=== PATIENT | male | born 1960 | race Caucasian/White ===

== ENCOUNTER 2016-06-25 19:14 | Inpatient (IN) | payer OTHER ==
[~2016-06-25] VITALS: Ht 177.8 cm; Wt 123.5 kg
[2016-06-25] MEDS ORDERED: IPRATROPIUM 0.5MG/ALBUTEROL 2.5MG INH SOL UD 3ML (DUONEB)(J7620) As Ordered ONE (20:05)
[2016-06-25] MEDS ORDERED: ASPIRIN 81 MG CHEW TABLET As Ordered ONE (20:13)
[2016-06-25] MEDS ORDERED: ACETAMINOPHEN TAB 650MG DOSE (2X325MG) As Ordered ONE (20:13)
[2016-06-25 20:16] LABS: ABG BASE EXCESS 5.4 (-2.0-2.0); ABG DEVICE NASAL CANN; ABG HCO3 28.7 MEQ/L (22.0-26.0); ABG PARTIAL PRESSURE CO2 37.6 mmHg (35.0-45.0); ABG PARTIAL PRESSURE O2 64.1 mmHg (75.0-100.0); ABG STANDARD HCO3 29.3 MEQ/L (22.0-26.0); ABG TOTAL CO2 29.9 MEQ/L (22.0-29.0); ABG pH (ARTERIAL) 7.501 UNITS (7.350-7.450)
[2016-06-25 20:22] LABS: BASO # 0.1 K/mm3 (0.0-0.2); BASO % 0.3 % (0.0-1.0); EOS % 0.2 % (0.0-3.0); LARGE UNSTAINED CELL # 0.3 K/mm3 (0.0-0.4); LARGE UNSTAINED CELL % 1.3 % (0.0-4.0); MEAN CORPUSCULAR HEMOGLOBIN 31.2 pg (27.0-33.0); MEAN CORPUSCULAR HGB CONC 33.8 g/dl (32.0-36.5); MEAN CORPUSCULAR VOLUME 92.4 fl (80.0-96.0); MONO # 1.1 K/mm3 (0.0-0.8); MONO % 5.7 % (0.0-5.0); NEUTROPHILS # 17.2 K/mm3 (1.8-7.7); NEUTROPHILS % 87.5 % (36.0-66.0); PLATELET COUNT, AUTOMATED 185 k/mm3 (150-450); RED CELL DISTRIBUTION WIDTH 13.4 % (11.5-14.5); WHITE BLOOD COUNT 19.6 K/mm3 (4.0-10.0)
[2016-06-25 20:30] LABS: ANION GAP 11 MEQ/L (8-16); BLOOD UREA NITROGEN 14 MG/DL (7-18); CALCIUM LEVEL 8.8 MG/DL (8.5-10.1); CARBON DIOXIDE LEVEL 29 MEQ/L (21-32); CHLORIDE LEVEL 94 MEQ/L (98-107); CREATININE FOR GFR 1.17 MG/DL (0.70-1.30); GLOMERULAR FILTRATION RATE > 60.0 (>56); GLUCOSE, FASTING 148 MG/DL (70-105); POTASSIUM SERUM 3.9 MEQ/L (3.5-5.1); SODIUM LEVEL 134 MEQ/L (136-145)
[2016-06-25] MEDS ORDERED: cefTRIAXone SOD 1 GM VIAL (J0696) As Ordered ONE (20:40)
[2016-06-25] MEDS ORDERED: ROSU20TA PO (20:59)
[2016-06-25] MEDS ORDERED: LISI10TA4 PO (20:59)
[2016-06-25] MEDS ORDERED: LASI40TA PO (20:59)
[2016-06-25] MEDS ORDERED: ASPI81TA85 PO (20:59)
[2016-06-25] MEDS ORDERED: LOPR50TA PO (20:59)
[2016-06-25] MEDS: METOPROLOL TART 50 MG TAB PO SCH (21:00)
[2016-06-25] MEDS: LISINOPRIL 10 MG TAB PO SCH (21:00)
[2016-06-25] MEDS ORDERED: AZITHROMYCIN INJ 500MG VIAL (J0456) As Ordered ONE (21:01)
[2016-06-25 21:07] LABS: INR 1.07
--- NOTE | 2016-06-25 21:19 | REP ---
Clinical: Shortness of breath. Technique: PA and lateral. Comparison: None. Findings: Cardiomegaly is appreciated with evidence for prior sternotomy. Right lower lobe opacity/mass. No further consolidation, effusion, or pneumothorax. Skeletal structures intact. Impression: 1. Cardiomegaly. 2. Right lower lobe opacity/mass requires further investigation including chest CT. Signed by Taran Potts MD 06/25/2016 09:10 P
--- NOTE | 2016-06-25 21:30 | REP ---
Clinical: Right lower lobe consolidation versus mass. Findings: Marked cardiomegaly is appreciated which requires correlation. The patient appears to be status post sternotomy. No pericardial effusion is identified. Right lower lobe consolidation with air bronchograms most compatible with acute pneumonia. Minimal scattered alveolar infiltrates are also identified within the right upper lobe. No pleural effusion. No pneumothorax. Tracheobronchial tree is patent. No significant obvious adenopathy. Limited evaluation of the upper abdomen demonstrates normal bilateral adrenal glands. Impression: 1. Marked cardiomegaly and evidence of prior sternotomy. 2. Moderate right lower lobe consolidation with air bronchograms and trace right upper lobe airspace disease most compatible with acute pneumonia. Follow-up to resolution recommended. Signed by Taran Potts MD 06/25/2016 09:22 P
[2016-06-25] MEDS ORDERED: BISACODYL 5 MG TAB PO PRN (23:30)
[2016-06-25] MEDS ORDERED: IPRATROPIUM 0.5MG/ALBUTEROL 2.5MG INH SOL UD 3ML (DUONEB)(J7620) NEB PRN (23:45)
[2016-06-26 00:05] LABS: T UPTAKE 32 % (33-40)
[2016-06-26 01:00] VITALS: BP 141/99
--- NOTE | 2016-06-26 01:11 | EDDOCDS ---
Nurse's Notes [facility] Name: Fahad Ovalle Age: 55 yrs Sex: Male : 1960 Arrival Date: 06/25/2016 Time: 19:14 Bed 18 Private MD: NO PRIMARY PHYSICIAN, . Diagnosis: Hypoxemia;Chronic obstructive pulmonary disease with (acute) exacerbation;Bronchopneumonia, unspecified organism-RLL;Essential (primary) hypertension;Cardiomegaly;Patient's noncompliance with medical treatment and regimen Presentation: 06/25 19:24 Presenting complaint: Patient states: that he has been having chest pressure on and off cz for several days has URI symptoms and recently started smoking again in April after having quit for 18 years. pt states hasnt smoked in a couple of days. at this time no chest pain or pressure.pt states had an [facility] 18-19 years ago. Aspirin was not taken prior to arrival. Adult Sepsis Screening: The patient does not have new or worsening altered mentation. Patient's respiratory rate is less than 22. Systolic blood pressure is greater than 100. Patient has a qSOFA score of 0- Negative Sepsis Screen. Suicide/Homicide risk assessment- the patient denies having any suicidal and/or homicidal ideations and does not present with any other emotional, behavioral or mental health complaints. Status: Patient is not a member services representative or dependent. Transition of care: patient was not received from another setting of care. 19:24 Acuity: WALDEMAR Level 2 cz 19:24 Method Of Arrival: Walkin/Carried/Asstd cz Triage Assessment: 19:28 General: Appears uncomfortable. Pain: Denies pain. HIV screening NA for this visit cz Offered previously. 19:37 Cardiovascular: Chest pain is described as vague, radiates Does not radiate. episodes ko2 are intermittent. 23:18 Cardiovascular: Chest pain began on and off for a couple days. ko2 Historical: - Allergies: not sure of name; - Home Meds: 1. not sure of medications - PMHx: back problems; heart problems; - PSHx: CABG; - The history from nurses notes was reviewed: and I agree with what is documented. - Social history: Smoking status: Patient uses tobacco products, current some day smoker. No barriers to communication noted, The patient speaks fluent French, Speaks appropriately for age. - : The pt / caregiver states he / she is not on anticoagulants. Home medication list is obtained from the patient. - Hospitalizations: : No recent hospitalization is reported. - Exposure Risk Screening:: None identified. - Immunization history:: Flu vaccine is up to date. - Family history: Not pertinent. - Social history:: the patient is a former smoker, the patient drinks alcohol. Screenin:36 Screening information is obtained from the patient. Fall risk: No risks identified. ko2 Assistance ADL's: requires no assistance with activities of daily living. Abuse/DV Screen: The patient / caregiver reports he/she is: not in a situation that causes fear, pain or injury. Nutritional screening: No deficits noted. Advance Directives: Currently, there is no health care proxy. There is no active DNR order. There is no living will. There is no Power of Senior Accounting Clerk. home support is adequate. Assessment: 19:34 General: Appears in no apparent distress, comfortable, Behavior is appropriate for age, ko2 cooperative. Pain: Denies pain. Neurological: Level of Consciousness is awake, alert, Oriented to person, place, time. Cardiovascular: Heart tones S1 S2 present Rhythm is atrial fibrillation Chest pain is denied. Respiratory: Airway is patent Respiratory effort is even, unlabored, Respiratory pattern is regular, symmetrical, Reports cough that is non-productive. Derm: Skin is normal. 20:18 General: Appears in no apparent distress, comfortable, Behavior is appropriate for age, ko2 cooperative. Pain: Denies pain. Neurological: Level of Consciousness is awake, alert. Cardiovascular: Rhythm is atrial fibrillation. Respiratory: Airway is patent. Derm: Skin is normal. 21:22 General: Appears in no apparent distress, comfortable, Behavior is appropriate for age, ko2 cooperative. Neurological: Level of Consciousness is awake, alert. Respiratory: Airway is patent Respiratory effort is even, unlabored, Respiratory pattern is regular, symmetrical. Derm: Skin is normal. 22:18 General: Appears in no apparent distress, comfortable, Behavior is appropriate for age, ko2 cooperative. Pain: Denies pain. Neurological: Level of Consciousness is awake, alert. Respiratory: Airway is patent Respiratory effort is even, unlabored. Derm: No deficits noted. 23:17 Reassessment: Patient appears in no apparent distress at this time. Patient denies pain ko2 at this time. Neurological: Level of Consciousness is awake, alert. Respiratory: Airway is patent. Derm: Skin is normal. 06/26 00:44 General: Appears in no apparent distress, comfortable, Behavior is appropriate for age, ko2 cooperative. Pain: Denies pain. Neurological: Level of Consciousness is awake, alert. Respiratory: Airway is patent Respiratory effort is even, unlabored. Derm: Skin is normal. Vital Signs: 06/25 19:15 BP 162 / 85; Pulse 96; Resp 18 S; Temp 101.4(O); Pulse Ox 93% on R/A; Weight 126.1 kg dd6 (R); Height 5 ft. 10 in. (177.80 cm) (R); Pain 10/01; 19:23 BP 191 / 118 (auto/); ko2 19:25 Pulse 98 MON; Pulse Ox 92% ; ko2 19:31 BP 185 / 102 (auto/); ko2 19:31 Pulse 92 MON; Pulse Ox 92% ; ko2 19:46 BP 177 / 87 (auto/); ko2 19:46 Pulse 94 MON; Pulse Ox 93% ; ko2 20:01 BP 168 / 93 (auto/); ko2 20:01 Pulse 92 MON; Pulse Ox 90% ; ko2 20:15 Pulse 96 MON; ko2 20:16 BP 170 / 113 (auto/); ko2 20:30 Pulse 92 MON; Pulse Ox 90% ; ko2 20:31 BP 152 / 79 (auto/); ko2 21:01 BP 129 / 78 (auto/); pc 21:01 Pulse 94 MON; pc 21:16 BP 121 / 78 (auto/); ko2 21:16 Pulse 96 MON; ko2 21:31 BP 138 / 90 (auto/); ko2 21:31 Pulse 94 MON; Pulse Ox 94% ; ko2 21:44 Pulse 84 MON; Pulse Ox 91% ; ko2 21:46 BP 129 / 79 (auto/); ko2 22:01 BP 139 / 83 (auto/); ko2 22:02 Pulse 86 MON; Pulse Ox 93% ; ko2 22:09 Pulse 84 MON; Pulse Ox 92% ; ko2 22:16 BP 122 / 70 (auto/); ko2 22:22 Temp 99.1(O); ko2 22:31 BP 122 / 70 (auto/); ko2 22:31 Pulse 84 MON; Pulse Ox 92% ; ko2 22:46 BP 157 / 101 (auto/); ko2 22:46 Pulse 88 MON; ko2 23:01 BP 150 / 95 (auto/); ko2 23:01 Pulse 84 MON; Pulse Ox 94% ; ko2 23:16 BP 150 / 94 (auto/); ko2 23:16 Pulse 82 MON; Pulse Ox 96% ; ko2 23:31 BP 164 / 102 (auto/); ko2 23:31 Pulse 88 MON; Pulse Ox 95% ; ko2 23:46 BP 143 / 94; Pulse 76; Resp 20; Temp 99.2; Pulse Ox 95% ; Pain 0/10; ko2 19:15 Body Mass Index 39.89 (126.10 kg, 177.80 cm) dd6 Vitals: 19:15 Log In Time: June 25, 2016 at 19:15. RN notified that patient meets Red Flag dd6 criteria. ED Course: 19:15 Patient visited by Alex Cano PCA. dd6 19:15 NO PRIMARY PHYSICIAN, . is Private Physician. dd6 19:15 Patient moved to Waiting dd6 19:18 Patient visited by Alex Cano PCA. dd6 19:19 Patient moved to Pre RCE dd6 19:20 Rosio Damon,RN is Primary Nurse. cz 19:20 Patient moved to 18 cz 19:26 Triage Initiated cz 19:29 EKG done. (by ED staff). Reviewed by Tristan YEE. tre 19:36 Patient visited by Melinda Rivas PCA. rte 19:36 Aryan Bay MD is Attending Physician. pc 19:36 Pt greeted and oriented to ED. Patient advised of names of staff involved in care, tre location of call le, wait times and NPO status. Patient has correct armband on for positive identification. Placed in gown. Bed in low position. Call light in reach. Side rails up X2. hydraulic jack operator on. Pulse ox on. NIBP on. 19:37 Inserted saline lock: 18 gauge in left antecubital area and blood collected. The ko2 patient tolerated the procedure well. 19:55 Patient visited by Aryan Bay MD. pc 20:09 Pt & Aptt Sent. ko2 20:09 -Blood Culture Sent. ko2 20:09 -Influenza A&B Rapid Antigen - Nose Sent. ko2 20:09 Basic Metabolic Profile Sent. ko2 20:09 CBC with Diff Sent. ko2 20:09 Cardiac Injury Profile Sent. ko2 20:09 Troponin Sent. ko2 20:14 -Arterial Blood Gas Sent. jc3 20:46 Patient visited by Rosio Damon RN. ko2 21:26 Patient visited by Rosio Damon RN. ko2 21:26 O2 via nasal cannula \T\ 2L/min. ko2 21:27 Patient visited by Rosio Damon RN. ko2 21:39 Chest, 2 View (pa\E\lat) Returned. EDMS 21:39 CT Chest Without Contrast Returned. EDMS 22:18 Patient visited by Rosio Damon RN. ko2 22:22 Randy Avery DO is Hospitalizing Provider. 22:47 [facility] Payment Agreement was scanned into [employer] and attached to record. zo 23:18 The patient / caregiver is instructed regarding the plan of care and ED course. ko2 23:57 No procedures done that require assistance. ko2 Administered Medications: 20:14 Drug: Albuterol-Ipratropium 3 ml [ipratropium-albuterol 0.5 mg-3 mg(2.5 mg base)/3 mL jc3 nebulization soln (3 mL)] Route: Inhalation; 20:18 Drug: Acetaminophen 650 mg [acetaminophen 325 mg tablet (2 tabs)] Route: PO; ko2 23:00 Follow up: Response: Temperature is decreased ko2 20:18 Drug: Aspirin 324 mg [aspirin 81 mg chewable tablet (4 tabs)] Route: PO; ko2 23:00 Follow up: Response: No Adverse Reaction ko2 20:46 Drug: cefTRIAXone 1 grams [ceftriaxone 1 gram solution for injection] Route: IVPB; ko2 Infused Over: 30 mins; Site: left antecubital; :29 Follow up: IV Status: Completed infusion; IV Intake: 50ml ko2 21:20 Drug: azithromycin 500 mg [azithromycin 500 mg intravenous solution] Route: IVPB; mgs Infused Over: 1 hrs; Site: left antecubital; 22:22 Follow up: IV Status: Completed infusion; IV Intake: 250ml ko2 Intake: :29 IV: 50.00ml; Total: 50.00ml. ko2 22:22 IV: 250.00ml; Total: 300.00ml. ko2 RT: 20:14 ABG's drawn from right radial artery pressure held for 5 minutes no bleeding noted jc3 pressure bandage applied specimen sent pt. tolerated well. Initial Med Neb Given as ordered. Respiratory: Breath sounds are diminished bilaterally. Order Results: Lab Order: Basic Metabolic Profile; SPEC'M 06/25/16 19:31 Test: GLUCOSE, FASTING; Value: 148; Range: 70-105; Abnormal: Above high normal; Units: MG/DL; Status: F Test: BLOOD UREA NITROGEN; Value: 14; Range: 7-18; Units: MG/DL; Status: F Test: CREATININE FOR GFR; Value: 1.17; Range: 0.70-1.30; Units: MG/DL; Status: F Test: GLOMERULAR FILTRATION RATE; Value: > 60.0; Range: >56; Status: F Test: SODIUM LEVEL; Value: 134; Range: 136-145; Abnormal: Below low normal; Units: MEQ/L; Status: F Test: POTASSIUM SERUM; Value: 3.9; Range: 3.5-5.1; Units: MEQ/L; Status: F Test: CHLORIDE LEVEL; Value: 94; Range: 98-107; Abnormal: Below low normal; Units: MEQ/L; Status: F Test: CARBON DIOXIDE LEVEL; Value: 29; Range: 21-32; Units: MEQ/L; Status: F Test: ANION GAP; Value: 11; Range: 8-16; Units: MEQ/L; Status: F Test: CALCIUM LEVEL; Value: 8.8; Range: 8.5-10.1; Units: MG/DL; Status: F Test Note: ; Units are mL/min/1.73 m2 Chronic Kidney Disease Staging per NKF: Stage I & II GFR >=60 Normal to Mildly Decreased Stage III GFR 30-59 Moderately Decreased Stage IV GFR 15-29 Severely Decreased Stage V GFR <15 Very Little GFR Left ESRD GFR <15 on NUMERICAL CONTROL LATHE OPERATOR Lab Order: CBC with Diff; SPEC'M 06/25/16 19:31 Test: WHITE BLOOD COUNT; Value: 19.6; Range: 4.0-10.0; Abnormal: Above high normal; Units: K/mm3; Status: F Test: RED BLOOD COUNT; Value: 4.97; Range: 4.30-6.10; Units: M/mm3; Status: F Test: HEMOGLOBIN; Value: 15.5; Range: 14.0-18.0; Units: g/dl; Status: F Test: HEMATOCRIT; Value: 46.0; Range: 42.0-52.0; Units: %; Status: F Test: MEAN CORPUSCULAR VOLUME; Value: 92.4; Range: 80.0-96.0; Units: fl; Status: F Test: MEAN CORPUSCULAR HEMOGLOBIN; Value: 31.2; Range: 27.0-33.0; Units: pg; Status: F Test: MEAN CORPUSCULAR HGB CONC; Value: 33.8; Range: 32.0-36.5; Units: g/dl; Status: F Test: RED CELL DISTRIBUTION WIDTH; Value: 13.4; Range: 11.5-14.5; Units: %; Status: F Test: PLATELET COUNT, AUTOMATED; Value: 185; Range: 150-450; Units: k/mm3; Status: F Test: NEUTROPHILS %; Value: 87.5; Range: 36.0-66.0; Abnormal: Above high normal; Units: %; Status: F Test: LYMPH %; Value: 5.0; Range: 24.0-44.0; Abnormal: Below low normal; Units: %; Status: F Test: MONO %; Value: 5.7; Range: 0.0-5.0; Abnormal: Above high normal; Units: %; Status: F Test: EOS %; Value: 0.2; Range: 0.0-3.0; Units: %; Status: F Test: BASO %; Value: 0.3; Range: 0.0-1.0; Units: %; Status: F Test: LARGE UNSTAINED CELL %; Value: 1.3; Range: 0.0-4.0; Units: %; Status: F Test: NEUTROPHILS #; Value: 17.2; Range: 1.8-7.7; Abnormal: Above high normal; Units: K/mm3; Status: F Test: LYMPH #; Value: 1.0; Range: 1.5-4.5; Abnormal: Below low normal; Units: K/mm3; Status: F Test: MONO #; Value: 1.1; Range: 0.0-0.8; Abnormal: Above high normal; Units: K/mm3; Status: F Test: EOS #; Value: 0.0; Range: 0.0-0.50; Units: K/mm3; Status: F Test: BASO #; Value: 0.1; Range: 0.0-0.2; Units: K/mm3; Status: F Test: LARGE UNSTAINED CELL #; Value: 0.3; Range: 0.0-0.4; Units: K/mm3; Status: F Lab Order: Cardiac Injury Profile; SPEC'M 06/25/16 19:31 Test: CPK CREATINE PHOSPHOKINASE; Value: 171; Range: 39-308; Units: U/L; Status: F Test: CK-MB VALUE MASS; Value: 1.6; Range: 0.0-3.6; Units: NG/ML; Status: F Test: MB/CK RELATIVE INDEX; Value: 0.93; Range: < OR =4; Status: F Test Note: ; DIAGNOSIS CRITERIA MMB ng/ml Relative Index (RI) NON-AMI < or = 5 N/A MIRELES ZONE > 5 < or = 4 AMI > 5 > 4 Lab Order: Troponin; SPEC'M 06/25/16 19:31 Test: TROPONIN I; Value: 0.05; Range: < 0.10; Units: NG/ML; Status: F Test Note: ; Troponin I Reference Interval for [employer] LOCI: 99th Percentile= 0.00-0.045 ng/ml Risk Stratification: <= 0.10 ng/ml Decreased Risk for Adverse Clinical Events. 0.10-1.50 ng/ml Increased Risk for Adverse Clinical Events. Evaluation of additional criterion and/or repeat testing in 2-6 hours is suggested to rule out myocardial damage. >= 1.50 ng/ml Indicative of Myocardial Injury. Lab Order: -Influenza A&B Rapid Antigen - Nose; SPEC'M 06/25/16 20:04 Test: INFLUENZA A RAPID SCR by ICA; Value: INFLUENZA A RESULTS NEGATIVE; Status: F Test: INFLUENZA A RAPID SCR by ICA; Value: Comments:; Status: F Test: INFLUENZA B RAPID SCR by ICA; Value: INFLUENZA B RESULTS NEGATIVE; Status: F Test Note: ; The Influenza test is a direct rapid immunoassay for the qualitative detection of Influenza viral antigen. Cell culture (Viral Culture) testing should be considered to confirm NEGATIVE results and to assist in detecting other viruses that can provide similar clinical symptoms. Please contact the lab within 24 hours ([phone]) if confirmatory testing is desired. Lab Order: Lactic Acid (Mireles tube on ice); SPEC'M 06/25/16 20:04 Test: LACTIC ACID LEVEL, LACTATE; Value: 1.0; Range: 0.4-2.0; Units: MMOL/L; Status: F Lab Order: -Arterial Blood Gas; SPEC'M 06/25/16 20:07 Test: ABG pH (ARTERIAL); Value: 7.501; Range: 7.350-7.450; Abnormal: Above high normal; Units: UNITS; Status: F Test: ABG PARTIAL PRESSURE CO2; Value: 37.6; Range: 35.0-45.0; Units: mmHg; Status: F Test: ABG PARTIAL PRESSURE O2; Value: 64.1; Range: 75.0-100.0; Abnormal: Below low normal; Units: mmHg; Status: F Test: ABG TOTAL CO2; Value: 29.9; Range: 22.0-29.0; Abnormal: Above high normal; Units: MEQ/L; Status: F Test: ABG HCO3; Value: 28.7; Range: 22.0-26.0; Abnormal: Above high normal; Units: MEQ/L; Status: F Test: ABG BASE EXCESS; Value: 5.4; Range: -2.0-2.0; Abnormal: Above high normal; Status: F Test: ABG STANDARD HCO3; Value: 29.3; Range: 22.0-26.0; Abnormal: Above high normal; Units: MEQ/L; Status: F Test: ABG O2 SATURATION; Value: 94.7; Range: 95.0-99.0; Abnormal: Below low normal; Units: %; Status: F Test: ABG DEVICE; Value: NASAL MAURICIO; Status: F Lab Order: Pt & Aptt; SPEC'M 06/25/16 19:31 Test: PROTHROMBIN TIME; Value: 14.0; Range: 12.3-14.5; Units: SECONDS; Status: F Test: INR; Value: 1.07; Status: F Test: PARTIAL THROMBOPLASTIN TIME; Value: 34.4; Range: 26.6-37.1; Units: SECONDS; Status: F Test Note: ; THERAPUTIC HUMAN INR VALUES INDICATIONS NORMAL RANGES PROPHYLAXIS/TREATMENT OF: VENOUS THROMBOSIS 2.0-3.0 PULMONARY EMBOLISM 2.0-3.0 PREVENTION OF SYSTEMIC EMBOLISM FROM: TISSUE HEART VALVES 2.0-3.0 ACUTE MYOCARDIAL INFARCTION 2.0-3.0 VALVULAR HEART DISEASE 2.0-3.0 ATRIAL FIBRILLATION 2.0-3.0 MECHANICAL VALVES(HIGH RISK) 2.5-3.5 RECURRENT MYOCARDIAL INFARCTION 2.5-3.5 Lab Order: [facility] PROFILE; [facility] 06/[facility] 19:31 Test: T UPTAKE; Value: 32; Range: 33-40; Abnormal: Below low normal; Units: %; Status: F Test: THYROXINE (T4); Value: 10.0; Range: 4.5-12.0; Units: UG/DL; Status: F Test: FREE THYROXINE INDEX; Value: 3.2; Range: 1.4-3.8; Units: %; Status: F Test: THYROID STIMULATING HORMONE; Value: 0.667; Range: 0.358-3.740; Units: uIU/ML; Status: F Radiology Order: Chest, 2 View (pa\E\lat) Test: Chest, 2 View (pa\E\lat) REASON FOR EXAMINATION: Shortness of Breath; Clinical: Shortness of breath.; ; Technique: PA and lateral.; ; Comparison: None.; ; Findings: Cardiomegaly is appreciated with evidence for prior sternotomy. Right; lower lobe opacity/mass. No further consolidation, effusion, or pneumothorax.; Skeletal structures intact.; ; Impression:; 1. Cardiomegaly.; 2. Right lower lobe opacity/mass requires further investigation including chest; CT.; ; ; Signed by; Taran Potts MD 06/25/2016 09:10 P; Radiology Order: CT Chest Without Contrast Test: CT Chest Without Contrast REASON FOR EXAMINATION: RLL infiltrate r/o mass; Clinical: Right lower lobe consolidation versus mass.; ; Findings:; Marked cardiomegaly is appreciated which requires correlation. The patient; appears to be status post sternotomy. No pericardial effusion is identified.; ; Right lower lobe consolidation with air bronchograms most compatible with acute; pneumonia. Minimal scattered alveolar infiltrates are also identified within the; right upper lobe. No pleural effusion. No pneumothorax. Tracheobronchial tree; is patent. No significant obvious adenopathy. Limited evaluation of the upper; abdomen demonstrates normal bilateral adrenal glands.; ; Impression:; 1. Marked cardiomegaly and evidence of prior sternotomy.; 2. Moderate right lower lobe consolidation with air bronchograms and trace right; upper lobe airspace disease most compatible with acute pneumonia. Follow-up to; resolution recommended.; ; ; Signed by; Taran Potts MD 06/25/2016 09:22 P; Outcome: 22:22 Decision to Hospitalize by Provider. pc 23:56 Admission hand-off: Report Faxed Fax receipt verified by Francesca Marcelo RN PCU. ko2 23:57 Discharge Assessment: Patient awake, alert and oriented x 3. No cognitive and/or ko2 functional deficits noted. Patient verbalized understanding of disposition instructions. patient administered narcotics - no. The following High Risk Discharge criteria are identified: None. Admitted to PCU accompanied by nurse, accompanied by tech, via stretcher, with oxygen, on monitor, with chart. Condition: stable. CT Study completed. Property :Personal belongings accompany Pt. 06/26 01:10 Patient left the ED. ko2 Signatures: Dispatcher [employer] Aryan Rene MD MD pc Zecher, Calvin, RAMOS RN Kvng Gama Joseph jc3 Alex Cano, TRANSPLANT NURSE PRACTITIONER TRANSPLANT NURSE PRACTITIONER dd6 Melinda Rivas, TRANSPLANT NURSE PRACTITIONER TRANSPLANT NURSE PRACTITIONER Rosio SalesRN RN ko2 Randy Zurita,RAMOS RN mgs Corrections: (The following items were deleted from the chart) 06/25 19:32 19:24 Presenting complaint: Patient states: that he has been having chest pressure on cz and off for several days has URI symptoms and recently started smoking again in April after having quit for 18 years. pt states hasnt smoked in a couple of days. at this time no chest pain or pressure cz MTDD
--- NOTE | 2016-06-26 01:11 | EDDOCDS ---
Physician Documentation [facility] Name: Fahad Ovalle Age: 55 yrs Sex: Male : 1960 Arrival Date: 06/25/2016 Time: 19:14 Bed 18 Private MD: NO PRIMARY PHYSICIAN, . Disposition: 06/25 22:19 Critical Care:. pc Disposition: 06/25/16 22:22 Hospitalization ordered by Randy Avery for Inpatient Admission. Preliminary diagnosis are Hypoxemia, Chronic obstructive pulmonary disease with (acute) exacerbation, Bronchopneumonia, unspecified organism - RLL, Essential (primary) hypertension, Cardiomegaly, Patient's noncompliance with medical treatment and regimen. - Bed requested for M PCU. - Status is Inpatient Admission. ko2 - Condition is Stable. - Problem is new. - Symptoms have improved. HPI: 20:34 This 55 yrs old Male presents to ER via Walkin/Carried/Asstd with complaints pc of Chest Pressure. 20:34 The history is obtained from the patient. A reliable history and/or examination was not pc able to be obtained, due to he is a very poor historian . He has had a cough for 2 weeks, with fevers and chills in the past 2 days. He has intermittent chest pain, lasting 1-2 minutes, at rest and with exertion. He has not seen a PCP in some 12 years, except for going to free clinic once every 1-2 years. The patient has not experienced similar symptoms in the past. The patient has not recently seen a physician. Historical: - Allergies: not sure of name; - Home Meds: 1. not sure of medications - PMHx: back problems; heart problems; - PSHx: CABG; - The history from nurses notes was reviewed: and I agree with what is documented. - Social history: Smoking status: Patient uses tobacco products, current some day smoker. No barriers to communication noted, The patient speaks fluent Ma[place], Speaks appropriately for age. - : The pt / caregiver states he / she is not on anticoagulants. Home medication list is obtained from the patient. - Hospitalizations: : No recent hospitalization is reported. - Exposure Risk Screening:: None identified. - Immunization history:: Flu vaccine is up to date. - Family history: Not pertinent. - Social history:: the patient is a former smoker, the patient drinks alcohol. ROS: 20:34 All systems are negative except as listed. pc Exam: 20:34 General Appearance: alert, the patient is in mild distress. pc 20:34 EENT: normal eye inspection, ears, nose and throat normal, pharynx normal, mucous membranes moist 20:34 Neck: The exam reveals no acute abnormalities. ROM is normal and painless. No nuchal rigidity is noted.. 20:34 Respiratory: no respiratory distress, chest non-tender, Breath sounds: rhonchi, wheezing, in the right posterior middle lobe. 20:34 CVS: regular pulse rate, normal S1 and S2, no murmurs, strong peripheral pulses, normal capillary refill, irregularly irregular 20:34 Abdomen: soft, non-tender, no organomegaly, normal bowel sounds. 20:34 Back: normal inspection. 20:34 Skin: skin color is normal, warm, dry. 20:34 Extremities: The extremities have a grossly normal appearance, are non-tender, without acute ROM abnormalities, with pedal edema noted, is 1+ edema bilaterally 20:34 Neuro: oriented x 3, cranial nerves normal as tested, no motor deficits, no sensory deficits. 20:34 Psych: normal mood. Vital Signs: 19:15 BP 162 / 85; Pulse 96; Resp 18 S; Temp 101.4(O); Pulse Ox 93% on R/A; Weight 126.1 kg / dd6 278 lbs (R); Height 5 ft. 10 in. (177.80 cm) (R); Pain 4/10; 19:23 BP 191 / 118 (auto/); ko2 19:25 Pulse 98 MON; Pulse Ox 92% ; ko2 19:31 BP 185 / 102 (auto/); ko2 19:31 Pulse 92 MON; Pulse Ox 92% ; ko2 19:46 BP 177 / 87 (auto/); ko2 19:46 Pulse 94 MON; Pulse Ox 93% ; ko2 20:01 BP 168 / 93 (auto/); ko2 20:01 Pulse 92 MON; Pulse Ox 90% ; ko2 20:15 Pulse 96 MON; ko2 20:16 BP 170 / 113 (auto/); ko2 20:30 Pulse 92 MON; Pulse Ox 90% ; ko2 20:31 BP 152 / 79 (auto/); ko2 21:01 BP 129 / 78 (auto/); pc 21:01 Pulse 94 MON; pc 21:16 BP 121 / 78 (auto/); ko2 21:16 Pulse 96 MON; ko2 21:31 BP 138 / 90 (auto/); ko2 21:31 Pulse 94 MON; Pulse Ox 94% ; ko2 21:44 Pulse 84 MON; Pulse Ox 91% ; ko2 21:46 BP 129 / 79 (auto/); ko2 22:01 BP 139 / 83 (auto/); ko2 22:02 Pulse 86 MON; Pulse Ox 93% ; ko2 22:09 Pulse 84 MON; Pulse Ox 92% ; ko2 22:16 BP 122 / 70 (auto/); ko2 22:22 Temp 99.1(O); ko2 22:31 BP 122 / 70 (auto/); ko2 22:31 Pulse 84 MON; Pulse Ox 92% ; ko2 22:46 BP 157 / 101 (auto/); ko2 22:46 Pulse 88 MON; ko2 23:01 BP 150 / 95 (auto/); ko2 23:01 Pulse 84 MON; Pulse Ox 94% ; ko2 23:16 BP 150 / 94 (auto/); ko2 23:16 Pulse 82 MON; Pulse Ox 96% ; ko2 23:31 BP 164 / 102 (auto/); ko2 23:31 Pulse 88 MON; Pulse Ox 95% ; ko2 23:46 BP 143 / 94; Pulse 76; Resp 20; Temp 99.2; Pulse Ox 95% ; Pain 0/10; ko2 19:15 Body Mass Index 39.89 (126.10 kg, 177.80 cm) dd6 MDM: 19:22 ECG WITH READING ER PHYS+CARDIAG ordered. EDMS 19:57 Otr Owner Operator/Pulse Ox/q 30 min VS ordered. pc 19:57 IV Saline Lock ordered. pc 19:57 Rhythm Strip to chart ordered. pc 19:57 Obtain sample by nasopharyngeal swab ordered. pc 19:57 Acetaminophen Tablet 650 mg PO once ordered. pc 19:57 -Blood Culture (Adults Only), peripheral from different site, or from device/port/PICC pc etc. if present ordered. 19:57 Call Respiratory ordered. pc 19:57 Albuterol-Ipratropium 3 ml Inhalation once ordered. pc 19:58 Call Respiratory complete. ko2 19:58 -Blood Culture (Adults Only), peripheral from different site, or from device/port/PICC sew etc. if present complete. 19:58 Aspirin Chewable Tablet 324 mg PO once ordered. pc 19:59 Chest, 2 View (pa\E\lat) Ordered. EDMS 19:59 Basic Metabolic Profile Ordered. EDMS 19:59 CBC with Diff Ordered. EDMS 19:59 Cardiac Injury Profile Ordered. EDMS 19:59 Troponin Ordered. EDMS 19:59 -Influenza A&B Rapid Antigen - Nose Ordered. EDMS 19:59 -Blood Culture Ordered. EDMS 19:59 Lactic Acid (Mireles tube on ice) Ordered. EDMS 19:59 -Arterial Blood Gas Ordered. EDMS 19:59 Pt & Aptt Ordered. EDMS 19:59 Test interpretation: EKG. pc 20:00 BLOOD CULTURES Ordered. EDMS 20:34 Differential Diagnosis: SOB suspect RLL pneumonia r/o CHF; chest pain r/o ACS; HTN pc without medications for years. Plan: labs, EKG, meds, CXR. 20:38 Basic Metabolic Profile Reviewed. pc 20:38 CBC with Diff Reviewed. pc 20:38 -Arterial Blood Gas Reviewed. pc 20:38 Cardiac Injury Profile Reviewed. pc 20:38 Troponin Reviewed. pc 20:38 -Influenza A&B Rapid Antigen - Nose Reviewed. pc 20:38 CT Chest Without Contrast Ordered. EDMS 20:39 azithromycin 500 mg IVPB once over 1 hrs; dilute in 250mL of D5W or NS ordered. pc 20:39 cefTRIAXone 1 grams IVPB once over 30 mins; dilute in 50mL of NS or D5W ordered. pc 20:42 BED REQUEST+ADM ordered. EDMS 21:13 Lactic Acid (Mireles tube on ice) Reviewed. pc 21:13 Pt & Aptt Reviewed. pc 21:14 Oxygen at 2L/min via NC ordered. pc 21:17 Financial registration complete. zo 22:19 Data reviewed: old medical records, vital signs, nurses notes, EKG(s), lab test pc results, all radiology studies and available results. Test interpretation: LAB - all labs as ordered have been reviewed, interpreted and considered in the overall management of the clinical presentation; X-RAY - interpreted by me, 2 view chest, CM, large RLL infiltrate interpreted by Radiologist and personally reviewed, Chest CT; CM, RLL and RUL infiltrates. The patient has been re-examined and re-evaluated. The patient's symptoms have mildly improved after treatment. Physician consultation: Dr. Randy Avery DO regarding admission, and will see patient in ED. Disposition: The historical points, examination findings, and any diagnostic results supporting the provided diagnosis, were discussed with the patient or legal guardian. The need for further work-up and/or treatment in the hospital was explained. 22:47 [facility] Payment Agreement was scanned into [employer] and attached to record. zo 23:29 Admission / Observation Status ordered. EDMS 23:29 LOW FAT LOW CHOLESTEROL DIET ordered. EDMS 23:31 CBC WITH DIFFERENTIAL Ordered. EDMS 23:31 COMPLETE COMPHRENSIVE METABOLI Ordered. EDMS 23:31 MAGNESIUM LEVEL Ordered. EDMS 23:33 CARDIAC MARKER PANEL Ordered. EDMS 23:33 CARDIAC MARKER PANEL Ordered. EDMS 23:37 LEGIONELLA ANTIGEN URINE Ordered. EDMS 23:37 URINE STREP PNEUMONIAE ANTIGEN Ordered. EDMS 23:37 INFLUENZA A&B RAPID ANTIGEN Ordered. EDMS 23:37 SPUTUM CULTURE AND GRAM STAIN Ordered. EDMS 23:39 THYROID PROFILE Ordered. EDMS 0103 00:19 ECHOCARD,DOPPLER/COLOR FLOW ordered. EDMS EC/02 19:59 Rate is 94 beats/min. Rhythm is irregularly irregular, A fib. QRS [place] is Normal. QRS pc interval is prolonged at 154 msec. QT interval is normal. Q waves are Old in lead III. T waves are Normal. No ST changes noted. Clinical impression: Atrial Fibrillation w/o RVR and IVCD, baseline artifact. Administered Medications: 20:14 Drug: Albuterol-Ipratropium 3 ml [ipratropium-albuterol 0.5 mg-3 mg(2.5 mg base)/3 mL jc3 nebulization soln (3 mL)] Route: Inhalation; 20:18 Drug: Acetaminophen 650 mg [acetaminophen 325 mg tablet (2 tabs)] Route: PO; ko2 23:00 Follow up: Response: Temperature is decreased ko2 20:18 Drug: Aspirin 324 mg [aspirin 81 mg chewable tablet (4 tabs)] Route: PO; ko2 23:00 Follow up: Response: No Adverse Reaction ko2 20:46 Drug: cefTRIAXone 1 grams [ceftriaxone 1 gram solution for injection] Route: IVPB; ko2 Infused Over: 30 mins; Site: left antecubital; 21:29 Follow up: IV Status: Completed infusion; IV Intake: 50ml ko2 21:20 Drug: azithromycin 500 mg [azithromycin 500 mg intravenous solution] Route: IVPB; mgs Infused Over: 1 hrs; Site: left antecubital; 22:22 Follow up: IV Status: Completed infusion; IV Intake: 250ml ko2 Critical Care Time: 22:19 Critical care time: Bedside Care: 20 minutes, Consultation: 10 minutes, Family pc Intervention: 10 minutes. Total time: 40 minutes Signatures: Dispatcher [employer] EDMS Aryan Bya MD MD pc Zecher, Calvin, RN RN cz Kvng Ching Sarah sew Ogden, Kari, RN RN ko2 Sam Kelsey3 Randy Zurita RN mgs The chart was reviewed and I authenticate all verbal orders and agree with the evaluation and treatment provided.Corrections: (The following items were deleted from the chart) 23:39 23:35 THYROID PROFILE ordered. EDMS EDMS Attachments: 22:47 [facility] [place] MTDD
[2016-06-26] MEDS: IPRATROPIUM 0.5MG/ALBUTEROL 2.5MG INH SOL UD 3ML (DUONEB)(J7620) NEB SCH ×4 (01:25→21:21)
[2016-06-26] MEDS ORDERED: ACETAMINOPHEN TAB 650MG DOSE (2X325MG) PO PRN (02:45)
--- NOTE | 2016-06-26 04:12 | HPE ---
DATE OF ADMISSION: 06/25/2016 PRIMARY CARE PHYSICIAN: Patient does not have primary care physician at this time. CHIEF COMPLAINT: Dyspnea exacerbation, chest pain. HISTORY OF PRESENT ILLNESS: Mr. Ovalle is a 55-year-old male with multiple past medical history who presents to emergency room (ER) due to experiencing shortness of breath, coughing, fatigue, chest pain for the past 2 days. Patient expressed that he was at home when the symptom started. Patient feels mild chest pain, mostly located in the middle of the sternum with no radiation. Patient also expressed that he has been having cough on and off; however, his cough has increased for the past 2 days with the production of yellowish sputum. Patient denies night sweats or chills; however, patient expressed that he felt warm, however, he did not take his temperature. Patient denies sick contact. Patient denies acute vision or hearing changes. Patient also denies losing appetite. Patient expressed that he had the flu vaccine earlier this year. Patient denies nausea or vomiting. Patient's brother, who accompanied the patient, expressed that he has been having chest pain for the past several weeks; however, patient has not sought medical attention. At ER, patient received 300 mg of acetaminophen, aspirin 324, and the patient received dose of ceftriaxone and azithromycin and hospitalist was called to admit the patient. ALLERGIES: Patient has an allergy to ACETAMINOPHEN and HYDROCODONE. HOME MEDICATIONS: - aspirin 81 mg by mouth daily - Lasix 40 mg by mouth daily - lisinopril 10 mg by mouth twice a day - Lopressor 50 mg by mouth twice a day - rosuvastatin 20 mg by mouth daily PAST MEDICAL HISTORY: 1. Back pain. 2. Status post coronary artery bypass graft (CABG). 3. Hypertension. PAST SURGICAL HISTORY: CABG. SOCIAL HISTORY: Patient lives with his . Patient has one pig. Patient has not traveled outside of [place]. Patient denies history of alcohol usage. Patient denies history of illicit drug use. Patient expressed that he started smoking about a month ago; however, patient expressed that he has not been smoking for several years, however, before that patient used to smoke about two packs a day. At this time, since last month, patient has smoked about a pack a day. FAMILY HISTORY: Patient has one son and two daughters who are healthy. Patient has four brothers and four sisters who all have heart problems and diabetes. Patient's father due to car accident. Patient's mother due to diabetes and cardiac surgery. REVIEW OF SYSTEMS: GENERAL: Patient denies chills, night sweats; however, patient expressed that he has episodes of feeling warm, however, patient did not take his temperature. Patient denies weight loss or weight gain. HEENT: Patient denies acute vision or hearing changes. The patient denies problem with chewing food or sinusitis. NECK: Patient denies lumps, bumps or decreased range of motion of his neck. CHEST: Patient denies chest pain, palpitations, racing or skipping heartbeat. LUNGS: Patient expressed that he has been coughing with the production of yellow sputum. Patient denies shortness of breath. ABDOMEN: Patient denies abdominal pain, nausea, vomiting, diarrhea or constipation, melena, hematochezia. NEUROLOGIC: Patient denies a history of transient ischemic attack (TIA), CVA, or seizure type activities. PHYSICAL EXAMINATION: VITAL SIGNS: Blood pressure 162/85, pulse 96, respiratory rate 18, temperature 101.4, pulse oximetry 93% on room air. Weight 126.1 kg, height 177.8 cm, body mass index (BMI) 39.89. GENERAL APPEARANCE: The patient was sitting on the chair in no acute distress. The patient was awake, alert, and oriented to time, place and person. HEENT: Normocephalic, atraumatic. Pupils are equal. Oral mucosa is moist. NECK: Soft, supple. No lymphadenopathy. No thyromegaly. HEART: Regular rate and rhythm. Normal S1, S2. ABDOMEN: Soft, nontender, positive bowel sounds in all quadrants. LUNGS: Patient has scattered rhonchi at the base of the lungs. Patient has inhale and exhale wheezing. NEUROLOGICAL: Cranial nerves II-XII intact. No focal deficiencies. EXTREMITIES: Patient has mild pitting edema in both lower extremities. +2 pulses in both lower extremities. Patient has normal range of motion in both upper and lower extremities. LABORATORY DATA: White blood cells 19.6, red blood cells 4.97, hemoglobin 15.5, hematocrit 46, MCV 92.4, MCH 31.2, MCHC 33.8, RDW 13.4, platelet count 185. Neutrophil percentage 87.5, lymphocyte percentage 5, monocyte percentage 5.7, eosinophil percentage 0.2, basophil percentage 0.3, leukocyte percentage 1.3. ABG bicarbonate 29.3, ABG pH 7.501, ABG pCO2 37.6, ABG pCO2 64.1, ABG HCO3 28.7, ABG total CO2 29.9, ABG oxygen saturation 94.7, ABG base excess 5.4, oxygen delivery device nasal cannula. Sodium 134, potassium 3.9, chloride 94, carbon dioxide 29, anion gap 11, BUN 14, creatinine 1.17, glomerular filtration rate more than 60, fasting glucose 148, lactic acid 1, calcium 8.8, total creatinine 171, CK-MB 1.6, CK-MB relative index 0.93, troponin I is 0.05. PT 14, INR 1.07, APTT 34.4. Blood culture is pending. Influenza A and B are pending. IMAGING TECHNIQUES: Chest x-ray shows cardiomegaly, right lower lobe opacity mass. CT of the chest without contrast which shows marked cardiomegaly and evidence of the prior sternotomy, moderate right lower lobe consolidation with air bronchograms and trace right upper lobe airspace disease most compatible with acute pneumonia. ASSESSMENT AND PLAN: 1. Community-acquired pneumonia. Imaging studies indicative of middle right lower lobe consolidation and a trace of upper lobe airspace disease compatible with the acquired acute pneumonia. We have started the patient on azithromycin and ceftriaxone. Also, I started patient on breathing treatment and I have ordered Acapella, as well as incentive spirometry. The sputum culture and gram stain is pending at this time. Also, I have ordered urine Streptococcus pneumoniae antigen and Legionella antigen urine and result is pending at this time. 2. Possible Afib: The EKG performed at ER concerning for possible Afib. Rate is controlled and he is on Lopressor. Patient is also on Aspirin however his CDR2OL2-IAPm is high. 3. Leukocytosis. This is possibly secondary to pneumonia. We will continue monitoring patient for any abnormal symptoms. 4. Metabolic alkalosis. Arterial blood gas (ABG), which was performed earlier, shows metabolic alkalosis. At this time, we are starting patient on nasal cannula for the oxygen saturation of 89-92%. Will continue to monitor patient for any abnormal symptoms. 5. Coronary artery bypass graft (CABG). Patient has a history of CABG; however , at this time patient does not have any recent echocardiogram done. We will order echocardiogram and we will continue patient on current dosage of lisinopril and metoprolol. Patient was on low-dose statin; however, I have changed it to high intensity statin (Lipitor 80 mg by mouth daily). We will continue patient on aspirin. 6. COPD. we will continue him on nasal cannula for the oxygen saturation of 89- 92% and breathing treatment. 7. Deep venous thrombosis (DVT) prophylaxis. We will start patient on Lovenox 40 mg daily by mouth. My preceptor for this patient encounter was Dr. Randy Avery. The preceptor was physically present in the building during the encounter and was fully available as needed. All aspects of the patient interview, examination, medical decision making process, and medical care plan development were reviewed and approved by the preceptor. The preceptor is aware and concurs with the plan as stated in the body of this note and will attest to such by his/her co-signature. MURALI
[2016-06-26 05:15] VITALS: BP 125/79
[2016-06-26 05:40] LABS: EOS % 0.2 % (0.0-3.0); LYMPH % 3.9 % (24.0-44.0); MEAN CORPUSCULAR HEMOGLOBIN 30.3 pg (27.0-33.0); MEAN CORPUSCULAR HGB CONC 32.6 g/dl (32.0-36.5); MONO % 4.6 % (0.0-5.0); PLATELET COUNT, AUTOMATED 170 k/mm3 (150-450); RED CELL DISTRIBUTION WIDTH 13.5 % (11.5-14.5); WHITE BLOOD COUNT 18.8 K/mm3 (4.0-10.0)
[2016-06-26 05:41] LABS: BASO % 0.2 % (0.0-1.0); LARGE UNSTAINED CELL # 0.2 K/mm3 (0.0-0.4); LARGE UNSTAINED CELL % 1.1 % (0.0-4.0); LYMPH # 0.7 K/mm3 (1.5-4.5); MONO # 0.9 K/mm3 (0.0-0.8); NEUTROPHILS # 16.9 K/mm3 (1.8-7.7)
[2016-06-26 05:57] LABS: ALBUMIN 3.1 GM/DL (3.2-5.2); ALBUMIN/GLOBULIN RATIO 0.84 (1.00-1.93); ALKALINE PHOSPHATASE 77 U/L (45-117); ALT/SGPT 9 U/L (12-78); ANION GAP 8 MEQ/L (8-16); AST/SGOT 17 U/L (15-37); BILIRUBIN,TOTAL 2.6 MG/DL (0.2-1.0); BLOOD UREA NITROGEN 14 MG/DL (7-18); CALCIUM LEVEL 8.1 MG/DL (8.5-10.1); CARBON DIOXIDE LEVEL 30 MEQ/L (21-32); CHLORIDE LEVEL 99 MEQ/L (98-107); CREATININE FOR GFR 1.23 MG/DL (0.70-1.30); GLOMERULAR FILTRATION RATE > 60.0 (>56); GLUCOSE, FASTING 195 MG/DL (70-105); MAGNESIUM LEVEL 2.1 MG/DL (1.8-2.4); POTASSIUM SERUM 3.5 MEQ/L (3.5-5.1); SODIUM LEVEL 137 MEQ/L (136-145); TOTAL PROTEIN 6.8 GM/DL (6.4-8.2)
[2016-06-26 08:00] VITALS: BP 111/77
[2016-06-26] MEDS: ASPIRIN 81 MG ENTERIC TAB PO SCH (09:35)
[2016-06-26] MEDS: ATORVASTATIN 20 MG TAB PO SCH (09:35)
[2016-06-26] MEDS: ENOXAPARIN 40 MG/0.4 ML SYRINGE (J1650) SC SCH (09:35)
[2016-06-26] MEDS: LISINOPRIL 10 MG TAB PO SCH ×2 (09:35→21:49)
[2016-06-26] MEDS: METOPROLOL TART 50 MG TAB PO SCH ×2 (09:36→21:49)
[2016-06-26] MEDS: FUROSEMIDE 40 MG TAB PO SCH (09:36)
[2016-06-26 11:43] VITALS: BP 150/73
[2016-06-26 15:56] VITALS: BP 128/75
--- NOTE | 2016-06-26 16:34 | IPN ---
DATE OF SERVICE: 06/26/2016 Mr. Ovalle is feeling better than he did last night. He has no complaints of pain or chest pain. He is still short of breath and coughing. Temperature 99.4, pulse 67, respiratory rate 20, blood pressure 150/73, 97% on room air. Intake and output (I and O) notable for negative fluid balance of minus 1300. Weight is 122.9 kilos with a body mass index of 38.9. He is awake, appropriately interactive, pleasantly conversant, and he does make jokes during our interaction. Mucous membranes moist. Neck supple. Breathing is symmetrical, diminished throughout. Heart is in regular rate and rhythm. Abdomen soft, doughy, nontender. White cell count 18.8, hemoglobin 14.6, platelets 170. BUN 14, creatinine 1.23. CK and troponins are negative times three. Gram stain is pending. Influenza swab is negative. ASSESSMENT: This is a 55-year-old with community-acquired pneumonia. PLAN: 1. Infectious disease. Patient has started on ceftriaxone and Zithromax for community-acquired pneumonia. We will wait for sputum gram stain culture. 2. Patient was suspected to have atrial fibrillation in the emergency department. It appears to be sinus to me on monitor. At this point, we will continue telemetry monitoring. No rule for anticoagulation. 4. Patient has history of coronary artery disease. Echocardiogram has been ordered. 5. Patient has chronic obstructive pulmonary disease (COPD). He may benefit from steroids during his course.
--- NOTE | 2016-06-26 19:25 | ECHO ---
DATE OF PROCEDURE: 06/26/2016 REFERRING PHYSICIAN: Dr. Rodriguez INDICATION: Chest pain. HEIGHT: 178 cm. WEIGHT: 128 kg. DIMENSIONS: IVS: 1.4 LV: 6.8 LVPW: 1.2 LA: 7.9 Aorta: 3.5 FINDINGS: The study is of fair technical quality corresponding to patient's body habitus. Left ventricle is severely dilated. It is globally hypokinetic. Based on fair quality of images I estimate ejection fraction (EF) around 25%. Right ventricle does not appear grossly enlarged. Both atria are severely enlarged. Left atrium much more than left than right. Atrial septum is deviated to right. Aortic valve is tricuspid and appears grossly structurally normal. There is a prolapse of posterior mitral leaflet. I do not appreciate any loose chordae. Mitral annular calcifications are noted. Tricuspid valve appears normal. Pulmonic valve also appears normal. No pericardial effusion is noted. Inferior vena cava is markedly dilated and has only partial collapse with respiration indicative of likely very high central venous pressure. Aortic root is normal. Aortic arch appears normal. Abdominal aorta was not well seen. Doppler interrogation of aortic valve reveals no significant stenosis or insufficiency. There is at least moderate mitral insufficiency. Unfortunately quality of the images was not optimal and I cannot rule out that the MR is actually severe. There is a eccentrically oriented jet consistent with mitral valve prolapse as the etiology of the MR. Component of mild stenosis is also noted. Peak gradient across the mitral valve is 13 and mean gradient 4 mmHg corresponding to mild mitral stenosis. This is in setting of atrial fibrillation with controlled rate. There is mild tricuspid insufficiency. Calculated pulmonary artery pressure is at least in 40s corresponding to moderate pulmonary hypertension. Pulmonic valve is functionally competent. Mitral inflow pattern and tissue Doppler imaging of mitral annulus are inconclusive for diagnosing diastolic function due to underlying atrial fibrillation. CONCLUSIONS: 1. Study is of fair technical quality. 2. Markedly dilated left ventricle with global hypokinesis and overall severely reduced left ventricle (LV) systolic function. Unable to estimate diastolic function due to underlying atrial fibrillation. 3. Severe biatrial enlargement. 4. No significant aortic, tricuspid or pulmonic valve disease. 5. Posterior mitral leaflet prolapse resulting into at least moderate mitral insufficiency. 6. Likely high central venous pressure (CVP) and at least moderate pulmonary hypertension. COMMENTS: Subacute bacterial prophylaxis (SBE) prophylaxis is not recommended. If there is doubt about etiology of LV dysfunction, it should be also considered as a consequence severe mitral insufficiency. SBE prophylaxis is not recommended. MTDD
[2016-06-26 20:28] VITALS: BP 137/90
[2016-06-26] MEDS: predniSONE 20 MG TAB PO SCH (21:48)
[2016-06-26] MEDS: AZITHROMYCIN 500 MG, VIAL MATE ADAPTER 1 EACH in D5W 250 ML IV SCH (21:48)
[2016-06-26] MEDS: cefTRIAXone SOD 2 GM in D5W MINI-BAG PLUS 50 ML IV SCH (23:23)
[2016-06-27 00:10] VITALS: BP 134/83
[2016-06-27] MEDS: IPRATROPIUM 0.5MG/ALBUTEROL 2.5MG INH SOL UD 3ML (DUONEB)(J7620) NEB SCH ×4 (01:58→19:11)
[2016-06-27] MEDS ORDERED: SLF 3 ML SYR IV PRN (02:15)
[2016-06-27 04:30] VITALS: BP 147/90
[2016-06-27 04:32] LABS: BASO # 0.1 K/mm3 (0.0-0.2); BASO % 0.8 % (0.0-1.0); EOS # 0.2 K/mm3 (0.0-0.50); EOS % 1.3 % (0.0-3.0); LARGE UNSTAINED CELL # 0.1 K/mm3 (0.0-0.4); LARGE UNSTAINED CELL % 0.6 % (0.0-4.0); LYMPH # 0.5 K/mm3 (1.5-4.5); LYMPH % 2.8 % (24.0-44.0); MEAN CORPUSCULAR HEMOGLOBIN 30.5 pg (27.0-33.0); MEAN CORPUSCULAR VOLUME 95.5 fl (80.0-96.0); MONO # 0.2 K/mm3 (0.0-0.8); MONO % 1.5 % (0.0-5.0); NEUTROPHILS # 13.5 K/mm3 (1.8-7.7); PLATELET COUNT, AUTOMATED 148 k/mm3 (150-450); RED CELL DISTRIBUTION WIDTH 14.4 % (11.5-14.5); WHITE BLOOD COUNT 14.6 K/mm3 (4.0-10.0)
[2016-06-27 04:52] LABS: ALBUMIN 2.9 GM/DL (3.2-5.2); ALBUMIN/GLOBULIN RATIO 0.71 (1.00-1.93); ALKALINE PHOSPHATASE 77 U/L (45-117); ALT/SGPT 9 U/L (12-78); ANION GAP 8 MEQ/L (8-16); AST/SGOT 20 U/L (15-37); BILIRUBIN,TOTAL 0.8 MG/DL (0.2-1.0); BLOOD UREA NITROGEN 17 MG/DL (7-18); CALCIUM LEVEL 8.3 MG/DL (8.5-10.1); CARBON DIOXIDE LEVEL 28 MEQ/L (21-32); CHLORIDE LEVEL 101 MEQ/L (98-107); CREATININE FOR GFR 1.13 MG/DL (0.70-1.30); GLOMERULAR FILTRATION RATE > 60.0 (>56); GLUCOSE, FASTING 247 MG/DL (70-105); MAGNESIUM LEVEL 2.3 MG/DL (1.8-2.4); POTASSIUM SERUM 4.1 MEQ/L (3.5-5.1); SODIUM LEVEL 137 MEQ/L (136-145)
[2016-06-27] MEDS: SLF 3 ML SYR IV SCH ×3 (06:44→20:37)
[2016-06-27 07:30] VITALS: BP 145/90
[2016-06-27] MEDS: predniSONE 20 MG TAB PO SCH ×2 (08:31→20:36)
[2016-06-27] MEDS: ATORVASTATIN 20 MG TAB PO SCH (08:31)
[2016-06-27] MEDS: ENOXAPARIN 40 MG/0.4 ML SYRINGE (J1650) SC SCH (08:31)
[2016-06-27] MEDS: LISINOPRIL 10 MG TAB PO SCH ×2 (08:32→20:37)
[2016-06-27] MEDS: METOPROLOL TART 50 MG TAB PO SCH ×2 (08:32→20:37)
[2016-06-27] MEDS: FUROSEMIDE 40 MG TAB PO SCH (08:33)
[2016-06-27] MEDS: ASPIRIN 81 MG ENTERIC TAB PO SCH (08:33)
[2016-06-27 12:00] VITALS: BP 159/93
[2016-06-27] MEDS ORDERED: ELIQ5TAB PO (12:13)
--- NOTE | 2016-06-27 12:24 | IPN ---
DATE: 06/27/2016 Mr. Ovalle is feeling better today. He is slightly more energetic. He is breathing easier. No chest pain. No shortness of breath. He does describe an occasional flutter in his chest which he says has been going on for months and perhaps years. Temperature 96.8, pulse 77, respiratory rate 20, blood pressure 145/90, 97% on room air. He is awake, seems somewhat flattened in his affect. Head is normocephalic. Mucous membranes moist. Neck supple. Breathing is symmetrical, diminished in bilateral bases. I:E ratio 1:3. Speaking in complete sentences. Heart is distant, normal S1, S2. He has intermittent ectopy in short runs. Abdomen soft, doughy, nontender. No swelling of lower extremities or sacral edema. White cell count 14.6, hemoglobin 14.6, platelets 148 trending downward slightly. BUN 17, creatinine 1.13. ASSESSMENT: This is a 55-year-old with community-acquired pneumonia. PLAN: 1. Infectious disease. Patient is on ceftriaxone and Zithromax for community-acquired pneumonia. He is improving clinically. Sputum culture is still pending. Blood culture is negative at 24 hours. 2. Patient has atrial fibrillation. He will be anticoagulated on Eliquis as his CHADS-VASc score is 3. Continue on telemetry monitoring. 3. Patient has history of coronary artery disease. Echocardiogram shows left ventricular ejection fraction is depressed. Will obtain old records from Dr. Dela Cruz' office to compare to previous. Ejection fraction (EF) is reported as 25 % with severe biatrial enlargement. Moderate mitral insufficiency, which I do not appreciate on physical exam. Moderate pulmonary hypertension. Patient will likely benefit from an AICD placement, which will need to be done after he is recovered from his pneumonia. He has requested referral to Dr. Nunez and Dr. Hirsch's office based on family preference. 4. Patient has chronic obstructive pulmonary disease (COPD) and suspected pulmonary hypertension. He has improved with the use of steroids. MTDD
[2016-06-27 16:00] VITALS: BP 156/72
[2016-06-27 19:52] VITALS: BP 153/85
[2016-06-27] MEDS: AZITHROMYCIN 500 MG, VIAL MATE ADAPTER 1 EACH in D5W 250 ML IV SCH (20:36)
[2016-06-27] MEDS: APIXABAN 5 MG TAB (ELIQUIS) PO SCH (20:36)
[2016-06-27] MEDS: cefTRIAXone SOD 2 GM in D5W MINI-BAG PLUS 50 ML IV SCH (22:13)
[2016-06-28] VITALS: BP 142/70
[2016-06-28] MEDS: IPRATROPIUM 0.5MG/ALBUTEROL 2.5MG INH SOL UD 3ML (DUONEB)(J7620) NEB SCH ×2 (01:54→07:16)
--- NOTE | 2016-06-28 02:11 | EDDOCDS ---
Physician Documentation [facility] Name: Fahad Ovalle Age: 55 yrs Sex: Male : 1960 Arrival Date: 06/25/2016 Time: 19:14 Bed 18 Private MD: NO PRIMARY PHYSICIAN, . Disposition: 06/25 22:19 Critical Care:. pc Disposition: 06/25/16 22:22 Hospitalization ordered by Randy Avery for Inpatient Admission. Preliminary diagnosis are Hypoxemia, Chronic obstructive pulmonary disease with (acute) exacerbation, Bronchopneumonia, unspecified organism - RLL, Essential (primary) hypertension, Cardiomegaly, Patient's noncompliance with medical treatment and regimen. - Bed requested for M PCU. - Status is Inpatient Admission. ko2 - Condition is Stable. - Problem is new. - Symptoms have improved. HPI: 20:34 This 55 yrs old Male presents to ER via Walkin/Carried/Asstd with complaints pc of Chest Pressure. 20:34 The history is obtained from the patient. A reliable history and/or examination was not pc able to be obtained, due to he is a very poor historian . He has had a cough for 2 weeks, with fevers and chills in the past 2 days. He has intermittent chest pain, lasting 1-2 minutes, at rest and with exertion. He has not seen a PCP in some 12 years, except for going [facility] 1-2 years. The patient has not experienced similar symptoms in the past. The patient has not recently seen a physician. Historical: - Allergies: not sure of name; - Home Meds: 1. not sure of medications - PMHx: back problems; heart problems; - PSHx: CABG; - The history from nurses notes was reviewed: and I agree with what is documented. - Social history: Smoking status: Patient uses tobacco products, current some day smoker. No barriers to communication noted, The patient speaks fluent Georgian, Speaks appropriately for age. - : The pt / caregiver states he / she is not on anticoagulants. Home medication list is obtained from the patient. - Hospitalizations: : No recent hospitalization is reported. - Exposure Risk Screening:: None identified. - Immunization history:: Flu vaccine is up to date. - Family history: Not pertinent. - Social history:: the patient is a former smoker, the patient drinks alcohol. ROS: 20:34 All systems are negative except as listed. pc Exam: 20:34 General Appearance: alert, the patient is in mild distress. pc 20:34 EENT: normal eye inspection, ears, nose and throat normal, pharynx normal, mucous membranes moist 20:34 Neck: The exam reveals no acute abnormalities. ROM is normal and painless. No nuchal rigidity is noted.. 20:34 Respiratory: no respiratory distress, chest non-tender, Breath sounds: rhonchi, wheezing, in the right posterior middle lobe. 20:34 CVS: regular pulse rate, normal S1 and S2, no murmurs, strong peripheral pulses, normal capillary refill, irregularly irregular 20:34 Abdomen: soft, non-tender, no organomegaly, normal bowel sounds. 20:34 Back: normal inspection. 20:34 Skin: skin color is normal, warm, dry. 20:34 Extremities: The extremities have a grossly normal appearance, are non-tender, without acute ROM abnormalities, with pedal edema noted, is 1+ edema bilaterally 20:34 Neuro: oriented x 3, cranial nerves normal as tested, no motor deficits, no sensory deficits. 20:34 Psych: normal mood. Vital Signs: 19:15 BP 162 / 85; Pulse 96; Resp 18 S; Temp 101.4(O); Pulse Ox 93% on R/A; Weight 126.1 kg / dd6 278 lbs (R); Height 5 ft. 10 in. (177.80 cm) (R); Pain 4/10; 19:23 BP 191 / 118 (auto/); ko2 19:25 Pulse 98 MON; Pulse Ox 92% ; ko2 19:31 BP 185 / 102 (auto/); ko2 19:31 Pulse 92 MON; Pulse Ox 92% ; ko2 19:46 BP 177 / 87 (auto/); ko2 19:46 Pulse 94 MON; Pulse Ox 93% ; ko2 20:01 BP 168 / 93 (auto/); ko2 20:01 Pulse 92 MON; Pulse Ox 90% ; ko2 20:15 Pulse 96 MON; ko2 20:16 BP 170 / 113 (auto/); ko2 20:30 Pulse 92 MON; Pulse Ox 90% ; ko2 20:31 BP 152 / 79 (auto/); ko2 21:01 BP 129 / 78 (auto/); pc 21:01 Pulse 94 MON; pc 21:16 BP 121 / 78 (auto/); ko2 21:16 Pulse 96 MON; ko2 21:31 BP 138 / 90 (auto/); ko2 21:31 Pulse 94 MON; Pulse Ox 94% ; ko2 21:44 Pulse 84 MON; Pulse Ox 91% ; ko2 21:46 BP 129 / 79 (auto/); ko2 22:01 BP 139 / 83 (auto/); ko2 22:02 Pulse 86 MON; Pulse Ox 93% ; ko2 22:09 Pulse 84 MON; Pulse Ox 92% ; ko2 22:16 BP 122 / 70 (auto/); ko2 22:22 Temp 99.1(O); ko2 22:31 BP 122 / 70 (auto/); ko2 22:31 Pulse 84 MON; Pulse Ox 92% ; ko2 22:46 BP 157 / 101 (auto/); ko2 22:46 Pulse 88 MON; ko2 23:01 BP 150 / 95 (auto/); ko2 23:01 Pulse 84 MON; Pulse Ox 94% ; ko2 23:16 BP 150 / 94 (auto/); ko2 23:16 Pulse 82 MON; Pulse Ox 96% ; ko2 23:31 BP 164 / 102 (auto/); ko2 23:31 Pulse 88 MON; Pulse Ox 95% ; ko2 23:46 BP 143 / 94; Pulse 76; Resp 20; Temp 99.2; Pulse Ox 95% ; Pain 0/10; ko2 19:15 Body Mass Index 39.89 (126.10 kg, 177.80 cm) dd6 MDM: 19:22 ECG WITH READING ER PHYS+CARDIAG ordered. EDMS 19:57 Physical Therapy Instructor/Pulse Ox/q 30 min VS ordered. pc 19:57 IV Saline Lock ordered. pc 19:57 Rhythm Strip to chart ordered. pc 19:57 Obtain sample by nasopharyngeal swab ordered. pc 19:57 Acetaminophen Tablet 650 mg PO once ordered. pc 19:57 -Blood Culture (Adults Only), peripheral from different site, or from device/port/PICC pc etc. if present ordered. 19:57 Call Respiratory ordered. pc 19:57 Albuterol-Ipratropium 3 ml Inhalation once ordered. pc 19:58 Call Respiratory complete. ko2 19:58 -Blood Culture (Adults Only), peripheral from different site, or from device/port/PICC sew etc. if present complete. 19:58 Aspirin Chewable Tablet 324 mg PO once ordered. pc 19:59 Chest, 2 View (pa\E\lat) Ordered. EDMS 19:59 Basic Metabolic Profile Ordered. EDMS 19:59 CBC with Diff Ordered. EDMS 19:59 Cardiac Injury Profile Ordered. EDMS 19:59 Troponin Ordered. EDMS 19:59 -Influenza A&B Rapid Antigen - Nose Ordered. EDMS 19:59 -Blood Culture Ordered. EDMS 19:59 Lactic Acid (Mireles tube on ice) Ordered. EDMS 19:59 -Arterial Blood Gas Ordered. EDMS 19:59 Pt & Aptt Ordered. EDMS 19:59 Test interpretation: EKG. pc 20:00 BLOOD CULTURES Ordered. EDMS 20:34 Differential Diagnosis: SOB suspect RLL pneumonia r/o CHF; chest pain r/o ACS; HTN pc without medications for years. Plan: labs, EKG, meds, CXR. 20:38 Basic Metabolic Profile Reviewed. pc 20:38 CBC with Diff Reviewed. pc 20:38 -Arterial Blood Gas Reviewed. pc 20:38 Cardiac Injury Profile Reviewed. pc 20:38 Troponin Reviewed. pc 20:38 -Influenza A&B Rapid Antigen - Nose Reviewed. pc 20:38 CT Chest Without Contrast Ordered. EDMS 20:39 azithromycin 500 mg IVPB once over 1 hrs; dilute in 250mL of D5W or NS ordered. pc 20:39 cefTRIAXone 1 grams IVPB once over 30 mins; dilute in 50mL of NS or D5W ordered. pc 20:42 BED REQUEST+ADM ordered. EDMS 21:13 Lactic Acid (Mireles tube on ice) Reviewed. pc 21:13 Pt & Aptt Reviewed. pc 21:14 Oxygen at 2L/min via NC ordered. pc 21:17 Financial registration complete. zo 22:19 Data reviewed: old medical records, vital signs, nurses notes, EKG(s), lab test pc results, all radiology studies and available results. Test interpretation: LAB - all labs as ordered have been reviewed, interpreted and considered in the overall management of the clinical presentation; X-RAY - interpreted by me, 2 view chest, CM, large RLL infiltrate interpreted by Radiologist and personally reviewed, Chest CT; CM, RLL and RUL infiltrates. The patient has been re-examined and re-evaluated. The patient's symptoms have mildly improved after treatment. Physician consultation: Dr. Randy Avery DO regarding admission, and will see patient in ED. Disposition: The historical points, examination findings, and any diagnostic results supporting the provided diagnosis, were discussed with the patient or legal guardian. The need for further work-up and/or treatment in the hospital was explained. 22:47 [facility] Payment Agreement was scanned into [employer] and attached to record. zo 23:29 Admission / Observation Status ordered. EDMS 23:29 LOW FAT LOW CHOLESTEROL DIET ordered. EDMS 23:31 CBC WITH DIFFERENTIAL Ordered. EDMS 23:31 COMPLETE COMPHRENSIVE METABOLI Ordered. EDMS 23:31 MAGNESIUM LEVEL Ordered. EDMS 23:33 CARDIAC MARKER PANEL Ordered. EDMS 23:33 CARDIAC MARKER PANEL Ordered. EDMS 23:37 LEGIONELLA ANTIGEN URINE Ordered. EDMS 23:37 URINE STREP PNEUMONIAE ANTIGEN Ordered. EDMS 23:37 INFLUENZA A&B RAPID ANTIGEN Ordered. EDMS 23:37 SPUTUM CULTURE AND GRAM STAIN Ordered. EDMS 23:39 THYROID PROFILE Ordered. EDMS 01/03 00:19 ECHOCARD,DOPPLER/COLOR FLOW ordered. EDMS 09:06 ECG[facility]EKG [facility] and attached to record. gb 09:06 Trend VS was scanned into [facility] and attached to record. EC 19:59 Rate is 94 beats/min. Rhythm is irregularly irregular, A fib. QRS [place] is Normal. QRS pc interval is prolonged at 154 msec. QT interval is normal. Q waves are Old in lead III. T waves are Normal. No ST changes noted. Clinical impression: Atrial Fibrillation w/o RVR and IVCD, baseline artifact. Administered Medications: 20:14 Drug: Albuterol-Ipratropium 3 ml [ipratropium-albuterol 0.5 mg-3 mg(2.5 mg base)/3 mL jc3 nebulization soln (3 mL)] Route: Inhalation; 20:18 Drug: Acetaminophen 650 mg [acetaminophen 325 mg tablet (2 tabs)] Route: PO; ko2 23:00 Follow up: Response: Temperature is decreased ko2 20:18 Drug: Aspirin 324 mg [aspirin 81 mg chewable tablet (4 tabs)] Route: PO; ko2 23:00 Follow up: Response: No Adverse Reaction ko2 20:46 Drug: cefTRIAXone 1 grams [ceftriaxone 1 gram solution for injection] Route: IVPB; ko2 Infused Over: 30 mins; Site: left antecubital; 21:29 Follow up: IV Status: Completed infusion; IV Intake: 50ml ko2 21:20 Drug: azithromycin 500 mg [azithromycin 500 mg intravenous solution] Route: IVPB; mgs Infused Over: 1 hrs; Site: left antecubital; 22:22 Follow up: IV Status: Completed infusion; IV Intake: 250ml ko2 Critical Care Time: 22:19 Critical care time: Bedside Care: 20 minutes, Consultation: 10 minutes, Family pc Intervention: 10 minutes. Total time: 40 minutes Signatures: Dispatcher [employer] EDMS Aryan Bay MD MD pc Zecher, Calvin, RN RN Dariela Frances Reg Reg gb Olin, Zoeann zo Wallace, Sarah sew Ogden, Kari, RN RN ko2 Sam [email or web address] Randy Zurita RN mgs The chart was reviewed and I authenticate all verbal orders and agree with the evaluation and treatment provided.Corrections: (The following items were deleted from the chart) 23:39 23:35 THYROID PROFILE ordered. EDMS EDMS Attachments: 22:47 [facility] Payment Agreement zo 06/26 09:06 ECG/EKG gb Chart Complete MTDD
--- NOTE | 2016-06-28 02:13 | EDDOCDS ---
Nurse's Notes [facility] Name: Fahad Ovalle Age: 55 yrs Sex: Male : 1960 Arrival Date: 06/25/2016 Time: 19:14 Bed 18 Private MD: NO PRIMARY PHYSICIAN, . Diagnosis: Hypoxemia;Chronic obstructive pulmonary disease with (acute) exacerbation;Bronchopneumonia, unspecified organism-RLL;Essential (primary) hypertension;Cardiomegaly;Patient's noncompliance with medical treatment and regimen Presentation: 06/25 19:24 Presenting complaint: Patient states: that he has been having chest pressure on and off cz for several days has URI symptoms and recently started smoking again in April after having quit for 18 years. pt states hasnt smoked in a couple of days. at this time no chest pain or pressure.pt states had an [place] 18-19 years ago. Aspirin was not taken prior to arrival. Adult Sepsis Screening: The patient does not have new or worsening altered mentation. Patient's respiratory rate is less than 22. Systolic blood pressure is greater than 100. Patient has a qSOFA score of 0- Negative Sepsis Screen. Suicide/Homicide risk assessment- the patient denies having any suicidal and/or homicidal ideations and does not present with any other emotional, behavioral or mental health complaints. 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 Transition of care: patient was not received from another setting of care. 19:24 Acuity: WALDEMAR Level 2 cz 19:24 Method Of Arrival: Walkin/Carried/Asstd cz Triage Assessment: 19:28 General: Appears uncomfortable. Pain: Denies pain. HIV screening NA for this visit cz Offered previously. 19:37 Cardiovascular: Chest pain is described as vague, radiates Does not radiate. episodes ko2 are intermittent. 23:18 Cardiovascular: Chest pain began on and off for a couple days. ko2 Historical: - Allergies: not sure of name; - Home Meds: 1. not sure of medications - PMHx: back problems; heart problems; - PSHx: CABG; - The history from nurses notes was reviewed: and I agree with what is documented. - Social history: Smoking status: Patient uses tobacco products, current some day smoker. No barriers to communication noted, The patient speaks fluent Yi, Speaks appropriately for age. - : The pt / caregiver states he / she is not on anticoagulants. Home medication list is obtained from the patient. - Hospitalizations: : No recent hospitalization is reported. - Exposure Risk Screening:: None identified. - Immunization history:: Flu vaccine is up to date. - Family history: Not pertinent. - Social history:: the patient is a former smoker, the patient drinks alcohol. Screenin:36 Screening information is obtained from the patient. Fall risk: No risks identified. ko2 Assistance ADL's: requires no assistance with activities of daily living. Abuse/DV Screen: The patient / caregiver reports he/she is: not in a situation that causes fear, pain or injury. Nutritional screening: No deficits noted. Advance Directives: Currently, there is no health care proxy. There is no active DNR order. There is no living will. There is no Power of Handkerchief Sample Clerk. home support is adequate. Assessment: 19:34 General: Appears in no apparent distress, comfortable, Behavior is appropriate for age, ko2 cooperative. Pain: Denies pain. Neurological: Level of Consciousness is awake, alert, Oriented to person, place, time. Cardiovascular: Heart tones S1 S2 present Rhythm is atrial fibrillation Chest pain is denied. Respiratory: Airway is patent Respiratory effort is even, unlabored, Respiratory pattern is regular, symmetrical, Reports cough that is non-productive. Derm: Skin is normal. 20:18 General: Appears in no apparent distress, comfortable, Behavior is appropriate for age, ko2 cooperative. Pain: Denies pain. Neurological: Level of Consciousness is awake, alert. Cardiovascular: Rhythm is atrial fibrillation. Respiratory: Airway is patent. Derm: Skin is normal. 21:22 General: Appears in no apparent distress, comfortable, Behavior is appropriate for age, ko2 cooperative. Neurological: Level of Consciousness is awake, alert. Respiratory: Airway is patent Respiratory effort is even, unlabored, Respiratory pattern is regular, symmetrical. Derm: Skin is normal. 22:18 General: Appears in no apparent distress, comfortable, Behavior is appropriate for age, ko2 cooperative. Pain: Denies pain. Neurological: Level of Consciousness is awake, alert. Respiratory: Airway is patent Respiratory effort is even, unlabored. Derm: No deficits noted. 23:17 Reassessment: Patient appears in no apparent distress at this time. Patient denies pain ko2 at this time. Neurological: Level of Consciousness is awake, alert. Respiratory: Airway is patent. Derm: Skin is normal. 06/26 00:44 General: Appears in no apparent distress, comfortable, Behavior is appropriate for age, ko2 cooperative. Pain: Denies pain. Neurological: Level of Consciousness is awake, alert. Respiratory: Airway is patent Respiratory effort is even, unlabored. Derm: Skin is normal. Vital Signs: 06/25 19:15 BP 162 / 85; Pulse 96; Resp 18 S; Temp 101.4(O); Pulse Ox 93% on R/A; Weight 126.1 kg dd6 (R); Height 5 ft. 10 in. (177.80 cm) (R); Pain 10/01; 19:23 BP 191 / 118 (auto/); ko2 19:25 Pulse 98 MON; Pulse Ox 92% ; ko2 19:31 BP 185 / 102 (auto/); ko2 19:31 Pulse 92 MON; Pulse Ox 92% ; ko2 19:46 BP 177 / 87 (auto/); ko2 19:46 Pulse 94 MON; Pulse Ox 93% ; ko2 20:01 BP 168 / 93 (auto/); ko2 20:01 Pulse 92 MON; Pulse Ox 90% ; ko2 20:15 Pulse 96 MON; ko2 20:16 BP 170 / 113 (auto/); ko2 20:30 Pulse 92 MON; Pulse Ox 90% ; ko2 20:31 BP 152 / 79 (auto/); ko2 21:01 BP 129 / 78 (auto/); pc 21:01 Pulse 94 MON; pc 21:16 BP 121 / 78 (auto/); ko2 21:16 Pulse 96 MON; ko2 21:31 BP 138 / 90 (auto/); ko2 21:31 Pulse 94 MON; Pulse Ox 94% ; ko2 21:44 Pulse 84 MON; Pulse Ox 91% ; ko2 21:46 BP 129 / 79 (auto/); ko2 22:01 BP 139 / 83 (auto/); ko2 22:02 Pulse 86 MON; Pulse Ox 93% ; ko2 22:09 Pulse 84 MON; Pulse Ox 92% ; ko2 22:16 BP 122 / 70 (auto/); ko2 22:22 Temp 99.1(O); ko2 22:31 BP 122 / 70 (auto/); ko2 22:31 Pulse 84 MON; Pulse Ox 92% ; ko2 22:46 BP 157 / 101 (auto/); ko2 22:46 Pulse 88 MON; ko2 23:01 BP 150 / 95 (auto/); ko2 23:01 Pulse 84 MON; Pulse Ox 94% ; ko2 23:16 BP 150 / 94 (auto/); ko2 23:16 Pulse 82 MON; Pulse Ox 96% ; ko2 23:31 BP 164 / 102 (auto/); ko2 23:31 Pulse 88 MON; Pulse Ox 95% ; ko2 23:46 BP 143 / 94; Pulse 76; Resp 20; Temp 99.2; Pulse Ox 95% ; Pain 0/10; ko2 19:15 Body Mass Index 39.89 (126.10 kg, 177.80 cm) dd6 Vitals: 19:15 Log In Time: June 25, 2016 at 19:15. RN notified that patient meets Red Flag dd6 criteria. ED Course: 19:15 Patient visited by Alex Cano PCA. dd6 19:15 NO PRIMARY PHYSICIAN, . is Private Physician. dd6 19:15 Patient moved to Waiting dd6 19:18 Patient visited by Alex Cano PCA. dd6 19:19 Patient moved to Pre RCE dd6 19:20 Rosio Damon,RN is Primary Nurse. cz 19:20 Patient moved to 18 cz 19:26 Triage Initiated cz 19:29 EKG done. (by ED staff). Reviewed by Tristan YEE. tre 19:36 Patient visited by Melinda Rivas PCA. tre 19:36 Aryan Bay MD is Attending Physician. pc 19:36 Pt greeted and oriented to ED. Patient advised of names of staff involved in care, tre location of call le, wait times and NPO status. Patient has correct armband on for positive identification. Placed in gown. Bed in low position. Call light in reach. Side rails up X2. monitor technician on. Pulse ox on. NIBP on. 19:37 Inserted saline lock: 18 gauge in left antecubital area and blood collected. The ko2 patient tolerated the procedure well. 19:55 Patient visited by Aryan Bay MD. pc 20:09 Pt & Aptt Sent. ko2 20:09 -Blood Culture Sent. ko2 20:09 -Influenza A&B Rapid Antigen - Nose Sent. ko2 20:09 Basic Metabolic Profile Sent. ko2 20:09 CBC with Diff Sent. ko2 20:09 Cardiac Injury Profile Sent. ko2 20:09 Troponin Sent. ko2 20:14 -Arterial Blood Gas Sent. jc3 20:46 Patient visited by Rosio Damon RN. ko2 21:26 Patient visited by Rosio Damon RN. ko2 21:26 O2 via nasal cannula \T\ 2L/min. ko2 21:27 Patient visited by Rosio Damon RN. ko2 21:39 Chest, 2 View (pa\E\lat) Returned. EDMS 21:39 CT Chest Without Contrast Returned. EDMS 22:18 Patient visited by Rosio Damon RN. ko2 22:22 Randy Avery DO is Hospitalizing Provider. pc 22:47 [facility] Payment Agreement was scanned into [employer] and attached to record. zo 23:18 The patient / caregiver is instructed regarding the plan of care and ED course. ko2 23:57 No procedures done that require assistance. ko2 06/26 09:06 ECG/EKG was scanned into [employer] and attached to record. gb 09:06 Trend VS was scanned into [employer] and attached to record. gb Administered Medications: 06/25 20:14 Drug: Albuterol-Ipratropium 3 ml [ipratropium-albuterol 0.5 mg-3 mg(2.5 mg base)/3 mL jc3 nebulization soln (3 mL)] Route: Inhalation; 20:18 Drug: Acetaminophen 650 mg [acetaminophen 325 mg tablet (2 tabs)] Route: PO; ko2 23:00 Follow up: Response: Temperature is decreased ko2 20:18 Drug: Aspirin 324 mg [aspirin 81 mg chewable tablet (4 tabs)] Route: PO; ko2 23:00 Follow up: Response: No Adverse Reaction ko2 20:46 Drug: cefTRIAXone 1 grams [ceftriaxone 1 gram solution for injection] Route: IVPB; ko2 Infused Over: 30 mins; Site: left antecubital; 21:29 Follow up: IV Status: Completed infusion; IV Intake: 50ml ko2 21:20 Drug: azithromycin 500 mg [azithromycin 500 mg intravenous solution] Route: IVPB; mgs Infused Over: 1 hrs; Site: left antecubital; 22:22 Follow up: IV Status: Completed infusion; IV Intake: 250ml ko2 Attachments: 09:06 Trend VS gb Intake: 06/25 21:29 IV: 50.00ml; Total: 50.00ml. ko2 22:22 IV: 250.00ml; Total: 300.00ml. ko2 RT: 20:14 ABG's drawn from right radial artery pressure held for 5 minutes no bleeding noted jc3 pressure bandage applied specimen sent pt. tolerated well. Initial Med Neb Given as ordered. Respiratory: Breath sounds are diminished bilaterally. Order Results: Lab Order: Basic Metabolic Profile; SPEC'M 06/25/16 19:31 Test: GLUCOSE, FASTING; Value: 148; Range: 70-105; Abnormal: Above high normal; Units: MG/DL; Status: F Test: BLOOD UREA NITROGEN; Value: 14; Range: 7-18; Units: MG/DL; Status: F Test: CREATININE FOR GFR; Value: 1.17; Range: 0.70-1.30; Units: MG/DL; Status: F Test: GLOMERULAR FILTRATION RATE; Value: > 60.0; Range: >56; Status: F Test: SODIUM LEVEL; Value: 134; Range: 136-145; Abnormal: Below low normal; Units: MEQ/L; Status: F Test: POTASSIUM SERUM; Value: 3.9; Range: 3.5-5.1; Units: MEQ/L; Status: F Test: CHLORIDE LEVEL; Value: 94; Range: 98-107; Abnormal: Below low normal; Units: MEQ/L; Status: F Test: CARBON DIOXIDE LEVEL; Value: 29; Range: 21-32; Units: MEQ/L; Status: F Test: ANION GAP; Value: 11; Range: 8-16; Units: MEQ/L; Status: F Test: CALCIUM LEVEL; Value: 8.8; Range: 8.5-10.1; Units: MG/DL; Status: F Test Note: ; Units are mL/min/1.73 m2 Chronic Kidney Disease Staging per NKF: Stage I & II GFR >=60 Normal to Mildly Decreased Stage III GFR 30-59 Moderately Decreased Stage IV GFR 15-29 Severely Decreased Stage V GFR <15 Very Little GFR Left ESRD GFR <15 on INSPECTOR ROUGH CASTINGS Lab Order: CBC with Diff; SPEC'M 06/25/16 19:31 Test: WHITE BLOOD COUNT; Value: 19.6; Range: 4.0-10.0; Abnormal: Above high normal; Units: K/mm3; Status: F Test: RED BLOOD COUNT; Value: 4.97; Range: 4.30-6.10; Units: M/mm3; Status: F Test: HEMOGLOBIN; Value: 15.5; Range: 14.0-18.0; Units: g/dl; Status: F Test: HEMATOCRIT; Value: 46.0; Range: 42.0-52.0; Units: %; Status: F Test: MEAN CORPUSCULAR VOLUME; Value: 92.4; Range: 80.0-96.0; Units: fl; Status: F Test: MEAN CORPUSCULAR HEMOGLOBIN; Value: 31.2; Range: 27.0-33.0; Units: pg; Status: F Test: MEAN CORPUSCULAR HGB CONC; Value: 33.8; Range: 32.0-36.5; Units: g/dl; Status: F Test: RED CELL DISTRIBUTION WIDTH; Value: 13.4; Range: 11.5-14.5; Units: %; Status: F Test: PLATELET COUNT, AUTOMATED; Value: 185; Range: 150-450; Units: k/mm3; Status: F Test: NEUTROPHILS %; Value: 87.5; Range: 36.0-66.0; Abnormal: Above high normal; Units: %; Status: F Test: LYMPH %; Value: 5.0; Range: 24.0-44.0; Abnormal: Below low normal; Units: %; Status: F Test: MONO %; Value: 5.7; Range: 0.0-5.0; Abnormal: Above high normal; Units: %; Status: F Test: EOS %; Value: 0.2; Range: 0.0-3.0; Units: %; Status: F Test: BASO %; Value: 0.3; Range: 0.0-1.0; Units: %; Status: F Test: LARGE UNSTAINED CELL %; Value: 1.3; Range: 0.0-4.0; Units: %; Status: F Test: NEUTROPHILS #; Value: 17.2; Range: 1.8-7.7; Abnormal: Above high normal; Units: K/mm3; Status: F Test: LYMPH #; Value: 1.0; Range: 1.5-4.5; Abnormal: Below low normal; Units: K/mm3; Status: F Test: MONO #; Value: 1.1; Range: 0.0-0.8; Abnormal: Above high normal; Units: K/mm3; Status: F Test: EOS #; Value: 0.0; Range: 0.0-0.50; Units: K/mm3; Status: F Test: BASO #; Value: 0.1; Range: 0.0-0.2; Units: K/mm3; Status: F Test: LARGE UNSTAINED CELL #; Value: 0.3; Range: 0.0-0.4; Units: K/mm3; Status: F Lab Order: Cardiac Injury Profile; SPEC' 06/25/16 19:31 Test: CPK CREATINE PHOSPHOKINASE; Value: 171; Range: 39-308; Units: U/L; Status: F Test: CK-MB VALUE MASS; Value: 1.6; Range: 0.0-3.6; Units: NG/ML; Status: F Test: MB/CK RELATIVE INDEX; Value: 0.93; Range: < OR =4; Status: F Test Note: ; DIAGNOSIS CRITERIA MMB ng/ml Relative Index (RI) NON-AMI < or = 5 N/A MIRELES ZONE > 5 < or = 4 AMI > 5 > 4 Lab Order: Troponin; SPEC' 06/25/16 19:31 Test: TROPONIN I; Value: 0.05; Range: < 0.10; Units: NG/ML; Status: F Test Note: ; Troponin I Reference Interval for Siemens [place] LOCI: 99th Percentile= 0.00-0.045 ng/ml Risk Stratification: <= 0.10 ng/ml Decreased Risk for Adverse Clinical Events. 0.10-1.50 ng/ml Increased Risk for Adverse Clinical Events. Evaluation of additional criterion and/or repeat testing in 2-6 hours is suggested to rule out myocardial damage. >= 1.50 ng/ml Indicative of Myocardial Injury. Lab Order: -Influenza A&B Rapid Antigen - Nose; SPEC'M 06/25/16 20:04 Test: INFLUENZA A RAPID SCR by ICA; Value: INFLUENZA A RESULTS NEGATIVE; Status: F Test: INFLUENZA A RAPID SCR by ICA; Value: Comments:; Status: F Test: INFLUENZA B RAPID SCR by ICA; Value: INFLUENZA B RESULTS NEGATIVE; Status: F Test Note: ; The Influenza test is a direct rapid immunoassay for the qualitative detection of Influenza viral antigen. Cell culture (Viral Culture) testing should be considered to confirm NEGATIVE results and to assist in detecting other viruses that can provide similar clinical symptoms. Please contact the lab within 24 hours ([phone]) if confirmatory testing is desired. Lab Order: Lactic Acid (Mireles tube on ice); SPEC'M 06/25/16 20:04 Test: LACTIC ACID LEVEL, LACTATE; Value: 1.0; Range: 0.4-2.0; Units: MMOL/L; Status: F Lab Order: -Arterial Blood Gas; SPEC'M 06/25/16 20:07 Test: ABG pH (ARTERIAL); Value: 7.501; Range: 7.350-7.450; Abnormal: Above high normal; Units: UNITS; Status: F Test: ABG PARTIAL PRESSURE CO2; Value: 37.6; Range: 35.0-45.0; Units: mmHg; Status: F Test: ABG PARTIAL PRESSURE O2; Value: 64.1; Range: 75.0-100.0; Abnormal: Below low normal; Units: mmHg; Status: F Test: ABG TOTAL CO2; Value: 29.9; Range: 22.0-29.0; Abnormal: Above high normal; Units: MEQ/L; Status: F Test: ABG HCO3; Value: 28.7; Range: 22.0-26.0; Abnormal: Above high normal; Units: MEQ/L; Status: F Test: ABG BASE EXCESS; Value: 5.4; Range: -2.0-2.0; Abnormal: Above high normal; Status: F Test: ABG STANDARD HCO3; Value: 29.3; Range: 22.0-26.0; Abnormal: Above high normal; Units: MEQ/L; Status: F Test: ABG O2 SATURATION; Value: 94.7; Range: 95.0-99.0; Abnormal: Below low normal; Units: %; Status: F Test: ABG DEVICE; Value: NASAL MAURICIO; Status: F Lab Order: Pt & Aptt; SPEC'M 06/25/16 19:31 Test: PROTHROMBIN TIME; Value: 14.0; Range: 12.3-14.5; Units: SECONDS; Status: F Test: INR; Value: 1.07; Status: F Test: PARTIAL THROMBOPLASTIN TIME; Value: 34.4; Range: 26.6-37.1; Units: SECONDS; Status: F Test Note: ; THERAPUTIC HUMAN INR VALUES INDICATIONS NORMAL RANGES PROPHYLAXIS/TREATMENT OF: VENOUS THROMBOSIS 2.0-3.0 PULMONARY EMBOLISM 2.0-3.0 PREVENTION OF SYSTEMIC EMBOLISM FROM: TISSUE HEART VALVES 2.0-3.0 ACUTE MYOCARDIAL INFARCTION 2.0-3.0 VALVULAR HEART DISEASE 2.0-3.0 ATRIAL FIBRILLATION 2.0-3.0 MECHANICAL VALVES(HIGH RISK) 2.5-3.5 RECURRENT MYOCARDIAL INFARCTION 2.5-3.5 Lab Order: THYROID PROFILE; SPEC'M 06/25/16 19:31 Test: T UPTAKE; Value: 32; Range: 33-40; Abnormal: Below low normal; Units: %; Status: F Test: THYROXINE (T4); Value: 10.0; Range: 4.5-12.0; Units: UG/DL; Status: F Test: FREE THYROXINE INDEX; Value: 3.2; Range: 1.4-3.8; Units: %; Status: F Test: THYROID STIMULATING HORMONE; Value: 0.667; Range: 0.358-3.740; Units: uIU/ML; Status: F Radiology Order: Chest, 2 View (pa\E\lat) Test: Chest, 2 View (pa\E\lat) REASON FOR EXAMINATION: Shortness of Breath; Clinical: Shortness of breath.; ; Technique: PA and lateral.; ; Comparison: None.; ; Findings: Cardiomegaly is appreciated with evidence for prior sternotomy. Right; lower lobe opacity/mass. No further consolidation, effusion, or pneumothorax.; Skeletal structures intact.; ; Impression:; 1. Cardiomegaly.; 2. Right lower lobe opacity/mass requires further investigation including chest; CT.; ; ; Signed by; Taran Potts MD 06/25/2016 09:10 P; Radiology Order: CT Chest Without Contrast Test: CT Chest Without Contrast REASON FOR EXAMINATION: RLL infiltrate r/o mass; Clinical: Right lower lobe consolidation versus mass.; ; Findings:; Marked cardiomegaly is appreciated which requires correlation. The patient; appears to be status post sternotomy. No pericardial effusion is identified.; ; Right lower lobe consolidation with air bronchograms most compatible with acute; pneumonia. Minimal scattered alveolar infiltrates are also identified within the; right upper lobe. No pleural effusion. No pneumothorax. Tracheobronchial tree; is patent. No significant obvious adenopathy. Limited evaluation of the upper; abdomen demonstrates normal bilateral adrenal glands.; ; Impression:; 1. Marked cardiomegaly and evidence of prior sternotomy.; 2. Moderate right lower lobe consolidation with air bronchograms and trace right; upper lobe airspace disease most compatible with acute pneumonia. Follow-up to; resolution recommended.; ; ; Signed by; Taran Potts MD 06/25/2016 09:22 P; Outcome: 22:22 Decision to Hospitalize by Provider. pc 23:56 Admission hand-off: Report Faxed Fax receipt verified by Francesca Marcelo RN PCU. ko2 23:57 Discharge Assessment: Patient awake, alert and oriented x 3. No cognitive and/or ko2 functional deficits noted. Patient verbalized understanding of disposition instructions. patient administered narcotics - no. The following High Risk Discharge criteria are identified: None. Admitted to PCU accompanied by nurse, accompanied by tech, via stretcher, with oxygen, on monitor, with chart. Condition: stable. CT Study completed. Property :Personal belongings accompany Pt. 06/26 01:10 Patient left the ED. ko2 Signatures: Dispatcher [employer] EDMS Aryan Bay MD MD pc Zecher, Calvin, RN RN cz Dariela Lozada, Reg Reg gb Kvng Ching Joseph jc3 Alex Cano, MEDICATION CARE MANAGER MEDICATION CARE MANAGER dd6 Melinda Rivas, MEDICATION CARE MANAGER MEDICATION CARE MANAGER Rosio Sales RN RN ko2 Randy Zurita,RAMOS RN mgs Corrections: (The following items were deleted from the chart) 06/25 19:32 19:24 Presenting complaint: Patient states: that he has been having chest pressure on cz and off for several days has URI symptoms and recently started smoking again in April after having quit for 18 years. pt states hasnt smoked in a couple of days. at this time no chest pain or pressure cz Chart Complete MTDD
[2016-06-28 04:00] VITALS: BP_SYST 151; BP_SYST 97; BP_DIAS 50; BP_DIAS 87
[2016-06-28] MEDS: SLF 3 ML SYR IV SCH (05:45)
[2016-06-28 06:24] LABS: BASO % 0.1 % (0.0-1.0); EOS # 0.1 K/mm3 (0.0-0.50); EOS % 0.4 % (0.0-3.0); LARGE UNSTAINED CELL # 0.1 K/mm3 (0.0-0.4); LARGE UNSTAINED CELL % 0.8 % (0.0-4.0); LYMPH # 0.6 K/mm3 (1.5-4.5); LYMPH % 3.7 % (24.0-44.0); MEAN CORPUSCULAR HEMOGLOBIN 30.6 pg (27.0-33.0); MEAN CORPUSCULAR HGB CONC 31.9 g/dl (32.0-36.5); MONO # 0.5 K/mm3 (0.0-0.8); MONO % 3.4 % (0.0-5.0); NEUTROPHILS # 14.3 K/mm3 (1.8-7.7); NEUTROPHILS % 91.7 % (36.0-66.0); PLATELET COUNT, AUTOMATED 210 k/mm3 (150-450); RED CELL DISTRIBUTION WIDTH 13.4 % (11.5-14.5); WHITE BLOOD COUNT 15.6 K/mm3 (4.0-10.0)
[2016-06-28 06:45] LABS: ALBUMIN 3.2 GM/DL (3.2-5.2); ALBUMIN/GLOBULIN RATIO 0.89 (1.00-1.93); ALKALINE PHOSPHATASE 108 U/L (45-117); ALT/SGPT 22 U/L (12-78); ANION GAP 9 MEQ/L (8-16); AST/SGOT 37 U/L (15-37); BILIRUBIN,TOTAL 0.6 MG/DL (0.2-1.0); BLOOD UREA NITROGEN 22 MG/DL (7-18); CALCIUM LEVEL 8.7 MG/DL (8.5-10.1); CARBON DIOXIDE LEVEL 28 MEQ/L (21-32); CHLORIDE LEVEL 102 MEQ/L (98-107); CHOLESTEROL LEVEL 132 MG/DL (<200); CREATININE FOR GFR 1.17 MG/DL (0.70-1.30); GLOMERULAR FILTRATION RATE > 60.0 (>56); GLUCOSE, FASTING 299 MG/DL (70-105); MAGNESIUM LEVEL 2.5 MG/DL (1.8-2.4); POTASSIUM SERUM 4.5 MEQ/L (3.5-5.1); SODIUM LEVEL 139 MEQ/L (136-145); TOTAL PROTEIN 6.8 GM/DL (6.4-8.2); TRIGLYCERIDES LEVEL 61 MG/DL (<150)
[2016-06-28 08:00] VITALS: BP 145/96
[2016-06-28] MEDS: ASPIRIN 81 MG ENTERIC TAB PO SCH (08:41)
[2016-06-28] MEDS: FUROSEMIDE 40 MG TAB PO SCH (08:41)
[2016-06-28] MEDS: predniSONE 20 MG TAB PO SCH (08:41)
[2016-06-28] MEDS: LISINOPRIL 10 MG TAB PO SCH (08:41)
[2016-06-28] MEDS: APIXABAN 5 MG TAB (ELIQUIS) PO SCH (08:41)
[2016-06-28] MEDS: ATORVASTATIN 20 MG TAB PO SCH (08:41)
[2016-06-28 08:42] VITALS: BP 145/96
[2016-06-28] MEDS: METOPROLOL TART 50 MG TAB PO SCH (08:42)
[2016-06-28] MEDS ORDERED: PRED10PA2 PO (10:07)
[2016-06-28] MEDS ORDERED: CEFD1CAP8 PO (10:07)
--- NOTE | 2016-06-28 12:01 | ECGEPIP ---
Stationary ECG Study [facility] - ED Test Date: 2016-06-25 Pat Name: PETE NORIEGA Department: Room: [place] [address] Gender: M Mental Health Coordinator: ArthurB: 1960 Requested By: Aryan Pierce Order Number: [id number] Reading MD: Ratna Barker Measurements Intervals [place] Rate: 94 P: MD: 0 QRS: 86 QRSD: 154 T: 53 QT: 378 QTc: 475 Interpretive Statements ATRIAL FIBRILLATION INTRAVENTRICULAR CONDUCTION DELAY POSSIBLE INFERIOR MYOCARDIAL INFARCTION, PROBABLY OLD NO PRIOR FOR COMPARISON Electronically Signed On 06-28-2016 12:01:35 EST by Ranta Barker
--- NOTE | 2016-06-28 17:09 | ECGEPIP ---
Stationary ECG Study [facility] Test Date: 2016-06-27 Pat Name: PETE NORIEGA Department: Room: [place] [address] Gender: M [employer] Supervisor: TASHI : 1960 Requested By: GLADYS Bella Order Number: [id number] Reading MD: Pete Dela Cruz Measurements Intervals [place] Rate: 86 P: SC: 0 QRS: 87 QRSD: 146 T: 87 QT: 392 QTc: 471 Interpretive Statements ATRIAL FIBRILLATION WITH CONTROLLED VENTRICULAR RESPONSE INTERMITTENT WIDE COMPLEX BEATS LIKELY PVCS RIGHTWARD AXIS, LOW LIMB VOLTAGES, AND SLOW PRECORDIAL R WAVE PROGRESSION; BODY HABITUS VS PULMONARY DISEASE. CANNOT RULE OUT PRIOR SEPTAL INJURY SUBTLE ST/T WAVE ABNORMALITIES MARGINALLY MORE PROMINANT 06/25/16 Electronically Signed On 06-28-2016 17:08:55 EST by Pete Dela Cruz
[2016-06-29 00:06] LABS: ORGANISM ID Not indicated. (.); SPECIMEN SOURCE Urine (.)
--- NOTE | 2016-06-29 18:21 | DSES ---
DATE OF ADMISSION: 06/25/2016 DATE OF DISCHARGE: 06/28/2016 No specialists involved in care. No complications during stay. No procedures performed during stay. DISCHARGE DIAGNOSES: 1. Community-acquired pneumonia. 2. Atrial fibrillation. 3. Coronary artery disease. 4. Congestive heart failure with systolic dysfunction, left ventricular ejection fraction 25%. 5. Severe biatrial enlargement. 6. Chronic obstructive pulmonary disease (COPD). 7. Suspected pulmonary hypertension. FINDINGS AND SUMMARY OF THIS HOSPITALIZATION: This is a 55-year-old who presented with shortness of breath and chest pain, was found to have right lower lobe consolidation with air bronchograms, suspected community-acquired pneumonia, was thought to be in atrial fibrillation, was placed on telemetry, was found to be in atrial fibrillation. A 2D echocardiogram showed biatrial enlargement and depressed left ventricular ejection fraction, most likely related to his underlying ischemic heart disease. He was started on Eliquis. He improved symptomatically from his pneumonia, was treated with a short course of steroids. We discussed need to follow up with cardiology for the possibility of automatic implantable cardioverter defibrillator (AICD) placement and, of course, medical and diagnostic management. He requested followup with Dr. Hirsch and Dr. Nunez. On the day of discharge, he is feeling well. Temperature 96.8, pulse 81, respiratory rate 18, blood pressure 145/96, 94% on room air. Awake and alert. Breathing is symmetrical, but diminished. Inspiratory to expiratory ratio (I:E) is 1:3. Heart is in an irregular rate and rhythm, distant sounding. Abdomen soft, doughy and nontender. White cell count 15.6, on steroids. Creatinine 1.17. DISCHARGE INSTRUCTIONS: Include the followin. Follow up with Dr. Dhaliwal 07/04/2016 at 8:45. 2. Follow up with Dr. Nunez or Dr. Hirsch in the [place] office in 7-10 days. 3. Patient needs to call with followup instructions. I have discussed the case with Dr. Hirsch in person. MEDICATIONS AT TIME OF DISCHARGE: - Eliquis 5 mg by mouth daily - prednisone as directed - aspirin 81 mg by mouth daily - Lasix 40 mg by mouth daily - lisinopril 10 mg by mouth twice a day - metoprolol tartrate 50 mg by mouth twice a day - Crestor 20 mg by mouth daily
== END 2016-06-28 11:42 | disposition home or self-care (01) | DRG 139 ==
LOC: M ED 19:14 → M ED INP 23:37 → M PCU 06-26 01:04
PROVIDERS: ADMIT Emergency Medicine; ATTEND Internal Medicine
DX: J18.9 Pneumonia, unspecified organism (principal); E87.2 Acidosis; I50.22 Chronic systolic (congestive) heart failure; I27.2 Other secondary pulmonary hypertension; I48.91 Unspecified atrial fibrillation; J44.9 Chronic obstructive pulmonary disease, unspecified; Z79.82 Long term (current) use of aspirin; D72.829 Elevated white blood cell count, unspecified; Z95.1 Presence of aortocoronary bypass graft; Z79.899 Other long term (current) drug therapy; F17.210 Nicotine dependence, cigarettes, uncomplicated; Z83.3 Family history of diabetes mellitus; Z82.49 Family history of ischemic heart disease and other diseases of the circulatory system; I34.0 Nonrheumatic mitral (valve) insufficiency; I25.10 Atherosclerotic heart disease of native coronary artery without angina pectoris

== ENCOUNTER → 2016-07-18 | Outpatient (REF) | payer OTHER ==
[~2016-07-18] MED LIST: ASPI81TA85 PO; CEFD1CAP8 PO; ELIQ5TAB PO; LASI40TA PO; LISI10TA4 PO; LOPR1TAB6 PO; PRED10PA2 PO; ROSU20TA PO
== END | disposition home or self-care (01) ==
LOC: M SFHCADAM 11:04
PROVIDERS: ATTEND Family Medicine
DX: R73.01 Impaired fasting glucose (principal)

== ENCOUNTER → 2016-09-27 | Outpatient (REF) | payer OTHER ==
[2016-09-27 19:33] LABS: ALBUMIN 3.9 GM/DL (3.2-5.2); ALBUMIN/GLOBULIN RATIO 1.44 (1.00-1.93); ALKALINE PHOSPHATASE 84 U/L (45-117); ALT/SGPT 17 U/L (12-78); ANION GAP 6 MEQ/L (8-16); AST/SGOT 41 U/L (15-37); BILIRUBIN,TOTAL 1.3 MG/DL (0.2-1.0); BLOOD UREA NITROGEN 23 MG/DL (7-18); CALCIUM LEVEL 8.4 MG/DL (8.5-10.1); CARBON DIOXIDE LEVEL 32 MEQ/L (21-32); CHLORIDE LEVEL 103 MEQ/L (98-107); CREATININE FOR GFR 1.26 MG/DL (0.70-1.30); GLOMERULAR FILTRATION RATE > 60.0 (>56); GLUCOSE, FASTING 124 MG/DL (70-105); POTASSIUM SERUM 3.9 MEQ/L (3.5-5.1); SODIUM LEVEL 141 MEQ/L (136-145); TOTAL PROTEIN 6.6 GM/DL (6.4-8.2)
== END ==
LOC: M SFHCADAM 14:10
PROVIDERS: ATTEND Family Medicine
DX: R06.00 Dyspnea, unspecified (principal); Z79.01 Long term (current) use of anticoagulants

== ENCOUNTER → 2016-12-13 | Outpatient (CLI) | payer OTHER ==
--- NOTE | 2016-12-14 07:59 | REP ---
Clinical: Acute pain. Technique: AP, lateral, bilateral oblique and sunrise views of the right knee. Findings: Degenerative changes include cortical irregularity to the femoral condyles, increased sclerosis to the tibial plateau with mild medial joint space narrowing as well as subtle early spurring of the lateral tibial spine and osteophyte formation along the posterior tibial margin best identified on lateral radiograph. The patella demonstrates increased sclerosis along the posterior aspect with decreased patellofemoral joint space. No acute fracture dislocation. No obvious effusion. Impression: Early moderate arthritic degenerative changes. Signed by Taran Potts MD 12/14/2016 07:51 A
== END ==
LOC: M ADAMS 15:56
PROVIDERS: ATTEND Family Medicine
DX: M25.561 Pain in right knee (principal); M17.11 Unilateral primary osteoarthritis, right knee

== ENCOUNTER → 2016-12-15 | Outpatient (CLI) | payer OTHER ==
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
== END ==
LOC: M ADAMS 14:01
PROVIDERS: ATTEND Physician Assistant
DX: M25.532 Pain in left wrist (principal); M79.89 Other specified soft tissue disorders

== ENCOUNTER → 2017-08-08 | Outpatient (REF) | payer OTHER ==
[2017-08-08 20:01] LABS: INR 1.99; PROTHROMBIN TIME 23.3 SECONDS (12.4-14.5)
[2017-08-08 20:02] LABS: ALBUMIN 3.7 GM/DL (3.2-5.2); ALBUMIN/GLOBULIN RATIO 1.19 (1.00-1.93); ALKALINE PHOSPHATASE 89 U/L (45-117); ALT/SGPT 12 U/L (12-78); ANION GAP 7 MEQ/L (8-16); AST/SGOT 24 U/L (7-37); BILIRUBIN,TOTAL 0.8 MG/DL (0.2-1.0); BLOOD UREA NITROGEN 19 MG/DL (7-18); CALCIUM LEVEL 8.5 MG/DL (8.5-10.1); CARBON DIOXIDE LEVEL 31 MEQ/L (21-32); CHLORIDE LEVEL 104 MEQ/L (98-107); CREATININE FOR GFR 1.01 MG/DL (0.70-1.30); GLOMERULAR FILTRATION RATE > 60.0 (>56); GLUCOSE, FASTING 117 MG/DL (70-100); POTASSIUM SERUM 4.2 MEQ/L (3.5-5.1); SODIUM LEVEL 142 MEQ/L (136-145); TOTAL PROTEIN 6.8 GM/DL (6.4-8.2)
[2017-08-08 20:16] LABS: ESTIMATED AVERAGE GLUCOSE 128 MG/DL (60-110); HEMOGLOBIN A1c 6.1 %
== END ==
LOC: M SFHCADAM 19:25
DX: E11.9 Type 2 diabetes mellitus without complications (principal)

== ENCOUNTER → 2017-08-22 | Outpatient (REF) | payer OTHER ==
[2017-08-22 22:00] LABS: CREATININE, URINE 28.3 MG/DL; MALB URINE SIEMENS 19.8 MG/L; MAU/CREAT RATIO 69.9 MCG/MG (0.0-30.0)
== END ==
LOC: M SFHCADAM 19:26
DX: E11.9 Type 2 diabetes mellitus without complications (principal)
CPT/HCPCS: 82043

== ENCOUNTER → 2017-09-04 | Outpatient (REF) | payer OTHER ==
[2017-09-04 20:38] LABS: INR 1.47; PROTHROMBIN TIME 18.2 SECONDS (12.4-14.5)
== END ==
LOC: M SFHCADAM 14:51
DX: Z79.01 Long term (current) use of anticoagulants (principal)
CPT/HCPCS: 85610

== ENCOUNTER → 2017-09-04 | Outpatient (REF) | payer OTHER ==
[2017-09-04 20:09] LABS: HEMOGLOBIN 16.9 g/dl (14.0-18.0); MEAN CORPUSCULAR HGB CONC 31.9 g/dl (32.0-36.5); MEAN CORPUSCULAR VOLUME 94.1 fl (80.0-96.0); PLATELET COUNT, AUTOMATED 221 10^3/uL (150-450); RED BLOOD COUNT 5.63 10^6/uL (4.30-6.10); RED CELL DISTRIBUTION WIDTH 15.2 % (11.5-14.5); WHITE BLOOD COUNT 9.2 10^3/uL (4.0-10.0)
[2017-09-04 20:17] LABS: ANION GAP 6 MEQ/L (8-16); BLOOD UREA NITROGEN 16 MG/DL (7-18); CALCIUM LEVEL 8.9 MG/DL (8.5-10.1); CARBON DIOXIDE LEVEL 32 MEQ/L (21-32); CHLORIDE LEVEL 103 MEQ/L (98-107); CHOLESTEROL LEVEL 206 MG/DL (<200); CHOLESTEROL RISK RATIO 5.421 (<5); CREATININE FOR GFR 1.06 MG/DL (0.70-1.30); GLOMERULAR FILTRATION RATE > 60.0 (>56); GLUCOSE, FASTING 102 MG/DL (70-100); HDL CHOLESTEROL 38 MG/DL (>40); LDL CHOLESTEROL 144.6 MG/DL (<100); NON-HDL-C 168 MG/DL; POTASSIUM SERUM 4.1 MEQ/L (3.5-5.1); SODIUM LEVEL 141 MEQ/L (136-145); TRIGLYCERIDES LEVEL 117 MG/DL (<150)
== END ==
LOC: M LAB REF 19:25
DX: I25.10 Atherosclerotic heart disease of native coronary artery without angina pectoris (principal); E78.4 Other hyperlipidemia

== ENCOUNTER → 2017-09-17 | Outpatient (REF) | payer OTHER ==
[2017-09-17 15:43] LABS: INR 2.17
== END ==
LOC: M SFHCADAM 13:48
DX: Z79.01 Long term (current) use of anticoagulants (principal)

== ENCOUNTER → 2018-01-30 | Outpatient (CLI) | payer OTHER | LOC: M RAD 10:05 | DX: I65.23 Occlusion and stenosis of bilateral carotid arteries (principal) | CPT/HCPCS: 93880 ==

== ENCOUNTER 2018-04-02 11:28 | Outpatient (RCR) | payer OTHER | END 2018-04-23 | LOC: M CR 11:28 | DX: I50.9 Heart failure, unspecified (principal); Z98.61 Coronary angioplasty status ==

== ENCOUNTER 2018-04-28 15:13 | Outpatient (RCR) | payer OTHER | END 2018-05-23 | LOC: M CR 15:13 | DX: Z51.89 Encounter for other specified aftercare (principal); Z98.61 Coronary angioplasty status | CPT/HCPCS: 93798 ==

== ENCOUNTER → 2018-06-13 | Outpatient (REF) | payer OTHER ==
[~2018-06-13] MED LIST changes: +ATOR40TA75 PO; +ENTR1TAB4 PO; -LASI40TA PO; +LASI40TA9 PO; +METF500T13 PO; +PLAV1TAB2 PO; -ROSU20TA PO; +ROSU20TA4 PO; +XARE20TA PO
[2018-06-13 20:18] LABS: HEMATOCRIT 48.6 % (42.0-52.0); HEMOGLOBIN 15.7 g/dl (13.5-17.5); MEAN CORPUSCULAR HEMOGLOBIN 31.3 pg (27.0-33.0); MEAN CORPUSCULAR HGB CONC 32.3 g/dl (32.0-36.5); MEAN CORPUSCULAR VOLUME 96.8 fl (80.0-96.0); PLATELET COUNT, AUTOMATED 167 10^3/uL (150-450); RED BLOOD COUNT 5.02 10^6/uL (4.30-6.10); WHITE BLOOD COUNT 7.7 10^3/uL (4.0-10.0)
[2018-06-13 20:24] LABS: CREATININE FOR GFR 1.33 MG/DL (0.70-1.30); GLOMERULAR FILTRATION RATE 59.4 (>56); POTASSIUM SERUM 4.1 MEQ/L (3.5-5.1)
== END ==
LOC: M LAB REF 15:21
PROVIDERS: ATTEND Internal Medicine Cardiovascular Disease
DX: I42.5 Other restrictive cardiomyopathy (principal)

== ENCOUNTER → 2020-11-16 | Outpatient (REF) ==
[~2020-11-16] MED LIST changes: -ASPI81TA85 PO; +ASPI81TA86 PO; +LISI10TA22 PO; -LISI10TA4 PO; -ROSU20TA4 PO; +ROSU20TA5 PO
--- NOTE | 2020-11-16 16:00 | REPPI ---
INDICATION: DISABILITY DIAGNOSIS DETERMINATION COMPARISON: None. TECHNIQUE: AP, lateral, coned-down views of the lumbar spine. FINDINGS: Three views of the lumbosacral spine demonstrate satisfactory alignment and lordosis without acute fracture / compression injury or subluxation. Moderate to advanced multilevel degenerative changes include endplate sclerosis, osteophytosis, disc space narrowing, and facet hypertrophy. IMPRESSION: 1. No acute fracture / compression injury or subluxation. 2. Moderate to advanced multilevel degenerative spondylosis. Consider MRI for further investigation if the patient remains symptomatic. <Electronically signed by Taran Potts > 11/16/20 [id number]
== END ==
LOC: M PLAIMG 14:55
PROVIDERS: ATTEND Internal Medicine
DX: Z00.00 Encounter for general adult medical examination without abnormal findings (principal)

== ENCOUNTER → 2021-04-06 | Outpatient (CLI) | payer OTHER | LOC: M LABSMTC 11:49 | PROVIDERS: ATTEND Internal Medicine Cardiovascular Disease | DX: Z11.52 Encounter for screening for COVID-19 (principal) ==

== ENCOUNTER 2021-12-15 06:56 | Inpatient (IN) | payer OTHER ==
[~2021-12-15] VITALS: Ht 177.8 cm; Wt 140.5 kg
[~2021-12-15 06:56] MED LIST changes: -CEFD1CAP8 PO; +CEFD300C41 PO
[2021-12-15 08:42] LABS: BASO # 0.1 10^3/uL (0.0-0.2); BASO % 0.4 % (0.0-1.0); EOS # 0.1 10^3/uL (0.0-0.5); EOS % 0.8 % (0.0-3.0); HEMATOCRIT 48.4 % (42.0-52.0); HEMOGLOBIN 15.4 g/dl (13.5-17.5); LYMPH # 0.9 10^3/uL (1.5-5.0); LYMPH % 7.9 % (24.0-44.0); MEAN CORPUSCULAR HEMOGLOBIN 31.2 pg (27.0-33.0); MEAN CORPUSCULAR HGB CONC 31.8 g/dl (32.0-36.5); MEAN CORPUSCULAR VOLUME 98.2 fl (80.0-96.0); MONO # 0.8 10^3/uL (0.0-0.8); MONO % 6.7 % (2.0-8.0); NEUTROPHILS # 9.8 10^3/uL (1.5-8.5); NEUTROPHILS % 82.9 % (36.0-66.0); PLATELET COUNT, AUTOMATED 195 10^3/uL (150-450); RED BLOOD COUNT 4.93 10^6/uL (4.30-6.10); WHITE BLOOD COUNT 11.8 10^3/uL (4.0-10.0)
[2021-12-15 09:20] LABS: ALBUMIN 3.9 GM/DL (3.2-5.2); BILIRUBIN,DIRECT 0.2 MG/DL (0.0-0.2); BILIRUBIN,TOTAL 0.6 MG/DL (0.2-1.0); CALCIUM LEVEL 9.9 MG/DL (8.5-10.1); CREATININE FOR GFR 1.82 MG/DL (0.70-1.30); GLOMERULAR FILTRATION RATE 40.9 (>56); MAGNESIUM LEVEL 2.7 MG/DL (1.8-2.4); POTASSIUM SERUM 5.1 MEQ/L (3.5-5.1); THYROID STIMULATING HORMONE 4.05 uIU/ML (0.358-3.740); THYROXINE (T4) 10.9 UG/DL (4.5-12.0); TOTAL PROTEIN 7.5 GM/DL (6.4-8.2)
[2021-12-15] MEDS ORDERED: MAALOX 30 ML SUSP *UDC PO PRN (11:35)
[2021-12-15] MEDS ORDERED: MOM 30ML SUSPENSION UDC PO PRN (11:35)
[2021-12-15] MEDS ORDERED: ACETAMINOPHEN TAB 650MG DOSE (2X325MG) PO PRN (11:35)
[2021-12-15] MEDS ORDERED: GLUCAGON INJ 1MG VIAL SC PRN (11:50)
[2021-12-15] MEDS ORDERED: GLUCOSE 4GM CHEW TABLET PO PRN (11:50)
[2021-12-15] MEDS ORDERED: DEXTROSE 50% 50 ML SYRINGE IV PRN (11:50)
[2021-12-15] MEDS ORDERED: SPIR-10 PO (12:18)
[2021-12-15] MEDS ORDERED: CARV25TA PO (12:18)
[2021-12-15] MEDS ORDERED: ROSU20TA5 PO (12:18)
[2021-12-15] MEDS ORDERED: AMIO200T37 PO (12:18)
[2021-12-15] MEDS ORDERED: FARX1TAB3 PO (12:20)
[2021-12-15] MEDS ORDERED: HOME MED LIST COMPLETE! XX SCH (12:20)
[2021-12-15] MEDS: INSULIN LISPRO (NovoLOG) PER UNIT SC SCH ×2 (13:42→18:42)
[2021-12-15 17:30] VITALS: BP 139/70
[2021-12-15] MEDS ORDERED: RIVAROXABAN 20MG TAB (XARELTO) PO SCH (18:00)
[2021-12-15 18:11] LABS: CK-MB VALUE MASS 2.4 NG/ML (<3.6); MB/CK RELATIVE INDEX 2.7 (< OR =4)
[2021-12-15 20:00] VITALS: BP 106/69
[2021-12-15] MEDS: ENTRESTO 97-103MG TABLET (SACUBITRIL/VALSARTAN) PO SCH (20:46)
[2021-12-15] MEDS: CARVedilol 12.5 MG TAB PO SCH (20:46)
[2021-12-15 21:00] VITALS: BP 103/70
[2021-12-15] MEDS ORDERED: INSULIN LISPRO (NovoLOG) PER UNIT SC SCH (21:00)
[2021-12-15 22:00] VITALS: BP 99/68
[2021-12-15 23:00] VITALS: BP 108/70
[2021-12-16] VITALS (8 sets, daily range): BP systolic 84–113; BP diastolic 42–78
[2021-12-16 02:35] LABS: MB/CK RELATIVE INDEX 2.74 (< OR =4)
[2021-12-16 08:07] LABS: HEMATOCRIT 46.1 % (42.0-52.0); HEMOGLOBIN 14.6 g/dl (13.5-17.5); MEAN CORPUSCULAR HEMOGLOBIN 30.6 pg (27.0-33.0); MEAN CORPUSCULAR HGB CONC 31.7 g/dl (32.0-36.5); MEAN CORPUSCULAR VOLUME 96.6 fl (80.0-96.0); PLATELET COUNT, AUTOMATED 166 10^3/uL (150-450); RED BLOOD COUNT 4.77 10^6/uL (4.30-6.10); WHITE BLOOD COUNT 7.5 10^3/uL (4.0-10.0)
[2021-12-16] MEDS: CARVedilol 12.5 MG TAB PO SCH (08:12)
[2021-12-16] MEDS: ENTRESTO 97-103MG TABLET (SACUBITRIL/VALSARTAN) PO SCH (08:12)
[2021-12-16] MEDS: INSULIN LISPRO (NovoLOG) PER UNIT SC SCH ×2 (08:13→11:59)
[2021-12-16 08:37] LABS: CALCIUM LEVEL 9.2 MG/DL (8.5-10.1); CREATININE FOR GFR 1.49 MG/DL (0.70-1.30); GLOMERULAR FILTRATION RATE 51.6 (>56); MAGNESIUM LEVEL 2.5 MG/DL (1.8-2.4); POTASSIUM SERUM 4.6 MEQ/L (3.5-5.1)
[2021-12-16 08:39] LABS: CK-MB VALUE MASS 1.9 NG/ML (<3.6); MB/CK RELATIVE INDEX 2.13 (< OR =4)
[2021-12-16] MEDS ORDERED: CLOPIDOGREL 75 MG TAB PO SCH (09:00)
[2021-12-16] MEDS ORDERED: AMIODARONE 200 MG TAB (PACERONE) PO SCH (09:00)
[2021-12-16] MEDS ORDERED: DAPAGLIFLOZIN PROPANEDIOL 10MG TABLET (FARXIGA) PO SCH (09:00)
[2021-12-16] MEDS ORDERED: ROSUVASTATIN 10 MG TAB (CRESTOR) PO SCH (09:00)
[2021-12-16] MEDS ORDERED: SPIRONOLACTONE 25 MG TAB PO SCH (09:00)
[2021-12-16] MEDS ORDERED: FUROSEMIDE 40 MG TAB PO SCH (09:00)
[2021-12-16] MEDS ORDERED: AMIO400T7 PO (11:07)
[2021-12-17] MEDS ORDERED: AMIODARONE 200 MG TAB (PACERONE) PO SCH (09:00)
== END 2021-12-16 15:15 | disposition home or self-care (01) | DRG 201 ==
LOC: EDBD 06:56 → M ED 06:56 → M ED INP 11:32 → ENRESERV 16:10 → M ICU 17:26 → M PCU 12-16 00:54
PROVIDERS: ADMIT Family Medicine; ATTEND Family Medicine
DX: I47.2 Ventricular tachycardia (principal); N17.9 Acute kidney failure, unspecified; E11.9 Type 2 diabetes mellitus without complications; I50.22 Chronic systolic (congestive) heart failure; I48.91 Unspecified atrial fibrillation; R55 Syncope and collapse; I25.5 Ischemic cardiomyopathy; I25.10 Atherosclerotic heart disease of native coronary artery without angina pectoris; I25.2 Old myocardial infarction; Z95.0 Presence of cardiac pacemaker; Z95.5 Presence of coronary angioplasty implant and graft; Z87.891 Personal history of nicotine dependence; Z95.810 Presence of automatic (implantable) cardiac defibrillator; Z79.02 Long term (current) use of antithrombotics/antiplatelets; Z79.01 Long term (current) use of anticoagulants; Z79.899 Other long term (current) drug therapy; Z79.84 Long term (current) use of oral hypoglycemic drugs; Z88.5 Allergy status to narcotic agent; Z88.6 Allergy status to analgesic agent

== ENCOUNTER 2022-04-08 15:46 | Inpatient (IN) | payer OTHER ==
[~2022-04-08] VITALS: Ht 177.8 cm; Wt 139.8 kg
[~2022-04-08 15:46] MED LIST changes: +AMIO200T37 PO; +AMIO400T7 PO; +CARV25TA PO; +FARX1TAB3 PO; +SPIR-10 PO
[2022-04-08] MEDS ORDERED: dexameTHASONE 4 MG/ML 1ML VIAL (J1100 PER 1MG) IV ONE (17:25)
[2022-04-08 17:34] LABS: BASO % 0.5 % (0.0-1.0); EOS # 0.1 10^3/uL (0.0-0.5); EOS % 0.9 % (0.0-3.0); HEMATOCRIT 50.4 % (42.0-52.0); HEMOGLOBIN 15.8 g/dl (13.5-17.5); LYMPH # 0.9 10^3/uL (1.5-5.0); LYMPH % 11.5 % (24.0-44.0); MEAN CORPUSCULAR HEMOGLOBIN 30.4 pg (27.0-33.0); MEAN CORPUSCULAR HGB CONC 31.3 g/dl (32.0-36.5); MEAN CORPUSCULAR VOLUME 96.9 fl (80.0-96.0); MONO # 1.5 10^3/uL (0.0-0.8); MONO % 19.9 % (2.0-8.0); NEUTROPHILS # 4.9 10^3/uL (1.5-8.5); NEUTROPHILS % 66.1 % (36.0-66.0); PLATELET COUNT, AUTOMATED 164 10^3/uL (150-450); WHITE BLOOD COUNT 7.4 10^3/uL (4.0-10.0)
[2022-04-08 17:38] LABS: INR 0.92; PROTHROMBIN TIME 12.6 SECONDS (12.5-14.5)
[2022-04-08 18:01] LABS: CPK CREATINE PHOSPHOKINASE 80 U/L (39-308)
[2022-04-08] MEDS: COMBIVENT RESPIMAT 100-20MCG INHALER 4GM INH SCH ×3 (18:02→18:23)
[2022-04-08 18:07] LABS: BILIRUBIN,DIRECT 0.2 MG/DL (0.0-0.2); BILIRUBIN,TOTAL 0.8 MG/DL (0.2-1.0); CALCIUM LEVEL 8.7 MG/DL (8.5-10.1); CREATININE FOR GFR 1.49 MG/DL (0.70-1.30); GLOMERULAR FILTRATION RATE 51.4 (>56); POTASSIUM SERUM 4.1 MEQ/L (3.5-5.1); THYROID STIMULATING HORMONE 1.29 uIU/ML (0.358-3.740); TOTAL PROTEIN 7.7 GM/DL (6.4-8.2)
[2022-04-08 18:29] LABS: ABG BASE EXCESS -3.4 (-2.0-2.0); ABG HCO3 18.6 MEQ/L (22.0-26.0); ABG O2 SATURATION 98.6 % (95.0-99.0); ABG PARTIAL PRESSURE CO2 26.3 mmHg (35.0-45.0); ABG PARTIAL PRESSURE O2 111.5 mmHg (75.0-100.0); ABG STANDARD HCO3 21.7 MEQ/L (22.0-26.0); ABG TOTAL CO2 19.4 MEQ/L (22.0-29.0); ABG pH (ARTERIAL) 7.467 UNITS (7.350-7.450)
[2022-04-08 19:39] LABS: VENOUS BASE EXCESS -1.4 (-2.0-2.0); VENOUS HCO3 23.7 MEQ/L (23.0-27.0); VENOUS O2 SATURATION 94.3 % (60.0-80.0); VENOUS PARTIAL PRESSURE CO2 41.2 mmHg (38.0-50.0); VENOUS PARTIAL PRESSURE O2 72.5 mmHg (30.0-50.0); VENOUS PH 7.378 UNITS (7.330-7.430); VENOUS STANDARD HCO3 23.3 MEQ/L
[2022-04-08] MEDS ORDERED: AMIO200T49 PO (21:08)
[2022-04-08] MEDS ORDERED: METO1TAB7 PO (21:08)
[2022-04-08] MEDS ORDERED: HOME MED LIST COMPLETE! XX SCH (21:10)
[2022-04-08] MEDS ORDERED: GLUCOSE 4GM CHEW TABLET PO PRN (22:50)
[2022-04-08] MEDS ORDERED: DEXTROSE 50% 50 ML SYRINGE IV PRN (22:50)
[2022-04-08] MEDS ORDERED: GLUCAGON INJ 1MG VIAL SC PRN (22:50)
[2022-04-08] MEDS ORDERED: ALBUTEROL SULFATE 2.5 MG/0.5 ML INH NEB SOLN NEB PRN (22:50)
[2022-04-08] MEDS: INSULIN LISPRO (NovoLOG) PER UNIT SC SCH (23:46)
[2022-04-09] MEDS ORDERED: REMDESIVIR 200 MG in NS 250 ML IV ONE ×2
[2022-04-09] MEDS ORDERED: SODIUM CHLORIDE 0.9% INJ 10 ML SYR IV ONE (02:00)
[2022-04-09] MEDS: IPRATROPIUM 0.5MG/ALBUTEROL 2.5MG INH SOL UD 3ML (DUONEB) NEB SCH ×4 (02:51→20:42)
[2022-04-09 06:15] LABS: BASO % 0.3 % (0.0-1.0); HEMATOCRIT 46.2 % (42.0-52.0); HEMOGLOBIN 14.9 g/dl (13.5-17.5); LYMPH # 0.4 10^3/uL (1.5-5.0); LYMPH % 10.6 % (24.0-44.0); MEAN CORPUSCULAR HEMOGLOBIN 31.1 pg (27.0-33.0); MEAN CORPUSCULAR HGB CONC 32.3 g/dl (32.0-36.5); MEAN CORPUSCULAR VOLUME 96.5 fl (80.0-96.0); MONO # 0.2 10^3/uL (0.0-0.8); MONO % 6.6 % (2.0-8.0); NEUTROPHILS # 2.8 10^3/uL (1.5-8.5); NEUTROPHILS % 80.5 % (36.0-66.0); PLATELET COUNT, AUTOMATED 149 10^3/uL (150-450); RED BLOOD COUNT 4.79 10^6/uL (4.30-6.10); WHITE BLOOD COUNT 3.5 10^3/uL (4.0-10.0)
[2022-04-09 06:48] LABS: INR 0.96
[2022-04-09 06:49] LABS: ALBUMIN 3.4 GM/DL (3.2-5.2); BILIRUBIN,DIRECT 0.2 MG/DL (0.0-0.2); BILIRUBIN,TOTAL 0.6 MG/DL (0.2-1.0); C REACTIVE PROTEIN QUANTITATIV 1.67 MG/DL (0.00-0.30); CALCIUM LEVEL 8.5 MG/DL (8.5-10.1); CREATININE FOR GFR 1.72 MG/DL (0.70-1.30); GLOMERULAR FILTRATION RATE 43.5 (>56); MAGNESIUM LEVEL 2.6 MG/DL (1.8-2.4); PARTIAL THROMBOPLASTIN TIME 30.4 SECONDS (24.8-34.2); POTASSIUM SERUM 4.7 MEQ/L (3.5-5.1); TOTAL PROTEIN 6.9 GM/DL (6.4-8.2)
[2022-04-09] MEDS: INSULIN LISPRO (NovoLOG) PER UNIT SC SCH ×4 (07:30→21:30)
[2022-04-09] MEDS ORDERED: ENTRESTO 97-103MG TABLET (SACUBITRIL/VALSARTAN) PO SCH (09:00)
[2022-04-09] MEDS ORDERED: SPIRONOLACTONE 25 MG TAB PO SCH (09:00)
[2022-04-09] MEDS: ROSUVASTATIN 10 MG TAB (CRESTOR) PO SCH (10:10)
[2022-04-09] MEDS: dexameTHASONE 4 MG/ML 1ML VIAL (J1100 PER 1MG) IV SCH (10:10)
[2022-04-09] MEDS: DAPAGLIFLOZIN PROPANEDIOL 10MG TABLET (FARXIGA) PO SCH (10:11)
[2022-04-09] MEDS: FUROSEMIDE 40 MG TAB PO SCH ×2 (10:11→21:00)
[2022-04-09] MEDS: AMIODARONE 200 MG TAB (PACERONE) PO SCH (10:12)
[2022-04-09] MEDS: BARICITINIB 2MG TABLET (OLUMIANT) FOR EUA PO SCH (10:12)
[2022-04-09] MEDS: METOPROLOL SUCC (TopROL XL) 50MG **XL** TAB PO SCH (10:13)
[2022-04-09 15:45] VITALS: BP 95/62; O2SAT 95
[2022-04-09] MEDS: RIVAROXABAN 20MG TAB (XARELTO) PO SCH (17:36)
[2022-04-09 20:00] VITALS: BP 90/50
[2022-04-09] MEDS ORDERED: LEVEMIR (INSULIN DETEMIR) 1 UNITS/0.01ML SC SCH ×2 (21:00)
[2022-04-09 21:05] VITALS: BP 102/70
[2022-04-09] MEDS: REMDESIVIR 100 MG in NS 250 ML IV SCH (21:31)
[2022-04-09] MEDS: SODIUM CHLORIDE 0.9% INJ 10 ML SYR IV SCH (22:59)
[2022-04-10] VITALS (11 sets, daily range): BP systolic 95–126; BP diastolic 60–81; O2SAT 92–97
[2022-04-10] MEDS: IPRATROPIUM 0.5MG/ALBUTEROL 2.5MG INH SOL UD 3ML (DUONEB) NEB SCH ×4 (00:45→20:07)
[2022-04-10 06:34] LABS: BASO % 0.1 % (0.0-1.0); HEMATOCRIT 46.9 % (42.0-52.0); HEMOGLOBIN 14.7 g/dl (13.5-17.5); LYMPH # 0.6 10^3/uL (1.5-5.0); LYMPH % 6.3 % (24.0-44.0); MEAN CORPUSCULAR HEMOGLOBIN 30.2 pg (27.0-33.0); MEAN CORPUSCULAR HGB CONC 31.3 g/dl (32.0-36.5); MEAN CORPUSCULAR VOLUME 96.5 fl (80.0-96.0); MONO # 0.8 10^3/uL (0.0-0.8); MONO % 9.1 % (2.0-8.0); NEUTROPHILS # 7.7 10^3/uL (1.5-8.5); NEUTROPHILS % 83.7 % (36.0-66.0); PLATELET COUNT, AUTOMATED 167 10^3/uL (150-450); RED BLOOD COUNT 4.86 10^6/uL (4.30-6.10); WHITE BLOOD COUNT 9.2 10^3/uL (4.0-10.0)
[2022-04-10 07:08] LABS: CALCIUM LEVEL 8.6 MG/DL (8.5-10.1); CREATININE FOR GFR 1.4 MG/DL (0.70-1.30); GLOMERULAR FILTRATION RATE 55.2 (>56); MAGNESIUM LEVEL 2.7 MG/DL (1.8-2.4); POTASSIUM SERUM 4.4 MEQ/L (3.5-5.1)
[2022-04-10] MEDS: FUROSEMIDE 40 MG TAB PO SCH (09:00)
[2022-04-10] MEDS: METOPROLOL SUCC (TopROL XL) 50MG **XL** TAB PO SCH (09:00)
[2022-04-10] MEDS: dexameTHASONE 4 MG/ML 1ML VIAL (J1100 PER 1MG) IV SCH (10:26)
[2022-04-10] MEDS: INSULIN LISPRO (NovoLOG) PER UNIT SC SCH ×4 (10:26→22:35)
[2022-04-10] MEDS: DAPAGLIFLOZIN PROPANEDIOL 10MG TABLET (FARXIGA) PO SCH (10:27)
[2022-04-10] MEDS: ROSUVASTATIN 10 MG TAB (CRESTOR) PO SCH (10:27)
[2022-04-10] MEDS: AMIODARONE 200 MG TAB (PACERONE) PO SCH (10:27)
[2022-04-10] MEDS: BARICITINIB 2MG TABLET (OLUMIANT) FOR EUA PO SCH (10:27)
[2022-04-10] MEDS: RIVAROXABAN 20MG TAB (XARELTO) PO SCH (17:50)
[2022-04-10] MEDS ORDERED: LEVEMIR (INSULIN DETEMIR) 1 UNITS/0.01ML SC SCH (21:00)
[2022-04-10] MEDS: REMDESIVIR 100 MG in NS 250 ML IV SCH (22:30)
[2022-04-10] MEDS: SODIUM CHLORIDE 0.9% INJ 10 ML SYR IV SCH (23:42)
[2022-04-11] VITALS (12 sets, daily range): BP systolic 107–133; BP diastolic 72–81; O2SAT 94–97
[2022-04-11] MEDS: IPRATROPIUM 0.5MG/ALBUTEROL 2.5MG INH SOL UD 3ML (DUONEB) NEB SCH ×2 (02:00→07:12)
[2022-04-11 05:51] LABS: BASO % 0.1 % (0.0-1.0); HEMATOCRIT 47.7 % (42.0-52.0); HEMOGLOBIN 14.8 g/dl (13.5-17.5); LYMPH # 0.6 10^3/uL (1.5-5.0); LYMPH % 5.9 % (24.0-44.0); MEAN CORPUSCULAR VOLUME 96.6 fl (80.0-96.0); MONO # 0.7 10^3/uL (0.0-0.8); MONO % 6.5 % (2.0-8.0); NEUTROPHILS # 9.1 10^3/uL (1.5-8.5); NEUTROPHILS % 86.9 % (36.0-66.0); PLATELET COUNT, AUTOMATED 182 10^3/uL (150-450); RED BLOOD COUNT 4.94 10^6/uL (4.30-6.10); WHITE BLOOD COUNT 10.4 10^3/uL (4.0-10.0)
[2022-04-11 06:32] LABS: CALCIUM LEVEL 8.6 MG/DL (8.5-10.1); CREATININE FOR GFR 1.38 MG/DL (0.70-1.30); GLOMERULAR FILTRATION RATE 56.1 (>56); MAGNESIUM LEVEL 2.5 MG/DL (1.8-2.4); PHOSPHORUS LEVEL 4.1 MG/DL (2.5-4.9); POTASSIUM SERUM 4.4 MEQ/L (3.5-5.1)
[2022-04-11] MEDS: DAPAGLIFLOZIN PROPANEDIOL 10MG TABLET (FARXIGA) PO SCH (08:12)
[2022-04-11] MEDS: BARICITINIB 2MG TABLET (OLUMIANT) FOR EUA PO SCH (08:12)
[2022-04-11] MEDS: ROSUVASTATIN 10 MG TAB (CRESTOR) PO SCH (08:12)
[2022-04-11] MEDS: AMIODARONE 200 MG TAB (PACERONE) PO SCH (08:12)
[2022-04-11] MEDS: dexameTHASONE 4 MG/ML 1ML VIAL (J1100 PER 1MG) IV SCH (08:13)
[2022-04-11] MEDS: INSULIN LISPRO (NovoLOG) PER UNIT SC SCH ×2 (08:14→11:37)
[2022-04-11] MEDS ORDERED: METOPROLOL SUCC *XL* 25MG TAB (TopROL *XL*) PO SCH (09:00)
[2022-04-11] MEDS ORDERED: FUROSEMIDE 40 MG TAB PO SCH (09:00)
[2022-04-11] MEDS ORDERED: METO1TAB32 PO (10:40)
[2022-04-11] MEDS ORDERED: FURO40TA2 PO (10:40)
[2022-04-11] MEDS ORDERED: DEXA6TAB PO (10:49)
== END 2022-04-11 12:45 | disposition home health service (06) | DRG 137 ==
LOC: M ED 15:46 → M ED INP 22:49 → M 4MAIN 04-09 15:57
PROVIDERS: ADMIT Internal Medicine; ATTEND Internal Medicine
PROC: 3E0333Z Introduction of Anti-inflammatory into Peripheral Vein, Percutaneous Approach (ICD-10-PCS; principal; 2022-04-08)
PROC: XW033E5 Introduction of Remdesivir Anti-infective into Peripheral Vein, Percutaneous Approach, New Technology Group 5 (ICD-10-PCS; 2022-04-09)
DX: U07.1 COVID-19 (principal); I50.22 Chronic systolic (congestive) heart failure; E11.22 Type 2 diabetes mellitus with diabetic chronic kidney disease; E66.01 Morbid (severe) obesity due to excess calories; I48.91 Unspecified atrial fibrillation; N18.30 Chronic kidney disease, stage 3 unspecified; Z95.0 Presence of cardiac pacemaker; I25.10 Atherosclerotic heart disease of native coronary artery without angina pectoris; R09.02 Hypoxemia; Z79.01 Long term (current) use of anticoagulants; Z79.84 Long term (current) use of oral hypoglycemic drugs; Z79.899 Other long term (current) drug therapy; Z88.5 Allergy status to narcotic agent; Z88.6 Allergy status to analgesic agent; Z95.5 Presence of coronary angioplasty implant and graft; E78.00 Pure hypercholesterolemia, unspecified; G47.30 Sleep apnea, unspecified

== ENCOUNTER → 2022-04-18 | Outpatient (REF) | payer OTHER ==
[~2022-04-18] MED LIST changes: +AMIO200T49 PO; +DEXA6TAB PO; +FURO40TA2 PO; +METO1TAB32 PO; +METO1TAB7 PO
[2022-04-18 17:03] LABS: BASO % 0.3 % (0.0-1.0); EOS % 0.1 % (0.0-3.0); HEMATOCRIT 47.6 % (42.0-52.0); HEMOGLOBIN 15.7 g/dl (13.5-17.5); LYMPH # 0.4 10^3/uL (1.5-5.0); LYMPH % 2.7 % (24.0-44.0); MEAN CORPUSCULAR HEMOGLOBIN 30.7 pg (27.0-33.0); MONO # 1.3 10^3/uL (0.0-0.8); MONO % 9.4 % (2.0-8.0); NEUTROPHILS # 11.5 10^3/uL (1.5-8.5); NEUTROPHILS % 85.4 % (36.0-66.0); PLATELET COUNT, AUTOMATED 169 10^3/uL (150-450); RED BLOOD COUNT 5.12 10^6/uL (4.30-6.10); WHITE BLOOD COUNT 13.5 10^3/uL (4.0-10.0)
[2022-04-18 19:01] LABS: ALBUMIN 3.3 GM/DL (3.2-5.2); BILIRUBIN,TOTAL 1.2 MG/DL (0.2-1.0); CALCIUM LEVEL 8.5 MG/DL (8.5-10.1); CREATININE FOR GFR 1.35 MG/DL (0.70-1.30); GLOMERULAR FILTRATION RATE 57.6 (>56); POTASSIUM SERUM 4.5 MEQ/L (3.5-5.1); TOTAL PROTEIN 6.6 GM/DL (6.4-8.2)
[2022-04-18 20:37] LABS: HEMOGLOBIN A1c 10.8 %
== END ==
LOC: M SFHCADAM 14:03
PROVIDERS: ATTEND Family Medicine
DX: E11.8 Type 2 diabetes mellitus with unspecified complications (principal); I48.91 Unspecified atrial fibrillation; N17.9 Acute kidney failure, unspecified; I50.22 Chronic systolic (congestive) heart failure

== ENCOUNTER → 2022-04-18 | Outpatient (CLI) | payer OTHER ==
[~2022-04-18] MED LIST changes: +CLOP75TA99 PO; -PLAV1TAB2 PO
== END ==
LOC: M ADAMS 15:13
PROVIDERS: ATTEND Family Medicine
DX: I50.22 Chronic systolic (congestive) heart failure (principal); E11.8 Type 2 diabetes mellitus with unspecified complications; I48.91 Unspecified atrial fibrillation; N17.9 Acute kidney failure, unspecified

== ENCOUNTER 2022-05-10 08:18 | Inpatient (IN) | payer OTHER ==
[~2022-05-10] VITALS: Ht 177.8 cm; Wt 129.2 kg
[2022-05-10 09:35] LABS: VENOUS BASE EXCESS 3.3 (-2.0-2.0); VENOUS HCO3 29.7 MEQ/L (23.0-27.0); VENOUS O2 SATURATION 84.6 % (60.0-80.0); VENOUS PH 7.367 UNITS (7.330-7.430); VENOUS STANDARD HCO3 27.1 MEQ/L; VENOUS TOTAL CO2 31.4 MEQ/L (24.0-28.0)
[2022-05-10 09:39] LABS: BASO % 0.7 % (0.0-1.0); EOS # 0.2 10^3/uL (0.0-0.5); EOS % 2.5 % (0.0-3.0); HEMATOCRIT 38.2 % (42.0-52.0); HEMOGLOBIN 11.8 g/dl (13.5-17.5); LYMPH # 0.6 10^3/uL (1.5-5.0); LYMPH % 9.7 % (24.0-44.0); MEAN CORPUSCULAR HEMOGLOBIN 29.1 pg (27.0-33.0); MEAN CORPUSCULAR HGB CONC 30.9 g/dl (32.0-36.5); MEAN CORPUSCULAR VOLUME 94.3 fl (80.0-96.0); MONO # 0.9 10^3/uL (0.0-0.8); MONO % 14.8 % (2.0-8.0); NEUTROPHILS # 4.2 10^3/uL (1.5-8.5); NEUTROPHILS % 70.5 % (36.0-66.0); PLATELET COUNT, AUTOMATED 211 10^3/uL (150-450); RED BLOOD COUNT 4.05 10^6/uL (4.30-6.10)
[2022-05-10 09:54] LABS: INR 1.53; PROTHROMBIN TIME 18.7 SECONDS (12.5-14.5)
[2022-05-10 09:55] LABS: PARTIAL THROMBOPLASTIN TIME 41.2 SECONDS (24.8-34.2)
[2022-05-10 10:32] LABS: ALBUMIN 3.1 G/DL (3.2-5.2); BILIRUBIN,DIRECT 0.4 MG/DL (<0.4); BILIRUBIN,TOTAL 0.9 MG/DL (0.3-1.2); BLOOD UREA NITROGEN 17 MG/DL (9-23); CALCIUM LEVEL 8.9 MG/DL (8.5-10.1); CARBON DIOXIDE LEVEL 31 MMOL/L (20-31); CHLORIDE LEVEL 97 MMOL/L (98-107); CK-MB VALUE MASS 1.2 NG/ML (<3.6); CPK CREATINE PHOSPHOKINASE 77 U/L (46-171); CREATININE FOR GFR 1.14 MG/DL (0.70-1.30); GLOMERULAR FILTRATION RATE > 60.0 (>56); GLUCOSE, FASTING 205 MG/DL (60-100); MAGNESIUM LEVEL 1.8 MG/DL (1.8-2.4); MB/CK RELATIVE INDEX 1.55 (< OR =4); POTASSIUM SERUM 3.7 MMOL/L (3.5-5.1); SODIUM LEVEL 136 MMOL/L (136-145); TOTAL PROTEIN 6.3 G/DL (5.7-8.2)
[2022-05-10] MEDS ORDERED: methylPREDNISolone 125MG 2ML VIAL IV ONE (11:30)
[2022-05-10] MEDS ORDERED: IPRATROPIUM 0.5MG/ALBUTEROL 2.5MG INH SOL UD 3ML (DUONEB) NEB ONE (11:30)
[2022-05-10] MEDS ORDERED: ALBUTEROL SULFATE 2.5 MG/0.5 ML INH NEB SOLN INH ONE (11:30)
[2022-05-10 11:36] LABS: CK-MB VALUE MASS 1.2 NG/ML (<3.6); MB/CK RELATIVE INDEX 1.53 (< OR =4)
[2022-05-10] MEDS ORDERED: METO1TAB7 PO (13:45)
[2022-05-10] MEDS ORDERED: FURO40TA2 PO (13:45)
[2022-05-10] MEDS ORDERED: HOME MED LIST COMPLETE! XX SCH (13:50)
[2022-05-10] MEDS ORDERED: AMIODARONE 150MG/3ML INJ (J0282) ONE (14:11)
[2022-05-10] MEDS ORDERED: AMIODARONE HCL 150 MG/100 ML PREMIXED BAG (NEXTERONE) ONE (14:11)
[2022-05-10 14:15] LABS: ALT/SGPT < 9 U/L (7.0-40)
[2022-05-10 14:51] LABS: FREE T4 2.49 NG/DL (0.89-1.76)
[2022-05-10] MEDS ORDERED: MIDAZOLAM 5MG/ML 1ML VIAL (J2250 PER 1MG) As Ordered ONE (15:10)
[2022-05-10] MEDS ORDERED: MEXILETINE 150 MG CAP PO ONE (15:15)
[2022-05-10] MEDS ORDERED: AMIODARONE HCL 150 MG/100 ML PREMIXED BAG (NEXTERONE) As Ordered ONE (15:28)
[2022-05-10 15:38] LABS: ABG BASE EXCESS -0.1 (-2.0-2.0); ABG HCO3 24.5 MEQ/L (22.0-26.0); ABG O2 SATURATION 98.8 % (95.0-99.0); ABG STANDARD HCO3 24.4 MEQ/L (22.0-26.0); ABG TOTAL CO2 25.7 MEQ/L (22.0-29.0); ABG pH (ARTERIAL) 7.405 UNITS (7.350-7.450)
[2022-05-10] MEDS ORDERED: GLUCOSE 4GM CHEW TABLET PO PRN (15:55)
[2022-05-10] MEDS ORDERED: GLUCAGON INJ 1MG VIAL SC PRN (15:55)
[2022-05-10] MEDS ORDERED: DEXTROSE 50% 50 ML SYRINGE IV PRN (15:55)
[2022-05-10] MEDS ORDERED: MAG SULF 1GM/100ML (MAG RUN) 1 GM in IV 1 EA IV ONE (16:00)
[2022-05-10] MEDS ORDERED: AMIODARONE HCL 360 MG in IV 1 EA IV SCH (16:00)
[2022-05-10 16:05] LABS: ALBUMIN 3.4 G/DL (3.2-5.2); ALT/SGPT 11 U/L (7.0-40); BILIRUBIN,TOTAL 0.9 MG/DL (0.3-1.2); BLOOD UREA NITROGEN 15 MG/DL (9-23); CALCIUM LEVEL 8.6 MG/DL (8.5-10.1); CARBON DIOXIDE LEVEL 29 MMOL/L (20-31); CHLORIDE LEVEL 96 MMOL/L (98-107); CPK CREATINE PHOSPHOKINASE 85 U/L (46-171); GLOMERULAR FILTRATION RATE > 60.0 (>56); GLUCOSE, FASTING 193 MG/DL (60-100); MAGNESIUM LEVEL 1.9 MG/DL (1.8-2.4); MB/CK RELATIVE INDEX 1.17 (< OR =4); POTASSIUM SERUM 3.5 MMOL/L (3.5-5.1); SODIUM LEVEL 137 MMOL/L (136-145); TOTAL PROTEIN 7.2 G/DL (5.7-8.2)
[2022-05-10 17:03] VITALS: BP 128/75
[2022-05-10] MEDS: ROSUVASTATIN 10 MG TAB (CRESTOR) PO SCH (17:03)
[2022-05-10] MEDS: RIVAROXABAN 20MG TAB (XARELTO) PO SCH (17:03)
[2022-05-10] MEDS: KCL 10MEQ/100ML SWI (KRUN) 10 MEQ in IV 1 EA IV SCH ×2 (17:03→18:54)
[2022-05-10] MEDS: INSULIN LISPRO (NovoLOG) PER UNIT SC SCH (17:24)
[2022-05-10 20:00] VITALS: BP 119/68
[2022-05-10] MEDS: cefTRIAXone SOD 1 GM in D5W MINI-BAG PLUS 50 ML IV SCH (20:12)
[2022-05-10 21:00] VITALS: BP 110/87
[2022-05-10] MEDS: MEXILETINE 150 MG CAP PO SCH (21:56)
[2022-05-10] MEDS: ENTRESTO 97-103MG TABLET (SACUBITRIL/VALSARTAN) PO SCH (21:56)
[2022-05-10] MEDS: AMIODARONE HCL 360 MG in IV 1 EA IV SCH (21:58)
[2022-05-10 22:00] VITALS: BP 106/61
[2022-05-10] MEDS: BENZONATATE 100MG CAPSULE PO PRN (22:35)
[2022-05-10 23:00] VITALS: BP 112/72
[2022-05-11] VITALS (22 sets, daily range): BP systolic 101–132; BP diastolic 50–80
[2022-05-11] MEDS ORDERED: methylPREDNISolone 40MG 1ML VIAL IV SCH (01:00)
[2022-05-11] MEDS: MEXILETINE 150 MG CAP PO SCH ×3 (05:30→20:20)
[2022-05-11 05:35] LABS: ABG BASE EXCESS 0.8 (-2.0-2.0); ABG HCO3 26.5 MEQ/L (22.0-26.0); ABG O2 SATURATION 98.1 % (95.0-99.0); ABG PARTIAL PRESSURE CO2 46.6 mmHg (35.0-45.0); ABG PARTIAL PRESSURE O2 109.2 mmHg (75.0-100.0); ABG STANDARD HCO3 25.2 MEQ/L (22.0-26.0); ABG TOTAL CO2 27.9 MEQ/L (22.0-29.0); ABG pH (ARTERIAL) 7.373 UNITS (7.350-7.450)
[2022-05-11 06:22] LABS: HEMATOCRIT 41.8 % (42.0-52.0); MEAN CORPUSCULAR HEMOGLOBIN 29.5 pg (27.0-33.0); MEAN CORPUSCULAR HGB CONC 31.1 g/dl (32.0-36.5); PLATELET COUNT, AUTOMATED 242 10^3/uL (150-450); WHITE BLOOD COUNT 6.6 10^3/uL (4.0-10.0)
[2022-05-11] MEDS: INSULIN LISPRO (NovoLOG) PER UNIT SC SCH ×4 (08:27→20:19)
[2022-05-11] MEDS: FAMOTIDINE 20 MG TAB PO SCH (08:28)
[2022-05-11] MEDS: FUROSEMIDE 40 MG TAB PO SCH ×2 (08:28→16:38)
[2022-05-11] MEDS: SPIRONOLACTONE 25 MG TAB PO SCH (08:28)
[2022-05-11] MEDS: ENTRESTO 97-103MG TABLET (SACUBITRIL/VALSARTAN) PO SCH ×2 (08:28→20:19)
[2022-05-11] MEDS: ROSUVASTATIN 10 MG TAB (CRESTOR) PO SCH (08:29)
[2022-05-11] MEDS: AMIODARONE HCL 360 MG in IV 1 EA IV SCH (10:03)
[2022-05-11 10:42] LABS: ALBUMIN 3.3 G/DL (3.2-5.2); ALT/SGPT 9 U/L (7.0-40); BILIRUBIN,TOTAL 0.7 MG/DL (0.3-1.2); BLOOD UREA NITROGEN 20 MG/DL (9-23); CALCIUM LEVEL 9.4 MG/DL (8.5-10.1); CARBON DIOXIDE LEVEL 23 MMOL/L (20-31); CHLORIDE LEVEL 98 MMOL/L (98-107); CREATININE FOR GFR 0.94 MG/DL (0.70-1.30); FREE T4 2.74 NG/DL (0.89-1.76); GLOMERULAR FILTRATION RATE > 60.0 (>56); GLUCOSE, FASTING 240 MG/DL (60-100); MAGNESIUM LEVEL 2.5 MG/DL (1.8-2.4); POTASSIUM SERUM 4.6 MMOL/L (3.5-5.1); SODIUM LEVEL 135 MMOL/L (136-145); THYROID STIMULATING HORMONE 0.036 uIU/ML (0.55-4.78)
[2022-05-11] MEDS ORDERED: GLUCAGON INJ 1MG VIAL SC PRN (11:50)
[2022-05-11] MEDS ORDERED: DEXTROSE 50% 50 ML SYRINGE IV PRN (11:50)
[2022-05-11] MEDS ORDERED: GLUCOSE 4GM CHEW TABLET PO PRN (11:50)
[2022-05-11] MEDS: BENZONATATE 100MG CAPSULE PO PRN ×3 (12:20→20:20)
[2022-05-11] MEDS: DAPAGLIFLOZIN PROPANEDIOL 10MG TABLET (FARXIGA) PO SCH (12:49)
[2022-05-11] MEDS: AMIODARONE 200 MG TAB (PACERONE) PO SCH ×2 (12:49→20:20)
[2022-05-11] MEDS: RIVAROXABAN 20MG TAB (XARELTO) PO SCH (17:56)
[2022-05-11] MEDS: cefTRIAXone SOD 1 GM in D5W MINI-BAG PLUS 50 ML IV SCH (17:57)
[2022-05-11] MEDS: LEVEMIR (INSULIN DETEMIR) 1 UNITS/0.01ML SC SCH (20:19)
[2022-05-12 04:01] VITALS: BP 100/70
[2022-05-12] MEDS: MEXILETINE 150 MG CAP PO SCH ×3 (05:42→21:08)
[2022-05-12 06:11] LABS: HEMATOCRIT 42.8 % (42.0-52.0); HEMOGLOBIN 13.5 g/dl (13.5-17.5); MEAN CORPUSCULAR HEMOGLOBIN 29.9 pg (27.0-33.0); MEAN CORPUSCULAR HGB CONC 31.5 g/dl (32.0-36.5); MEAN CORPUSCULAR VOLUME 94.9 fl (80.0-96.0); PLATELET COUNT, AUTOMATED 273 10^3/uL (150-450); RED BLOOD COUNT 4.51 10^6/uL (4.30-6.10); WHITE BLOOD COUNT 12.6 10^3/uL (4.0-10.0)
[2022-05-12 06:54] LABS: ALBUMIN 3.1 G/DL (3.2-5.2); ALT/SGPT 10 U/L (7.0-40); BILIRUBIN,TOTAL 0.5 MG/DL (0.3-1.2); BLOOD UREA NITROGEN 30 MG/DL (9-23); CARBON DIOXIDE LEVEL 29 MMOL/L (20-31); CHLORIDE LEVEL 98 MMOL/L (98-107); CREATININE FOR GFR 1.08 MG/DL (0.70-1.30); GLOMERULAR FILTRATION RATE > 60.0 (>56); GLUCOSE, FASTING 241 MG/DL (60-100); POTASSIUM SERUM 4.1 MMOL/L (3.5-5.1); SODIUM LEVEL 136 MMOL/L (136-145); THYROID STIMULATING HORMONE 0.033 uIU/ML (0.55-4.78); TOTAL PROTEIN 6.5 G/DL (5.7-8.2)
[2022-05-12] MEDS: INSULIN LISPRO (NovoLOG) PER UNIT SC SCH ×4 (07:30→21:00)
[2022-05-12 08:00] VITALS: BP 114/78
[2022-05-12] MEDS: AMIODARONE 200 MG TAB (PACERONE) PO SCH ×2 (08:49→21:08)
[2022-05-12] MEDS: LEVEMIR (INSULIN DETEMIR) 1 UNITS/0.01ML SC SCH ×2 (08:49→21:08)
[2022-05-12] MEDS: ROSUVASTATIN 10 MG TAB (CRESTOR) PO SCH (08:49)
[2022-05-12] MEDS: DAPAGLIFLOZIN PROPANEDIOL 10MG TABLET (FARXIGA) PO SCH (08:49)
[2022-05-12] MEDS: ENTRESTO 97-103MG TABLET (SACUBITRIL/VALSARTAN) PO SCH ×2 (08:49→21:00)
[2022-05-12] MEDS: FAMOTIDINE 20 MG TAB PO SCH (08:49)
[2022-05-12] MEDS: SPIRONOLACTONE 25 MG TAB PO SCH (08:50)
[2022-05-12] MEDS: BENZONATATE 100MG CAPSULE PO PRN ×2 (08:50→15:27)
[2022-05-12] MEDS: FUROSEMIDE 40 MG TAB PO SCH ×2 (08:50→17:24)
[2022-05-12 12:00] VITALS: BP 111/81
[2022-05-12 12:25] LABS: THYROID PEROXIDASE ANTIBODY < 28.0 U/ML (<60.0)
[2022-05-12 16:00] VITALS: BP 98/62
[2022-05-12] MEDS: cefTRIAXone SOD 1 GM in D5W MINI-BAG PLUS 50 ML IV SCH (17:24)
[2022-05-12] MEDS: RIVAROXABAN 20MG TAB (XARELTO) PO SCH (17:25)
[2022-05-12 19:22] VITALS: BP 99/58
[2022-05-12 21:01] VITALS: BP 93/63
[2022-05-13 00:01] VITALS: BP 98/61
[2022-05-13 04:11] VITALS: BP 113/74
[2022-05-13 05:00] LABS: HEMATOCRIT 42.3 % (42.0-52.0); HEMOGLOBIN 13.1 g/dl (13.5-17.5); MEAN CORPUSCULAR HEMOGLOBIN 29.6 pg (27.0-33.0); MEAN CORPUSCULAR VOLUME 95.7 fl (80.0-96.0); PLATELET COUNT, AUTOMATED 250 10^3/uL (150-450); RED BLOOD COUNT 4.42 10^6/uL (4.30-6.10); WHITE BLOOD COUNT 8.9 10^3/uL (4.0-10.0)
[2022-05-13 05:30] LABS: BLOOD UREA NITROGEN 17 MG/DL (9-23); CALCIUM LEVEL 8.3 MG/DL (8.5-10.1); CARBON DIOXIDE LEVEL 30 MMOL/L (20-31); CHLORIDE LEVEL 97 MMOL/L (98-107); CREATININE FOR GFR 1.16 MG/DL (0.70-1.30); GLOMERULAR FILTRATION RATE > 60.0 (>56); GLUCOSE, FASTING 168 MG/DL (60-100); MAGNESIUM LEVEL 2.3 MG/DL (1.8-2.4); POTASSIUM SERUM 3.4 MMOL/L (3.5-5.1); SODIUM LEVEL 136 MMOL/L (136-145)
[2022-05-13] MEDS: MEXILETINE 150 MG CAP PO SCH ×3 (05:57→22:30)
[2022-05-13 08:00] VITALS: BP 104/82
[2022-05-13] MEDS: AMIODARONE 200 MG TAB (PACERONE) PO SCH ×2 (08:13→20:27)
[2022-05-13] MEDS: ROSUVASTATIN 10 MG TAB (CRESTOR) PO SCH (08:13)
[2022-05-13] MEDS: FAMOTIDINE 20 MG TAB PO SCH (08:14)
[2022-05-13] MEDS: SPIRONOLACTONE 25 MG TAB PO SCH (08:14)
[2022-05-13] MEDS: FUROSEMIDE 40 MG TAB PO SCH ×2 (08:14→17:44)
[2022-05-13] MEDS: INSULIN LISPRO (NovoLOG) PER UNIT SC SCH ×4 (08:14→20:28)
[2022-05-13] MEDS: DAPAGLIFLOZIN PROPANEDIOL 10MG TABLET (FARXIGA) PO SCH (08:14)
[2022-05-13] MEDS: ENTRESTO 97-103MG TABLET (SACUBITRIL/VALSARTAN) PO SCH ×2 (08:14→20:27)
[2022-05-13] MEDS: LEVEMIR (INSULIN DETEMIR) 1 UNITS/0.01ML SC SCH ×2 (08:15→20:30)
[2022-05-13 12:43] VITALS: BP 107/66
[2022-05-13] MEDS: CHOLESTYRAMINE 4 GM PWD PKT PO SCH ×3 (14:12→20:27)
[2022-05-13 15:55] VITALS: BP 113/64
[2022-05-13] MEDS: cefTRIAXone SOD 1 GM in D5W MINI-BAG PLUS 50 ML IV SCH (17:44)
[2022-05-13] MEDS: RIVAROXABAN 20MG TAB (XARELTO) PO SCH (17:45)
[2022-05-13] MEDS: METOPROLOL SUCC *XL* 25MG TAB (TopROL *XL*) PO SCH (18:30)
[2022-05-13] MEDS: BENZONATATE 100MG CAPSULE PO PRN (20:11)
[2022-05-13 20:20] VITALS: BP 113/71
[2022-05-13] MEDS ORDERED: SIMETHICONE 80MG CHEW TAB PO ONE (22:00)
[2022-05-13] MEDS ORDERED: TEMAZEPAM 7.5 MG CAP PO PRN (22:00)
[2022-05-14] VITALS (7 sets, daily range): BP systolic 91–141; BP diastolic 56–86
[2022-05-14 06:13] LABS: HEMATOCRIT 41.4 % (42.0-52.0); HEMOGLOBIN 12.8 g/dl (13.5-17.5); MEAN CORPUSCULAR HEMOGLOBIN 29.5 pg (27.0-33.0); MEAN CORPUSCULAR HGB CONC 30.9 g/dl (32.0-36.5); MEAN CORPUSCULAR VOLUME 95.4 fl (80.0-96.0); PLATELET COUNT, AUTOMATED 255 10^3/uL (150-450); RED BLOOD COUNT 4.34 10^6/uL (4.30-6.10); WHITE BLOOD COUNT 8.3 10^3/uL (4.0-10.0)
[2022-05-14] MEDS: MEXILETINE 150 MG CAP PO SCH ×3 (06:49→22:34)
[2022-05-14 07:00] LABS: BLOOD UREA NITROGEN 18 MG/DL (9-23); CALCIUM LEVEL 8.1 MG/DL (8.5-10.1); CARBON DIOXIDE LEVEL 34 MMOL/L (20-31); CHLORIDE LEVEL 99 MMOL/L (98-107); CREATININE FOR GFR 1.07 MG/DL (0.70-1.30); GLOMERULAR FILTRATION RATE > 60.0 (>56); GLUCOSE, FASTING 157 MG/DL (60-100); MAGNESIUM LEVEL 2.1 MG/DL (1.8-2.4); POTASSIUM SERUM 3.8 MMOL/L (3.5-5.1); SODIUM LEVEL 139 MMOL/L (136-145)
[2022-05-14] MEDS: ENTRESTO 97-103MG TABLET (SACUBITRIL/VALSARTAN) PO SCH ×2 (08:20→20:25)
[2022-05-14] MEDS: INSULIN LISPRO (NovoLOG) PER UNIT SC SCH ×4 (08:33→20:20)
[2022-05-14] MEDS: LEVEMIR (INSULIN DETEMIR) 1 UNITS/0.01ML SC SCH ×2 (08:33→20:24)
[2022-05-14] MEDS: CHOLESTYRAMINE 4 GM PWD PKT PO SCH ×4 (08:33→20:24)
[2022-05-14] MEDS: FAMOTIDINE 20 MG TAB PO SCH (08:34)
[2022-05-14] MEDS: AMIODARONE 200 MG TAB (PACERONE) PO SCH ×2 (08:34→20:24)
[2022-05-14] MEDS: DAPAGLIFLOZIN PROPANEDIOL 10MG TABLET (FARXIGA) PO SCH (08:34)
[2022-05-14] MEDS: SPIRONOLACTONE 25 MG TAB PO SCH (08:34)
[2022-05-14] MEDS: ROSUVASTATIN 10 MG TAB (CRESTOR) PO SCH (08:34)
[2022-05-14] MEDS: FUROSEMIDE 40 MG TAB PO SCH ×2 (08:39→17:59)
[2022-05-14] MEDS: METOPROLOL SUCC *XL* 25MG TAB (TopROL *XL*) PO SCH (08:39)
[2022-05-14] MEDS: RIVAROXABAN 20MG TAB (XARELTO) PO SCH (17:59)
[2022-05-14] MEDS ORDERED: SIMETHICONE 80MG CHEW TAB PO PRN (20:05)
[2022-05-14] MEDS ORDERED: MAG SULF 1GM/100ML (MAG RUN) 1 GM in IV 1 EA IV ONE (21:00)
[2022-05-14 21:07] LABS: CK-MB VALUE MASS 1.5 NG/ML (<3.6); MB/CK RELATIVE INDEX 3.4 (< OR =4)
[2022-05-14 21:25] LABS: HEMOGLOBIN A1c 10.4 % (4.0-6.0)
[2022-05-14] MEDS ORDERED: KCL 10MEQ/100ML SWI (KRUN) 10 MEQ in IV 1 EA IV ONE (22:00)
[2022-05-15] VITALS: BP 111/72
[2022-05-15 04:00] VITALS: BP 122/77
[2022-05-15 04:09] LABS: HEMATOCRIT 42.3 % (42.0-52.0); MEAN CORPUSCULAR HEMOGLOBIN 29.1 pg (27.0-33.0); MEAN CORPUSCULAR HGB CONC 30.7 g/dl (32.0-36.5); MEAN CORPUSCULAR VOLUME 94.8 fl (80.0-96.0); PLATELET COUNT, AUTOMATED 252 10^3/uL (150-450); RED BLOOD COUNT 4.46 10^6/uL (4.30-6.10); WHITE BLOOD COUNT 8.6 10^3/uL (4.0-10.0)
[2022-05-15 04:35] LABS: BLOOD UREA NITROGEN 16 MG/DL (9-23); CALCIUM LEVEL 8.2 MG/DL (8.5-10.1); CARBON DIOXIDE LEVEL 27 MMOL/L (20-31); CHLORIDE LEVEL 98 MMOL/L (98-107); CREATININE FOR GFR 1.01 MG/DL (0.70-1.30); GLOMERULAR FILTRATION RATE > 60.0 (>56); GLUCOSE, FASTING 160 MG/DL (60-100); MAGNESIUM LEVEL 2.2 MG/DL (1.8-2.4); POTASSIUM SERUM 4.4 MMOL/L (3.5-5.1); SODIUM LEVEL 135 MMOL/L (136-145)
[2022-05-15] MEDS: MEXILETINE 150 MG CAP PO SCH ×3 (06:04→22:28)
[2022-05-15] MEDS: INSULIN LISPRO (NovoLOG) PER UNIT SC SCH ×5 (07:30→20:10)
[2022-05-15 08:00] VITALS: BP 128/79
[2022-05-15] MEDS: predniSONE 20 MG TAB PO SCH (08:06)
[2022-05-15] MEDS: SPIRONOLACTONE 25 MG TAB PO SCH (08:06)
[2022-05-15] MEDS: DAPAGLIFLOZIN PROPANEDIOL 10MG TABLET (FARXIGA) PO SCH (08:06)
[2022-05-15] MEDS: FAMOTIDINE 20 MG TAB PO SCH (08:07)
[2022-05-15] MEDS: AMIODARONE 200 MG TAB (PACERONE) PO SCH ×2 (08:07→20:10)
[2022-05-15] MEDS: ROSUVASTATIN 10 MG TAB (CRESTOR) PO SCH (08:07)
[2022-05-15] MEDS: METOPROLOL SUCC *XL* 25MG TAB (TopROL *XL*) PO SCH (08:08)
[2022-05-15] MEDS: FUROSEMIDE 40 MG TAB PO SCH ×2 (08:08→17:00)
[2022-05-15] MEDS: ENTRESTO 97-103MG TABLET (SACUBITRIL/VALSARTAN) PO SCH ×2 (08:08→20:10)
[2022-05-15] MEDS: LEVEMIR (INSULIN DETEMIR) 1 UNITS/0.01ML SC SCH (08:09)
[2022-05-15] MEDS: CHOLESTYRAMINE 4 GM PWD PKT PO SCH ×4 (08:11→20:10)
[2022-05-15 12:00] VITALS: BP 115/65
[2022-05-15 16:00] VITALS: BP 107/61
[2022-05-15] MEDS: RIVAROXABAN 20MG TAB (XARELTO) PO SCH (17:40)
[2022-05-15 20:00] VITALS: BP 120/68
[2022-05-15] MEDS ORDERED: LEVEMIR (INSULIN DETEMIR) 1 UNITS/0.01ML SC SCH (21:00)
[2022-05-16] VITALS: BP 123/68
[2022-05-16 03:41] VITALS: BP 116/57
[2022-05-16 05:24] LABS: HEMATOCRIT 39.5 % (42.0-52.0); HEMOGLOBIN 12.5 g/dl (13.5-17.5); MEAN CORPUSCULAR HEMOGLOBIN 29.4 pg (27.0-33.0); MEAN CORPUSCULAR HGB CONC 31.6 g/dl (32.0-36.5); MEAN CORPUSCULAR VOLUME 92.9 fl (80.0-96.0); PLATELET COUNT, AUTOMATED 259 10^3/uL (150-450); RED BLOOD COUNT 4.25 10^6/uL (4.30-6.10); WHITE BLOOD COUNT 10.2 10^3/uL (4.0-10.0)
[2022-05-16] MEDS: MEXILETINE 150 MG CAP PO SCH (05:59)
[2022-05-16 06:08] LABS: BLOOD UREA NITROGEN 19 MG/DL (9-23); CALCIUM LEVEL 8.5 MG/DL (8.5-10.1); CARBON DIOXIDE LEVEL 30 MMOL/L (20-31); CHLORIDE LEVEL 102 MMOL/L (98-107); CREATININE FOR GFR 0.93 MG/DL (0.70-1.30); GLOMERULAR FILTRATION RATE > 60.0 (>56); GLUCOSE, FASTING 133 MG/DL (60-100); MAGNESIUM LEVEL 2.3 MG/DL (1.8-2.4); POTASSIUM SERUM 3.9 MMOL/L (3.5-5.1); SODIUM LEVEL 138 MMOL/L (136-145)
[2022-05-16 07:48] VITALS: BP 108/66
[2022-05-16] MEDS ORDERED: FAMO20TA PO (08:46)
[2022-05-16] MEDS ORDERED: CHOL4PW PO (08:46)
[2022-05-16] MEDS ORDERED: MEXI200C PO (08:46)
[2022-05-16] MEDS ORDERED: LEVEMIR (INSULIN DETEMIR) 1 UNITS/0.01ML SC SCH (09:00)
[2022-05-16] MEDS: CHOLESTYRAMINE 4 GM PWD PKT PO SCH (09:09)
[2022-05-16] MEDS: INSULIN LISPRO (NovoLOG) PER UNIT SC SCH (09:10)
[2022-05-16] MEDS: predniSONE 20 MG TAB PO SCH (09:11)
[2022-05-16] MEDS: FAMOTIDINE 20 MG TAB PO SCH (09:11)
[2022-05-16] MEDS: FUROSEMIDE 40 MG TAB PO SCH (09:11)
[2022-05-16] MEDS: ROSUVASTATIN 10 MG TAB (CRESTOR) PO SCH (09:11)
[2022-05-16] MEDS: SPIRONOLACTONE 25 MG TAB PO SCH (09:11)
[2022-05-16 09:12] VITALS: BP 108/66
[2022-05-16] MEDS: DAPAGLIFLOZIN PROPANEDIOL 10MG TABLET (FARXIGA) PO SCH (09:12)
[2022-05-16] MEDS: ENTRESTO 97-103MG TABLET (SACUBITRIL/VALSARTAN) PO SCH (09:12)
[2022-05-16] MEDS: METOPROLOL SUCC *XL* 25MG TAB (TopROL *XL*) PO SCH (09:12)
[2022-05-16] MEDS: AMIODARONE 200 MG TAB (PACERONE) PO SCH (09:12)
[2022-05-16] MEDS ORDERED: PRED20TA PO (10:05)
== END 2022-05-16 12:58 | disposition home health service (06) | DRG 201 ==
LOC: M ED 08:18 → M ED INP 08:19 → UNDOADMOB 14:10 → M ED INP 14:10 → ENRESERV 16:11 → M ED INP 16:49 → M ICU 16:49 → OBSVTOIN 05-11 09:04 → M PCU 05-13 21:13
PROVIDERS: ADMIT Internal Medicine; ATTEND General Practice
PROC: 5A2204Z Restoration of Cardiac Rhythm, Single (ICD-10-PCS; principal; 2022-05-11)
DX: I47.20 Ventricular tachycardia, unspecified (principal); J96.21 Acute and chronic respiratory failure with hypoxia; I50.22 Chronic systolic (congestive) heart failure; I42.0 Dilated cardiomyopathy; I13.0 Hypertensive heart and chronic kidney disease with heart failure and stage 1 through stage 4 chronic kidney disease, or unspecified chronic kidney disease; E11.22 Type 2 diabetes mellitus with diabetic chronic kidney disease; I27.20 Pulmonary hypertension, unspecified; E66.2 Morbid (severe) obesity with alveolar hypoventilation; E11.65 Type 2 diabetes mellitus with hyperglycemia; N18.30 Chronic kidney disease, stage 3 unspecified; I25.10 Atherosclerotic heart disease of native coronary artery without angina pectoris; E06.4 Drug-induced thyroiditis; T38.0X5A Adverse effect of glucocorticoids and synthetic analogues, initial encounter; I48.21 Permanent atrial fibrillation; E05.90 Thyrotoxicosis, unspecified without thyrotoxic crisis or storm; Z88.5 Allergy status to narcotic agent; T46.2X5A Adverse effect of other antidysrhythmic drugs, initial encounter; J20.5 Acute bronchitis due to respiratory syncytial virus; Z86.16 Personal history of COVID-19; Z95.810 Presence of automatic (implantable) cardiac defibrillator; Z79.84 Long term (current) use of oral hypoglycemic drugs; Z79.899 Other long term (current) drug therapy

== ENCOUNTER 2022-05-18 13:52 | Inpatient (IN) | payer OTHER ==
[~2022-05-18] VITALS: Ht 177.8 cm; Wt 126.2 kg
[~2022-05-18 13:52] MED LIST changes: +CHOL4PW PO; +FAMO20TA PO; +MEXI200C PO; +PRED20TA PO
[2022-05-18 14:20] LABS: HEMATOCRIT 41.4 % (42.0-52.0); MEAN CORPUSCULAR HEMOGLOBIN 29.7 pg (27.0-33.0); MEAN CORPUSCULAR HGB CONC 31.4 g/dl (32.0-36.5); MEAN CORPUSCULAR VOLUME 94.7 fl (80.0-96.0); PLATELET COUNT, AUTOMATED 272 10^3/uL (150-450); RED BLOOD COUNT 4.37 10^6/uL (4.30-6.10); WHITE BLOOD COUNT 13.7 10^3/uL (4.0-10.0)
[2022-05-18 14:40] LABS: ATYPICAL LYMPH 1 % (0-5); EOSINOPHILS 1 % (0-3); LYMPHOCYTES 6 % (16-44); METAMYELOCYTES 2 % (0-0); MONOCYTES 8 % (0-5); MYELOCYTES 2 % (0-0); NEUTROPHILS 78 % (28-66); PROMYELOCYTES 1 % (0-0)
[2022-05-18 14:41] LABS: ANISOCYTOSIS 1+; PLATELET ESTIMATE NORMAL (NORMAL); TOXIC VACUOLATION 2+
[2022-05-18 14:42] LABS: HYPOCHROMASIA 1+
[2022-05-18 15:38] LABS: ALBUMIN 3.4 G/DL (3.2-5.2); ALKALINE PHOSPHATASE 76 U/L (46-116); ALT/SGPT 10 U/L (7.0-40); AST/SGOT 27 U/L (<34); BILIRUBIN,TOTAL 0.4 MG/DL (0.3-1.2); BLOOD UREA NITROGEN 15 MG/DL (9-23); CALCIUM LEVEL 8.1 MG/DL (8.5-10.1); CARBON DIOXIDE LEVEL 22 MMOL/L (20-31); CHLORIDE LEVEL 102 MMOL/L (98-107); CREATININE FOR GFR 1.01 MG/DL (0.70-1.30); GLOMERULAR FILTRATION RATE > 60.0 (>56); GLUCOSE, FASTING 260 MG/DL (60-100); MAGNESIUM LEVEL 1.8 MG/DL (1.8-2.4); SODIUM LEVEL 135 MMOL/L (136-145); TOTAL PROTEIN 6.6 G/DL (5.7-8.2)
[2022-05-18] MEDS ORDERED: FUROSEMIDE 40MG/4ML VIAL (J1940) IV ONE (18:00)
[2022-05-18] MEDS ORDERED: PRED20TA PO (18:26)
[2022-05-18] MEDS ORDERED: FAMO20TA PO (18:26)
[2022-05-18] MEDS ORDERED: MEXI200C PO (18:26)
[2022-05-18] MEDS ORDERED: CHOL4POW26 PO (18:26)
[2022-05-18] MEDS ORDERED: HOME MED LIST COMPLETE! XX SCH (18:30)
[2022-05-18 18:41] LABS: FREE THYROXINE INDEX 6.3 % (1.4-3.8); T UPTAKE 52.8 % (22.5-37.0); THYROID STIMULATING HORMONE 0.023 uIU/ML (0.55-4.78); THYROXINE (T4) 11.9 UG/DL (4.5-10.9)
[2022-05-18 18:51] LABS: RSV AMPLIFICATION NEGATIVE (NEGATIVE)
[2022-05-18] MEDS ORDERED: SPIRONOLACTONE 25 MG TAB PO ONE (19:00)
[2022-05-18] MEDS ORDERED: MIDODRINE 5 MG TAB PO ONE (19:00)
[2022-05-18] MEDS ORDERED: METOPROLOL SUCC (TopROL XL) 100MG *XL* TAB PO ONE (19:00)
[2022-05-18] MEDS: RIVAROXABAN 20MG TAB (XARELTO) PO SCH (20:07)
[2022-05-18] MEDS: AMIODARONE 200 MG TAB (PACERONE) PO SCH (20:07)
[2022-05-18 21:07] VITALS: BP 145/88
[2022-05-18] MEDS: CHOLESTYRAMINE 4 GM PWD PKT PO SCH (22:14)
[2022-05-18] MEDS: MEXILETINE 200 MG PO SCH (22:15)
[2022-05-18] MEDS: ENTRESTO 49-51MG TABLET (SACUBITRIL/VALSARTAN) PO SCH (22:17)
[2022-05-18] MEDS: FUROSEMIDE injection 250 MG in D5W 225 ML IV SCH (23:10)
[2022-05-18 23:59] VITALS: BP 118/72
[2022-05-19 01:20] LABS: CK-MB VALUE MASS 1.6 NG/ML (<3.6); CPK CREATINE PHOSPHOKINASE 39 U/L (46-171)
[2022-05-19 01:58] LABS: BLOOD UREA NITROGEN 16 MG/DL (9-23); CALCIUM LEVEL 8.2 MG/DL (8.5-10.1); CARBON DIOXIDE LEVEL 30 MMOL/L (20-31); CHLORIDE LEVEL 100 MMOL/L (98-107); GLOMERULAR FILTRATION RATE > 60.0 (>56); GLUCOSE, FASTING 236 MG/DL (60-100); MAGNESIUM LEVEL 1.9 MG/DL (1.8-2.4); POTASSIUM SERUM 3.8 MMOL/L (3.5-5.1); SODIUM LEVEL 138 MMOL/L (136-145)
[2022-05-19 04:00] VITALS: BP 111/74
[2022-05-19] MEDS ORDERED: DEXTROSE 50% 50 ML SYRINGE IV PRN (04:45)
[2022-05-19] MEDS ORDERED: GLUCAGON INJ 1MG VIAL SC PRN (04:45)
[2022-05-19] MEDS ORDERED: GLUCOSE 4GM CHEW TABLET PO PRN (04:45)
[2022-05-19 05:33] LABS: HEMATOCRIT 41.4 % (42.0-52.0); HEMOGLOBIN 12.9 g/dl (13.5-17.5); MEAN CORPUSCULAR HEMOGLOBIN 29.3 pg (27.0-33.0); MEAN CORPUSCULAR HGB CONC 31.2 g/dl (32.0-36.5); MEAN CORPUSCULAR VOLUME 93.9 fl (80.0-96.0); PLATELET COUNT, AUTOMATED 260 10^3/uL (150-450); RED BLOOD COUNT 4.41 10^6/uL (4.30-6.10)
[2022-05-19 05:37] VITALS: BP 127/86
[2022-05-19 06:24] LABS: BLOOD UREA NITROGEN 19 MG/DL (9-23); CALCIUM LEVEL 8.3 MG/DL (8.5-10.1); CARBON DIOXIDE LEVEL 33 MMOL/L (20-31); CHLORIDE LEVEL 97 MMOL/L (98-107); CK-MB VALUE MASS 1.3 NG/ML (<3.6); CPK CREATINE PHOSPHOKINASE 40 U/L (46-171); CREATININE FOR GFR 1.18 MG/DL (0.70-1.30); GLOMERULAR FILTRATION RATE > 60.0 (>56); GLUCOSE, FASTING 157 MG/DL (60-100); MAGNESIUM LEVEL 1.9 MG/DL (1.8-2.4); MB/CK RELATIVE INDEX 3.25 (< OR =4); POTASSIUM SERUM 3.7 MMOL/L (3.5-5.1); SODIUM LEVEL 138 MMOL/L (136-145)
[2022-05-19] MEDS: MEXILETINE 200 MG PO SCH ×3 (06:29→21:00)
[2022-05-19] MEDS ORDERED: POTASSIUM CHLORIDE 10MEQ SR TABLET PO ONE (06:40)
[2022-05-19] MEDS ORDERED: MAG SULF 1GM/100ML (MAG RUN) 1 GM in IV 1 EA IV ONE (06:45)
[2022-05-19 07:48] VITALS: BP 110/70
[2022-05-19] MEDS ORDERED: MIDODRINE 5 MG TAB PO SCH (08:00)
[2022-05-19] MEDS: MAGNESIUM OXIDE 400MG TAB (MAG-OX) PO SCH ×2 (08:12→21:00)
[2022-05-19] MEDS: predniSONE 20 MG TAB PO SCH (08:12)
[2022-05-19] MEDS: AMIODARONE 200 MG TAB (PACERONE) PO SCH ×2 (08:12→20:59)
[2022-05-19] MEDS: FAMOTIDINE 20 MG TAB PO SCH (08:12)
[2022-05-19] MEDS: DAPAGLIFLOZIN PROPANEDIOL 10MG TABLET (FARXIGA) PO SCH (08:13)
[2022-05-19] MEDS: ENTRESTO 49-51MG TABLET (SACUBITRIL/VALSARTAN) PO SCH ×2 (08:13→20:59)
[2022-05-19] MEDS: ROSUVASTATIN 10 MG TAB (CRESTOR) PO SCH (08:13)
[2022-05-19] MEDS: SPIRONOLACTONE 25 MG TAB PO SCH (08:14)
[2022-05-19] MEDS: INSULIN LISPRO (NovoLOG) PER UNIT SC SCH ×4 (08:14→21:00)
[2022-05-19] MEDS ORDERED: POTASSIUM CHLORIDE 10MEQ SR TABLET PO SCH (09:00)
[2022-05-19] MEDS: CHOLESTYRAMINE 4 GM PWD PKT PO SCH ×4 (09:11→21:00)
[2022-05-19 12:00] VITALS: BP 101/64
[2022-05-19 12:53] LABS: BLOOD UREA NITROGEN 17 MG/DL (9-23); CALCIUM LEVEL 8.3 MG/DL (8.5-10.1); CARBON DIOXIDE LEVEL 30 MMOL/L (20-31); CHLORIDE LEVEL 97 MMOL/L (98-107); CREATININE FOR GFR 1.04 MG/DL (0.70-1.30); GLOMERULAR FILTRATION RATE > 60.0 (>56); GLUCOSE, FASTING 207 MG/DL (60-100); MAGNESIUM LEVEL 2.1 MG/DL (1.8-2.4); POTASSIUM SERUM 4.3 MMOL/L (3.5-5.1); SODIUM LEVEL 136 MMOL/L (136-145)
[2022-05-19 15:49] VITALS: BP 110/74
[2022-05-19] MEDS: RIVAROXABAN 20MG TAB (XARELTO) PO SCH (17:04)
[2022-05-19 18:33] LABS: BLOOD UREA NITROGEN 17 MG/DL (9-23); CALCIUM LEVEL 8.7 MG/DL (8.5-10.1); CARBON DIOXIDE LEVEL 32 MMOL/L (20-31); CHLORIDE LEVEL 98 MMOL/L (98-107); CREATININE FOR GFR 1.15 MG/DL (0.70-1.30); GLOMERULAR FILTRATION RATE > 60.0 (>56); GLUCOSE, FASTING 213 MG/DL (60-100); MAGNESIUM LEVEL 2.2 MG/DL (1.8-2.4); POTASSIUM SERUM 4.3 MMOL/L (3.5-5.1); SODIUM LEVEL 138 MMOL/L (136-145)
[2022-05-19 19:55] VITALS: BP 115/70
[2022-05-19] MEDS: METOPROLOL SUCC (TopROL XL) 100MG *XL* TAB PO SCH (20:59)
[2022-05-19] MEDS: FUROSEMIDE injection 250 MG in D5W 225 ML IV SCH (23:32)
[2022-05-20 00:06] VITALS: BP 111/72
[2022-05-20 01:16] LABS: BLOOD UREA NITROGEN 18 MG/DL (9-23); CALCIUM LEVEL 8.8 MG/DL (8.5-10.1); CARBON DIOXIDE LEVEL 31 MMOL/L (20-31); CHLORIDE LEVEL 98 MMOL/L (98-107); CREATININE FOR GFR 1.04 MG/DL (0.70-1.30); GLOMERULAR FILTRATION RATE > 60.0 (>56); GLUCOSE, FASTING 176 MG/DL (60-100); MAGNESIUM LEVEL 2.2 MG/DL (1.8-2.4); SODIUM LEVEL 137 MMOL/L (136-145)
[2022-05-20 04:34] VITALS: BP 102/68
[2022-05-20] MEDS: MEXILETINE 200 MG PO SCH ×3 (05:33→21:26)
[2022-05-20 05:59] LABS: HEMOGLOBIN 13.3 g/dl (13.5-17.5); MEAN CORPUSCULAR HEMOGLOBIN 29.4 pg (27.0-33.0); MEAN CORPUSCULAR HGB CONC 31.7 g/dl (32.0-36.5); MEAN CORPUSCULAR VOLUME 92.9 fl (80.0-96.0); PLATELET COUNT, AUTOMATED 251 10^3/uL (150-450); RED BLOOD COUNT 4.52 10^6/uL (4.30-6.10); WHITE BLOOD COUNT 10.6 10^3/uL (4.0-10.0)
[2022-05-20 06:46] LABS: BLOOD UREA NITROGEN 18 MG/DL (9-23); CALCIUM LEVEL 8.8 MG/DL (8.5-10.1); CARBON DIOXIDE LEVEL 32 MMOL/L (20-31); CHLORIDE LEVEL 96 MMOL/L (98-107); CREATININE FOR GFR 1.07 MG/DL (0.70-1.30); GLOMERULAR FILTRATION RATE > 60.0 (>56); GLUCOSE, FASTING 148 MG/DL (60-100); MAGNESIUM LEVEL 2.1 MG/DL (1.8-2.4); POTASSIUM SERUM 3.6 MMOL/L (3.5-5.1); SODIUM LEVEL 138 MMOL/L (136-145)
[2022-05-20 07:43] VITALS: BP 113/76
[2022-05-20] MEDS ORDERED: CALCIUM GLUCONATE 1,000 MG in D5W MINI-BAG PLUS 100 ML IV ONE (08:00)
[2022-05-20] MEDS: AMIODARONE 200 MG TAB (PACERONE) PO SCH ×2 (08:37→21:26)
[2022-05-20] MEDS: MAGNESIUM OXIDE 400MG TAB (MAG-OX) PO SCH ×2 (08:37→21:25)
[2022-05-20] MEDS: DAPAGLIFLOZIN PROPANEDIOL 10MG TABLET (FARXIGA) PO SCH (08:37)
[2022-05-20] MEDS: predniSONE 20 MG TAB PO SCH (08:37)
[2022-05-20] MEDS: ROSUVASTATIN 10 MG TAB (CRESTOR) PO SCH (08:37)
[2022-05-20] MEDS: FAMOTIDINE 20 MG TAB PO SCH (08:37)
[2022-05-20] MEDS: ENTRESTO 49-51MG TABLET (SACUBITRIL/VALSARTAN) PO SCH ×2 (08:37→21:25)
[2022-05-20] MEDS: POTASSIUM CHLORIDE 10MEQ SR TABLET PO SCH ×2 (08:38→09:49)
[2022-05-20] MEDS: SPIRONOLACTONE 25 MG TAB PO SCH (08:38)
[2022-05-20] MEDS: INSULIN LISPRO (NovoLOG) PER UNIT SC SCH ×4 (08:39→21:25)
[2022-05-20] MEDS: CHOLESTYRAMINE 4 GM PWD PKT PO SCH ×4 (09:50→21:25)
[2022-05-20 11:56] VITALS: BP 104/69
[2022-05-20 13:22] LABS: BLOOD UREA NITROGEN 18 MG/DL (9-23); CARBON DIOXIDE LEVEL 31 MMOL/L (20-31); CHLORIDE LEVEL 96 MMOL/L (98-107); CREATININE FOR GFR 1.05 MG/DL (0.70-1.30); GLOMERULAR FILTRATION RATE > 60.0 (>56); GLUCOSE, FASTING 220 MG/DL (60-100); MAGNESIUM LEVEL 2.2 MG/DL (1.8-2.4); POTASSIUM SERUM 4.5 MMOL/L (3.5-5.1); SODIUM LEVEL 137 MMOL/L (136-145)
[2022-05-20 15:49] VITALS: BP 108/67
[2022-05-20] MEDS: RIVAROXABAN 20MG TAB (XARELTO) PO SCH (17:05)
[2022-05-20 18:51] LABS: BLOOD UREA NITROGEN 21 MG/DL (9-23); CALCIUM LEVEL 9.3 MG/DL (8.5-10.1); CARBON DIOXIDE LEVEL 27 MMOL/L (20-31); CHLORIDE LEVEL 96 MMOL/L (98-107); CREATININE FOR GFR 1.07 MG/DL (0.70-1.30); GLOMERULAR FILTRATION RATE > 60.0 (>56); GLUCOSE, FASTING 268 MG/DL (60-100); MAGNESIUM LEVEL 2.2 MG/DL (1.8-2.4); POTASSIUM SERUM 4.7 MMOL/L (3.5-5.1); SODIUM LEVEL 135 MMOL/L (136-145)
[2022-05-20 20:00] VITALS: BP 111/75
[2022-05-20] MEDS: METOPROLOL SUCC (TopROL XL) 100MG *XL* TAB PO SCH (21:26)
[2022-05-20] MEDS: FUROSEMIDE injection 250 MG in D5W 225 ML IV SCH (22:45)
[2022-05-21] VITALS (10 sets, daily range): BP systolic 102–145; BP diastolic 67–86
[2022-05-21] MEDS: MEXILETINE 200 MG PO SCH ×3 (05:35→21:52)
[2022-05-21 05:36] LABS: HEMATOCRIT 41.3 % (42.0-52.0); HEMOGLOBIN 13.3 g/dl (13.5-17.5); MEAN CORPUSCULAR HEMOGLOBIN 29.8 pg (27.0-33.0); MEAN CORPUSCULAR HGB CONC 32.2 g/dl (32.0-36.5); MEAN CORPUSCULAR VOLUME 92.6 fl (80.0-96.0); PLATELET COUNT, AUTOMATED 254 10^3/uL (150-450); RED BLOOD COUNT 4.46 10^6/uL (4.30-6.10); WHITE BLOOD COUNT 13.3 10^3/uL (4.0-10.0)
[2022-05-21 06:08] LABS: BLOOD UREA NITROGEN 18 MG/DL (9-23); CALCIUM LEVEL 8.6 MG/DL (8.5-10.1); CARBON DIOXIDE LEVEL 31 MMOL/L (20-31); CHLORIDE LEVEL 95 MMOL/L (98-107); CREATININE FOR GFR 1.05 MG/DL (0.70-1.30); GLOMERULAR FILTRATION RATE > 60.0 (>56); GLUCOSE, FASTING 168 MG/DL (60-100); MAGNESIUM LEVEL 2.3 MG/DL (1.8-2.4); POTASSIUM SERUM 3.6 MMOL/L (3.5-5.1); SODIUM LEVEL 135 MMOL/L (136-145)
[2022-05-21] MEDS: FAMOTIDINE 20 MG TAB PO SCH (08:45)
[2022-05-21] MEDS: ENTRESTO 49-51MG TABLET (SACUBITRIL/VALSARTAN) PO SCH ×2 (08:45→21:52)
[2022-05-21] MEDS: CHOLESTYRAMINE 4 GM PWD PKT PO SCH ×4 (08:45→21:52)
[2022-05-21] MEDS: SPIRONOLACTONE 25 MG TAB PO SCH (08:45)
[2022-05-21] MEDS: ROSUVASTATIN 10 MG TAB (CRESTOR) PO SCH (08:45)
[2022-05-21] MEDS: DAPAGLIFLOZIN PROPANEDIOL 10MG TABLET (FARXIGA) PO SCH (08:45)
[2022-05-21] MEDS: INSULIN LISPRO (NovoLOG) PER UNIT SC SCH ×4 (08:45→21:53)
[2022-05-21] MEDS: MAGNESIUM OXIDE 400MG TAB (MAG-OX) PO SCH ×3 (08:46→21:00)
[2022-05-21] MEDS: predniSONE 20 MG TAB PO SCH (08:46)
[2022-05-21] MEDS: AMIODARONE 200 MG TAB (PACERONE) PO SCH ×2 (08:46→21:52)
[2022-05-21 08:58] LABS: FREE THYROXINE INDEX 6.9 % (1.4-3.8); T UPTAKE 54.2 % (22.5-37.0); THYROID STIMULATING HORMONE 0.021 uIU/ML (0.55-4.78); THYROXINE (T4) 12.7 UG/DL (4.5-10.9)
[2022-05-21] MEDS: RIVAROXABAN 20MG TAB (XARELTO) PO SCH (19:03)
[2022-05-21] MEDS: FUROSEMIDE injection 250 MG in D5W 225 ML IV SCH (21:51)
[2022-05-21] MEDS: METOPROLOL SUCC (TopROL XL) 100MG *XL* TAB PO SCH (21:52)
[2022-05-22 04:00] VITALS: BP 114/78
[2022-05-22 05:36] LABS: HEMATOCRIT 42.5 % (42.0-52.0); HEMOGLOBIN 13.5 g/dl (13.5-17.5); MEAN CORPUSCULAR HEMOGLOBIN 29.2 pg (27.0-33.0); MEAN CORPUSCULAR HGB CONC 31.8 g/dl (32.0-36.5); PLATELET COUNT, AUTOMATED 245 10^3/uL (150-450); RED BLOOD COUNT 4.62 10^6/uL (4.30-6.10)
[2022-05-22] MEDS: MEXILETINE 200 MG PO SCH ×3 (05:41→22:24)
[2022-05-22 05:55] LABS: CHLORIDE LEVEL 98 MMOL/L (98-107); SODIUM LEVEL 138 MMOL/L (136-145)
[2022-05-22 05:56] LABS: CARBON DIOXIDE LEVEL 30 MMOL/L (20-31)
[2022-05-22 06:01] LABS: BLOOD UREA NITROGEN 24 MG/DL (9-23); CALCIUM LEVEL 8.6 MG/DL (8.5-10.1); GLUCOSE, FASTING 187 MG/DL (60-100)
[2022-05-22 06:02] LABS: MAGNESIUM LEVEL 2.3 MG/DL (1.8-2.4)
[2022-05-22 06:04] LABS: CREATININE FOR GFR 1.11 MG/DL (0.70-1.30); GLOMERULAR FILTRATION RATE > 60.0 (>56)
[2022-05-22 06:13] LABS: POTASSIUM SERUM 3.6 MMOL/L (3.5-5.1); TOTAL T3 121.6 NG/DL (60.0-181.0)
[2022-05-22 08:00] VITALS: BP 106/72
[2022-05-22] MEDS: ENTRESTO 49-51MG TABLET (SACUBITRIL/VALSARTAN) PO SCH ×2 (08:59→20:31)
[2022-05-22] MEDS: DAPAGLIFLOZIN PROPANEDIOL 10MG TABLET (FARXIGA) PO SCH (08:59)
[2022-05-22] MEDS: FAMOTIDINE 20 MG TAB PO SCH (09:00)
[2022-05-22] MEDS: MAGNESIUM OXIDE 400MG TAB (MAG-OX) PO SCH ×2 (09:00→21:25)
[2022-05-22] MEDS: SPIRONOLACTONE 25 MG TAB PO SCH (09:00)
[2022-05-22] MEDS: ROSUVASTATIN 10 MG TAB (CRESTOR) PO SCH (09:00)
[2022-05-22] MEDS: predniSONE 20 MG TAB PO SCH (09:00)
[2022-05-22] MEDS: AMIODARONE 200 MG TAB (PACERONE) PO SCH ×2 (09:00→21:25)
[2022-05-22] MEDS: INSULIN LISPRO (NovoLOG) PER UNIT SC SCH ×4 (09:01→21:26)
[2022-05-22] MEDS: CHOLESTYRAMINE 4 GM PWD PKT PO SCH ×4 (10:20→22:24)
[2022-05-22 12:00] VITALS: BP 110/76
[2022-05-22] MEDS ORDERED: POTASSIUM CHLORIDE 10MEQ SR TABLET PO ONE (14:00)
[2022-05-22] MEDS: LEVEMIR (INSULIN DETEMIR) 1 UNITS/0.01ML SC SCH (14:16)
[2022-05-22 15:52] VITALS: BP 118/76
[2022-05-22] MEDS: RIVAROXABAN 20MG TAB (XARELTO) PO SCH (17:43)
[2022-05-22] MEDS: FUROSEMIDE 40 MG TAB PO SCH (17:43)
[2022-05-22 20:04] VITALS: BP 112/75
[2022-05-22 21:25] VITALS: BP 112/75
[2022-05-22] MEDS: METOPROLOL SUCC (TopROL XL) 100MG *XL* TAB PO SCH (21:25)
[2022-05-23] VITALS: BP 110/62
[2022-05-23 04:00] VITALS: BP 122/80
[2022-05-23 05:01] LABS: HEMATOCRIT 42.5 % (42.0-52.0); HEMOGLOBIN 13.2 g/dl (13.5-17.5); MEAN CORPUSCULAR HGB CONC 31.1 g/dl (32.0-36.5); MEAN CORPUSCULAR VOLUME 93.4 fl (80.0-96.0); PLATELET COUNT, AUTOMATED 248 10^3/uL (150-450); RED BLOOD COUNT 4.55 10^6/uL (4.30-6.10); WHITE BLOOD COUNT 15.4 10^3/uL (4.0-10.0)
[2022-05-23 05:26] LABS: CHLORIDE LEVEL 100 MMOL/L (98-107); SODIUM LEVEL 137 MMOL/L (136-145)
[2022-05-23 05:27] LABS: CARBON DIOXIDE LEVEL 29 MMOL/L (20-31)
[2022-05-23 05:32] LABS: BLOOD UREA NITROGEN 30 MG/DL (9-23); CALCIUM LEVEL 8.7 MG/DL (8.5-10.1); GLUCOSE, FASTING 185 MG/DL (60-100); MAGNESIUM LEVEL 2.3 MG/DL (1.8-2.4)
[2022-05-23 05:34] LABS: CREATININE FOR GFR 1.08 MG/DL (0.70-1.30); FREE T4 2.86 NG/DL (0.89-1.76); GLOMERULAR FILTRATION RATE > 60.0 (>56); PHOSPHORUS LEVEL 3.8 MG/DL (2.5-4.9)
[2022-05-23 05:36] LABS: THYROID STIMULATING HORMONE 0.026 uIU/ML (0.55-4.78); TOTAL T3 90.1 NG/DL (60.0-181.0)
[2022-05-23] MEDS: MEXILETINE 200 MG PO SCH ×2 (05:46→13:30)
[2022-05-23 08:15] VITALS: BP 110/82
[2022-05-23] MEDS: LEVEMIR (INSULIN DETEMIR) 1 UNITS/0.01ML SC SCH (08:35)
[2022-05-23] MEDS: SPIRONOLACTONE 25 MG TAB PO SCH (08:35)
[2022-05-23] MEDS: INSULIN LISPRO (NovoLOG) PER UNIT SC SCH ×2 (08:35→13:29)
[2022-05-23] MEDS: ROSUVASTATIN 10 MG TAB (CRESTOR) PO SCH (08:36)
[2022-05-23] MEDS: DAPAGLIFLOZIN PROPANEDIOL 10MG TABLET (FARXIGA) PO SCH (08:36)
[2022-05-23] MEDS: predniSONE 20 MG TAB PO SCH (08:36)
[2022-05-23] MEDS: FAMOTIDINE 20 MG TAB PO SCH (08:36)
[2022-05-23] MEDS: ENTRESTO 49-51MG TABLET (SACUBITRIL/VALSARTAN) PO SCH (08:36)
[2022-05-23] MEDS: AMIODARONE 200 MG TAB (PACERONE) PO SCH (08:36)
[2022-05-23] MEDS: FUROSEMIDE 40 MG TAB PO SCH (08:37)
[2022-05-23] MEDS: MAGNESIUM OXIDE 400MG TAB (MAG-OX) PO SCH (08:37)
[2022-05-23] MEDS: CHOLESTYRAMINE 4 GM PWD PKT PO SCH ×2 (10:43→13:29)
[2022-05-23 11:52] VITALS: BP 110/80
[2022-05-23] MEDS ORDERED: ENTR1TAB7 PO (12:08)
[2022-05-23] MEDS ORDERED: METO1TAB33 PO (12:08)
[2022-05-23] MEDS ORDERED: METF10004 PO (12:08)
== END 2022-05-23 15:37 | disposition home or self-care (01) | DRG 201 ==
LOC: EDBD 13:52 → M ED 13:52 → M ED INP 17:38 → M PCU 20:47
PROVIDERS: ADMIT General Practice; ATTEND Internal Medicine
DX: I47.20 Ventricular tachycardia, unspecified (principal); I50.43 Acute on chronic combined systolic (congestive) and diastolic (congestive) heart failure; J96.11 Chronic respiratory failure with hypoxia; I42.0 Dilated cardiomyopathy; E11.40 Type 2 diabetes mellitus with diabetic neuropathy, unspecified; E11.22 Type 2 diabetes mellitus with diabetic chronic kidney disease; Z68.41 Body mass index [BMI] 40.0-44.9, adult; E11.65 Type 2 diabetes mellitus with hyperglycemia; E66.01 Morbid (severe) obesity due to excess calories; N18.30 Chronic kidney disease, stage 3 unspecified; I25.10 Atherosclerotic heart disease of native coronary artery without angina pectoris; I25.2 Old myocardial infarction; G47.33 Obstructive sleep apnea (adult) (pediatric); I25.5 Ischemic cardiomyopathy; I48.0 Paroxysmal atrial fibrillation; E05.80 Other thyrotoxicosis without thyrotoxic crisis or storm; I45.2 Bifascicular block; T46.2X5A Adverse effect of other antidysrhythmic drugs, initial encounter; E06.4 Drug-induced thyroiditis; Z95.810 Presence of automatic (implantable) cardiac defibrillator; Z95.5 Presence of coronary angioplasty implant and graft; Z87.891 Personal history of nicotine dependence; Z79.84 Long term (current) use of oral hypoglycemic drugs; Z79.01 Long term (current) use of anticoagulants; Z79.52 Long term (current) use of systemic steroids; Z79.899 Other long term (current) drug therapy; Z99.81 Dependence on supplemental oxygen; Z88.5 Allergy status to narcotic agent

== ENCOUNTER → 2022-05-30 | Outpatient (REF) | payer OTHER ==
[~2022-05-30] MED LIST changes: +CHOL4POW26 PO; +ENTR1TAB7 PO; +METF10004 PO; +METO1TAB33 PO
== END ==
LOC: M SFHCADAM 13:08
PROVIDERS: ATTEND Physician Assistant
DX: R50.9 Fever, unspecified (principal)

== ENCOUNTER → 2022-06-01 | Outpatient (REF) | payer OTHER ==
[2022-06-01 17:34] LABS: HEMATOCRIT 43.3 % (42.0-52.0); HEMOGLOBIN 13.5 g/dl (13.5-17.5); MEAN CORPUSCULAR HEMOGLOBIN 29.7 pg (27.0-33.0); MEAN CORPUSCULAR HGB CONC 31.2 g/dl (32.0-36.5); MEAN CORPUSCULAR VOLUME 95.2 fl (80.0-96.0); PLATELET COUNT, AUTOMATED 174 10^3/uL (150-450); RED BLOOD COUNT 4.55 10^6/uL (4.30-6.10); WHITE BLOOD COUNT 10.9 10^3/uL (4.0-10.0)
[2022-06-01 17:50] LABS: BLOOD UREA NITROGEN 25 MG/DL (9-23); CALCIUM LEVEL 9.4 MG/DL (8.5-10.1); CARBON DIOXIDE LEVEL 31 MMOL/L (20-31); CHLORIDE LEVEL 94 MMOL/L (98-107); CREATININE FOR GFR 1.12 MG/DL (0.70-1.30); GLOMERULAR FILTRATION RATE > 60.0 (>56); GLUCOSE, FASTING 239 MG/DL (60-100); SODIUM LEVEL 132 MMOL/L (136-145)
== END ==
LOC: M LABDRWAD 16:08
PROVIDERS: ATTEND Internal Medicine Cardiovascular Disease
DX: Z53.20 Procedure and treatment not carried out because of patient's decision for unspecified reasons (principal)

== ENCOUNTER → 2022-06-01 | Outpatient (REF) | payer OTHER ==
[2022-06-01 17:33] LABS: BASO % 0.2 % (0.0-1.0); EOS # 0.1 10^3/uL (0.0-0.5); EOS % 0.8 % (0.0-3.0); HEMATOCRIT 44.8 % (42.0-52.0); HEMOGLOBIN 13.6 g/dl (13.5-17.5); LYMPH # 0.6 10^3/uL (1.5-5.0); LYMPH % 5.8 % (24.0-44.0); MEAN CORPUSCULAR HEMOGLOBIN 29.1 pg (27.0-33.0); MEAN CORPUSCULAR HGB CONC 30.4 g/dl (32.0-36.5); MEAN CORPUSCULAR VOLUME 95.9 fl (80.0-96.0); MONO # 0.6 10^3/uL (0.0-0.8); MONO % 5.3 % (2.0-8.0); NEUTROPHILS # 9.5 10^3/uL (1.5-8.5); NEUTROPHILS % 86.5 % (36.0-66.0); PLATELET COUNT, AUTOMATED 180 10^3/uL (150-450); RED BLOOD COUNT 4.67 10^6/uL (4.30-6.10)
[2022-06-01 17:50] LABS: BLOOD UREA NITROGEN 25 MG/DL (9-23); CALCIUM LEVEL 9.3 MG/DL (8.5-10.1); CARBON DIOXIDE LEVEL 25 MMOL/L (20-31); CHLORIDE LEVEL 96 MMOL/L (98-107); CREATININE FOR GFR 1.04 MG/DL (0.70-1.30); GLOMERULAR FILTRATION RATE > 60.0 (>56); GLUCOSE, FASTING 248 MG/DL (60-100); POTASSIUM SERUM 4.9 MMOL/L (3.5-5.1); SODIUM LEVEL 134 MMOL/L (136-145)
[2022-06-01 17:54] LABS: THYROID STIMULATING HORMONE 0.036 uIU/ML (0.55-4.78)
[2022-06-01 17:55] LABS: FREE T4 3.08 NG/DL (0.89-1.76)
== END ==
LOC: M SFHCADAM 13:17
PROVIDERS: ATTEND Physician Assistant
DX: R50.9 Fever, unspecified (principal)

== ENCOUNTER → 2022-06-01 | Outpatient (CLI) | payer OTHER | LOC: M ADAMS 13:31 | PROVIDERS: ATTEND Physician Assistant | DX: R50.9 Fever, unspecified (principal); I51.7 Cardiomegaly ==

== ENCOUNTER 2022-06-04 02:32 | Emergency (ER) | payer OTHER ==
[~2022-06-04] VITALS: Ht 177.8 cm; Wt 128.2 kg
[2022-06-04] MEDS ORDERED: METOPROLOL 5 MG/5 ML VIAL IV SCH (03:00)
[2022-06-04 03:01] LABS: BASO # 0.1 10^3/uL (0.0-0.2); BASO % 0.3 % (0.0-1.0); EOS # 0.2 10^3/uL (0.0-0.5); EOS % 0.9 % (0.0-3.0); HEMATOCRIT 41.2 % (42.0-52.0); LYMPH # 1.4 10^3/uL (1.5-5.0); LYMPH % 6.7 % (24.0-44.0); MEAN CORPUSCULAR HEMOGLOBIN 29.5 pg (27.0-33.0); MEAN CORPUSCULAR HGB CONC 31.6 g/dl (32.0-36.5); MEAN CORPUSCULAR VOLUME 93.4 fl (80.0-96.0); MONO # 1.4 10^3/uL (0.0-0.8); MONO % 6.7 % (2.0-8.0); NEUTROPHILS # 17.1 10^3/uL (1.5-8.5); NEUTROPHILS % 83.8 % (36.0-66.0); PLATELET COUNT, AUTOMATED 164 10^3/uL (150-450); RED BLOOD COUNT 4.41 10^6/uL (4.30-6.10); WHITE BLOOD COUNT 20.4 10^3/uL (4.0-10.0)
[2022-06-04] MEDS: METOPROLOL 5 MG/5 ML VIAL IV SCH ×4 (03:01→03:15)
[2022-06-04 03:05] VITALS: BP 104/71
[2022-06-04 03:11] LABS: INR 2.03; PROTHROMBIN TIME 23.3 SECONDS (12.5-14.5)
[2022-06-04 03:17] LABS: LIPASE 37 U/L (12-53); MAGNESIUM LEVEL 1.7 MG/DL (1.8-2.4)
[2022-06-04 03:18] LABS: CPK CREATINE PHOSPHOKINASE 27 U/L (46-171)
[2022-06-04] MEDS ORDERED: LIDOCAINE 2% INJ 100 MG/5 ML SYRINGE IV STA ×2 (03:18→03:33)
[2022-06-04 03:19] LABS: ALBUMIN 3.4 G/DL (3.2-5.2); ALKALINE PHOSPHATASE 90 U/L (46-116); ALT/SGPT 12 U/L (7.0-40); AST/SGOT 17 U/L (<34); BILIRUBIN,DIRECT 0.4 MG/DL (<0.4); BLOOD UREA NITROGEN 20 MG/DL (9-23); CALCIUM LEVEL 8.7 MG/DL (8.5-10.1); CARBON DIOXIDE LEVEL 24 MMOL/L (20-31); CHLORIDE LEVEL 97 MMOL/L (98-107); CK-MB VALUE MASS < 1.0 NG/ML (<3.6); CREATININE FOR GFR 0.99 MG/DL (0.70-1.30); GLOMERULAR FILTRATION RATE > 60.0 (>56); GLUCOSE, FASTING 260 MG/DL (60-100); POTASSIUM SERUM 4.7 MMOL/L (3.5-5.1); SODIUM LEVEL 134 MMOL/L (136-145); TOTAL PROTEIN 6.3 G/DL (5.7-8.2)
[2022-06-04 03:22] LABS: THYROID STIMULATING HORMONE 0.028 uIU/ML (0.55-4.78)
[2022-06-04 03:23] LABS: FREE T4 3.56 NG/DL (0.89-1.76)
[2022-06-04] MEDS ORDERED: NS 1,000 ML IV SCH (03:45)
[2022-06-04] MEDS ORDERED: propofoL 200 MG/20 ML VIAL IV.PROC PRN (03:45)
[2022-06-04] MEDS ORDERED: MAG SULF 1GM/100ML (MAG RUN) 1 GM in IV 1 EA IV ONE (03:55)
[2022-06-04] MEDS ORDERED: D5W As Ordered ONE (04:02)
[2022-06-04] MEDS ORDERED: LIDOCAINE As Ordered ONE (04:02)
[2022-06-04] MEDS ORDERED: LIDOCAINE 2GM IN D5W 500ML 2,000 MG in IV 1 EA IV SCH ×2 (04:05)
[2022-06-04 05:01] LABS: CK-MB VALUE MASS < 1.0 NG/ML (<3.6)
[2022-06-04 05:02] LABS: CPK CREATINE PHOSPHOKINASE 26 U/L (46-171); MB/CK RELATIVE INDEX 3.84 (< OR =4)
[2022-06-04 06:35] VITALS: BP 106/62
== END 2022-06-04 06:45 | disposition short-term general hospital (02) ==
LOC: M ED 02:32
DX: I47.20 Ventricular tachycardia, unspecified (principal); I48.91 Unspecified atrial fibrillation; I25.10 Atherosclerotic heart disease of native coronary artery without angina pectoris; E11.9 Type 2 diabetes mellitus without complications; I25.5 Ischemic cardiomyopathy; N18.9 Chronic kidney disease, unspecified; I51.7 Cardiomegaly; Z79.899 Other long term (current) drug therapy
CPT/HCPCS: 71045; 80048; 80076; 82550; 82553; 83690; 83735; 83880; 84439; 84443; 85025; 85610; 87486; 87581; 87633; 87798; 93005; 93041; 94760; 96374; 96375; 99291; J3475

== ENCOUNTER 2022-07-20 13:18 | Inpatient (IN) | payer OTHER ==
[~2022-07-20] VITALS: Ht 180.3 cm; Wt 86.0 kg
[2022-07-21 17:30] VITALS: BP 120/77
[2022-07-21 17:56] LABS: ABG BASE EXCESS 8.8 (-2.0-2.0); ABG HCO3 33.3 MEQ/L (22.0-26.0); ABG O2 SATURATION 97.8 % (95.0-99.0); ABG PARTIAL PRESSURE CO2 45.6 mmHg (35.0-45.0); ABG PARTIAL PRESSURE O2 96.8 mmHg (75.0-100.0); ABG STANDARD HCO3 32.6 MEQ/L (22.0-26.0); ABG TOTAL CO2 34.7 MEQ/L (22.0-29.0); ABG pH (ARTERIAL) 7.481 UNITS (7.350-7.450)
[2022-07-21 18:18] LABS: HEMATOCRIT 29.1 % (42.0-52.0); HEMOGLOBIN 8.7 g/dl (13.5-17.5); MEAN CORPUSCULAR HEMOGLOBIN 29.5 pg (27.0-33.0); MEAN CORPUSCULAR HGB CONC 29.9 g/dl (32.0-36.5); MEAN CORPUSCULAR VOLUME 98.6 fl (80.0-96.0); PLATELET COUNT, AUTOMATED 170 10^3/uL (150-450); RED BLOOD COUNT 2.95 10^6/uL (4.30-6.10); WHITE BLOOD COUNT 10.1 10^3/uL (4.0-10.0)
[2022-07-21] MEDS ORDERED: GLUCAGON INJ 1MG VIAL SC PRN (18:25)
[2022-07-21] MEDS ORDERED: GLUCOSE 4GM CHEW TABLET PO PRN (18:25)
[2022-07-21] MEDS ORDERED: DEXTROSE 50% 50ML SYRINGE IV PRN (18:25)
[2022-07-21 18:35] LABS: INR 1.08; PROTHROMBIN TIME 14.2 SECONDS (12.5-14.5)
[2022-07-21] MEDS ORDERED: DICL1GEL3 TOP (18:35)
[2022-07-21] MEDS ORDERED: FLUT44IN INH (18:35)
[2022-07-21] MEDS ORDERED: ALBU2.5V10 NEB (18:35)
[2022-07-21] MEDS ORDERED: MUCI600T31 PO (18:35)
[2022-07-21] MEDS ORDERED: ACET-683 PO (18:35)
[2022-07-21] MEDS ORDERED: SANT250O8 TOP (18:35)
[2022-07-21] MEDS ORDERED: MUCOMYST NEB (18:35)
[2022-07-21] MEDS ORDERED: BISA10SU27 PR (18:35)
[2022-07-21] MEDS ORDERED: ASPI81CH33 PO (18:35)
[2022-07-21] MEDS ORDERED: INSUH10VL SC (18:35)
[2022-07-21] MEDS ORDERED: [UNRECOGNIZED DRUG - CODE] PO (18:36)
[2022-07-21] MEDS ORDERED: LIDO5TD TOP (18:36)
[2022-07-21] MEDS ORDERED: BACT800T5 PO (18:36)
[2022-07-21] MEDS ORDERED: SODI3NEB INH (18:36)
[2022-07-21] MEDS ORDERED: LANTINJ4 SC (18:36)
[2022-07-21] MEDS ORDERED: LANS30CA PO (18:36)
[2022-07-21] MEDS ORDERED: NITR0.4S14 SL (18:36)
[2022-07-21] MEDS ORDERED: MELA3TAB30 PO (18:36)
[2022-07-21] MEDS ORDERED: METO1TAB32 PO (18:36)
[2022-07-21] MEDS ORDERED: SENN-80 PO (18:36)
[2022-07-21] MEDS ORDERED: NYST1POW9 TOP (18:36)
[2022-07-21] MEDS ORDERED: SENNA 8.6 MG TAB (SENOKOT) PO PRN (18:40)
[2022-07-21] MEDS ORDERED: NITROGLYCERIN 0.4MG SUBL TABLET SL PRN (18:40)
[2022-07-21] MEDS ORDERED: HOME MED LIST COMPLETE! XX SCH (18:40)
[2022-07-21] MEDS ORDERED: BISACODYL 10MG SUPP PR PRN (18:40)
[2022-07-21 18:42] LABS: CPK CREATINE PHOSPHOKINASE 85 U/L (46-171)
[2022-07-21 18:43] LABS: ALBUMIN 1.9 G/DL (3.2-5.2); ALKALINE PHOSPHATASE 210 U/L (46-116); ALT/SGPT 68 U/L (7.0-40); AST/SGOT 59 U/L (<34); BILIRUBIN,TOTAL 0.8 MG/DL (0.3-1.2); BLOOD UREA NITROGEN 20 MG/DL (9-23); CALCIUM LEVEL 7.2 MG/DL (8.5-10.1); CARBON DIOXIDE LEVEL 36 MMOL/L (20-31); CHLORIDE LEVEL 90 MMOL/L (98-107); CK-MB VALUE MASS 5.6 NG/ML (<3.6); CREATININE FOR GFR 0.43 MG/DL (0.70-1.30); GLOMERULAR FILTRATION RATE > 60.0 (>56); GLUCOSE, FASTING 213 MG/DL (60-100); MB/CK RELATIVE INDEX 6.58 (< OR =4); POTASSIUM SERUM 4.2 MMOL/L (3.5-5.1); SODIUM LEVEL 130 MMOL/L (136-145); TOTAL PROTEIN 5.8 G/DL (5.7-8.2)
[2022-07-21 19:40] LABS: HEPATITIS B SURFACE ANTIGEN NEGATIVE (NEGATIVE)
[2022-07-21 19:41] LABS: OSMOLALITY SERUM 284 MOSM/KG (275-295)
[2022-07-21] MEDS: FLUTICASONE HFA 44MCG 10.6GM INHALER (FLOVENT) INH SCH (19:56)
[2022-07-21 20:00] VITALS: BP 110/70
[2022-07-21 20:00] LABS: HEPATITIS B CORE ANTIBODY IGM NEGATIVE (NEGATIVE); HEPATITIS C VIRUS ABY INDEX 0.1 INDEX (<0.8)
[2022-07-21] MEDS: NYSTATIN 100,000 UNITS/GM TOPICAL PWD 15GM TOP SCH (21:00)
[2022-07-21] MEDS: LEVEMIR (INSULIN DETEMIR) 1 UNITS/0.01ML SC SCH (22:26)
[2022-07-21] MEDS: guaiFENesin ER 600 MG TAB PO SCH (22:27)
[2022-07-21] MEDS: INSULIN LISPRO (NovoLOG) PER UNIT SC SCH (22:27)
[2022-07-21] MEDS: RAMELTEON 8 MG TAB (ROZEREM) PO SCH (22:27)
[2022-07-21] MEDS: METOPROLOL SUCC *XL* 25MG TAB (TopROL *XL*) PO SCH (22:28)
[2022-07-21] MEDS: RIVAROXABAN 20MG TAB (XARELTO) PO SCH (22:45)
[2022-07-22] VITALS (18 sets, daily range): BP systolic 107–122; BP diastolic 62–80; O2SAT 86–100
[2022-07-22 05:08] LABS: HEMATOCRIT 27.8 % (42.0-52.0); HEMOGLOBIN 8.3 g/dl (13.5-17.5); MEAN CORPUSCULAR HEMOGLOBIN 29.2 pg (27.0-33.0); MEAN CORPUSCULAR HGB CONC 29.9 g/dl (32.0-36.5); MEAN CORPUSCULAR VOLUME 97.9 fl (80.0-96.0); PLATELET COUNT, AUTOMATED 178 10^3/uL (150-450); RED BLOOD COUNT 2.84 10^6/uL (4.30-6.10); WHITE BLOOD COUNT 9.5 10^3/uL (4.0-10.0)
[2022-07-22 05:37] LABS: ALBUMIN 1.9 G/DL (3.2-5.2); ALKALINE PHOSPHATASE 201 U/L (46-116); ALT/SGPT 58 U/L (7.0-40); AST/SGOT 48 U/L (<34); BILIRUBIN,TOTAL 0.7 MG/DL (0.3-1.2); BLOOD UREA NITROGEN 21 MG/DL (9-23); CALCIUM LEVEL 8.1 MG/DL (8.5-10.1); CARBON DIOXIDE LEVEL 38 MMOL/L (20-31); CHLORIDE LEVEL 93 MMOL/L (98-107); CREATININE FOR GFR 0.55 MG/DL (0.70-1.30); GLOMERULAR FILTRATION RATE > 60.0 (>56); GLUCOSE, FASTING 182 MG/DL (60-100); MAGNESIUM LEVEL 1.9 MG/DL (1.8-2.4); POTASSIUM SERUM 4.2 MMOL/L (3.5-5.1); SODIUM LEVEL 133 MMOL/L (136-145); TOTAL PROTEIN 5.4 G/DL (5.7-8.2)
[2022-07-22 06:15] LABS: ANISOCYTOSIS 2+; ATYPICAL LYMPH 2 % (0-5); LYMPHOCYTES 10 % (16-44); METAMYELOCYTES 2 % (0-0); MONOCYTES 3 % (0-5); MYELOCYTES 2 % (0-0); NEUTROPHILS 77 % (28-66); PLATELET ESTIMATE NORMAL (NORMAL)
[2022-07-22 06:16] LABS: MICROCYTOSIS 1+; POLYCHROMASIA 1+
[2022-07-22] MEDS ORDERED: ISOVUE-370 76% 100ML VIAL As Ordered ONE (08:04)
[2022-07-22] MEDS: FLUTICASONE HFA 44MCG 10.6GM INHALER (FLOVENT) INH SCH ×2 (09:00→19:36)
[2022-07-22] MEDS: SANTYL OINT 30GM TOP SCH (09:00)
[2022-07-22] MEDS ORDERED: FUROSEMIDE 40 MG TAB PO SCH (09:00)
[2022-07-22] MEDS: INSULIN LISPRO (NovoLOG) PER UNIT SC SCH ×4 (09:09→22:37)
[2022-07-22] MEDS: LIDOCAINE 5% (LIDODERM) PATCH TOP SCH (09:10)
[2022-07-22] MEDS: NYSTATIN 100,000 UNITS/GM TOPICAL PWD 15GM TOP SCH ×2 (09:10→22:35)
[2022-07-22] MEDS: ROSUVASTATIN 10 MG TAB (CRESTOR) PO SCH (09:11)
[2022-07-22] MEDS: predniSONE 20 MG TAB PO SCH (09:11)
[2022-07-22] MEDS: OMEPRAZOLE 20MG CAP PO SCH (09:11)
[2022-07-22] MEDS: guaiFENesin ER 600 MG TAB PO SCH ×2 (09:11→22:34)
[2022-07-22] MEDS: ASPIRIN 81MG CHEW TABLET PO SCH (09:11)
[2022-07-22] MEDS: SPIRONOLACTONE 12.5MG PER 1/2 TABLET PO SCH (09:12)
[2022-07-22] MEDS: METOPROLOL SUCC *XL* 25MG TAB (TopROL *XL*) PO SCH ×2 (09:13→22:34)
[2022-07-22] MEDS: FUROSEMIDE 20MG/2ML VIAL IV SCH (17:30)
[2022-07-22] MEDS: RIVAROXABAN 20MG TAB (XARELTO) PO SCH (17:31)
[2022-07-22] MEDS: ANALGESIC BALM CRM 3OZ TOP SCH (21:00)
[2022-07-22] MEDS: RAMELTEON 8 MG TAB (ROZEREM) PO SCH (22:34)
[2022-07-22] MEDS: LEVEMIR (INSULIN DETEMIR) 1 UNITS/0.01ML SC SCH (22:35)
[2022-07-23] VITALS (21 sets, daily range): BP systolic 92–132; BP diastolic 61–91; O2SAT 94–99
[2022-07-23] MEDS ORDERED: ACETAMINOPHEN 325 MG TAB PO ONE (01:00)
[2022-07-23] MEDS ORDERED: traMADol 50 MG TAB PO ONE (01:00)
[2022-07-23] MEDS: IPRATROPIUM 0.5MG/ALBUTEROL 2.5MG INH SOL UD 3ML (DUONEB) NEB PRN ×2 (02:39→19:53)
[2022-07-23 05:39] LABS: HEMATOCRIT 28.3 % (42.0-52.0); HEMOGLOBIN 8.3 g/dl (13.5-17.5); MEAN CORPUSCULAR HEMOGLOBIN 29.1 pg (27.0-33.0); MEAN CORPUSCULAR HGB CONC 29.3 g/dl (32.0-36.5); MEAN CORPUSCULAR VOLUME 99.3 fl (80.0-96.0); PLATELET COUNT, AUTOMATED 199 10^3/uL (150-450); RED BLOOD COUNT 2.85 10^6/uL (4.30-6.10); WHITE BLOOD COUNT 9.3 10^3/uL (4.0-10.0)
[2022-07-23 05:57] LABS: FREE T4 1.51 NG/DL (0.89-1.76); THYROID STIMULATING HORMONE 0.078 uIU/ML (0.55-4.78)
[2022-07-23 05:58] LABS: ALKALINE PHOSPHATASE 218 U/L (46-116); ALT/SGPT 57 U/L (7.0-40); AST/SGOT 48 U/L (<34); BILIRUBIN,TOTAL 0.6 MG/DL (0.3-1.2); BLOOD UREA NITROGEN 21 MG/DL (9-23); CALCIUM LEVEL 7.8 MG/DL (8.5-10.1); CARBON DIOXIDE LEVEL 40 MMOL/L (20-31); CHLORIDE LEVEL 90 MMOL/L (98-107); CREATININE FOR GFR 0.52 MG/DL (0.70-1.30); GLOMERULAR FILTRATION RATE > 60.0 (>56); GLUCOSE, FASTING 248 MG/DL (60-100); MAGNESIUM LEVEL 1.9 MG/DL (1.8-2.4); SODIUM LEVEL 133 MMOL/L (136-145); TOTAL PROTEIN 5.5 G/DL (5.7-8.2)
[2022-07-23 06:22] LABS: EOSINOPHILS 1 % (0-3); LYMPHOCYTES 6 % (16-44); METAMYELOCYTES 4 % (0-0); MONOCYTES 3 % (0-5); MYELOCYTES 11 % (0-0); NEUTROPHILS 72 % (28-66)
[2022-07-23 06:23] LABS: ANISOCYTOSIS 2+; HYPOCHROMASIA 2+; PLATELET ESTIMATE NORMAL (NORMAL)
[2022-07-23] MEDS ORDERED: POTASSIUM CHLORIDE 10MEQ SR TABLET PO ONE ×3 (07:00→11:00)
[2022-07-23] MEDS: FLUTICASONE HFA 44MCG 10.6GM INHALER (FLOVENT) INH SCH ×2 (08:51→19:08)
[2022-07-23] MEDS: FUROSEMIDE 20MG/2ML VIAL IV SCH ×2 (09:00→17:14)
[2022-07-23] MEDS: SPIRONOLACTONE 12.5MG PER 1/2 TABLET PO SCH (09:00)
[2022-07-23] MEDS: METOPROLOL SUCC *XL* 25MG TAB (TopROL *XL*) PO SCH ×2 (09:00→20:40)
[2022-07-23] MEDS: SANTYL OINT 30GM TOP SCH (09:00)
[2022-07-23] MEDS: LIDOCAINE 5% (LIDODERM) PATCH TOP SCH (10:18)
[2022-07-23] MEDS: INSULIN LISPRO (NovoLOG) PER UNIT SC SCH ×4 (10:18→20:41)
[2022-07-23] MEDS: predniSONE 20 MG TAB PO SCH (10:19)
[2022-07-23] MEDS: guaiFENesin ER 600 MG TAB PO SCH ×2 (10:20→20:40)
[2022-07-23] MEDS: ROSUVASTATIN 10 MG TAB (CRESTOR) PO SCH (10:20)
[2022-07-23] MEDS: ASPIRIN 81MG CHEW TABLET PO SCH (10:20)
[2022-07-23] MEDS: BACTRIM 160MG/800MG DS TAB PO SCH (10:21)
[2022-07-23] MEDS: NYSTATIN 100,000 UNITS/GM TOPICAL PWD 15GM TOP SCH ×2 (10:21→20:41)
[2022-07-23] MEDS: ANALGESIC BALM CRM 3OZ TOP SCH ×2 (10:22→20:41)
[2022-07-23] MEDS: OMEPRAZOLE 20MG CAP PO SCH (10:31)
[2022-07-23] MEDS: ACETAMINOPHEN 325 MG TAB PO PRN ×2 (10:36→17:15)
[2022-07-23 15:49] LABS: BLOOD UREA NITROGEN 20 MG/DL (9-23); CALCIUM LEVEL 7.7 MG/DL (8.5-10.1); CARBON DIOXIDE LEVEL 39 MMOL/L (20-31); CHLORIDE LEVEL 91 MMOL/L (98-107); CREATININE FOR GFR 0.47 MG/DL (0.70-1.30); GLOMERULAR FILTRATION RATE > 60.0 (>56); GLUCOSE, FASTING 215 MG/DL (60-100); MAGNESIUM LEVEL 1.9 MG/DL (1.8-2.4); POTASSIUM SERUM 3.9 MMOL/L (3.5-5.1); SODIUM LEVEL 134 MMOL/L (136-145)
[2022-07-23] MEDS: RIVAROXABAN 20MG TAB (XARELTO) PO SCH (17:16)
[2022-07-23 19:25] LABS: ABG BASE EXCESS 6.2 (-2.0-2.0); ABG O2 SATURATION 96.7 % (95.0-99.0); ABG PARTIAL PRESSURE CO2 45.6 mmHg (35.0-45.0); ABG STANDARD HCO3 30.1 MEQ/L (22.0-26.0); ABG TOTAL CO2 32.4 MEQ/L (22.0-29.0)
[2022-07-23] MEDS: ACETYLCYSTEINE 20% 4 ML VIAL (200MG/ML) INH SCH (19:53)
[2022-07-23] MEDS: RAMELTEON 8 MG TAB (ROZEREM) PO SCH (20:40)
[2022-07-23] MEDS: LEVEMIR (INSULIN DETEMIR) 1 UNITS/0.01ML SC SCH (20:41)
[2022-07-24] VITALS (23 sets, daily range): BP systolic 92–121; BP diastolic 61–82; O2SAT 92–99
[2022-07-24 05:05] LABS: HEMATOCRIT 28.2 % (42.0-52.0); HEMOGLOBIN 8.3 g/dl (13.5-17.5); MEAN CORPUSCULAR HEMOGLOBIN 28.9 pg (27.0-33.0); MEAN CORPUSCULAR HGB CONC 29.4 g/dl (32.0-36.5); MEAN CORPUSCULAR VOLUME 98.3 fl (80.0-96.0); PLATELET COUNT, AUTOMATED 221 10^3/uL (150-450); RED BLOOD COUNT 2.87 10^6/uL (4.30-6.10); WHITE BLOOD COUNT 12.6 10^3/uL (4.0-10.0)
[2022-07-24 05:55] LABS: ALKALINE PHOSPHATASE 274 U/L (46-116); ALT/SGPT 65 U/L (7.0-40); AST/SGOT 55 U/L (<34); BILIRUBIN,TOTAL 0.7 MG/DL (0.3-1.2); BLOOD UREA NITROGEN 22 MG/DL (9-23); CALCIUM LEVEL 7.9 MG/DL (8.5-10.1); CARBON DIOXIDE LEVEL 37 MMOL/L (20-31); CHLORIDE LEVEL 90 MMOL/L (98-107); CREATININE FOR GFR 0.52 MG/DL (0.70-1.30); GLOMERULAR FILTRATION RATE > 60.0 (>56); GLUCOSE, FASTING 305 MG/DL (60-100); MAGNESIUM LEVEL 1.8 MG/DL (1.8-2.4); POTASSIUM SERUM 4.3 MMOL/L (3.5-5.1); SODIUM LEVEL 131 MMOL/L (136-145); TOTAL PROTEIN 5.9 G/DL (5.7-8.2)
[2022-07-24 05:56] LABS: ANISOCYTOSIS 2+; BASOPHILS 1 % (0-1); EOSINOPHILS 1 % (0-3); LYMPHOCYTES 2 % (16-44); METAMYELOCYTES 3 % (0-0); MONOCYTES 2 % (0-5); MYELOCYTES 10 % (0-0); NEUTROPHILS 78 % (28-66); NUCLEATED RED BLOOD CELL 2 % (0-0); PLATELET ESTIMATE NORMAL (NORMAL); PROMYELOCYTES 1 % (0-0)
[2022-07-24 05:57] LABS: HYPOCHROMASIA 2+
[2022-07-24] MEDS: FLUTICASONE HFA 44MCG 10.6GM INHALER (FLOVENT) INH SCH ×2 (08:10→19:34)
[2022-07-24] MEDS: ACETYLCYSTEINE 20% 4 ML VIAL (200MG/ML) INH SCH ×2 (08:10→19:34)
[2022-07-24] MEDS: ROSUVASTATIN 10 MG TAB (CRESTOR) PO SCH (08:17)
[2022-07-24] MEDS: LIDOCAINE 5% (LIDODERM) PATCH TOP SCH (08:17)
[2022-07-24] MEDS: OMEPRAZOLE 20MG CAP PO SCH (08:17)
[2022-07-24] MEDS: INSULIN LISPRO (NovoLOG) PER UNIT SC SCH ×4 (08:17→21:05)
[2022-07-24] MEDS: predniSONE 10MG TAB PO SCH (08:18)
[2022-07-24] MEDS: FUROSEMIDE 20MG/2ML VIAL IV SCH ×2 (08:18→17:00)
[2022-07-24] MEDS: SPIRONOLACTONE 12.5MG PER 1/2 TABLET PO SCH (08:18)
[2022-07-24] MEDS: ASPIRIN 81MG CHEW TABLET PO SCH (08:18)
[2022-07-24] MEDS: METOPROLOL SUCC *XL* 25MG TAB (TopROL *XL*) PO SCH ×2 (08:18→21:06)
[2022-07-24] MEDS: guaiFENesin ER 600 MG TAB PO SCH ×2 (08:18→21:06)
[2022-07-24] MEDS: NYSTATIN 100,000 UNITS/GM TOPICAL PWD 15GM TOP SCH ×2 (08:19→21:07)
[2022-07-24] MEDS: SANTYL OINT 30GM TOP SCH (08:20)
[2022-07-24] MEDS: ANALGESIC BALM CRM 3OZ TOP SCH ×2 (08:21→21:07)
[2022-07-24] MEDS ORDERED: FUROSEMIDE 100MG/10ML VIAL IV ONE (12:25)
[2022-07-24 13:15] LABS: ABG HCO3 38.5 MEQ/L (22.0-26.0); ABG O2 SATURATION 97.8 % (95.0-99.0); ABG PARTIAL PRESSURE CO2 55.5 mmHg (35.0-45.0); ABG PARTIAL PRESSURE O2 91.6 mmHg (75.0-100.0); ABG STANDARD HCO3 36.7 MEQ/L (22.0-26.0); ABG TOTAL CO2 40.2 MEQ/L (22.0-29.0); ABG pH (ARTERIAL) 7.459 UNITS (7.350-7.450)
[2022-07-24 16:19] LABS: PH BODY FLUID 7.675 UNITS (NOT ESTABLISHED); SOURCE, BODY FLUID pH PLEURAL
[2022-07-24 16:36] LABS: SOURCE, BODY FLUID ALBUMIN PLEURAL
[2022-07-24 16:40] LABS: SOURCE, BODY FLUID GLUCOSE PLEURAL; SOURCE, BODY FLUID TRIG PLEURAL; TRIGLYCERIDE, BODY FLUID 30 MG/DL (NOT ESTABLISHED)
[2022-07-24 16:42] LABS: LDH, BODY FLUID 369 U/L (NOT ESTABLISHED); SOURCE, BODY FLUID LDH PLEURAL
[2022-07-24 16:43] LABS: PLEURAL FL COLOR RED (COLORLESS); SOURCE, BODY FLUID PLEURAL; SOURCE, BODY FLUID TOT PROTEIN PLEURAL; TOTAL PROTEIN, BODY FLUID 2.6 G/DL (NOT ESTABLISHED)
[2022-07-24 16:44] LABS: APPEARANCE, BODY FLUID TURBID (CLEAR)
[2022-07-24] MEDS: RIVAROXABAN 20MG TAB (XARELTO) PO SCH (18:06)
[2022-07-24] MEDS: ACETAMINOPHEN 325 MG TAB PO PRN (18:07)
[2022-07-24] MEDS: IPRATROPIUM 0.5MG/ALBUTEROL 2.5MG INH SOL UD 3ML (DUONEB) NEB PRN (19:34)
[2022-07-24] MEDS ORDERED: LEVEMIR (INSULIN DETEMIR) 1 UNITS/0.01ML SC SCH (21:00)
[2022-07-24] MEDS: RAMELTEON 8 MG TAB (ROZEREM) PO SCH (21:05)
[2022-07-25] VITALS (9 sets, daily range): BP systolic 103–117; BP diastolic 56–83; O2SAT 96–99
[2022-07-25] MEDS: ACETAMINOPHEN 325 MG TAB PO PRN ×2 (01:19→07:00)
[2022-07-25] MEDS: IPRATROPIUM 0.5MG/ALBUTEROL 2.5MG INH SOL UD 3ML (DUONEB) NEB PRN ×2 (03:01→20:02)
[2022-07-25 05:27] LABS: HEMATOCRIT 27.5 % (42.0-52.0); HEMOGLOBIN 8.3 g/dl (13.5-17.5); MEAN CORPUSCULAR HEMOGLOBIN 29.1 pg (27.0-33.0); MEAN CORPUSCULAR HGB CONC 30.2 g/dl (32.0-36.5); MEAN CORPUSCULAR VOLUME 96.5 fl (80.0-96.0); PLATELET COUNT, AUTOMATED 231 10^3/uL (150-450); RED BLOOD COUNT 2.85 10^6/uL (4.30-6.10); WHITE BLOOD COUNT 12.3 10^3/uL (4.0-10.0)
[2022-07-25 05:53] LABS: ALBUMIN 1.9 G/DL (3.2-5.2); ALKALINE PHOSPHATASE 220 U/L (46-116); ALT/SGPT 52 U/L (7.0-40); AST/SGOT 42 U/L (<34); BILIRUBIN,TOTAL 0.7 MG/DL (0.3-1.2); BLOOD UREA NITROGEN 23 MG/DL (9-23); CALCIUM LEVEL 7.7 MG/DL (8.5-10.1); CARBON DIOXIDE LEVEL > 40.0 MMOL/L (20-31); CHLORIDE LEVEL 90 MMOL/L (98-107); CREATININE FOR GFR 0.55 MG/DL (0.70-1.30); GLOMERULAR FILTRATION RATE > 60.0 (>56); GLUCOSE, FASTING 153 MG/DL (60-100); MAGNESIUM LEVEL 1.7 MG/DL (1.8-2.4); POTASSIUM SERUM 3.7 MMOL/L (3.5-5.1); SODIUM LEVEL 133 MMOL/L (136-145); TOTAL PROTEIN 5.6 G/DL (5.7-8.2)
[2022-07-25 05:58] LABS: LYMPHOCYTES 16 % (16-44); METAMYELOCYTES 1 % (0-0); MONOCYTES 3 % (0-5); NEUTROPHILS 80 % (28-66); PLATELET ESTIMATE NORMAL (NORMAL)
[2022-07-25 06:00] LABS: ANISOCYTOSIS 2+; HYPOCHROMASIA 1+; POLYCHROMASIA 1+
[2022-07-25 06:02] LABS: OVALOCYTES 1+
[2022-07-25 06:03] LABS: HEMOGLOBIN A1c 6.1 % (4.0-6.0)
[2022-07-25] MEDS ORDERED: MAG SULF 1GM/100ML (MAG RUN) 1 GM in IV 1 EA IV ONE (07:30)
[2022-07-25] MEDS: INSULIN LISPRO (NovoLOG) PER UNIT SC SCH ×4 (07:32→21:13)
[2022-07-25] MEDS: ACETYLCYSTEINE 20% 4 ML VIAL (200MG/ML) INH SCH ×2 (07:38→20:02)
[2022-07-25] MEDS: FLUTICASONE HFA 44MCG 10.6GM INHALER (FLOVENT) INH SCH ×2 (07:38→20:02)
[2022-07-25] MEDS: LIDOCAINE 5% (LIDODERM) PATCH TOP SCH (09:00)
[2022-07-25] MEDS: METOPROLOL SUCC *XL* 25MG TAB (TopROL *XL*) PO SCH ×2 (09:00→21:00)
[2022-07-25] MEDS: FUROSEMIDE 20MG/2ML VIAL IV SCH (09:56)
[2022-07-25] MEDS: ASPIRIN 81MG CHEW TABLET PO SCH (09:57)
[2022-07-25] MEDS: predniSONE 10MG TAB PO SCH (09:57)
[2022-07-25] MEDS: SPIRONOLACTONE 12.5MG PER 1/2 TABLET PO SCH (09:58)
[2022-07-25] MEDS: ROSUVASTATIN 10 MG TAB (CRESTOR) PO SCH (09:58)
[2022-07-25] MEDS: OMEPRAZOLE 20MG CAP PO SCH (09:58)
[2022-07-25] MEDS: BACTRIM 160MG/800MG DS TAB PO SCH (09:59)
[2022-07-25] MEDS: guaiFENesin ER 600 MG TAB PO SCH ×2 (09:59→21:13)
[2022-07-25] MEDS: SANTYL OINT 30GM TOP SCH (10:01)
[2022-07-25] MEDS: NYSTATIN 100,000 UNITS/GM TOPICAL PWD 15GM TOP SCH ×2 (10:02→21:14)
[2022-07-25] MEDS: DICLOFENAC SODIUM 1% TOP PRN (12:42)
[2022-07-25] MEDS: DAPAGLIFLOZIN PROPANEDIOL 10MG TABLET (FARXIGA) PO SCH (14:16)
[2022-07-25] MEDS: acetaZOLAMIDE 250MG TAB PO SCH (14:16)
[2022-07-25] MEDS ORDERED: FUROSEMIDE 20MG/2ML VIAL IV SCH (17:00)
[2022-07-25] MEDS: RIVAROXABAN 20MG TAB (XARELTO) PO SCH (17:59)
[2022-07-25] MEDS ORDERED: LEVEMIR (INSULIN DETEMIR) 1 UNITS/0.01ML SC SCH (21:00)
[2022-07-25] MEDS: RAMELTEON 8 MG TAB (ROZEREM) PO SCH (21:13)
[2022-07-25] MEDS: LEVEMIR (INSULIN DETEMIR) 1 UNITS/0.01ML SC SCH (21:14)
[2022-07-26] VITALS (7 sets, daily range): BP systolic 102–116; BP diastolic 65–80
[2022-07-26 06:27] LABS: HEMATOCRIT 28.9 % (42.0-52.0); HEMOGLOBIN 8.4 g/dl (13.5-17.5); MEAN CORPUSCULAR HEMOGLOBIN 28.8 pg (27.0-33.0); MEAN CORPUSCULAR HGB CONC 29.1 g/dl (32.0-36.5); PLATELET COUNT, AUTOMATED 279 10^3/uL (150-450); RED BLOOD COUNT 2.92 10^6/uL (4.30-6.10); WHITE BLOOD COUNT 11.5 10^3/uL (4.0-10.0)
[2022-07-26 07:13] LABS: ANISOCYTOSIS 2+; ATYPICAL LYMPH 2 % (0-5); LYMPHOCYTES 7 % (16-44); MICROCYTOSIS 1+; MONOCYTES 6 % (0-5); MYELOCYTES 2 % (0-0); NEUTROPHILS 77 % (28-66); POLYCHROMASIA 1+
[2022-07-26 07:14] LABS: OVALOCYTES 1+; PLATELET ESTIMATE NORMAL (NORMAL); POIKILOCYTOSIS 1+
[2022-07-26] MEDS: IPRATROPIUM 0.5MG/ALBUTEROL 2.5MG INH SOL UD 3ML (DUONEB) NEB PRN (07:16)
[2022-07-26] MEDS: ACETYLCYSTEINE 20% 4 ML VIAL (200MG/ML) INH SCH ×2 (07:17→20:01)
[2022-07-26] MEDS: FLUTICASONE HFA 44MCG 10.6GM INHALER (FLOVENT) INH SCH ×2 (07:20→20:01)
[2022-07-26 07:26] LABS: ALKALINE PHOSPHATASE 215 U/L (46-116); ALT/SGPT 50 U/L (7.0-40); AST/SGOT 42 U/L (<34); BILIRUBIN,TOTAL 0.6 MG/DL (0.3-1.2); BLOOD UREA NITROGEN 19 MG/DL (9-23); CALCIUM LEVEL 7.9 MG/DL (8.5-10.1); CARBON DIOXIDE LEVEL 38 MMOL/L (20-31); CHLORIDE LEVEL 92 MMOL/L (98-107); GLOMERULAR FILTRATION RATE > 60.0 (>56); GLUCOSE, FASTING 88 MG/DL (60-100); POTASSIUM SERUM 3.4 MMOL/L (3.5-5.1); SODIUM LEVEL 137 MMOL/L (136-145); TOTAL PROTEIN 5.6 G/DL (5.7-8.2)
[2022-07-26] MEDS: INSULIN LISPRO (NovoLOG) PER UNIT SC SCH ×4 (07:30→20:47)
[2022-07-26] MEDS: SPIRONOLACTONE 12.5MG PER 1/2 TABLET PO SCH (09:00)
[2022-07-26] MEDS: METOPROLOL SUCC *XL* 25MG TAB (TopROL *XL*) PO SCH ×2 (09:00→20:46)
[2022-07-26] MEDS ORDERED: INSULIN LISPRO (NovoLOG) PER UNIT SC SCH (09:00)
[2022-07-26] MEDS ORDERED: POTASSIUM CHLORIDE 10MEQ SR TABLET PO ONE (10:55)
[2022-07-26] MEDS: IPRATROPIUM 0.5MG/ALBUTEROL 2.5MG INH SOL UD 3ML (DUONEB) NEB SCH ×3 (11:08→20:01)
[2022-07-26] MEDS ORDERED: VARIBAR NECTAR 40% w/v 240ML SUSP BTL As Ordered ONE (11:09)
[2022-07-26] MEDS ORDERED: VARIBAR PUDDING 40% w/v 230ML TUBE As Ordered ONE (11:09)
[2022-07-26] MEDS ORDERED: E-Z-PAQUE 96% w/w SUSP 176GM BTL As Ordered ONE (11:09)
[2022-07-26] MEDS: BACTRIM 160MG/800MG DS TAB PO SCH (11:28)
[2022-07-26] MEDS: ROSUVASTATIN 10 MG TAB (CRESTOR) PO SCH (11:28)
[2022-07-26] MEDS: ASPIRIN 81MG CHEW TABLET PO SCH (11:29)
[2022-07-26] MEDS: acetaZOLAMIDE 250MG TAB PO SCH (11:29)
[2022-07-26] MEDS: OMEPRAZOLE 20MG CAP PO SCH (11:30)
[2022-07-26] MEDS: DAPAGLIFLOZIN PROPANEDIOL 10MG TABLET (FARXIGA) PO SCH (11:30)
[2022-07-26] MEDS: predniSONE 10MG TAB PO SCH (11:30)
[2022-07-26] MEDS: guaiFENesin ER 600 MG TAB PO SCH ×2 (11:31→20:46)
[2022-07-26] MEDS: HumuLIN N INSULIN (NovoLIN N) PER UNIT SC SCH (11:33)
[2022-07-26] MEDS: LIDOCAINE 5% (LIDODERM) PATCH TOP SCH (11:34)
[2022-07-26] MEDS: NYSTATIN 100,000 UNITS/GM TOPICAL PWD 15GM TOP SCH ×2 (11:35→21:02)
[2022-07-26] MEDS: SANTYL OINT 30GM TOP SCH (11:37)
[2022-07-26] MEDS ORDERED: POTASSIUM CHLORIDE 10% LIQ 20MEQ/15ML UDC PO ONE (11:45)
[2022-07-26] MEDS: FUROSEMIDE 40MG/4ML VIAL IV SCH ×2 (13:46→18:44)
[2022-07-26] MEDS ORDERED: FUROSEMIDE 20MG/2ML VIAL IV SCH (16:00)
[2022-07-26] MEDS: RIVAROXABAN 20MG TAB (XARELTO) PO SCH (18:45)
[2022-07-26] MEDS: LEVEMIR (INSULIN DETEMIR) 1 UNITS/0.01ML SC SCH (20:47)
[2022-07-26] MEDS: RAMELTEON 8 MG TAB (ROZEREM) PO SCH (21:02)
[2022-07-26] MEDS: NYSTATIN 500,000U/5ML SUSP UDC SS SCH (23:45)
[2022-07-27] VITALS (20 sets, daily range): BP systolic 101–134; BP diastolic 60–80; O2SAT 85–98
[2022-07-27] MEDS ORDERED: PROCHLORPERAZINE 10MG 2ML VIAL IV ONE (00:10)
[2022-07-27] MEDS: IPRATROPIUM 0.5MG/ALBUTEROL 2.5MG INH SOL UD 3ML (DUONEB) NEB SCH ×6 (00:22→19:22)
[2022-07-27 05:40] LABS: HEMATOCRIT 25.9 % (42.0-52.0); HEMOGLOBIN 7.7 g/dl (13.5-17.5); MEAN CORPUSCULAR HEMOGLOBIN 28.9 pg (27.0-33.0); MEAN CORPUSCULAR HGB CONC 29.7 g/dl (32.0-36.5); MEAN CORPUSCULAR VOLUME 97.4 fl (80.0-96.0); PLATELET COUNT, AUTOMATED 278 10^3/uL (150-450); RED BLOOD COUNT 2.66 10^6/uL (4.30-6.10); WHITE BLOOD COUNT 9.9 10^3/uL (4.0-10.0)
[2022-07-27 06:11] LABS: ALBUMIN 1.9 G/DL (3.2-5.2); ALKALINE PHOSPHATASE 201 U/L (46-116); ALT/SGPT 43 U/L (7.0-40); AST/SGOT 42 U/L (<34); BILIRUBIN,TOTAL 0.7 MG/DL (0.3-1.2); BLOOD UREA NITROGEN 19 MG/DL (9-23); CARBON DIOXIDE LEVEL 38 MMOL/L (20-31); CHLORIDE LEVEL 93 MMOL/L (98-107); CREATININE FOR GFR 0.64 MG/DL (0.70-1.30); GLOMERULAR FILTRATION RATE > 60.0 (>56); GLUCOSE, FASTING 128 MG/DL (60-100); SODIUM LEVEL 134 MMOL/L (136-145); TOTAL PROTEIN 5.6 G/DL (5.7-8.2)
[2022-07-27 06:14] LABS: ANISOCYTOSIS 1+; HYPOCHROMASIA 2+; LYMPHOCYTES 12 % (16-44); METAMYELOCYTES 2 % (0-0); MONOCYTES 5 % (0-5); MYELOCYTES 4 % (0-0); NEUTROPHILS 72 % (28-66); POLYCHROMASIA 1+
[2022-07-27 06:15] LABS: MICROCYTOSIS 1+; OVALOCYTES 1+; POIKILOCYTOSIS 1+; STOMATOCYTES 1+
[2022-07-27 06:16] LABS: PLATELET ESTIMATE NORMAL (NORMAL)
[2022-07-27] MEDS: ACETAMINOPHEN 325 MG TAB PO PRN ×3 (07:15→21:43)
[2022-07-27] MEDS: ACETYLCYSTEINE 20% 4 ML VIAL (200MG/ML) INH SCH ×2 (07:33→19:22)
[2022-07-27] MEDS: FLUTICASONE HFA 44MCG 10.6GM INHALER (FLOVENT) INH SCH ×2 (07:33→19:23)
[2022-07-27] MEDS: SPIRONOLACTONE 12.5MG PER 1/2 TABLET PO SCH (08:16)
[2022-07-27] MEDS: METOPROLOL SUCC *XL* 25MG TAB (TopROL *XL*) PO SCH ×2 (08:17→20:51)
[2022-07-27] MEDS: OMEPRAZOLE 20MG CAP PO SCH (08:17)
[2022-07-27] MEDS: ASPIRIN 81MG CHEW TABLET PO SCH (08:17)
[2022-07-27] MEDS: guaiFENesin ER 600 MG TAB PO SCH ×2 (08:17→20:51)
[2022-07-27] MEDS: predniSONE 10MG TAB PO SCH (08:18)
[2022-07-27] MEDS: ROSUVASTATIN 10 MG TAB (CRESTOR) PO SCH (08:18)
[2022-07-27] MEDS: acetaZOLAMIDE 250MG TAB PO SCH (08:18)
[2022-07-27] MEDS: HumuLIN N INSULIN (NovoLIN N) PER UNIT SC SCH (08:20)
[2022-07-27] MEDS: DAPAGLIFLOZIN PROPANEDIOL 10MG TABLET (FARXIGA) PO SCH (08:20)
[2022-07-27] MEDS: FUROSEMIDE 40MG/4ML VIAL IV SCH ×3 (08:20→18:22)
[2022-07-27] MEDS: INSULIN LISPRO (NovoLOG) PER UNIT SC SCH ×4 (08:21→20:52)
[2022-07-27] MEDS: LIDOCAINE 5% (LIDODERM) PATCH TOP SCH (08:23)
[2022-07-27] MEDS: NYSTATIN 500,000U/5ML SUSP UDC SS SCH ×4 (08:24→20:50)
[2022-07-27] MEDS: NYSTATIN 100,000 UNITS/GM TOPICAL PWD 15GM TOP SCH ×2 (08:24→20:56)
[2022-07-27] MEDS: KCL 10MEQ/100ML SWI (KRUN) 10 MEQ in IV 1 EA IV SCH ×4 (08:25→11:57)
[2022-07-27] MEDS: SANTYL OINT 30GM TOP SCH (09:00)
[2022-07-27] MEDS ORDERED: POTASSIUM CHLORIDE 10% LIQ 20MEQ/15ML UDC PO ONE (09:00)
[2022-07-27] MEDS: RIVAROXABAN 20MG TAB (XARELTO) PO SCH (18:24)
[2022-07-27] MEDS: BACTRIM 160MG/800MG DS TAB PO SCH (18:27)
[2022-07-27] MEDS: RAMELTEON 8 MG TAB (ROZEREM) PO SCH (20:51)
[2022-07-27] MEDS: LEVEMIR (INSULIN DETEMIR) 1 UNITS/0.01ML SC SCH (20:52)
[2022-07-28] VITALS (7 sets, daily range): BP systolic 105–126; BP diastolic 59–77; O2SAT 95
[2022-07-28] MEDS: IPRATROPIUM 0.5MG/ALBUTEROL 2.5MG INH SOL UD 3ML (DUONEB) NEB SCH ×7 (00:18→23:20)
[2022-07-28 06:26] LABS: HEMATOCRIT 25.7 % (42.0-52.0); HEMOGLOBIN 7.7 g/dl (13.5-17.5); MEAN CORPUSCULAR HEMOGLOBIN 29.4 pg (27.0-33.0); MEAN CORPUSCULAR VOLUME 98.1 fl (80.0-96.0); PLATELET COUNT, AUTOMATED 324 10^3/uL (150-450); RED BLOOD COUNT 2.62 10^6/uL (4.30-6.10); WHITE BLOOD COUNT 12.1 10^3/uL (4.0-10.0)
[2022-07-28 06:56] LABS: ATYPICAL LYMPH 2 % (0-5); LYMPHOCYTES 7 % (16-44); METAMYELOCYTES 1 % (0-0); MONOCYTES 6 % (0-5); MYELOCYTES 1 % (0-0); NEUTROPHILS 81 % (28-66)
[2022-07-28 06:57] LABS: ANISOCYTOSIS 2+; OVALOCYTES 1+; PLATELET ESTIMATE NORMAL (NORMAL); POLYCHROMASIA 1+
[2022-07-28 06:59] LABS: TEAR DROP CELLS 1+
[2022-07-28 07:00] LABS: ALBUMIN 2.1 G/DL (3.2-5.2); ALKALINE PHOSPHATASE 221 U/L (46-116); ALT/SGPT 46 U/L (7.0-40); AST/SGOT 41 U/L (<34); BILIRUBIN,TOTAL 0.6 MG/DL (0.3-1.2); BLOOD UREA NITROGEN 24 MG/DL (9-23); CALCIUM LEVEL 8.1 MG/DL (8.5-10.1); CARBON DIOXIDE LEVEL 37 MMOL/L (20-31); CHLORIDE LEVEL 92 MMOL/L (98-107); CREATININE FOR GFR 0.74 MG/DL (0.70-1.30); GLOMERULAR FILTRATION RATE > 60.0 (>56); GLUCOSE, FASTING 93 MG/DL (60-100); MAGNESIUM LEVEL 2.3 MG/DL (1.8-2.4); POTASSIUM SERUM 3.1 MMOL/L (3.5-5.1); SODIUM LEVEL 134 MMOL/L (136-145); TOTAL PROTEIN 5.7 G/DL (5.7-8.2)
[2022-07-28] MEDS: FLUTICASONE HFA 44MCG 10.6GM INHALER (FLOVENT) INH SCH ×2 (07:13→20:03)
[2022-07-28] MEDS: ACETYLCYSTEINE 20% 4 ML VIAL (200MG/ML) INH SCH ×2 (07:13→20:03)
[2022-07-28] MEDS: INSULIN LISPRO (NovoLOG) PER UNIT SC SCH ×4 (07:30→20:38)
[2022-07-28] MEDS ORDERED: POTASSIUM CHLORIDE 10MEQ SR TABLET PO ONE (09:00)
[2022-07-28] MEDS: SANTYL OINT 30GM TOP SCH (09:00)
[2022-07-28] MEDS: acetaZOLAMIDE 250MG TAB PO SCH (09:11)
[2022-07-28] MEDS: ASPIRIN 81MG CHEW TABLET PO SCH (09:11)
[2022-07-28] MEDS: ROSUVASTATIN 10 MG TAB (CRESTOR) PO SCH (09:12)
[2022-07-28] MEDS: OMEPRAZOLE 20MG CAP PO SCH (09:12)
[2022-07-28] MEDS: predniSONE 10MG TAB PO SCH (09:13)
[2022-07-28] MEDS: DAPAGLIFLOZIN PROPANEDIOL 10MG TABLET (FARXIGA) PO SCH (09:13)
[2022-07-28] MEDS: SPIRONOLACTONE 12.5MG PER 1/2 TABLET PO SCH (09:14)
[2022-07-28] MEDS: NYSTATIN 500,000U/5ML SUSP UDC SS SCH ×4 (09:14→20:37)
[2022-07-28] MEDS: guaiFENesin ER 600 MG TAB PO SCH ×2 (09:14→20:36)
[2022-07-28] MEDS: FUROSEMIDE 40MG/4ML VIAL IV SCH ×3 (09:14→17:24)
[2022-07-28] MEDS: METOPROLOL SUCC *XL* 25MG TAB (TopROL *XL*) PO SCH ×2 (09:14→20:37)
[2022-07-28] MEDS: NYSTATIN 100,000 UNITS/GM TOPICAL PWD 15GM TOP SCH ×2 (09:15→20:38)
[2022-07-28] MEDS: HumuLIN N INSULIN (NovoLIN N) PER UNIT SC SCH (09:15)
[2022-07-28] MEDS: LIDOCAINE 5% (LIDODERM) PATCH TOP SCH (09:23)
[2022-07-28] MEDS: RIVAROXABAN 20MG TAB (XARELTO) PO SCH (17:22)
[2022-07-28] MEDS: POTASSIUM CHLORIDE 10MEQ SR TABLET PO SCH (20:36)
[2022-07-28] MEDS: RAMELTEON 8 MG TAB (ROZEREM) PO SCH (20:36)
[2022-07-28] MEDS: LEVEMIR (INSULIN DETEMIR) 1 UNITS/0.01ML SC SCH (20:38)
[2022-07-29] VITALS (10 sets, daily range): BP systolic 99–133; BP diastolic 56–82; O2SAT 91–95
[2022-07-29] MEDS: DICLOFENAC SODIUM 1% TOP PRN (01:00)
[2022-07-29] MEDS: IPRATROPIUM 0.5MG/ALBUTEROL 2.5MG INH SOL UD 3ML (DUONEB) NEB SCH ×6 (04:08→23:31)
[2022-07-29 05:16] LABS: HEMATOCRIT 26.8 % (42.0-52.0); HEMOGLOBIN 7.7 g/dl (13.5-17.5); MEAN CORPUSCULAR HEMOGLOBIN 28.6 pg (27.0-33.0); MEAN CORPUSCULAR HGB CONC 28.7 g/dl (32.0-36.5); MEAN CORPUSCULAR VOLUME 99.6 fl (80.0-96.0); PLATELET COUNT, AUTOMATED 406 10^3/uL (150-450); RED BLOOD COUNT 2.69 10^6/uL (4.30-6.10)
[2022-07-29 05:42] LABS: ALBUMIN 2.3 G/DL (3.2-5.2); ALKALINE PHOSPHATASE 217 U/L (46-116); ALT/SGPT 41 U/L (7.0-40); AST/SGOT 37 U/L (<34); BILIRUBIN,TOTAL 0.6 MG/DL (0.3-1.2); BLOOD UREA NITROGEN 23 MG/DL (9-23); CALCIUM LEVEL 8.7 MG/DL (8.5-10.1); CARBON DIOXIDE LEVEL 37 MMOL/L (20-31); CHLORIDE LEVEL 94 MMOL/L (98-107); CREATININE FOR GFR 0.85 MG/DL (0.70-1.30); GLOMERULAR FILTRATION RATE > 60.0 (>56); GLUCOSE, FASTING 118 MG/DL (60-100); POTASSIUM SERUM 4.1 MMOL/L (3.5-5.1); SODIUM LEVEL 138 MMOL/L (136-145)
[2022-07-29 06:02] LABS: LYMPHOCYTES 10 % (16-44); METAMYELOCYTES 4 % (0-0); MONOCYTES 6 % (0-5); MYELOCYTES 14 % (0-0); NEUTROPHILS 63 % (28-66); NUCLEATED RED BLOOD CELL 2 % (0-0); PLATELET ESTIMATE NORMAL (NORMAL)
[2022-07-29 06:03] LABS: ANISOCYTOSIS 3+; HYPOCHROMASIA 2+
[2022-07-29] MEDS: FLUTICASONE HFA 44MCG 10.6GM INHALER (FLOVENT) INH SCH ×2 (07:11→19:34)
[2022-07-29] MEDS: ACETYLCYSTEINE 20% 4 ML VIAL (200MG/ML) INH SCH ×2 (07:11→19:33)
[2022-07-29] MEDS: NYSTATIN 500,000U/5ML SUSP UDC SS SCH ×4 (08:29→22:01)
[2022-07-29] MEDS: HumuLIN N INSULIN (NovoLIN N) PER UNIT SC SCH (08:30)
[2022-07-29] MEDS: FUROSEMIDE 40MG/4ML VIAL IV SCH ×3 (08:30→16:32)
[2022-07-29] MEDS: INSULIN LISPRO (NovoLOG) PER UNIT SC SCH ×4 (08:31→21:47)
[2022-07-29] MEDS: acetaZOLAMIDE 250MG TAB PO SCH (08:31)
[2022-07-29] MEDS: guaiFENesin ER 600 MG TAB PO SCH ×2 (08:31→22:01)
[2022-07-29] MEDS: ROSUVASTATIN 10 MG TAB (CRESTOR) PO SCH (08:31)
[2022-07-29] MEDS: DAPAGLIFLOZIN PROPANEDIOL 10MG TABLET (FARXIGA) PO SCH (08:31)
[2022-07-29] MEDS: POTASSIUM CHLORIDE 10MEQ SR TABLET PO SCH (08:32)
[2022-07-29] MEDS: METOPROLOL SUCC *XL* 25MG TAB (TopROL *XL*) PO SCH ×2 (08:32→22:02)
[2022-07-29] MEDS: SPIRONOLACTONE 12.5MG PER 1/2 TABLET PO SCH (08:32)
[2022-07-29] MEDS: ASPIRIN 81MG CHEW TABLET PO SCH (08:33)
[2022-07-29] MEDS: OMEPRAZOLE 20MG CAP PO SCH (08:33)
[2022-07-29] MEDS: predniSONE 10MG TAB PO SCH (08:33)
[2022-07-29] MEDS: LIDOCAINE 5% (LIDODERM) PATCH TOP SCH (08:34)
[2022-07-29] MEDS: SANTYL OINT 30GM TOP SCH ×2 (08:35→08:49)
[2022-07-29] MEDS: NYSTATIN 100,000 UNITS/GM TOPICAL PWD 15GM TOP SCH ×2 (08:35→21:48)
[2022-07-29] MEDS: RIVAROXABAN 20MG TAB (XARELTO) PO SCH (17:38)
[2022-07-29] MEDS ORDERED: ENTRESTO 24-26MG TABLET (SACUBITRIL/VALSARTAN) PO SCH (21:00)
[2022-07-29] MEDS: LEVEMIR (INSULIN DETEMIR) 1 UNITS/0.01ML SC SCH (21:46)
[2022-07-29] MEDS: RAMELTEON 8 MG TAB (ROZEREM) PO SCH (22:02)
[2022-07-29] MEDS: ACETAMINOPHEN 325 MG TAB PO PRN (22:03)
[2022-07-30] VITALS (7 sets, daily range): BP systolic 80–104; BP diastolic 50–69
[2022-07-30] MEDS: IPRATROPIUM 0.5MG/ALBUTEROL 2.5MG INH SOL UD 3ML (DUONEB) NEB SCH ×6 (03:36→23:32)
[2022-07-30] MEDS ORDERED: NS 500 ML IV ONE (03:40)
[2022-07-30 05:27] LABS: HEMATOCRIT 26.1 % (42.0-52.0); HEMOGLOBIN 7.4 g/dl (13.5-17.5); MEAN CORPUSCULAR HEMOGLOBIN 28.9 pg (27.0-33.0); MEAN CORPUSCULAR HGB CONC 28.4 g/dl (32.0-36.5); PLATELET COUNT, AUTOMATED 405 10^3/uL (150-450); RED BLOOD COUNT 2.56 10^6/uL (4.30-6.10); WHITE BLOOD COUNT 11.3 10^3/uL (4.0-10.0)
[2022-07-30 05:55] LABS: ALBUMIN 2.2 G/DL (3.2-5.2); ALKALINE PHOSPHATASE 222 U/L (46-116); ALT/SGPT 38 U/L (7.0-40); AST/SGOT 39 U/L (<34); BILIRUBIN,TOTAL 0.6 MG/DL (0.3-1.2); BLOOD UREA NITROGEN 22 MG/DL (9-23); CALCIUM LEVEL 8.5 MG/DL (8.5-10.1); CARBON DIOXIDE LEVEL 35 MMOL/L (20-31); CHLORIDE LEVEL 99 MMOL/L (98-107); CREATININE FOR GFR 0.65 MG/DL (0.70-1.30); GLOMERULAR FILTRATION RATE > 60.0 (>56); GLUCOSE, FASTING 135 MG/DL (60-100); MAGNESIUM LEVEL 2.4 MG/DL (1.8-2.4); POTASSIUM SERUM 3.6 MMOL/L (3.5-5.1); SODIUM LEVEL 141 MMOL/L (136-145); TOTAL PROTEIN 5.7 G/DL (5.7-8.2)
[2022-07-30 06:02] LABS: ATYPICAL LYMPH 1 % (0-5); LYMPHOCYTES 12 % (16-44); METAMYELOCYTES 3 % (0-0); MONOCYTES 8 % (0-5); MYELOCYTES 2 % (0-0); NEUTROPHILS 72 % (28-66)
[2022-07-30 06:03] LABS: ANISOCYTOSIS 1+; HYPOCHROMASIA 1+; PLATELET ESTIMATE INCREASED (NORMAL)
[2022-07-30 06:04] LABS: MICROCYTOSIS 1+; OVALOCYTES 1+; POLYCHROMASIA 1+
[2022-07-30] MEDS: INSULIN LISPRO (NovoLOG) PER UNIT SC SCH ×4 (07:30→20:49)
[2022-07-30] MEDS: FLUTICASONE HFA 44MCG 10.6GM INHALER (FLOVENT) INH SCH ×2 (08:11→19:27)
[2022-07-30] MEDS: ACETYLCYSTEINE 20% 4 ML VIAL (200MG/ML) INH SCH ×2 (08:11→19:15)
[2022-07-30] MEDS: guaiFENesin ER 600 MG TAB PO SCH ×2 (08:41→22:10)
[2022-07-30] MEDS: ROSUVASTATIN 10 MG TAB (CRESTOR) PO SCH (08:42)
[2022-07-30] MEDS: predniSONE 10MG TAB PO SCH (08:42)
[2022-07-30] MEDS: ASPIRIN 81MG CHEW TABLET PO SCH (08:42)
[2022-07-30] MEDS: POTASSIUM CHLORIDE 10MEQ SR TABLET PO SCH (08:43)
[2022-07-30] MEDS: OMEPRAZOLE 20MG CAP PO SCH (08:43)
[2022-07-30] MEDS: DAPAGLIFLOZIN PROPANEDIOL 10MG TABLET (FARXIGA) PO SCH (08:44)
[2022-07-30] MEDS: BACTRIM 160MG/800MG DS TAB PO SCH (08:44)
[2022-07-30] MEDS: HumuLIN N INSULIN (NovoLIN N) PER UNIT SC SCH (08:45)
[2022-07-30] MEDS: LIDOCAINE 5% (LIDODERM) PATCH TOP SCH (08:45)
[2022-07-30] MEDS: NYSTATIN 100,000 UNITS/GM TOPICAL PWD 15GM TOP SCH ×2 (08:46→22:11)
[2022-07-30] MEDS: SANTYL OINT 30GM TOP SCH (08:46)
[2022-07-30] MEDS: acetaZOLAMIDE 250MG TAB PO SCH (08:56)
[2022-07-30] MEDS: NYSTATIN 500,000U/5ML SUSP UDC SS SCH ×4 (09:00→22:10)
[2022-07-30 11:11] LABS: FREE T4 1.47 NG/DL (0.89-1.76); THYROID STIMULATING HORMONE 0.104 uIU/ML (0.55-4.78)
[2022-07-30] MEDS: ACETAMINOPHEN 325 MG TAB PO PRN (12:48)
[2022-07-30] MEDS: RIVAROXABAN 20MG TAB (XARELTO) PO SCH (18:06)
[2022-07-30] MEDS: RAMELTEON 8 MG TAB (ROZEREM) PO SCH (22:10)
[2022-07-30] MEDS: LEVEMIR (INSULIN DETEMIR) 1 UNITS/0.01ML SC SCH (22:11)
[2022-07-31] MEDS: IPRATROPIUM 0.5MG/ALBUTEROL 2.5MG INH SOL UD 3ML (DUONEB) NEB SCH ×5 (03:36→19:33)
[2022-07-31 04:19] VITALS: BP 101/69
[2022-07-31 05:58] LABS: HEMATOCRIT 27.5 % (42.0-52.0); HEMOGLOBIN 7.9 g/dl (13.5-17.5); MEAN CORPUSCULAR HEMOGLOBIN 29.4 pg (27.0-33.0); MEAN CORPUSCULAR HGB CONC 28.7 g/dl (32.0-36.5); MEAN CORPUSCULAR VOLUME 102.2 fl (80.0-96.0); PLATELET COUNT, AUTOMATED 392 10^3/uL (150-450); RED BLOOD COUNT 2.69 10^6/uL (4.30-6.10)
[2022-07-31 06:28] LABS: ALBUMIN 2.2 G/DL (3.2-5.2); ALKALINE PHOSPHATASE 208 U/L (46-116); ALT/SGPT 34 U/L (7.0-40); AST/SGOT 39 U/L (<34); BILIRUBIN,TOTAL 0.7 MG/DL (0.3-1.2); BLOOD UREA NITROGEN 17 MG/DL (9-23); CALCIUM LEVEL 8.4 MG/DL (8.5-10.1); CARBON DIOXIDE LEVEL 36 MMOL/L (20-31); CHLORIDE LEVEL 97 MMOL/L (98-107); CREATININE FOR GFR 0.54 MG/DL (0.70-1.30); GLOMERULAR FILTRATION RATE > 60.0 (>56); GLUCOSE, FASTING 83 MG/DL (60-100); POTASSIUM SERUM 4.1 MMOL/L (3.5-5.1); SODIUM LEVEL 138 MMOL/L (136-145); TOTAL PROTEIN 5.9 G/DL (5.7-8.2)
[2022-07-31 06:43] LABS: ANISOCYTOSIS 2+; ATYPICAL LYMPH 3 % (0-5); LYMPHOCYTES 11 % (16-44); METAMYELOCYTES 4 % (0-0); MONOCYTES 7 % (0-5); MYELOCYTES 3 % (0-0); NEUTROPHILS 69 % (28-66); NUCLEATED RED BLOOD CELL 1 % (0-0)
[2022-07-31 06:44] LABS: MICROCYTOSIS 1+; OVALOCYTES 1+; PLATELET ESTIMATE INCREASED (NORMAL); POIKILOCYTOSIS 1+
[2022-07-31 06:45] LABS: TEAR DROP CELLS 1+
[2022-07-31] MEDS: FLUTICASONE HFA 44MCG 10.6GM INHALER (FLOVENT) INH SCH ×2 (07:23→19:33)
[2022-07-31] MEDS: ACETYLCYSTEINE 20% 4 ML VIAL (200MG/ML) INH SCH (07:23)
[2022-07-31] MEDS: INSULIN LISPRO (NovoLOG) PER UNIT SC SCH ×4 (07:30→20:53)
[2022-07-31 08:35] VITALS: BP 113/62
[2022-07-31] MEDS: SANTYL OINT 30GM TOP SCH (09:19)
[2022-07-31] MEDS: NYSTATIN 100,000 UNITS/GM TOPICAL PWD 15GM TOP SCH ×2 (09:19→20:50)
[2022-07-31] MEDS: HumuLIN N INSULIN (NovoLIN N) PER UNIT SC SCH (09:20)
[2022-07-31] MEDS: OMEPRAZOLE 20MG CAP PO SCH (09:20)
[2022-07-31] MEDS: ROSUVASTATIN 10 MG TAB (CRESTOR) PO SCH (09:20)
[2022-07-31] MEDS: POTASSIUM CHLORIDE 10MEQ SR TABLET PO SCH (09:21)
[2022-07-31] MEDS: guaiFENesin ER 600 MG TAB PO SCH ×2 (09:21→20:51)
[2022-07-31] MEDS: predniSONE 10MG TAB PO SCH (09:21)
[2022-07-31] MEDS: ASPIRIN 81MG CHEW TABLET PO SCH (09:21)
[2022-07-31] MEDS: NYSTATIN 500,000U/5ML SUSP UDC SS SCH ×4 (09:21→20:51)
[2022-07-31] MEDS: LIDOCAINE 5% (LIDODERM) PATCH TOP SCH (09:27)
[2022-07-31] MEDS: METOPROLOL TART 25 MG TABLET PO SCH ×2 (12:13→20:51)
[2022-07-31] MEDS: SPIRONOLACTONE 12.5MG PER 1/2 TABLET PO SCH (14:11)
[2022-07-31 15:28] VITALS: BP 116/65
[2022-07-31 16:26] LABS: IRON (FE) 64 UG/DL (65-175); PERCENT SATURATION 29.5 % (19.7-50.0); TOTAL IRON BINDING CAPACITY 217 UG/DL (250-425)
[2022-07-31 16:28] LABS: VITAMIN B12 LEVEL 618 PG/ML (211-911)
[2022-07-31 16:29] LABS: FERRITIN 863.8 NG/ML (10.5-307.3); FOLATE 11.61 NG/ML (>5.4)
[2022-07-31] MEDS: RIVAROXABAN 20MG TAB (XARELTO) PO SCH (17:42)
[2022-07-31] MEDS: TORSEMIDE 20 MG TAB PO SCH (17:42)
[2022-07-31] MEDS: SODIUM CHLORIDE HYPERTONIC 3% 15ML NEB SOL INH SCH (17:44)
[2022-07-31] MEDS: RAMELTEON 8 MG TAB (ROZEREM) PO SCH (20:51)
[2022-07-31] MEDS: LEVEMIR (INSULIN DETEMIR) 1 UNITS/0.01ML SC SCH (20:52)
[2022-08-01] VITALS (7 sets, daily range): BP systolic 99–130; BP diastolic 64–94
[2022-08-01] MEDS: IPRATROPIUM 0.5MG/ALBUTEROL 2.5MG INH SOL UD 3ML (DUONEB) NEB SCH ×7 (03:31→23:40)
[2022-08-01 05:22] LABS: HEMATOCRIT 26.9 % (42.0-52.0); HEMOGLOBIN 7.6 g/dl (13.5-17.5); MEAN CORPUSCULAR HEMOGLOBIN 29.1 pg (27.0-33.0); MEAN CORPUSCULAR HGB CONC 28.3 g/dl (32.0-36.5); MEAN CORPUSCULAR VOLUME 103.1 fl (80.0-96.0); PLATELET COUNT, AUTOMATED 397 10^3/uL (150-450); RED BLOOD COUNT 2.61 10^6/uL (4.30-6.10); WHITE BLOOD COUNT 12.7 10^3/uL (4.0-10.0)
[2022-08-01 05:54] LABS: ALBUMIN 2.2 G/DL (3.2-5.2); ALKALINE PHOSPHATASE 205 U/L (46-116); ALT/SGPT 33 U/L (7.0-40); AST/SGOT 38 U/L (<34); BILIRUBIN,TOTAL 0.6 MG/DL (0.3-1.2); BLOOD UREA NITROGEN 17 MG/DL (9-23); CARBON DIOXIDE LEVEL 37 MMOL/L (20-31); CHLORIDE LEVEL 97 MMOL/L (98-107); CREATININE FOR GFR 0.56 MG/DL (0.70-1.30); GLOMERULAR FILTRATION RATE > 60.0 (>56); GLUCOSE, FASTING 178 MG/DL (60-100); MAGNESIUM LEVEL 1.8 MG/DL (1.8-2.4); POTASSIUM SERUM 3.6 MMOL/L (3.5-5.1); SODIUM LEVEL 138 MMOL/L (136-145); TOTAL PROTEIN 5.5 G/DL (5.7-8.2)
[2022-08-01 07:22] LABS: ANISOCYTOSIS 3+; HYPOCHROMASIA 2+; LYMPHOCYTES 8 % (16-44); METAMYELOCYTES 1 % (0-0); MONOCYTES 5 % (0-5); MYELOCYTES 12 % (0-0); NEUTROPHILS 70 % (28-66); NUCLEATED RED BLOOD CELL 1 % (0-0); PLASMA CELL 1 % (0-0); PLATELET ESTIMATE NORMAL (NORMAL)
[2022-08-01 07:23] LABS: OVALOCYTES 1+; STOMATOCYTES 1+
[2022-08-01] MEDS: SODIUM CHLORIDE HYPERTONIC 3% 15ML NEB SOL INH SCH ×4 (07:49→20:44)
[2022-08-01] MEDS: FLUTICASONE HFA 44MCG 10.6GM INHALER (FLOVENT) INH SCH ×2 (07:49→20:44)
[2022-08-01] MEDS: INSULIN LISPRO (NovoLOG) PER UNIT SC SCH ×4 (10:02→20:20)
[2022-08-01] MEDS: NYSTATIN 500,000U/5ML SUSP UDC SS SCH ×4 (10:21→20:04)
[2022-08-01] MEDS: HumuLIN N INSULIN (NovoLIN N) PER UNIT SC SCH (10:22)
[2022-08-01] MEDS: SPIRONOLACTONE 12.5MG PER 1/2 TABLET PO SCH (10:22)
[2022-08-01] MEDS: METOPROLOL TART 25 MG TABLET PO SCH ×2 (10:23→20:07)
[2022-08-01] MEDS: guaiFENesin ER 600 MG TAB PO SCH ×2 (10:23→20:04)
[2022-08-01] MEDS: POTASSIUM CHLORIDE 10MEQ SR TABLET PO SCH (10:25)
[2022-08-01] MEDS: TORSEMIDE 20 MG TAB PO SCH (10:25)
[2022-08-01] MEDS: ASPIRIN 81MG CHEW TABLET PO SCH (10:25)
[2022-08-01] MEDS: OMEPRAZOLE 20MG CAP PO SCH (10:26)
[2022-08-01] MEDS: ROSUVASTATIN 10 MG TAB (CRESTOR) PO SCH (10:26)
[2022-08-01] MEDS: predniSONE 10MG TAB PO SCH (10:27)
[2022-08-01] MEDS: DAPAGLIFLOZIN PROPANEDIOL 10MG TABLET (FARXIGA) PO SCH (10:29)
[2022-08-01] MEDS: LIDOCAINE 5% (LIDODERM) PATCH TOP SCH (10:29)
[2022-08-01] MEDS: NYSTATIN 100,000 UNITS/GM TOPICAL PWD 15GM TOP SCH ×2 (14:51→20:07)
[2022-08-01] MEDS: SANTYL OINT 30GM TOP SCH (14:52)
[2022-08-01] MEDS ORDERED: SODIUM CHLORIDE HYPERTONIC 3% 15ML NEB SOL INH SCH (16:00)
[2022-08-01] MEDS: RIVAROXABAN 20MG TAB (XARELTO) PO SCH (17:41)
[2022-08-01] MEDS: RAMELTEON 8 MG TAB (ROZEREM) PO SCH (20:04)
[2022-08-01] MEDS: LEVEMIR (INSULIN DETEMIR) 1 UNITS/0.01ML SC SCH (20:20)
[2022-08-01] MEDS ORDERED: IPRATROPIUM 0.5MG/ALBUTEROL 2.5MG INH SOL UD 3ML (DUONEB) NEB ONE (22:10)
[2022-08-01 22:20] LABS: ABG BASE EXCESS 9.8 (-2.0-2.0); ABG HCO3 35.6 MEQ/L (22.0-26.0); ABG O2 SATURATION 93.6 % (95.0-99.0); ABG PARTIAL PRESSURE CO2 55.7 mmHg (35.0-45.0); ABG PARTIAL PRESSURE O2 70.6 mmHg (75.0-100.0); ABG STANDARD HCO3 33.4 MEQ/L (22.0-26.0); ABG TOTAL CO2 37.3 MEQ/L (22.0-29.0); ABG pH (ARTERIAL) 7.423 UNITS (7.350-7.450)
[2022-08-01] MEDS ORDERED: SODIUM CHLORIDE 0.9% 1000ML IV ONE (22:50)
[2022-08-02] VITALS (23 sets, daily range): BP systolic 94–134; BP diastolic 56–81
[2022-08-02] MEDS ORDERED: LevoFLOXacin IV 750 MG in IV 1 EA IV SCH (01:00)
[2022-08-02] MEDS: ACETAMINOPHEN 325 MG TAB PO PRN (01:15)
[2022-08-02] MEDS: SODIUM CHLORIDE HYPERTONIC 3% 15ML NEB SOL INH SCH ×4 (02:00→20:00)
[2022-08-02] MEDS: IPRATROPIUM 0.5MG/ALBUTEROL 2.5MG INH SOL UD 3ML (DUONEB) NEB SCH ×5 (03:54→23:08)
[2022-08-02 04:15] LABS: HEMATOCRIT 27.6 % (42.0-52.0); HEMOGLOBIN 7.8 g/dl (13.5-17.5); MEAN CORPUSCULAR HEMOGLOBIN 28.7 pg (27.0-33.0); MEAN CORPUSCULAR HGB CONC 28.3 g/dl (32.0-36.5); MEAN CORPUSCULAR VOLUME 101.5 fl (80.0-96.0); PLATELET COUNT, AUTOMATED 373 10^3/uL (150-450); RED BLOOD COUNT 2.72 10^6/uL (4.30-6.10); WHITE BLOOD COUNT 12.7 10^3/uL (4.0-10.0)
[2022-08-02 04:42] LABS: ALBUMIN 2.2 G/DL (3.2-5.2); ALKALINE PHOSPHATASE 214 U/L (46-116); ALT/SGPT 33 U/L (7.0-40); AST/SGOT 32 U/L (<34); BILIRUBIN,TOTAL 0.6 MG/DL (0.3-1.2); BLOOD UREA NITROGEN 15 MG/DL (9-23); CALCIUM LEVEL 8.2 MG/DL (8.5-10.1); CARBON DIOXIDE LEVEL 38 MMOL/L (20-31); CHLORIDE LEVEL 94 MMOL/L (98-107); GLOMERULAR FILTRATION RATE > 60.0 (>56); GLUCOSE, FASTING 212 MG/DL (60-100); MAGNESIUM LEVEL 1.8 MG/DL (1.8-2.4); PHOSPHORUS LEVEL 3.4 MG/DL (2.5-4.9); POTASSIUM SERUM 3.7 MMOL/L (3.5-5.1); SODIUM LEVEL 137 MMOL/L (136-145); TOTAL PROTEIN 5.6 G/DL (5.7-8.2)
[2022-08-02 05:48] LABS: LYMPHOCYTES 7 % (16-44); METAMYELOCYTES 2 % (0-0); MONOCYTES 5 % (0-5); MYELOCYTES 12 % (0-0); NEUTROPHILS 73 % (28-66); NUCLEATED RED BLOOD CELL 3 % (0-0)
[2022-08-02 05:49] LABS: ANISOCYTOSIS 4+; PLATELET ESTIMATE NORMAL (NORMAL)
[2022-08-02 05:50] LABS: HYPOCHROMASIA 2+; OVALOCYTES 1+
[2022-08-02 05:51] LABS: POLYCHROMASIA 1+
[2022-08-02] MEDS: INSULIN LISPRO (NovoLOG) PER UNIT SC SCH ×4 (07:30→23:52)
[2022-08-02 07:47] LABS: ABG BASE EXCESS 12.1 (-2.0-2.0); ABG HCO3 37.9 MEQ/L (22.0-26.0); ABG O2 SATURATION 99.7 % (95.0-99.0); ABG PARTIAL PRESSURE CO2 57.9 mmHg (35.0-45.0); ABG PARTIAL PRESSURE O2 287.5 mmHg (75.0-100.0); ABG STANDARD HCO3 35.8 MEQ/L (22.0-26.0); ABG TOTAL CO2 39.7 MEQ/L (22.0-29.0); ABG pH (ARTERIAL) 7.434 UNITS (7.350-7.450)
[2022-08-02] MEDS: FLUTICASONE HFA 44MCG 10.6GM INHALER (FLOVENT) INH SCH ×2 (07:54→20:00)
[2022-08-02] MEDS ORDERED: PIPERACILLIN/TAZOBACTAM SOD 3.375 GM in D5W MINI-BAG PLUS 50 ML IV SCH (08:30)
[2022-08-02] MEDS: DAPAGLIFLOZIN PROPANEDIOL 10MG TABLET (FARXIGA) PO SCH (09:00)
[2022-08-02] MEDS: TORSEMIDE 20 MG TAB PO SCH (09:00)
[2022-08-02] MEDS: SANTYL OINT 30GM TOP SCH (09:00)
[2022-08-02] MEDS: ROSUVASTATIN 10 MG TAB (CRESTOR) PO SCH (09:00)
[2022-08-02] MEDS: guaiFENesin ER 600 MG TAB PO SCH ×2 (09:00→21:04)
[2022-08-02] MEDS: predniSONE 20 MG TAB PO SCH (09:00)
[2022-08-02] MEDS: SPIRONOLACTONE 12.5MG PER 1/2 TABLET PO SCH (09:00)
[2022-08-02] MEDS: ASPIRIN 81MG CHEW TABLET PO SCH (09:00)
[2022-08-02] MEDS: NYSTATIN 100,000 UNITS/GM TOPICAL PWD 15GM TOP SCH ×2 (09:00→21:04)
[2022-08-02] MEDS: METOPROLOL TART 25 MG TABLET PO SCH ×2 (09:00→21:04)
[2022-08-02] MEDS: OMEPRAZOLE 20MG CAP PO SCH (09:00)
[2022-08-02] MEDS: POTASSIUM CHLORIDE 10MEQ SR TABLET PO SCH (09:00)
[2022-08-02] MEDS: PIPERACILLIN/TAZOBACTAM SOD 4.5 GM in D5W MINI-BAG PLUS 50 ML IV SCH ×3 (09:10→21:03)
[2022-08-02] MEDS: LIDOCAINE 5% (LIDODERM) PATCH TOP SCH (09:10)
[2022-08-02] MEDS: NYSTATIN 500,000U/5ML SUSP UDC SS SCH ×4 (09:11→21:03)
[2022-08-02] MEDS: HumuLIN N INSULIN (NovoLIN N) PER UNIT SC SCH (09:11)
[2022-08-02] MEDS: RIVAROXABAN 20MG TAB (XARELTO) PO SCH (18:17)
[2022-08-02] MEDS: RAMELTEON 8 MG TAB (ROZEREM) PO SCH ×3 (21:00→22:37)
[2022-08-02] MEDS: LEVEMIR (INSULIN DETEMIR) 1 UNITS/0.01ML SC SCH (21:04)
[2022-08-03] VITALS (29 sets, daily range): BP systolic 96–140; BP diastolic 62–93; O2SAT 92–100
[2022-08-03 00:57] LABS: ABG BASE EXCESS 13.2 (-2.0-2.0); ABG HCO3 38.4 MEQ/L (22.0-26.0); ABG PARTIAL PRESSURE CO2 53.9 mmHg (35.0-45.0); ABG PARTIAL PRESSURE O2 87.6 mmHg (75.0-100.0); ABG STANDARD HCO3 36.9 MEQ/L (22.0-26.0); ABG TOTAL CO2 40.1 MEQ/L (22.0-29.0); ABG pH (ARTERIAL) 7.471 UNITS (7.350-7.450)
[2022-08-03] MEDS: SODIUM CHLORIDE HYPERTONIC 3% 15ML NEB SOL INH SCH ×4 (02:00→19:18)
[2022-08-03] MEDS: PIPERACILLIN/TAZOBACTAM SOD 4.5 GM in D5W MINI-BAG PLUS 50 ML IV SCH ×4 (02:11→20:46)
[2022-08-03 04:46] LABS: HEMATOCRIT 27.6 % (42.0-52.0); HEMOGLOBIN 7.8 g/dl (13.5-17.5); MEAN CORPUSCULAR HEMOGLOBIN 28.8 pg (27.0-33.0); MEAN CORPUSCULAR HGB CONC 28.3 g/dl (32.0-36.5); MEAN CORPUSCULAR VOLUME 101.8 fl (80.0-96.0); PLATELET COUNT, AUTOMATED 301 10^3/uL (150-450); RED BLOOD COUNT 2.71 10^6/uL (4.30-6.10); WHITE BLOOD COUNT 11.6 10^3/uL (4.0-10.0)
[2022-08-03] MEDS ORDERED: NS 250 ML IV ONE (05:00)
[2022-08-03 05:14] LABS: ALBUMIN 2.2 G/DL (3.2-5.2); ALKALINE PHOSPHATASE 184 U/L (46-116); ALT/SGPT 28 U/L (7.0-40); AST/SGOT 31 U/L (<34); BILIRUBIN,TOTAL 0.9 MG/DL (0.3-1.2); BLOOD UREA NITROGEN 14 MG/DL (9-23); CALCIUM LEVEL 8.4 MG/DL (8.5-10.1); CARBON DIOXIDE LEVEL 39 MMOL/L (20-31); CHLORIDE LEVEL 96 MMOL/L (98-107); CREATININE FOR GFR 0.52 MG/DL (0.70-1.30); GLOMERULAR FILTRATION RATE > 60.0 (>56); GLUCOSE, FASTING 62 MG/DL (60-100); MAGNESIUM LEVEL 1.9 MG/DL (1.8-2.4); POTASSIUM SERUM 3.4 MMOL/L (3.5-5.1); SODIUM LEVEL 138 MMOL/L (136-145); TOTAL PROTEIN 5.5 G/DL (5.7-8.2)
[2022-08-03 05:27] LABS: ANISOCYTOSIS 4+; EOSINOPHILS 3 % (0-3); HYPOCHROMASIA 2+; LYMPHOCYTES 8 % (16-44); METAMYELOCYTES 3 % (0-0); MONOCYTES 3 % (0-5); MYELOCYTES 8 % (0-0); NEUTROPHILS 73 % (28-66); NUCLEATED RED BLOOD CELL 3 % (0-0); PLATELET ESTIMATE NORMAL (NORMAL)
[2022-08-03 05:28] LABS: POLYCHROMASIA 1+
[2022-08-03 05:29] LABS: STOMATOCYTES 1+
[2022-08-03 05:41] LABS: ABG BASE EXCESS 10.8 (-2.0-2.0); ABG HCO3 36.1 MEQ/L (22.0-26.0); ABG O2 SATURATION 97.3 % (95.0-99.0); ABG PARTIAL PRESSURE CO2 53.4 mmHg (35.0-45.0); ABG PARTIAL PRESSURE O2 92.4 mmHg (75.0-100.0); ABG STANDARD HCO3 34.5 MEQ/L (22.0-26.0); ABG TOTAL CO2 37.8 MEQ/L (22.0-29.0); ABG pH (ARTERIAL) 7.448 UNITS (7.350-7.450)
[2022-08-03] MEDS: INSULIN LISPRO (NovoLOG) PER UNIT SC SCH ×4 (06:00→23:52)
[2022-08-03] MEDS ORDERED: LIDOCAINE 1% MDV 20ML VIAL As Ordered ONE (07:29)
[2022-08-03] MEDS: IPRATROPIUM 0.5MG/ALBUTEROL 2.5MG INH SOL UD 3ML (DUONEB) NEB SCH ×2 (08:47→15:53)
[2022-08-03] MEDS: FLUTICASONE HFA 44MCG 10.6GM INHALER (FLOVENT) INH SCH ×2 (08:47→19:18)
[2022-08-03] MEDS: HumuLIN N INSULIN (NovoLIN N) PER UNIT SC SCH ×2 (09:00→11:27)
[2022-08-03] MEDS: SPIRONOLACTONE 12.5MG PER 1/2 TABLET PO SCH (09:16)
[2022-08-03] MEDS: DAPAGLIFLOZIN PROPANEDIOL 10MG TABLET (FARXIGA) PO SCH (09:16)
[2022-08-03] MEDS: TORSEMIDE 20 MG TAB PO SCH (09:16)
[2022-08-03] MEDS: ASPIRIN 81MG CHEW TABLET PO SCH (09:17)
[2022-08-03] MEDS: ROSUVASTATIN 10 MG TAB (CRESTOR) PO SCH (09:17)
[2022-08-03] MEDS: OMEPRAZOLE 20MG CAP PO SCH (09:17)
[2022-08-03] MEDS: NYSTATIN 500,000U/5ML SUSP UDC SS SCH ×4 (09:17→20:47)
[2022-08-03] MEDS: POTASSIUM CHLORIDE 10MEQ SR TABLET PO SCH (09:17)
[2022-08-03] MEDS: predniSONE 20 MG TAB PO SCH (09:18)
[2022-08-03] MEDS: guaiFENesin ER 600 MG TAB PO SCH ×2 (09:18→20:47)
[2022-08-03] MEDS: LIDOCAINE 5% (LIDODERM) PATCH TOP SCH (09:19)
[2022-08-03] MEDS: NYSTATIN 100,000 UNITS/GM TOPICAL PWD 15GM TOP SCH ×2 (09:22→20:48)
[2022-08-03] MEDS: SANTYL OINT 30GM TOP SCH (09:22)
[2022-08-03] MEDS: METOPROLOL TART 25 MG TABLET PO SCH ×2 (11:27→20:47)
[2022-08-03 12:28] LABS: RSV AMPLIFICATION NEGATIVE (NEGATIVE)
[2022-08-03 13:36] LABS: LDH LACTATE DEHYDROGENASE 407 U/L (120-246)
[2022-08-03] MEDS: RIVAROXABAN 20MG TAB (XARELTO) PO SCH (18:04)
[2022-08-03] MEDS: LEVEMIR (INSULIN DETEMIR) 1 UNITS/0.01ML SC SCH (20:45)
[2022-08-03] MEDS: RAMELTEON 8 MG TAB (ROZEREM) PO SCH (20:47)
[2022-08-04] VITALS (25 sets, daily range): BP systolic 95–134; BP diastolic 63–87; O2SAT 94–99
[2022-08-04] MEDS: IPRATROPIUM 0.5MG/ALBUTEROL 2.5MG INH SOL UD 3ML (DUONEB) NEB SCH ×3 (00:07→15:11)
[2022-08-04] MEDS: SODIUM CHLORIDE HYPERTONIC 3% 15ML NEB SOL INH SCH ×4 (00:08→20:28)
[2022-08-04] MEDS: ACETAMINOPHEN 325 MG TAB PO PRN ×2 (03:12→19:31)
[2022-08-04] MEDS: PIPERACILLIN/TAZOBACTAM SOD 4.5 GM in D5W MINI-BAG PLUS 50 ML IV SCH ×4 (03:12→20:41)
[2022-08-04] MEDS: INSULIN LISPRO (NovoLOG) PER UNIT SC SCH ×4 (06:00→23:48)
[2022-08-04 06:16] LABS: HEMATOCRIT 27.6 % (42.0-52.0); HEMOGLOBIN 7.7 g/dl (13.5-17.5); MEAN CORPUSCULAR HEMOGLOBIN 28.8 pg (27.0-33.0); MEAN CORPUSCULAR HGB CONC 27.9 g/dl (32.0-36.5); MEAN CORPUSCULAR VOLUME 103.4 fl (80.0-96.0); PLATELET COUNT, AUTOMATED 301 10^3/uL (150-450); RED BLOOD COUNT 2.67 10^6/uL (4.30-6.10); WHITE BLOOD COUNT 12.3 10^3/uL (4.0-10.0)
[2022-08-04 06:40] LABS: BLOOD UREA NITROGEN 16 MG/DL (9-23); CALCIUM LEVEL 8.2 MG/DL (8.5-10.1); CARBON DIOXIDE LEVEL 40 MMOL/L (20-31); CHLORIDE LEVEL 95 MMOL/L (98-107); GLOMERULAR FILTRATION RATE > 60.0 (>56); GLUCOSE, FASTING 86 MG/DL (60-100); POTASSIUM SERUM 3.4 MMOL/L (3.5-5.1); SODIUM LEVEL 141 MMOL/L (136-145)
[2022-08-04 07:02] LABS: ATYPICAL LYMPH 1 % (0-5); BASOPHILS 2 % (0-1); EOSINOPHILS 1 % (0-3); LYMPHOCYTES 6 % (16-44); METAMYELOCYTES 3 % (0-0); MONOCYTES 3 % (0-5); MYELOCYTES 2 % (0-0); NEUTROPHILS 81 % (28-66)
[2022-08-04 07:03] LABS: ANISOCYTOSIS 4+; POLYCHROMASIA 1+
[2022-08-04 07:05] LABS: PLATELET CLUMPS SMALL AMT; PLATELET ESTIMATE NORMAL (NORMAL)
[2022-08-04] MEDS: FLUTICASONE HFA 44MCG 10.6GM INHALER (FLOVENT) INH SCH ×2 (07:53→20:28)
[2022-08-04] MEDS ORDERED: ALTEPLASE 2MG/2ML VIAL XX ONE (08:00)
[2022-08-04] MEDS: HumuLIN N INSULIN (NovoLIN N) PER UNIT SC SCH (09:00)
[2022-08-04] MEDS: SANTYL OINT 30GM TOP SCH (09:00)
[2022-08-04] MEDS: NYSTATIN 500,000U/5ML SUSP UDC SS SCH ×4 (09:00→20:41)
[2022-08-04] MEDS: NYSTATIN 100,000 UNITS/GM TOPICAL PWD 15GM TOP SCH ×2 (09:00→20:41)
[2022-08-04] MEDS ORDERED: KCL 10MEQ/100ML SWI (KRUN) 10 MEQ in IV 1 EA IV ONE (10:00)
[2022-08-04] MEDS: DAPAGLIFLOZIN PROPANEDIOL 10MG TABLET (FARXIGA) PO SCH (12:17)
[2022-08-04] MEDS: SPIRONOLACTONE 12.5MG PER 1/2 TABLET PO SCH (12:17)
[2022-08-04] MEDS: guaiFENesin ER 600 MG TAB PO SCH ×2 (12:17→20:42)
[2022-08-04] MEDS: ROSUVASTATIN 10 MG TAB (CRESTOR) PO SCH (12:17)
[2022-08-04] MEDS: predniSONE 5 MG TAB PO SCH (12:18)
[2022-08-04] MEDS: POTASSIUM CHLORIDE 10MEQ SR TABLET PO SCH (12:18)
[2022-08-04] MEDS: TORSEMIDE 20 MG TAB PO SCH (12:18)
[2022-08-04] MEDS: OMEPRAZOLE 20MG CAP PO SCH (12:19)
[2022-08-04] MEDS: LIDOCAINE 5% (LIDODERM) PATCH TOP SCH (12:19)
[2022-08-04] MEDS: ASPIRIN 81MG CHEW TABLET PO SCH (12:19)
[2022-08-04] MEDS: METOPROLOL TART 25 MG TABLET PO SCH ×2 (12:19→20:42)
[2022-08-04] MEDS: RIVAROXABAN 20MG TAB (XARELTO) PO SCH (18:07)
[2022-08-04] MEDS: RAMELTEON 8 MG TAB (ROZEREM) PO SCH (20:41)
[2022-08-04] MEDS: LEVEMIR (INSULIN DETEMIR) 1 UNITS/0.01ML SC SCH (20:41)
[2022-08-04] MEDS: DICLOFENAC SODIUM 1% TOP PRN (21:18)
[2022-08-04] MEDS ORDERED: KETOROLAC 30 MG/ML 1ML VIAL IV SCH (22:35)
[2022-08-04] MEDS ORDERED: DICLOFENAC EPOLAMINE 1.3% PATCH TOP ONE (23:00)
[2022-08-04] MEDS: KETOROLAC 30 MG/ML 1ML VIAL IV SCH (23:02)
[2022-08-05] VITALS (28 sets, daily range): BP systolic 82–156; BP diastolic 52–74; O2SAT 98
[2022-08-05] MEDS: IPRATROPIUM 0.5MG/ALBUTEROL 2.5MG INH SOL UD 3ML (DUONEB) NEB SCH ×4 (00:15→23:07)
[2022-08-05] MEDS: SODIUM CHLORIDE HYPERTONIC 3% 15ML NEB SOL INH SCH ×4 (00:15→23:08)
[2022-08-05] MEDS: PIPERACILLIN/TAZOBACTAM SOD 4.5 GM in D5W MINI-BAG PLUS 50 ML IV SCH ×4 (02:15→20:48)
[2022-08-05] MEDS: KETOROLAC 30 MG/ML 1ML VIAL IV SCH ×4 (04:52→22:54)
[2022-08-05 05:15] LABS: BASO % 0.2 % (0.0-1.0); HEMATOCRIT 29.5 % (42.0-52.0); HEMOGLOBIN 8.6 g/dl (13.5-17.5); LYMPH # 1.1 10^3/uL (1.5-5.0); LYMPH % 4.5 % (24.0-44.0); MEAN CORPUSCULAR HEMOGLOBIN 29.8 pg (27.0-33.0); MEAN CORPUSCULAR HGB CONC 29.2 g/dl (32.0-36.5); MEAN CORPUSCULAR VOLUME 102.1 fl (80.0-96.0); MONO # 1.1 10^3/uL (0.0-0.8); MONO % 4.7 % (2.0-8.0); NEUTROPHILS # 20.3 10^3/uL (1.5-8.5); NEUTROPHILS % 86.7 % (36.0-66.0); PLATELET COUNT, AUTOMATED 307 10^3/uL (150-450); RED BLOOD COUNT 2.89 10^6/uL (4.30-6.10); WHITE BLOOD COUNT 23.4 10^3/uL (4.0-10.0)
[2022-08-05 05:34] LABS: BLOOD UREA NITROGEN 21 MG/DL (9-23); CALCIUM LEVEL 7.9 MG/DL (8.5-10.1); CARBON DIOXIDE LEVEL 39 MMOL/L (20-31); CHLORIDE LEVEL 93 MMOL/L (98-107); CREATININE FOR GFR 0.76 MG/DL (0.70-1.30); GLOMERULAR FILTRATION RATE > 60.0 (>56); GLUCOSE, FASTING 47 MG/DL (60-100); MAGNESIUM LEVEL 1.9 MG/DL (1.8-2.4); POTASSIUM SERUM 3.7 MMOL/L (3.5-5.1); SODIUM LEVEL 136 MMOL/L (136-145)
[2022-08-05] MEDS: INSULIN LISPRO (NovoLOG) PER UNIT SC SCH ×4 (05:59→23:43)
[2022-08-05] MEDS: FLUTICASONE HFA 44MCG 10.6GM INHALER (FLOVENT) INH SCH ×2 (07:14→19:31)
[2022-08-05] MEDS: HumuLIN N INSULIN (NovoLIN N) PER UNIT SC SCH (08:47)
[2022-08-05] MEDS: OMEPRAZOLE 20MG CAP PO SCH (08:47)
[2022-08-05] MEDS: guaiFENesin ER 600 MG TAB PO SCH ×2 (08:48→20:47)
[2022-08-05] MEDS: NYSTATIN 500,000U/5ML SUSP UDC SS SCH ×4 (08:48→20:47)
[2022-08-05] MEDS: DAPAGLIFLOZIN PROPANEDIOL 10MG TABLET (FARXIGA) PO SCH (08:48)
[2022-08-05] MEDS: ROSUVASTATIN 10 MG TAB (CRESTOR) PO SCH (08:48)
[2022-08-05] MEDS: ASPIRIN 81MG CHEW TABLET PO SCH (08:48)
[2022-08-05] MEDS: predniSONE 5 MG TAB PO SCH (08:49)
[2022-08-05] MEDS: TORSEMIDE 20 MG TAB PO SCH (08:49)
[2022-08-05] MEDS: ACETAMINOPHEN 325 MG TAB PO PRN ×2 (08:49→16:27)
[2022-08-05] MEDS: SPIRONOLACTONE 12.5MG PER 1/2 TABLET PO SCH (08:49)
[2022-08-05] MEDS: POTASSIUM CHLORIDE 10MEQ SR TABLET PO SCH (08:50)
[2022-08-05] MEDS: NYSTATIN 100,000 UNITS/GM TOPICAL PWD 15GM TOP SCH ×2 (08:50→20:48)
[2022-08-05] MEDS: LIDOCAINE 5% (LIDODERM) PATCH TOP SCH (08:50)
[2022-08-05] MEDS: METOPROLOL TART 25 MG TABLET PO SCH ×2 (08:51→20:47)
[2022-08-05] MEDS: SANTYL OINT 30GM TOP SCH (08:51)
[2022-08-05] MEDS ORDERED: DICLOFENAC EPOLAMINE 1.3% PATCH TOP SCH (09:00)
[2022-08-05] MEDS ORDERED: FUROSEMIDE 20MG/2ML VIAL IV STA (15:22)
[2022-08-05] MEDS ORDERED: VANCOMYCIN HCL 1,000 MG, VIAL MATE ADAPTER 1 EACH in NS 250 ML IV ONE ×2 (16:00→17:00)
[2022-08-05 16:07] LABS: ABG BASE EXCESS 8.1 (-2.0-2.0); ABG HCO3 32.5 MEQ/L (22.0-26.0); ABG O2 SATURATION 94.8 % (95.0-99.0); ABG PARTIAL PRESSURE CO2 45.2 mmHg (35.0-45.0); ABG PARTIAL PRESSURE O2 67.6 mmHg (75.0-100.0); ABG STANDARD HCO3 31.8 MEQ/L (22.0-26.0); ABG TOTAL CO2 33.9 MEQ/L (22.0-29.0); ABG pH (ARTERIAL) 7.475 UNITS (7.350-7.450)
[2022-08-05] MEDS: RIVAROXABAN 20MG TAB (XARELTO) PO SCH (18:14)
[2022-08-05] MEDS: LEVEMIR (INSULIN DETEMIR) 1 UNITS/0.01ML SC SCH (20:46)
[2022-08-05] MEDS: RAMELTEON 8 MG TAB (ROZEREM) PO SCH (20:47)
[2022-08-06] VITALS (73 sets, daily range): BP systolic 77–159; BP diastolic 50–96
[2022-08-06] MEDS ORDERED: VANCOMYCIN HCL 750 MG, VIAL MATE ADAPTER 1 EACH in D5W 250 ML IV SCH ×3
[2022-08-06] MEDS ORDERED: VANCOMYCIN HCL 500 MG in D5W MINI-BAG PLUS 100 ML IV SCH (01:00)
[2022-08-06] MEDS: PIPERACILLIN/TAZOBACTAM SOD 4.5 GM in D5W MINI-BAG PLUS 50 ML IV SCH ×4 (02:57→20:57)
[2022-08-06] MEDS: KETOROLAC 30 MG/ML 1ML VIAL IV SCH ×4 (04:35→22:46)
[2022-08-06 04:55] LABS: BASO % 0.1 % (0.0-1.0); EOS % 0.1 % (0.0-3.0); HEMATOCRIT 26.4 % (42.0-52.0); HEMOGLOBIN 7.6 g/dl (13.5-17.5); LYMPH # 0.9 10^3/uL (1.5-5.0); LYMPH % 5.5 % (24.0-44.0); MEAN CORPUSCULAR HEMOGLOBIN 29.2 pg (27.0-33.0); MEAN CORPUSCULAR HGB CONC 28.8 g/dl (32.0-36.5); MEAN CORPUSCULAR VOLUME 101.5 fl (80.0-96.0); MONO # 0.8 10^3/uL (0.0-0.8); MONO % 5.3 % (2.0-8.0); NEUTROPHILS # 13.7 10^3/uL (1.5-8.5); NEUTROPHILS % 85.4 % (36.0-66.0); PLATELET COUNT, AUTOMATED 254 10^3/uL (150-450)
[2022-08-06] MEDS: INSULIN LISPRO (NovoLOG) PER UNIT SC SCH ×4 (05:23→20:53)
[2022-08-06 05:37] LABS: BLOOD UREA NITROGEN 24 MG/DL (9-23); CALCIUM LEVEL 7.7 MG/DL (8.5-10.1); CARBON DIOXIDE LEVEL 38 MMOL/L (20-31); CHLORIDE LEVEL 93 MMOL/L (98-107); CREATININE FOR GFR 0.74 MG/DL (0.70-1.30); GLOMERULAR FILTRATION RATE > 60.0 (>56); GLUCOSE, FASTING 106 MG/DL (60-100); MAGNESIUM LEVEL 1.9 MG/DL (1.8-2.4); POTASSIUM SERUM 3.7 MMOL/L (3.5-5.1); SODIUM LEVEL 134 MMOL/L (136-145)
[2022-08-06] MEDS: IPRATROPIUM 0.5MG/ALBUTEROL 2.5MG INH SOL UD 3ML (DUONEB) NEB SCH ×3 (07:11→23:33)
[2022-08-06] MEDS: SODIUM CHLORIDE HYPERTONIC 3% 15ML NEB SOL INH SCH ×3 (07:12→23:33)
[2022-08-06] MEDS: FLUTICASONE HFA 44MCG 10.6GM INHALER (FLOVENT) INH SCH ×2 (07:12→20:00)
[2022-08-06] MEDS: SPIRONOLACTONE 12.5MG PER 1/2 TABLET PO SCH (08:10)
[2022-08-06] MEDS: METOPROLOL TART 25 MG TABLET PO SCH ×2 (08:10→20:53)
[2022-08-06] MEDS: TORSEMIDE 20 MG TAB PO SCH (08:10)
[2022-08-06] MEDS ORDERED: HumuLIN N INSULIN (NovoLIN N) PER UNIT SC SCH ×2 (09:00)
[2022-08-06] MEDS ORDERED: NS 500 ML IV ONE (09:10)
[2022-08-06] MEDS: POTASSIUM CHLORIDE 10MEQ SR TABLET PO SCH (09:52)
[2022-08-06] MEDS: LIDOCAINE 5% (LIDODERM) PATCH TOP SCH (09:52)
[2022-08-06] MEDS: NYSTATIN 500,000U/5ML SUSP UDC SS SCH ×4 (09:52→20:57)
[2022-08-06] MEDS: guaiFENesin ER 600 MG TAB PO SCH ×2 (09:53→20:57)
[2022-08-06] MEDS: ROSUVASTATIN 10 MG TAB (CRESTOR) PO SCH (09:53)
[2022-08-06] MEDS: ASPIRIN 81MG CHEW TABLET PO SCH (09:53)
[2022-08-06] MEDS: DAPAGLIFLOZIN PROPANEDIOL 10MG TABLET (FARXIGA) PO SCH (09:53)
[2022-08-06] MEDS: OMEPRAZOLE 20MG CAP PO SCH (09:53)
[2022-08-06] MEDS: predniSONE 5 MG TAB PO SCH (09:55)
[2022-08-06] MEDS: NYSTATIN 100,000 UNITS/GM TOPICAL PWD 15GM TOP SCH ×2 (09:56→20:58)
[2022-08-06] MEDS: SANTYL OINT 30GM TOP SCH (09:58)
[2022-08-06] MEDS ORDERED: NS 500 ML IV STA (11:50)
[2022-08-06] MEDS: NOREPINEPHRINE 4MG IN D5 250ML 4 MG in IV 1 EA IV SCH ×4 (13:43→19:43)
[2022-08-06] MEDS: VANCOMYCIN HCL 1,000 MG, VIAL MATE ADAPTER 1 EACH in D5W 250 ML IV SCH (15:40)
[2022-08-06 15:52] LABS: HEMATOCRIT 31.3 % (42.0-52.0); HEMOGLOBIN 9.2 g/dl (13.5-17.5)
[2022-08-06 16:26] LABS: VENOUS BASE EXCESS 6.2 (-2.0-2.0); VENOUS HCO3 33.8 MEQ/L (23.0-27.0); VENOUS PARTIAL PRESSURE CO2 62.2 mmHg (38.0-50.0); VENOUS PARTIAL PRESSURE O2 52.1 mmHg (30.0-50.0); VENOUS PH 7.353 UNITS (7.330-7.430); VENOUS STANDARD HCO3 29.7 MEQ/L; VENOUS TOTAL CO2 35.7 MEQ/L (24.0-28.0)
[2022-08-06] MEDS: RIVAROXABAN 20MG TAB (XARELTO) PO SCH (17:23)
[2022-08-06] MEDS: RAMELTEON 8 MG TAB (ROZEREM) PO SCH (20:57)
[2022-08-07] VITALS (31 sets, daily range): BP systolic 82–111; BP diastolic 53–77
[2022-08-07] MEDS: PIPERACILLIN/TAZOBACTAM SOD 4.5 GM in D5W MINI-BAG PLUS 50 ML IV SCH (02:35)
[2022-08-07] MEDS: NOREPINEPHRINE 4MG IN D5 250ML 4 MG in IV 1 EA IV SCH ×2 (02:36)
[2022-08-07] MEDS: VANCOMYCIN HCL 1,000 MG, VIAL MATE ADAPTER 1 EACH in D5W 250 ML IV SCH ×2 (03:54→15:13)
[2022-08-07] MEDS: KETOROLAC 30 MG/ML 1ML VIAL IV SCH ×3 (04:50→17:37)
[2022-08-07 05:10] LABS: HEMOGLOBIN 8.7 g/dl (13.5-17.5); MEAN CORPUSCULAR HEMOGLOBIN 29.6 pg (27.0-33.0); MEAN CORPUSCULAR VOLUME 98.6 fl (80.0-96.0); PLATELET COUNT, AUTOMATED 211 10^3/uL (150-450); RED BLOOD COUNT 2.94 10^6/uL (4.30-6.10)
[2022-08-07 05:34] LABS: BLOOD UREA NITROGEN 22 MG/DL (9-23); CALCIUM LEVEL 7.8 MG/DL (8.5-10.1); CARBON DIOXIDE LEVEL 34 MMOL/L (20-31); CHLORIDE LEVEL 95 MMOL/L (98-107); CREATININE FOR GFR 0.66 MG/DL (0.70-1.30); GLOMERULAR FILTRATION RATE > 60.0 (>56); GLUCOSE, FASTING 176 MG/DL (60-100); MAGNESIUM LEVEL 1.9 MG/DL (1.8-2.4); POTASSIUM SERUM 3.9 MMOL/L (3.5-5.1); SODIUM LEVEL 133 MMOL/L (136-145)
[2022-08-07 05:58] LABS: ATYPICAL LYMPH 2 % (0-5); LYMPHOCYTES 7 % (16-44); MONOCYTES 2 % (0-5); MYELOCYTES 4 % (0-0); NEUTROPHILS 82 % (28-66); PLATELET ESTIMATE NORMAL (NORMAL); PROMYELOCYTES 1 % (0-0)
[2022-08-07 05:59] LABS: ANISOCYTOSIS 4+; HYPOCHROMASIA 1+
[2022-08-07] MEDS: IPRATROPIUM 0.5MG/ALBUTEROL 2.5MG INH SOL UD 3ML (DUONEB) NEB SCH ×3 (07:32→23:10)
[2022-08-07] MEDS: FLUTICASONE HFA 44MCG 10.6GM INHALER (FLOVENT) INH SCH ×2 (07:33→19:16)
[2022-08-07] MEDS: SODIUM CHLORIDE HYPERTONIC 3% 15ML NEB SOL INH SCH ×4 (07:33→19:11)
[2022-08-07] MEDS ORDERED: DORNASE INHALATION SOLN 1MG/ML 2.5 ML AMP INH SCH (08:00)
[2022-08-07] MEDS: INSULIN LISPRO (NovoLOG) PER UNIT SC SCH ×4 (08:30→21:01)
[2022-08-07] MEDS: LIDOCAINE 5% (LIDODERM) PATCH TOP SCH (08:31)
[2022-08-07] MEDS: POTASSIUM CHLORIDE 10MEQ SR TABLET PO SCH (08:32)
[2022-08-07] MEDS: NYSTATIN 500,000U/5ML SUSP UDC SS SCH ×4 (08:32→21:01)
[2022-08-07] MEDS: DAPAGLIFLOZIN PROPANEDIOL 10MG TABLET (FARXIGA) PO SCH (08:33)
[2022-08-07] MEDS: guaiFENesin ER 600 MG TAB PO SCH ×2 (08:33→21:00)
[2022-08-07] MEDS: ASPIRIN 81MG CHEW TABLET PO SCH (08:33)
[2022-08-07] MEDS: OMEPRAZOLE 20MG CAP PO SCH (08:33)
[2022-08-07] MEDS: ROSUVASTATIN 10 MG TAB (CRESTOR) PO SCH (08:33)
[2022-08-07] MEDS: predniSONE 5 MG TAB PO SCH (08:33)
[2022-08-07] MEDS: TORSEMIDE 20 MG TAB PO SCH (08:37)
[2022-08-07] MEDS: METOPROLOL TART 25 MG TABLET PO SCH ×2 (08:37→21:01)
[2022-08-07] MEDS: SPIRONOLACTONE 12.5MG PER 1/2 TABLET PO SCH (08:37)
[2022-08-07] MEDS: NYSTATIN 100,000 UNITS/GM TOPICAL PWD 15GM TOP SCH ×2 (08:38→21:02)
[2022-08-07] MEDS: SANTYL OINT 30GM TOP SCH (08:39)
[2022-08-07] MEDS ORDERED: HumuLIN N INSULIN (NovoLIN N) PER UNIT SC SCH (09:00)
[2022-08-07] MEDS: ACETYLCYSTEINE 20% 4 ML VIAL (200MG/ML) INH SCH ×3 (10:10→23:10)
[2022-08-07] MEDS ORDERED: methylPREDNISolone 125MG 2ML VIAL IV ONE (10:25)
[2022-08-07] MEDS: RIVAROXABAN 20MG TAB (XARELTO) PO SCH (17:36)
[2022-08-07] MEDS ORDERED: VANCOMYCIN INTERMITTENT/PULSE DOSING BY CLINICAL PHARMACIST PER DOSING PROTOCOL XX SCH (19:40)
[2022-08-07] MEDS: RAMELTEON 8 MG TAB (ROZEREM) PO SCH (21:00)
[2022-08-08] VITALS (21 sets, daily range): BP systolic 84–123; BP diastolic 58–78
[2022-08-08] MEDS: ACETAMINOPHEN 325 MG TAB PO PRN (00:23)
[2022-08-08] MEDS: KETOROLAC 30 MG/ML 1ML VIAL IV SCH ×5 (00:24→23:09)
[2022-08-08] MEDS: IPRATROPIUM 0.5MG/ALBUTEROL 2.5MG INH SOL UD 3ML (DUONEB) NEB PRN ×4 (03:20→23:17)
[2022-08-08] MEDS: SODIUM CHLORIDE HYPERTONIC 3% 15ML NEB SOL INH SCH ×7 (03:21→23:17)
[2022-08-08 05:58] LABS: HEMOGLOBIN 8.7 g/dl (13.5-17.5); MEAN CORPUSCULAR HEMOGLOBIN 28.5 pg (27.0-33.0); MEAN CORPUSCULAR VOLUME 98.4 fl (80.0-96.0); PLATELET COUNT, AUTOMATED 248 10^3/uL (150-450); RED BLOOD COUNT 3.05 10^6/uL (4.30-6.10); WHITE BLOOD COUNT 15.9 10^3/uL (4.0-10.0)
[2022-08-08 06:18] LABS: VANCOMYCIN RANDOM 22.5 UG/ML
[2022-08-08 06:19] LABS: BLOOD UREA NITROGEN 20 MG/DL (9-23); CALCIUM LEVEL 8.2 MG/DL (8.5-10.1); CARBON DIOXIDE LEVEL 33 MMOL/L (20-31); CHLORIDE LEVEL 96 MMOL/L (98-107); CREATININE FOR GFR 0.71 MG/DL (0.70-1.30); GLOMERULAR FILTRATION RATE > 60.0 (>56); GLUCOSE, FASTING 218 MG/DL (60-100); POTASSIUM SERUM 4.2 MMOL/L (3.5-5.1); SODIUM LEVEL 133 MMOL/L (136-145)
[2022-08-08 08:01] LABS: LYMPHOCYTES 5 % (16-44); METAMYELOCYTES 1 % (0-0); MONOCYTES 7 % (0-5); NEUTROPHILS 82 % (28-66)
[2022-08-08 08:02] LABS: ANISOCYTOSIS 4+; MYELOCYTES 4 % (0-0)
[2022-08-08 08:10] LABS: POLYCHROMASIA 1+
[2022-08-08 08:11] LABS: HYPOCHROMASIA 2+; POIKILOCYTOSIS 1+; SPHEROCYTES 1+
[2022-08-08 08:12] LABS: HELMET CELLS 2+; OVALOCYTES 1+; PLATELET ESTIMATE NORMAL (NORMAL)
[2022-08-08] MEDS: ACETYLCYSTEINE 20% 4 ML VIAL (200MG/ML) INH SCH ×3 (08:14→23:17)
[2022-08-08] MEDS: FLUTICASONE HFA 44MCG 10.6GM INHALER (FLOVENT) INH SCH ×2 (08:17→19:11)
[2022-08-08] MEDS: IPRATROPIUM 0.5MG/ALBUTEROL 2.5MG INH SOL UD 3ML (DUONEB) NEB SCH ×2 (08:17→15:44)
[2022-08-08] MEDS ORDERED: HumuLIN N INSULIN (NovoLIN N) PER UNIT SC SCH (09:00)
[2022-08-08] MEDS ORDERED: VANCOMYCIN HCL 750 MG, VIAL MATE ADAPTER 1 EACH in D5W 250 ML IV SCH (09:00)
[2022-08-08] MEDS: INSULIN LISPRO (NovoLOG) PER UNIT SC SCH ×4 (09:03→21:00)
[2022-08-08] MEDS: DAPAGLIFLOZIN PROPANEDIOL 10MG TABLET (FARXIGA) PO SCH (09:04)
[2022-08-08] MEDS: POTASSIUM CHLORIDE 10MEQ SR TABLET PO SCH (09:05)
[2022-08-08] MEDS: NYSTATIN 500,000U/5ML SUSP UDC SS SCH ×4 (09:05→21:00)
[2022-08-08] MEDS: ROSUVASTATIN 10 MG TAB (CRESTOR) PO SCH (09:05)
[2022-08-08] MEDS: predniSONE 5 MG TAB PO SCH (09:06)
[2022-08-08] MEDS: METOPROLOL TART 25 MG TABLET PO SCH ×2 (09:07→21:00)
[2022-08-08] MEDS: ASPIRIN 81MG CHEW TABLET PO SCH (09:07)
[2022-08-08] MEDS: SPIRONOLACTONE 12.5MG PER 1/2 TABLET PO SCH (09:07)
[2022-08-08] MEDS: OMEPRAZOLE 20MG CAP PO SCH (09:07)
[2022-08-08] MEDS: TORSEMIDE 20 MG TAB PO SCH (09:08)
[2022-08-08] MEDS: guaiFENesin ER 600 MG TAB PO SCH ×2 (09:08→21:00)
[2022-08-08] MEDS: NYSTATIN 100,000 UNITS/GM TOPICAL PWD 15GM TOP SCH ×2 (09:11→21:15)
[2022-08-08] MEDS: LIDOCAINE 5% (LIDODERM) PATCH TOP SCH (09:11)
[2022-08-08] MEDS: SANTYL OINT 30GM TOP SCH (09:11)
[2022-08-08] MEDS ORDERED: VANCOMYCIN HCL 500 MG in D5W MINI-BAG PLUS 100 ML IV SCH (10:00)
[2022-08-08] MEDS: RIVAROXABAN 20MG TAB (XARELTO) PO SCH (17:23)
[2022-08-08] MEDS: RAMELTEON 8 MG TAB (ROZEREM) PO SCH (21:00)
[2022-08-09] VITALS (24 sets, daily range): BP systolic 91–119; BP diastolic 57–99
[2022-08-09] MEDS: IPRATROPIUM 0.5MG/ALBUTEROL 2.5MG INH SOL UD 3ML (DUONEB) NEB PRN (02:45)
[2022-08-09] MEDS: SODIUM CHLORIDE HYPERTONIC 3% 15ML NEB SOL INH SCH ×5 (02:45→19:15)
[2022-08-09] MEDS: KETOROLAC 30 MG/ML 1ML VIAL IV SCH ×3 (05:14→17:53)
[2022-08-09 05:38] LABS: HEMATOCRIT 29.1 % (42.0-52.0); HEMOGLOBIN 8.4 g/dl (13.5-17.5); MEAN CORPUSCULAR HGB CONC 28.9 g/dl (32.0-36.5); MEAN CORPUSCULAR VOLUME 100.3 fl (80.0-96.0); PLATELET COUNT, AUTOMATED 247 10^3/uL (150-450); WHITE BLOOD COUNT 13.7 10^3/uL (4.0-10.0)
[2022-08-09 06:01] LABS: ATYPICAL LYMPH 1 % (0-5); LYMPHOCYTES 7 % (16-44); METAMYELOCYTES 1 % (0-0); MONOCYTES 3 % (0-5); MYELOCYTES 1 % (0-0); NEUTROPHILS 85 % (28-66); PLATELET ESTIMATE NORMAL (NORMAL)
[2022-08-09 06:03] LABS: POLYCHROMASIA 1+
[2022-08-09 06:04] LABS: ANISOCYTOSIS 1+; HYPOCHROMASIA 1+; MICROCYTOSIS 1+
[2022-08-09 06:09] LABS: VANCOMYCIN RANDOM 13.7 UG/ML
[2022-08-09 06:11] LABS: BLOOD UREA NITROGEN 22 MG/DL (9-23); CALCIUM LEVEL 7.9 MG/DL (8.5-10.1); CARBON DIOXIDE LEVEL 34 MMOL/L (20-31); CHLORIDE LEVEL 98 MMOL/L (98-107); CREATININE FOR GFR 0.72 MG/DL (0.70-1.30); GLOMERULAR FILTRATION RATE > 60.0 (>56); GLUCOSE, FASTING 243 MG/DL (60-100); POTASSIUM SERUM 3.8 MMOL/L (3.5-5.1); SODIUM LEVEL 135 MMOL/L (136-145)
[2022-08-09 06:13] LABS: FREE T4 1.39 NG/DL (0.89-1.76); THYROID STIMULATING HORMONE 0.268 uIU/ML (0.55-4.78)
[2022-08-09] MEDS: ACETYLCYSTEINE 20% 4 ML VIAL (200MG/ML) INH SCH ×2 (07:15→15:39)
[2022-08-09] MEDS: FLUTICASONE HFA 44MCG 10.6GM INHALER (FLOVENT) INH SCH ×2 (07:15→19:15)
[2022-08-09] MEDS: IPRATROPIUM 0.5MG/ALBUTEROL 2.5MG INH SOL UD 3ML (DUONEB) NEB SCH ×3 (07:16→15:39)
[2022-08-09] MEDS ORDERED: VANCOMYCIN HCL 1,000 MG, VIAL MATE ADAPTER 1 EACH in D5W 250 ML IV SCH (08:00)
[2022-08-09] MEDS: INSULIN LISPRO (NovoLOG) PER UNIT SC SCH ×4 (09:03→20:22)
[2022-08-09] MEDS: predniSONE 5 MG TAB PO SCH (09:05)
[2022-08-09] MEDS: TORSEMIDE 20 MG TAB PO SCH (09:06)
[2022-08-09] MEDS: METOPROLOL TART 25 MG TABLET PO SCH ×2 (09:06→20:22)
[2022-08-09] MEDS: ASPIRIN 81MG CHEW TABLET PO SCH (09:07)
[2022-08-09] MEDS: POTASSIUM CHLORIDE 10MEQ SR TABLET PO SCH (09:07)
[2022-08-09] MEDS: OMEPRAZOLE 20MG CAP PO SCH (09:07)
[2022-08-09] MEDS: ROSUVASTATIN 10 MG TAB (CRESTOR) PO SCH (09:07)
[2022-08-09] MEDS: guaiFENesin ER 600 MG TAB PO SCH ×2 (09:07→20:21)
[2022-08-09] MEDS: NYSTATIN 500,000U/5ML SUSP UDC SS SCH ×4 (09:07→20:21)
[2022-08-09] MEDS: DAPAGLIFLOZIN PROPANEDIOL 10MG TABLET (FARXIGA) PO SCH (09:07)
[2022-08-09] MEDS: SPIRONOLACTONE 12.5MG PER 1/2 TABLET PO SCH (09:08)
[2022-08-09] MEDS: SANTYL OINT 30GM TOP SCH (09:08)
[2022-08-09] MEDS: NYSTATIN 100,000 UNITS/GM TOPICAL PWD 15GM TOP SCH ×2 (09:08→20:25)
[2022-08-09] MEDS: HumuLIN N INSULIN (NovoLIN N) PER UNIT SC SCH (09:08)
[2022-08-09] MEDS: LIDOCAINE 5% (LIDODERM) PATCH TOP SCH (09:09)
[2022-08-09] MEDS: RIVAROXABAN 20MG TAB (XARELTO) PO SCH (17:52)
[2022-08-09] MEDS: RAMELTEON 8 MG TAB (ROZEREM) PO SCH (20:21)
[2022-08-10] VITALS (17 sets, daily range): BP systolic 93–118; BP diastolic 60–80
[2022-08-10] MEDS: IPRATROPIUM 0.5MG/ALBUTEROL 2.5MG INH SOL UD 3ML (DUONEB) NEB SCH ×4 (00:16→23:22)
[2022-08-10] MEDS: SODIUM CHLORIDE HYPERTONIC 3% 15ML NEB SOL INH SCH ×7 (00:16→23:22)
[2022-08-10] MEDS: ACETYLCYSTEINE 20% 4 ML VIAL (200MG/ML) INH SCH ×4 (00:16→23:22)
[2022-08-10] MEDS: ACETAMINOPHEN 325 MG TAB PO PRN ×3 (01:27→21:07)
[2022-08-10] MEDS: IPRATROPIUM 0.5MG/ALBUTEROL 2.5MG INH SOL UD 3ML (DUONEB) NEB PRN ×2 (03:22→11:16)
[2022-08-10 05:06] LABS: HEMATOCRIT 30.3 % (42.0-52.0); HEMOGLOBIN 8.7 g/dl (13.5-17.5); MEAN CORPUSCULAR HGB CONC 28.7 g/dl (32.0-36.5); PLATELET COUNT, AUTOMATED 247 10^3/uL (150-450); WHITE BLOOD COUNT 16.4 10^3/uL (4.0-10.0)
[2022-08-10 05:50] LABS: BLOOD UREA NITROGEN 19 MG/DL (9-23); CALCIUM LEVEL 7.8 MG/DL (8.5-10.1); CARBON DIOXIDE LEVEL 36 MMOL/L (20-31); CHLORIDE LEVEL 97 MMOL/L (98-107); CREATININE FOR GFR 0.74 MG/DL (0.70-1.30); GLOMERULAR FILTRATION RATE > 60.0 (>56); GLUCOSE, FASTING 160 MG/DL (60-100); MAGNESIUM LEVEL 1.8 MG/DL (1.8-2.4); POTASSIUM SERUM 3.7 MMOL/L (3.5-5.1); SODIUM LEVEL 137 MMOL/L (136-145)
[2022-08-10 06:05] LABS: ATYPICAL LYMPH 1 % (0-5); EOSINOPHILS 1 % (0-3); LYMPHOCYTES 13 % (16-44); MONOCYTES 8 % (0-5); MYELOCYTES 1 % (0-0); NEUTROPHILS 70 % (28-66); PLATELET ESTIMATE NORMAL (NORMAL); POLYCHROMASIA 1+
[2022-08-10 06:06] LABS: HYPOCHROMASIA 1+
[2022-08-10] MEDS: FLUTICASONE HFA 44MCG 10.6GM INHALER (FLOVENT) INH SCH ×2 (08:17→19:15)
[2022-08-10] MEDS: ASPIRIN 81MG CHEW TABLET PO SCH (08:26)
[2022-08-10] MEDS: LIDOCAINE 5% (LIDODERM) PATCH TOP SCH (08:26)
[2022-08-10] MEDS: DAPAGLIFLOZIN PROPANEDIOL 10MG TABLET (FARXIGA) PO SCH (08:27)
[2022-08-10] MEDS: guaiFENesin ER 600 MG TAB PO SCH ×2 (08:28→21:05)
[2022-08-10] MEDS: NYSTATIN 500,000U/5ML SUSP UDC SS SCH ×2 (08:28→14:14)
[2022-08-10] MEDS: OMEPRAZOLE 20MG CAP PO SCH (08:28)
[2022-08-10] MEDS: ROSUVASTATIN 10 MG TAB (CRESTOR) PO SCH (08:28)
[2022-08-10] MEDS: POTASSIUM CHLORIDE 10MEQ SR TABLET PO SCH (08:28)
[2022-08-10] MEDS: SPIRONOLACTONE 12.5MG PER 1/2 TABLET PO SCH (08:29)
[2022-08-10] MEDS: TORSEMIDE 20 MG TAB PO SCH (08:29)
[2022-08-10] MEDS: METOPROLOL TART 25 MG TABLET PO SCH ×2 (08:29→21:06)
[2022-08-10] MEDS: predniSONE 5 MG TAB PO SCH (08:29)
[2022-08-10] MEDS: INSULIN LISPRO (NovoLOG) PER UNIT SC SCH ×4 (08:30→21:00)
[2022-08-10] MEDS: HumuLIN N INSULIN (NovoLIN N) PER UNIT SC SCH (08:30)
[2022-08-10] MEDS: SANTYL OINT 30GM TOP SCH (08:33)
[2022-08-10] MEDS: NYSTATIN 100,000 UNITS/GM TOPICAL PWD 15GM TOP SCH ×2 (08:33→21:00)
[2022-08-10] MEDS ORDERED: VANCOMYCIN HCL 500 MG in D5W MINI-BAG PLUS 100 ML IV SCH (09:00)
[2022-08-10] MEDS ORDERED: E-Z-PAQUE 96% w/w SUSP 176GM BTL As Ordered ONE (12:40)
[2022-08-10] MEDS ORDERED: VARIBAR PUDDING 40% w/v 230ML TUBE As Ordered ONE (12:40)
[2022-08-10] MEDS ORDERED: BARIUM SULFATE 700 MG TABLET (E-Z-DISK) As Ordered ONE (12:40)
[2022-08-10] MEDS ORDERED: VARIBAR NECTAR 40% w/v 240ML SUSP BTL As Ordered ONE (12:40)
[2022-08-10] MEDS: RIVAROXABAN 20MG TAB (XARELTO) PO SCH (17:21)
[2022-08-10] MEDS: DICLOFENAC SODIUM 1% TOP PRN (22:12)
[2022-08-11] VITALS (14 sets, daily range): BP systolic 94–130; BP diastolic 51–82
[2022-08-11] MEDS ORDERED: KETOROLAC 30 MG/ML 1ML VIAL IV ONE (00:05)
[2022-08-11] MEDS ORDERED: RAMELTEON 8 MG TAB (ROZEREM) PO ONE (00:10)
[2022-08-11] MEDS: IPRATROPIUM 0.5MG/ALBUTEROL 2.5MG INH SOL UD 3ML (DUONEB) NEB PRN (02:22)
[2022-08-11] MEDS: SODIUM CHLORIDE HYPERTONIC 3% 15ML NEB SOL INH SCH ×6 (02:22→23:42)
[2022-08-11 04:30] LABS: HEMATOCRIT 31.9 % (42.0-52.0); HEMOGLOBIN 9.1 g/dl (13.5-17.5); MEAN CORPUSCULAR HEMOGLOBIN 29.4 pg (27.0-33.0); MEAN CORPUSCULAR HGB CONC 28.5 g/dl (32.0-36.5); MEAN CORPUSCULAR VOLUME 102.9 fl (80.0-96.0); PLATELET COUNT, AUTOMATED 253 10^3/uL (150-450); WHITE BLOOD COUNT 16.3 10^3/uL (4.0-10.0)
[2022-08-11 04:56] LABS: ANISOCYTOSIS 4+; ATYPICAL LYMPH 1 % (0-5); EOSINOPHILS 4 % (0-3); LYMPHOCYTES 9 % (16-44); METAMYELOCYTES 4 % (0-0); MONOCYTES 2 % (0-5); MYELOCYTES 2 % (0-0); NEUTROPHILS 77 % (28-66)
[2022-08-11 04:57] LABS: HYPOCHROMASIA 2+; PLATELET ESTIMATE NORMAL (NORMAL); POLYCHROMASIA 1+
[2022-08-11 04:58] LABS: OVALOCYTES 1+
[2022-08-11 05:00] LABS: SPHEROCYTES 1+
[2022-08-11 05:13] LABS: BLOOD UREA NITROGEN 17 MG/DL (9-23); CALCIUM LEVEL 7.7 MG/DL (8.5-10.1); CARBON DIOXIDE LEVEL 38 MMOL/L (20-31); CHLORIDE LEVEL 96 MMOL/L (98-107); CREATININE FOR GFR 0.75 MG/DL (0.70-1.30); GLOMERULAR FILTRATION RATE > 60.0 (>56); GLUCOSE, FASTING 99 MG/DL (60-100); MAGNESIUM LEVEL 1.8 MG/DL (1.8-2.4); POTASSIUM SERUM 3.5 MMOL/L (3.5-5.1); SODIUM LEVEL 139 MMOL/L (136-145)
[2022-08-11] MEDS: IPRATROPIUM 0.5MG/ALBUTEROL 2.5MG INH SOL UD 3ML (DUONEB) NEB SCH ×3 (07:04→23:42)
[2022-08-11] MEDS: FLUTICASONE HFA 44MCG 10.6GM INHALER (FLOVENT) INH SCH ×2 (07:07→20:41)
[2022-08-11] MEDS: ACETYLCYSTEINE 20% 4 ML VIAL (200MG/ML) INH SCH ×3 (07:07→23:40)
[2022-08-11] MEDS: INSULIN LISPRO (NovoLOG) PER UNIT SC SCH ×4 (07:30→20:02)
[2022-08-11] MEDS: LIDOCAINE 5% (LIDODERM) PATCH TOP SCH (08:16)
[2022-08-11] MEDS: HumuLIN N INSULIN (NovoLIN N) PER UNIT SC SCH (08:16)
[2022-08-11] MEDS: NYSTATIN 100,000 UNITS/GM TOPICAL PWD 15GM TOP SCH ×2 (08:17→21:00)
[2022-08-11] MEDS: SANTYL OINT 30GM TOP SCH (08:17)
[2022-08-11] MEDS: SPIRONOLACTONE 12.5MG PER 1/2 TABLET PO SCH (08:17)
[2022-08-11] MEDS: predniSONE 5 MG TAB PO SCH (08:17)
[2022-08-11] MEDS: DAPAGLIFLOZIN PROPANEDIOL 10MG TABLET (FARXIGA) PO SCH (08:17)
[2022-08-11] MEDS: TORSEMIDE 20 MG TAB PO SCH (08:18)
[2022-08-11] MEDS: ASPIRIN 81MG CHEW TABLET PO SCH (08:18)
[2022-08-11] MEDS: OMEPRAZOLE 20MG CAP PO SCH (08:19)
[2022-08-11] MEDS: POTASSIUM CHLORIDE 10MEQ SR TABLET PO SCH (08:19)
[2022-08-11] MEDS: ACETAMINOPHEN 325 MG TAB PO PRN (08:19)
[2022-08-11] MEDS: guaiFENesin ER 600 MG TAB PO SCH ×2 (08:19→20:59)
[2022-08-11] MEDS: METOPROLOL TART 25 MG TABLET PO SCH ×2 (08:20→20:58)
[2022-08-11] MEDS: ROSUVASTATIN 10 MG TAB (CRESTOR) PO SCH (08:20)
[2022-08-11] MEDS ORDERED: FUROSEMIDE 100MG/10ML VIAL IV ONE (15:00)
[2022-08-11] MEDS ORDERED: MAG SULF 1GM/100ML (MAG RUN) 1 GM in IV 1 EA IV ONE (15:05)
[2022-08-11] MEDS: traMADol 50 MG TAB PO PRN (16:20)
[2022-08-11] MEDS: RIVAROXABAN 20MG TAB (XARELTO) PO SCH (17:37)
[2022-08-12] VITALS (21 sets, daily range): BP systolic 107–136; BP diastolic 68–88; O2SAT 89–96
[2022-08-12] MEDS: SODIUM CHLORIDE HYPERTONIC 3% 15ML NEB SOL INH SCH ×2 (03:04→08:17)
[2022-08-12] MEDS: SODIUM CHLORIDE 0.9% INJ 10 ML SYR IV SCH ×2 (05:18→17:08)
[2022-08-12 05:27] LABS: HEMATOCRIT 31.7 % (42.0-52.0); HEMOGLOBIN 8.8 g/dl (13.5-17.5); MEAN CORPUSCULAR HGB CONC 27.8 g/dl (32.0-36.5); MEAN CORPUSCULAR VOLUME 104.6 fl (80.0-96.0); PLATELET COUNT, AUTOMATED 255 10^3/uL (150-450); RED BLOOD COUNT 3.03 10^6/uL (4.30-6.10); WHITE BLOOD COUNT 15.4 10^3/uL (4.0-10.0)
[2022-08-12 06:45] LABS: BLOOD UREA NITROGEN 14 MG/DL (9-23); CALCIUM LEVEL 7.6 MG/DL (8.5-10.1); CARBON DIOXIDE LEVEL > 40.0 MMOL/L (20-31); CHLORIDE LEVEL 96 MMOL/L (98-107); CREATININE FOR GFR 0.68 MG/DL (0.70-1.30); GLOMERULAR FILTRATION RATE > 60.0 (>56); GLUCOSE, FASTING 224 MG/DL (60-100); POTASSIUM SERUM 3.2 MMOL/L (3.5-5.1); SODIUM LEVEL 139 MMOL/L (136-145)
[2022-08-12] MEDS: NYSTATIN 100,000 UNITS/GM TOPICAL PWD 15GM TOP SCH ×2 (08:03→21:23)
[2022-08-12] MEDS: ASPIRIN 81MG CHEW TABLET PO SCH (08:04)
[2022-08-12] MEDS: predniSONE 5 MG TAB PO SCH (08:04)
[2022-08-12] MEDS: traMADol 50 MG TAB PO PRN ×2 (08:04→17:09)
[2022-08-12] MEDS: ROSUVASTATIN 10 MG TAB (CRESTOR) PO SCH (08:04)
[2022-08-12] MEDS: OMEPRAZOLE 20MG CAP PO SCH (08:04)
[2022-08-12] MEDS: DAPAGLIFLOZIN PROPANEDIOL 10MG TABLET (FARXIGA) PO SCH (08:04)
[2022-08-12] MEDS: SPIRONOLACTONE 12.5MG PER 1/2 TABLET PO SCH (08:04)
[2022-08-12] MEDS: POTASSIUM CHLORIDE 10MEQ SR TABLET PO SCH (08:05)
[2022-08-12] MEDS: METOPROLOL TART 25 MG TABLET PO SCH ×2 (08:05→21:23)
[2022-08-12] MEDS: ACETAMINOPHEN 325 MG TAB PO PRN (08:05)
[2022-08-12] MEDS: HumuLIN N INSULIN (NovoLIN N) PER UNIT SC SCH (08:06)
[2022-08-12] MEDS: guaiFENesin ER 600 MG TAB PO SCH ×2 (08:06→21:23)
[2022-08-12] MEDS: INSULIN LISPRO (NovoLOG) PER UNIT SC SCH ×4 (08:07→21:00)
[2022-08-12] MEDS: LIDOCAINE 5% (LIDODERM) PATCH TOP SCH (08:07)
[2022-08-12] MEDS: IPRATROPIUM 0.5MG/ALBUTEROL 2.5MG INH SOL UD 3ML (DUONEB) NEB SCH ×3 (08:17→23:14)
[2022-08-12] MEDS: FLUTICASONE HFA 44MCG 10.6GM INHALER (FLOVENT) INH SCH ×2 (08:17→20:21)
[2022-08-12] MEDS: SANTYL OINT 30GM TOP SCH (10:17)
[2022-08-12] MEDS ORDERED: POTASSIUM CHLORIDE 10MEQ SR TABLET PO ONE (10:50)
[2022-08-12] MEDS: TORSEMIDE 20 MG TAB PO SCH (17:09)
[2022-08-12] MEDS: RIVAROXABAN 20MG TAB (XARELTO) PO SCH (17:10)
[2022-08-13] VITALS (27 sets, daily range): BP systolic 74–125; BP diastolic 48–79; O2SAT 83–96
[2022-08-13] MEDS: ACETAMINOPHEN 325 MG TAB PO PRN ×3 (01:45→17:59)
[2022-08-13] MEDS: IPRATROPIUM 0.5MG/ALBUTEROL 2.5MG INH SOL UD 3ML (DUONEB) NEB PRN (03:16)
[2022-08-13] MEDS ORDERED: PIPERACILLIN/TAZOBACTAM SOD 3.375 GM in D5W MINI-BAG PLUS 50 ML IV SCH (05:15)
[2022-08-13] MEDS: SODIUM CHLORIDE 0.9% INJ 10 ML SYR IV SCH ×2 (05:26→18:00)
[2022-08-13 05:28] LABS: ABG BASE EXCESS 11.2 (-2.0-2.0); ABG O2 SATURATION 86.6 % (95.0-99.0); ABG PARTIAL PRESSURE O2 55.7 mmHg (75.0-100.0); ABG STANDARD HCO3 34.7 MEQ/L (22.0-26.0); ABG pH (ARTERIAL) 7.396 UNITS (7.350-7.450)
[2022-08-13 05:31] LABS: ABG PARTIAL PRESSURE CO2 63.4 mmHg (35.0-45.0)
[2022-08-13 05:43] LABS: HEMATOCRIT 34.3 % (42.0-52.0); HEMOGLOBIN 9.6 g/dl (13.5-17.5); MEAN CORPUSCULAR HEMOGLOBIN 29.4 pg (27.0-33.0); MEAN CORPUSCULAR VOLUME 104.9 fl (80.0-96.0); PLATELET COUNT, AUTOMATED 350 10^3/uL (150-450); RED BLOOD COUNT 3.27 10^6/uL (4.30-6.10); WHITE BLOOD COUNT 26.2 10^3/uL (4.0-10.0)
[2022-08-13] MEDS: PIPERACILLIN/TAZOBACTAM SOD 4.5 GM in D5W MINI-BAG PLUS 50 ML IV SCH ×3 (05:51→18:25)
[2022-08-13 06:06] LABS: BLOOD UREA NITROGEN 14 MG/DL (9-23); CALCIUM LEVEL 8.6 MG/DL (8.5-10.1); CARBON DIOXIDE LEVEL > 40.0 MMOL/L (20-31); CHLORIDE LEVEL 93 MMOL/L (98-107); CREATININE FOR GFR 0.66 MG/DL (0.70-1.30); GLOMERULAR FILTRATION RATE > 60.0 (>56); GLUCOSE, FASTING 162 MG/DL (60-100); SODIUM LEVEL 138 MMOL/L (136-145)
[2022-08-13] MEDS: IPRATROPIUM 0.5MG/ALBUTEROL 2.5MG INH SOL UD 3ML (DUONEB) NEB SCH ×3 (07:18→23:16)
[2022-08-13] MEDS: FLUTICASONE HFA 44MCG 10.6GM INHALER (FLOVENT) INH SCH ×2 (07:18→19:08)
[2022-08-13] MEDS: INSULIN LISPRO (NovoLOG) PER UNIT SC SCH ×4 (07:30→20:55)
[2022-08-13 07:32] LABS: ABG BASE EXCESS 11.4 (-2.0-2.0); ABG HCO3 37.9 MEQ/L (22.0-26.0); ABG O2 SATURATION 96.3 % (95.0-99.0); ABG PARTIAL PRESSURE O2 84.3 mmHg (75.0-100.0); ABG STANDARD HCO3 35.1 MEQ/L (22.0-26.0); ABG TOTAL CO2 39.8 MEQ/L (22.0-29.0); ABG pH (ARTERIAL) 7.411 UNITS (7.350-7.450)
[2022-08-13] MEDS: ACETYLCYSTEINE 20% 4 ML VIAL (200MG/ML) INH SCH ×2 (08:00→19:09)
[2022-08-13] MEDS: OMEPRAZOLE 20MG CAP PO SCH (09:50)
[2022-08-13] MEDS: guaiFENesin ER 600 MG TAB PO SCH ×2 (09:50→18:40)
[2022-08-13] MEDS: METOPROLOL TART 25 MG TABLET PO SCH ×2 (09:50→19:12)
[2022-08-13] MEDS: ASPIRIN 81MG CHEW TABLET PO SCH (09:50)
[2022-08-13] MEDS: DAPAGLIFLOZIN PROPANEDIOL 10MG TABLET (FARXIGA) PO SCH (09:50)
[2022-08-13] MEDS: traMADol 50 MG TAB PO PRN ×2 (09:51→21:00)
[2022-08-13] MEDS: NYSTATIN 100,000 UNITS/GM TOPICAL PWD 15GM TOP SCH ×2 (09:52→20:56)
[2022-08-13] MEDS: HumuLIN N INSULIN (NovoLIN N) PER UNIT SC SCH (09:52)
[2022-08-13] MEDS: POTASSIUM CHLORIDE 10MEQ SR TABLET PO SCH (09:56)
[2022-08-13] MEDS: SPIRONOLACTONE 12.5MG PER 1/2 TABLET PO SCH (09:56)
[2022-08-13] MEDS: predniSONE 5 MG TAB PO SCH (09:56)
[2022-08-13] MEDS: ROSUVASTATIN 10 MG TAB (CRESTOR) PO SCH (09:56)
[2022-08-13] MEDS: LIDOCAINE 5% (LIDODERM) PATCH TOP SCH (09:57)
[2022-08-13] MEDS: SANTYL OINT 30GM TOP SCH (15:36)
[2022-08-13] MEDS: TORSEMIDE 20 MG TAB PO SCH (17:00)
[2022-08-13] MEDS: RIVAROXABAN 20MG TAB (XARELTO) PO SCH (17:59)
[2022-08-14] VITALS (15 sets, daily range): BP systolic 92–110; BP diastolic 56–80
[2022-08-14] MEDS: PIPERACILLIN/TAZOBACTAM SOD 4.5 GM in D5W MINI-BAG PLUS 50 ML IV SCH ×5 (00:02→23:43)
[2022-08-14] MEDS: traMADol 50 MG TAB PO PRN ×2 (02:14→15:29)
[2022-08-14 05:04] LABS: HEMATOCRIT 30.8 % (42.0-52.0); HEMOGLOBIN 8.7 g/dl (13.5-17.5); MEAN CORPUSCULAR HGB CONC 28.2 g/dl (32.0-36.5); MEAN CORPUSCULAR VOLUME 102.7 fl (80.0-96.0); WHITE BLOOD COUNT 14.5 10^3/uL (4.0-10.0)
[2022-08-14 05:15] LABS: PLATELET COUNT, AUTOMATED 237 10^3/uL (150-450)
[2022-08-14 05:34] LABS: BLOOD UREA NITROGEN 23 MG/DL (9-23); CALCIUM LEVEL 8.1 MG/DL (8.5-10.1); CARBON DIOXIDE LEVEL 40 MMOL/L (20-31); CHLORIDE LEVEL 97 MMOL/L (98-107); CREATININE FOR GFR 0.87 MG/DL (0.70-1.30); GLOMERULAR FILTRATION RATE > 60.0 (>56); GLUCOSE, FASTING 179 MG/DL (60-100); POTASSIUM SERUM 4.4 MMOL/L (3.5-5.1); SODIUM LEVEL 139 MMOL/L (136-145)
[2022-08-14] MEDS: SODIUM CHLORIDE 0.9% INJ 10 ML SYR IV SCH ×2 (05:51→18:35)
[2022-08-14] MEDS: ACETYLCYSTEINE 20% 4 ML VIAL (200MG/ML) INH SCH ×2 (08:00→19:12)
[2022-08-14] MEDS: FLUTICASONE HFA 44MCG 10.6GM INHALER (FLOVENT) INH SCH ×2 (08:48→19:12)
[2022-08-14] MEDS: IPRATROPIUM 0.5MG/ALBUTEROL 2.5MG INH SOL UD 3ML (DUONEB) NEB SCH ×3 (08:48→22:59)
[2022-08-14] MEDS: ASPIRIN 81MG CHEW TABLET PO SCH (10:06)
[2022-08-14] MEDS: ROSUVASTATIN 10 MG TAB (CRESTOR) PO SCH (10:06)
[2022-08-14] MEDS: predniSONE 10MG TAB PO SCH (10:07)
[2022-08-14] MEDS: guaiFENesin ER 600 MG TAB PO SCH ×2 (10:07→21:15)
[2022-08-14] MEDS: OMEPRAZOLE 20MG CAP PO SCH (10:07)
[2022-08-14] MEDS: DAPAGLIFLOZIN PROPANEDIOL 10MG TABLET (FARXIGA) PO SCH (10:07)
[2022-08-14] MEDS: INSULIN LISPRO (NovoLOG) PER UNIT SC SCH ×4 (10:08→21:00)
[2022-08-14] MEDS: LIDOCAINE 5% (LIDODERM) PATCH TOP SCH (10:09)
[2022-08-14] MEDS: SANTYL OINT 30GM TOP SCH (10:11)
[2022-08-14] MEDS: NYSTATIN 100,000 UNITS/GM TOPICAL PWD 15GM TOP SCH ×2 (10:11→21:16)
[2022-08-14] MEDS: METOPROLOL TART 25 MG TABLET PO SCH ×2 (10:19→21:16)
[2022-08-14] MEDS: SPIRONOLACTONE 12.5MG PER 1/2 TABLET PO SCH (10:19)
[2022-08-14] MEDS: HumuLIN N INSULIN (NovoLIN N) PER UNIT SC SCH (10:20)
[2022-08-14] MEDS: ACETAMINOPHEN 325 MG TAB PO PRN (18:34)
[2022-08-14] MEDS: TORSEMIDE 20 MG TAB PO SCH (18:34)
[2022-08-14] MEDS: RIVAROXABAN 20MG TAB (XARELTO) PO SCH (18:35)
[2022-08-14] MEDS: IPRATROPIUM 0.5MG/ALBUTEROL 2.5MG INH SOL UD 3ML (DUONEB) NEB PRN (19:12)
[2022-08-15] VITALS (18 sets, daily range): BP systolic 80–114; BP diastolic 50–69
[2022-08-15] MEDS: PIPERACILLIN/TAZOBACTAM SOD 4.5 GM in D5W MINI-BAG PLUS 50 ML IV SCH ×4 (05:18→23:26)
[2022-08-15] MEDS: SODIUM CHLORIDE 0.9% INJ 10 ML SYR IV SCH ×2 (05:18→18:45)
[2022-08-15 06:17] LABS: HEMATOCRIT 28.6 % (42.0-52.0); HEMOGLOBIN 8.3 g/dl (13.5-17.5); MEAN CORPUSCULAR HEMOGLOBIN 29.4 pg (27.0-33.0); MEAN CORPUSCULAR VOLUME 101.4 fl (80.0-96.0); PLATELET COUNT, AUTOMATED 229 10^3/uL (150-450); RED BLOOD COUNT 2.82 10^6/uL (4.30-6.10); WHITE BLOOD COUNT 12.6 10^3/uL (4.0-10.0)
[2022-08-15 06:35] LABS: BLOOD UREA NITROGEN 26 MG/DL (9-23); CALCIUM LEVEL 8.1 MG/DL (8.5-10.1); CARBON DIOXIDE LEVEL 39 MMOL/L (20-31); CHLORIDE LEVEL 96 MMOL/L (98-107); GLOMERULAR FILTRATION RATE > 60.0 (>56); GLUCOSE, FASTING 99 MG/DL (60-100); POTASSIUM SERUM 3.5 MMOL/L (3.5-5.1); SODIUM LEVEL 138 MMOL/L (136-145)
[2022-08-15] MEDS: ACETYLCYSTEINE 20% 4 ML VIAL (200MG/ML) INH SCH ×2 (07:21→19:12)
[2022-08-15] MEDS: IPRATROPIUM 0.5MG/ALBUTEROL 2.5MG INH SOL UD 3ML (DUONEB) NEB SCH ×2 (07:21→16:21)
[2022-08-15] MEDS: FLUTICASONE HFA 44MCG 10.6GM INHALER (FLOVENT) INH SCH ×2 (07:21→19:12)
[2022-08-15] MEDS: INSULIN LISPRO (NovoLOG) PER UNIT SC SCH ×4 (07:30→21:00)
[2022-08-15] MEDS ORDERED: POTASSIUM CHLORIDE 10MEQ SR TABLET PO ONE (08:30)
[2022-08-15] MEDS: traMADol 50 MG TAB PO PRN (08:44)
[2022-08-15] MEDS: HumuLIN N INSULIN (NovoLIN N) PER UNIT SC SCH (09:00)
[2022-08-15] MEDS ORDERED: TORSEMIDE 20 MG TAB PO SCH (09:00)
[2022-08-15] MEDS: OMEPRAZOLE 20MG CAP PO SCH (09:07)
[2022-08-15] MEDS: ROSUVASTATIN 10 MG TAB (CRESTOR) PO SCH (09:07)
[2022-08-15] MEDS: DAPAGLIFLOZIN PROPANEDIOL 10MG TABLET (FARXIGA) PO SCH (09:07)
[2022-08-15] MEDS: ASPIRIN 81MG CHEW TABLET PO SCH (09:07)
[2022-08-15] MEDS: guaiFENesin ER 600 MG TAB PO SCH ×2 (09:10→21:56)
[2022-08-15] MEDS: predniSONE 10MG TAB PO SCH (09:10)
[2022-08-15] MEDS: LIDOCAINE 5% (LIDODERM) PATCH TOP SCH (09:12)
[2022-08-15] MEDS: METOPROLOL TART 25 MG TABLET PO SCH (09:13)
[2022-08-15] MEDS: NYSTATIN 100,000 UNITS/GM TOPICAL PWD 15GM TOP SCH ×2 (09:15→21:58)
[2022-08-15] MEDS: SANTYL OINT 30GM TOP SCH (09:15)
[2022-08-15] MEDS: SPIRONOLACTONE 12.5MG PER 1/2 TABLET PO SCH (09:20)
[2022-08-15] MEDS ORDERED: NS 500 ML IV ONE (17:00)
[2022-08-15] MEDS: RIVAROXABAN 20MG TAB (XARELTO) PO SCH (17:40)
[2022-08-15] MEDS: ACETAMINOPHEN 325 MG TAB PO PRN (17:40)
[2022-08-15] MEDS: IPRATROPIUM 0.5MG/ALBUTEROL 2.5MG INH SOL UD 3ML (DUONEB) NEB PRN (19:12)
[2022-08-15] MEDS: METOPROLOL TART 12.5 MG PER 1/2 TAB PO SCH (21:00)
[2022-08-15 21:15] LABS: HEMATOCRIT 29.1 % (42.0-52.0); HEMOGLOBIN 8.2 g/dl (13.5-17.5)
[2022-08-16] VITALS (18 sets, daily range): BP systolic 90–126; BP diastolic 58–78
[2022-08-16] MEDS: IPRATROPIUM 0.5MG/ALBUTEROL 2.5MG INH SOL UD 3ML (DUONEB) NEB SCH ×3 (00:20→15:23)
[2022-08-16 05:16] LABS: BASO % 0.1 % (0.0-1.0); EOS # 0.1 10^3/uL (0.0-0.5); EOS % 0.4 % (0.0-3.0); HEMATOCRIT 27.5 % (42.0-52.0); HEMOGLOBIN 7.7 g/dl (13.5-17.5); LYMPH % 8.1 % (24.0-44.0); MEAN CORPUSCULAR HEMOGLOBIN 28.7 pg (27.0-33.0); MEAN CORPUSCULAR VOLUME 102.6 fl (80.0-96.0); MONO # 0.4 10^3/uL (0.0-0.8); MONO % 3.5 % (2.0-8.0); NEUTROPHILS # 10.9 10^3/uL (1.5-8.5); PLATELET COUNT, AUTOMATED 204 10^3/uL (150-450); RED BLOOD COUNT 2.68 10^6/uL (4.30-6.10); WHITE BLOOD COUNT 12.7 10^3/uL (4.0-10.0)
[2022-08-16 05:55] LABS: ALBUMIN 2.1 G/DL (3.2-5.2); ALKALINE PHOSPHATASE 154 U/L (46-116); ALT/SGPT 13 U/L (7.0-40); AST/SGOT 25 U/L (<34); BILIRUBIN,TOTAL 0.7 MG/DL (0.3-1.2); BLOOD UREA NITROGEN 23 MG/DL (9-23); CALCIUM LEVEL 8.1 MG/DL (8.5-10.1); CARBON DIOXIDE LEVEL > 40.0 MMOL/L (20-31); CHLORIDE LEVEL 98 MMOL/L (98-107); GLUCOSE, FASTING 135 MG/DL (60-100); MAGNESIUM LEVEL 2.2 MG/DL (1.8-2.4); PHOSPHORUS LEVEL 3.2 MG/DL (2.5-4.9); POTASSIUM SERUM 3.5 MMOL/L (3.5-5.1); SODIUM LEVEL 141 MMOL/L (136-145); TOTAL PROTEIN 5.4 G/DL (5.7-8.2)
[2022-08-16] MEDS: PIPERACILLIN/TAZOBACTAM SOD 4.5 GM in D5W MINI-BAG PLUS 50 ML IV SCH ×3 (06:24→18:38)
[2022-08-16] MEDS: SODIUM CHLORIDE 0.9% INJ 10 ML SYR IV SCH ×2 (06:24→18:38)
[2022-08-16] MEDS: ACETYLCYSTEINE 20% 4 ML VIAL (200MG/ML) INH SCH ×2 (08:00→19:44)
[2022-08-16] MEDS: FLUTICASONE HFA 44MCG 10.6GM INHALER (FLOVENT) INH SCH ×2 (08:02→19:44)
[2022-08-16] MEDS: INSULIN LISPRO (NovoLOG) PER UNIT SC SCH ×4 (08:40→21:12)
[2022-08-16] MEDS: LIDOCAINE 5% (LIDODERM) PATCH TOP SCH (08:41)
[2022-08-16] MEDS: DAPAGLIFLOZIN PROPANEDIOL 10MG TABLET (FARXIGA) PO SCH (08:42)
[2022-08-16] MEDS: ROSUVASTATIN 10 MG TAB (CRESTOR) PO SCH (08:43)
[2022-08-16] MEDS: METOPROLOL TART 12.5 MG PER 1/2 TAB PO SCH ×2 (08:44→21:13)
[2022-08-16] MEDS: OMEPRAZOLE 20MG CAP PO SCH (08:44)
[2022-08-16] MEDS: predniSONE 10MG TAB PO SCH (08:44)
[2022-08-16] MEDS: guaiFENesin ER 600 MG TAB PO SCH ×2 (08:44→21:14)
[2022-08-16] MEDS: ASPIRIN 81MG CHEW TABLET PO SCH (08:45)
[2022-08-16] MEDS: HumuLIN N INSULIN (NovoLIN N) PER UNIT SC SCH (08:45)
[2022-08-16] MEDS: NYSTATIN 100,000 UNITS/GM TOPICAL PWD 15GM TOP SCH ×2 (08:45→22:23)
[2022-08-16] MEDS: SANTYL OINT 30GM TOP SCH (08:46)
[2022-08-16] MEDS: TORSEMIDE 20 MG TAB PO SCH (08:56)
[2022-08-16] MEDS: ACETAMINOPHEN 325 MG TAB PO PRN (21:13)
[2022-08-17] MEDS: IPRATROPIUM 0.5MG/ALBUTEROL 2.5MG INH SOL UD 3ML (DUONEB) NEB SCH ×4 (00:11→23:06)
[2022-08-17] MEDS: PIPERACILLIN/TAZOBACTAM SOD 4.5 GM in D5W MINI-BAG PLUS 50 ML IV SCH ×4 (00:19→18:09)
[2022-08-17 03:54] VITALS: BP 100/70
[2022-08-17] MEDS: SODIUM CHLORIDE 0.9% INJ 10 ML SYR IV SCH ×2 (06:16→18:09)
[2022-08-17] MEDS ORDERED: POTASSIUM CHLORIDE 10MEQ SR TABLET PO ONE (07:00)
[2022-08-17] MEDS: INSULIN LISPRO (NovoLOG) PER UNIT SC SCH ×4 (07:30→20:54)
[2022-08-17] MEDS: ACETYLCYSTEINE 20% 4 ML VIAL (200MG/ML) INH SCH ×2 (08:00→20:00)
[2022-08-17 08:04] VITALS: BP 116/78
[2022-08-17] MEDS: FLUTICASONE HFA 44MCG 10.6GM INHALER (FLOVENT) INH SCH ×2 (08:12→20:06)
[2022-08-17 08:19] LABS: HEMATOCRIT 30.3 % (42.0-52.0); HEMOGLOBIN 8.4 g/dl (13.5-17.5); MEAN CORPUSCULAR HEMOGLOBIN 28.6 pg (27.0-33.0); MEAN CORPUSCULAR HGB CONC 27.7 g/dl (32.0-36.5); MEAN CORPUSCULAR VOLUME 103.1 fl (80.0-96.0); PLATELET COUNT, AUTOMATED 213 10^3/uL (150-450); RED BLOOD COUNT 2.94 10^6/uL (4.30-6.10); WHITE BLOOD COUNT 11.9 10^3/uL (4.0-10.0)
[2022-08-17 08:44] LABS: BLOOD UREA NITROGEN 18 MG/DL (9-23); CALCIUM LEVEL 8.2 MG/DL (8.5-10.1); CARBON DIOXIDE LEVEL 39 MMOL/L (20-31); CHLORIDE LEVEL 99 MMOL/L (98-107); CREATININE FOR GFR 0.88 MG/DL (0.70-1.30); GLOMERULAR FILTRATION RATE > 60.0 (>56); GLUCOSE, FASTING 81 MG/DL (60-100); POTASSIUM SERUM 3.6 MMOL/L (3.5-5.1); SODIUM LEVEL 143 MMOL/L (136-145)
[2022-08-17] MEDS: LIDOCAINE 5% (LIDODERM) PATCH TOP SCH (09:35)
[2022-08-17] MEDS: HumuLIN N INSULIN (NovoLIN N) PER UNIT SC SCH (09:36)
[2022-08-17] MEDS: ASPIRIN 81MG CHEW TABLET PO SCH (09:36)
[2022-08-17] MEDS: OMEPRAZOLE 20MG CAP PO SCH (09:36)
[2022-08-17] MEDS: guaiFENesin ER 600 MG TAB PO SCH ×2 (09:37→20:53)
[2022-08-17] MEDS: TORSEMIDE 20 MG TAB PO SCH (09:37)
[2022-08-17] MEDS: DAPAGLIFLOZIN PROPANEDIOL 10MG TABLET (FARXIGA) PO SCH (09:37)
[2022-08-17] MEDS: predniSONE 10MG TAB PO SCH (09:37)
[2022-08-17] MEDS: METOPROLOL TART 12.5 MG PER 1/2 TAB PO SCH ×2 (09:37→20:53)
[2022-08-17] MEDS: SANTYL OINT 30GM TOP SCH (09:38)
[2022-08-17] MEDS: ROSUVASTATIN 10 MG TAB (CRESTOR) PO SCH (09:38)
[2022-08-17] MEDS: NYSTATIN 100,000 UNITS/GM TOPICAL PWD 15GM TOP SCH ×2 (09:38→20:54)
[2022-08-17] MEDS: ACETAMINOPHEN 325 MG TAB PO PRN (09:42)
[2022-08-17] MEDS: IPRATROPIUM 0.5MG/ALBUTEROL 2.5MG INH SOL UD 3ML (DUONEB) NEB PRN (10:44)
[2022-08-17 11:59] VITALS: BP 109/64
[2022-08-17] MEDS: HEPARIN SOD (PORCINE) 5000UNITS/ML 1ML VIAL/SYRINGE SQ SCH ×2 (14:06→20:53)
[2022-08-17 16:37] VITALS: BP 112/62
[2022-08-17 20:00] VITALS: BP 117/80
[2022-08-17] MEDS: traMADol 50 MG TAB PO PRN (20:53)
[2022-08-18] VITALS (7 sets, daily range): BP systolic 93–109; BP diastolic 57–75
[2022-08-18] MEDS: PIPERACILLIN/TAZOBACTAM SOD 4.5 GM in D5W MINI-BAG PLUS 50 ML IV SCH ×4 (01:33→18:34)
[2022-08-18] MEDS: SODIUM CHLORIDE 0.9% INJ 10 ML SYR IV SCH ×2 (06:00→18:34)
[2022-08-18] MEDS: HEPARIN SOD (PORCINE) 5000UNITS/ML 1ML VIAL/SYRINGE SQ SCH ×3 (06:12→21:10)
[2022-08-18 06:34] LABS: HEMATOCRIT 28.5 % (42.0-52.0); HEMOGLOBIN 7.9 g/dl (13.5-17.5); MEAN CORPUSCULAR HEMOGLOBIN 28.9 pg (27.0-33.0); MEAN CORPUSCULAR HGB CONC 27.7 g/dl (32.0-36.5); MEAN CORPUSCULAR VOLUME 104.4 fl (80.0-96.0); PLATELET COUNT, AUTOMATED 185 10^3/uL (150-450); RED BLOOD COUNT 2.73 10^6/uL (4.30-6.10); WHITE BLOOD COUNT 10.5 10^3/uL (4.0-10.0)
[2022-08-18 07:10] LABS: BLOOD UREA NITROGEN 15 MG/DL (9-23); CALCIUM LEVEL 8.2 MG/DL (8.5-10.1); CARBON DIOXIDE LEVEL > 40.0 MMOL/L (20-31); CHLORIDE LEVEL 100 MMOL/L (98-107); CREATININE FOR GFR 0.86 MG/DL (0.70-1.30); GLOMERULAR FILTRATION RATE > 60.0 (>56); GLUCOSE, FASTING 86 MG/DL (60-100); MAGNESIUM LEVEL 2.1 MG/DL (1.8-2.4); POTASSIUM SERUM 3.1 MMOL/L (3.5-5.1); SODIUM LEVEL 144 MMOL/L (136-145)
[2022-08-18] MEDS ORDERED: POTASSIUM CHLORIDE 10MEQ SR TABLET PO ONE (07:20)
[2022-08-18] MEDS: INSULIN LISPRO (NovoLOG) PER UNIT SC SCH ×4 (07:30→20:51)
[2022-08-18] MEDS: IPRATROPIUM 0.5MG/ALBUTEROL 2.5MG INH SOL UD 3ML (DUONEB) NEB SCH ×3 (08:24→22:53)
[2022-08-18] MEDS: FLUTICASONE HFA 44MCG 10.6GM INHALER (FLOVENT) INH SCH ×2 (08:24→20:03)
[2022-08-18] MEDS: ACETYLCYSTEINE 20% 4 ML VIAL (200MG/ML) INH SCH ×2 (08:28→20:00)
[2022-08-18] MEDS: ASPIRIN 81MG CHEW TABLET PO SCH (08:47)
[2022-08-18] MEDS: ROSUVASTATIN 10 MG TAB (CRESTOR) PO SCH (08:47)
[2022-08-18] MEDS: METOPROLOL TART 12.5 MG PER 1/2 TAB PO SCH ×2 (08:48→21:11)
[2022-08-18] MEDS: OMEPRAZOLE 20MG CAP PO SCH (08:48)
[2022-08-18] MEDS: predniSONE 10MG TAB PO SCH (08:48)
[2022-08-18] MEDS: guaiFENesin ER 600 MG TAB PO SCH ×2 (08:49→21:10)
[2022-08-18] MEDS: TORSEMIDE 20 MG TAB PO SCH (08:49)
[2022-08-18] MEDS: DAPAGLIFLOZIN PROPANEDIOL 10MG TABLET (FARXIGA) PO SCH (08:50)
[2022-08-18] MEDS: HumuLIN N INSULIN (NovoLIN N) PER UNIT SC SCH (08:50)
[2022-08-18] MEDS: LIDOCAINE 5% (LIDODERM) PATCH TOP SCH (08:51)
[2022-08-18] MEDS: KCL 10MEQ/100ML SWI (KRUN) 10 MEQ in IV 1 EA IV SCH ×4 (08:51→14:32)
[2022-08-18] MEDS: SANTYL OINT 30GM TOP SCH (08:52)
[2022-08-18] MEDS: NYSTATIN 100,000 UNITS/GM TOPICAL PWD 15GM TOP SCH ×2 (08:52→21:11)
[2022-08-18] MEDS: ACETAMINOPHEN 325 MG TAB PO PRN ×2 (13:16→21:09)
[2022-08-18] MEDS ORDERED: KCL 10MEQ IN STERILE WATER 100ML As Ordered ONE (14:30)
[2022-08-19] MEDS: PIPERACILLIN/TAZOBACTAM SOD 4.5 GM in D5W MINI-BAG PLUS 50 ML IV SCH ×5 (01:14→23:46)
[2022-08-19 04:00] VITALS: BP 110/73
[2022-08-19] MEDS: HEPARIN SOD (PORCINE) 5000UNITS/ML 1ML VIAL/SYRINGE SQ SCH (06:31)
[2022-08-19] MEDS: SODIUM CHLORIDE 0.9% INJ 10 ML SYR IV SCH ×2 (06:32→18:15)
[2022-08-19 07:10] VITALS: BP 99/67
[2022-08-19] MEDS: FLUTICASONE HFA 44MCG 10.6GM INHALER (FLOVENT) INH SCH ×2 (08:00→20:26)
[2022-08-19] MEDS: ACETYLCYSTEINE 20% 4 ML VIAL (200MG/ML) INH SCH (08:00)
[2022-08-19] MEDS: IPRATROPIUM 0.5MG/ALBUTEROL 2.5MG INH SOL UD 3ML (DUONEB) NEB SCH ×3 (08:00→23:18)
[2022-08-19] MEDS: INSULIN LISPRO (NovoLOG) PER UNIT SC SCH ×4 (09:02→21:00)
[2022-08-19] MEDS: TORSEMIDE 20 MG TAB PO SCH (09:02)
[2022-08-19] MEDS: guaiFENesin ER 600 MG TAB PO SCH ×2 (09:02→21:47)
[2022-08-19] MEDS: predniSONE 10MG TAB PO SCH (09:03)
[2022-08-19] MEDS: ROSUVASTATIN 10 MG TAB (CRESTOR) PO SCH (09:03)
[2022-08-19] MEDS: METOPROLOL TART 12.5 MG PER 1/2 TAB PO SCH ×2 (09:03→21:48)
[2022-08-19] MEDS: ASPIRIN 81MG CHEW TABLET PO SCH (09:03)
[2022-08-19] MEDS: DAPAGLIFLOZIN PROPANEDIOL 10MG TABLET (FARXIGA) PO SCH (09:04)
[2022-08-19] MEDS: OMEPRAZOLE 20MG CAP PO SCH (09:04)
[2022-08-19] MEDS: HumuLIN N INSULIN (NovoLIN N) PER UNIT SC SCH (09:05)
[2022-08-19] MEDS: NYSTATIN 100,000 UNITS/GM TOPICAL PWD 15GM TOP SCH ×2 (09:06→21:48)
[2022-08-19] MEDS: LIDOCAINE 5% (LIDODERM) PATCH TOP SCH (09:06)
[2022-08-19] MEDS: SANTYL OINT 30GM TOP SCH (09:07)
[2022-08-19 09:39] LABS: BLOOD UREA NITROGEN 15 MG/DL (9-23); CALCIUM LEVEL 8.1 MG/DL (8.5-10.1); CARBON DIOXIDE LEVEL 36 MMOL/L (20-31); CHLORIDE LEVEL 98 MMOL/L (98-107); GLOMERULAR FILTRATION RATE > 60.0 (>56); GLUCOSE, FASTING 180 MG/DL (60-100); POTASSIUM SERUM 3.2 MMOL/L (3.5-5.1); SODIUM LEVEL 140 MMOL/L (136-145)
[2022-08-19 12:00] VITALS: BP 106/68
[2022-08-19] MEDS: POTASSIUM CHLORIDE 10MEQ SR TABLET PO SCH ×2 (13:33→21:47)
[2022-08-19] MEDS: ACETAMINOPHEN 325 MG TAB PO PRN ×2 (13:34→18:21)
[2022-08-19 16:28] VITALS: BP 108/74
[2022-08-19] MEDS: LACTOBACILLUS ACIDOPHILUS CAP (BACID) PO SCH (18:16)
[2022-08-19] MEDS: RIVAROXABAN 20MG TAB (XARELTO) PO SCH (18:16)
[2022-08-19 20:00] VITALS: BP 100/73
[2022-08-20] VITALS (18 sets, daily range): BP systolic 103–121; BP diastolic 74–83; O2SAT 91–100
[2022-08-20] MEDS: SODIUM CHLORIDE 0.9% INJ 10 ML SYR IV SCH ×2 (06:29→17:58)
[2022-08-20] MEDS: INSULIN LISPRO (NovoLOG) PER UNIT SC SCH ×4 (07:30→21:00)
[2022-08-20 07:40] LABS: HEMATOCRIT 28.9 % (42.0-52.0); MEAN CORPUSCULAR HEMOGLOBIN 28.8 pg (27.0-33.0); MEAN CORPUSCULAR HGB CONC 27.7 g/dl (32.0-36.5); PLATELET COUNT, AUTOMATED 198 10^3/uL (150-450); RED BLOOD COUNT 2.78 10^6/uL (4.30-6.10); WHITE BLOOD COUNT 11.3 10^3/uL (4.0-10.0)
[2022-08-20] MEDS: FLUTICASONE HFA 44MCG 10.6GM INHALER (FLOVENT) INH SCH ×2 (07:47→19:20)
[2022-08-20] MEDS: IPRATROPIUM 0.5MG/ALBUTEROL 2.5MG INH SOL UD 3ML (DUONEB) NEB SCH ×3 (07:47→23:16)
[2022-08-20 08:07] LABS: BLOOD UREA NITROGEN 12 MG/DL (9-23); CALCIUM LEVEL 7.7 MG/DL (8.5-10.1); CARBON DIOXIDE LEVEL 37 MMOL/L (20-31); CHLORIDE LEVEL 102 MMOL/L (98-107); CREATININE FOR GFR 0.82 MG/DL (0.70-1.30); GLOMERULAR FILTRATION RATE > 60.0 (>56); GLUCOSE, FASTING 68 MG/DL (60-100); MAGNESIUM LEVEL 1.9 MG/DL (1.8-2.4); PHOSPHORUS LEVEL 2.6 MG/DL (2.5-4.9); POTASSIUM SERUM 3.5 MMOL/L (3.5-5.1); SODIUM LEVEL 143 MMOL/L (136-145)
[2022-08-20] MEDS ORDERED: POTASSIUM CHLORIDE 10MEQ SR TABLET PO ONE (08:30)
[2022-08-20] MEDS: ASPIRIN 81MG CHEW TABLET PO SCH (09:02)
[2022-08-20] MEDS: HumuLIN N INSULIN (NovoLIN N) PER UNIT SC SCH (09:02)
[2022-08-20] MEDS: LACTOBACILLUS ACIDOPHILUS CAP (BACID) PO SCH ×2 (09:02→17:58)
[2022-08-20] MEDS: ACETAMINOPHEN 325 MG TAB PO PRN (09:03)
[2022-08-20] MEDS: TORSEMIDE 20 MG TAB PO SCH (09:03)
[2022-08-20] MEDS: ROSUVASTATIN 10 MG TAB (CRESTOR) PO SCH (09:03)
[2022-08-20] MEDS: DAPAGLIFLOZIN PROPANEDIOL 10MG TABLET (FARXIGA) PO SCH (09:04)
[2022-08-20] MEDS: guaiFENesin ER 600 MG TAB PO SCH ×2 (09:04→21:13)
[2022-08-20] MEDS: OMEPRAZOLE 20MG CAP PO SCH (09:04)
[2022-08-20] MEDS: LIDOCAINE 5% (LIDODERM) PATCH TOP SCH (09:04)
[2022-08-20] MEDS: predniSONE 10MG TAB PO SCH (09:04)
[2022-08-20] MEDS: SANTYL OINT 30GM TOP SCH (09:05)
[2022-08-20] MEDS: NYSTATIN 100,000 UNITS/GM TOPICAL PWD 15GM TOP SCH ×2 (09:05→21:14)
[2022-08-20] MEDS: METOPROLOL TART 12.5 MG PER 1/2 TAB PO SCH ×2 (09:06→21:13)
[2022-08-20] MEDS: RIVAROXABAN 20MG TAB (XARELTO) PO SCH (17:58)
[2022-08-21] VITALS (18 sets, daily range): BP systolic 105–119; BP diastolic 68–83; O2SAT 91–100
[2022-08-21] MEDS: traMADol 50 MG TAB PO PRN ×2 (01:43→23:11)
[2022-08-21 05:12] LABS: MEAN CORPUSCULAR HEMOGLOBIN 29.2 pg (27.0-33.0); MEAN CORPUSCULAR HGB CONC 28.6 g/dl (32.0-36.5); MEAN CORPUSCULAR VOLUME 102.2 fl (80.0-96.0); PLATELET COUNT, AUTOMATED 206 10^3/uL (150-450); RED BLOOD COUNT 2.74 10^6/uL (4.30-6.10); WHITE BLOOD COUNT 11.2 10^3/uL (4.0-10.0)
[2022-08-21 05:56] LABS: BLOOD UREA NITROGEN 11 MG/DL (9-23); CALCIUM LEVEL 7.4 MG/DL (8.5-10.1); CARBON DIOXIDE LEVEL 37 MMOL/L (20-31); CHLORIDE LEVEL 99 MMOL/L (98-107); CREATININE FOR GFR 0.74 MG/DL (0.70-1.30); FREE T4 1.59 NG/DL (0.89-1.76); GLOMERULAR FILTRATION RATE > 60.0 (>56); GLUCOSE, FASTING 87 MG/DL (60-100); MAGNESIUM LEVEL 1.8 MG/DL (1.8-2.4); PHOSPHORUS LEVEL 2.8 MG/DL (2.5-4.9); POTASSIUM SERUM 3.4 MMOL/L (3.5-5.1); SODIUM LEVEL 138 MMOL/L (136-145)
[2022-08-21] MEDS: SODIUM CHLORIDE 0.9% INJ 10 ML SYR IV SCH ×2 (06:00→18:04)
[2022-08-21] MEDS ORDERED: POTASSIUM CHLORIDE 10MEQ SR TABLET PO ONE (06:15)
[2022-08-21] MEDS: INSULIN LISPRO (NovoLOG) PER UNIT SC SCH ×4 (07:30→20:42)
[2022-08-21] MEDS: FLUTICASONE HFA 44MCG 10.6GM INHALER (FLOVENT) INH SCH ×2 (07:54→19:59)
[2022-08-21] MEDS: IPRATROPIUM 0.5MG/ALBUTEROL 2.5MG INH SOL UD 3ML (DUONEB) NEB SCH ×3 (07:54→23:07)
[2022-08-21] MEDS: LIDOCAINE 5% (LIDODERM) PATCH TOP SCH (08:56)
[2022-08-21] MEDS: DAPAGLIFLOZIN PROPANEDIOL 10MG TABLET (FARXIGA) PO SCH (08:57)
[2022-08-21] MEDS: ROSUVASTATIN 10 MG TAB (CRESTOR) PO SCH (08:57)
[2022-08-21] MEDS: LACTOBACILLUS ACIDOPHILUS CAP (BACID) PO SCH ×2 (08:57→17:51)
[2022-08-21] MEDS: TORSEMIDE 20 MG TAB PO SCH (08:57)
[2022-08-21] MEDS: guaiFENesin ER 600 MG TAB PO SCH ×2 (08:58→20:40)
[2022-08-21] MEDS: ASPIRIN 81MG CHEW TABLET PO SCH (08:58)
[2022-08-21] MEDS: METOPROLOL TART 12.5 MG PER 1/2 TAB PO SCH ×2 (08:58→20:41)
[2022-08-21] MEDS: predniSONE 10MG TAB PO SCH (08:58)
[2022-08-21] MEDS: OMEPRAZOLE 20MG CAP PO SCH (08:59)
[2022-08-21] MEDS: HumuLIN N INSULIN (NovoLIN N) PER UNIT SC SCH (08:59)
[2022-08-21] MEDS: NYSTATIN 100,000 UNITS/GM TOPICAL PWD 15GM TOP SCH ×2 (08:59→20:43)
[2022-08-21] MEDS: SANTYL OINT 30GM TOP SCH (09:00)
[2022-08-21] MEDS: RIVAROXABAN 20MG TAB (XARELTO) PO SCH (17:51)
[2022-08-21] MEDS: ACETAMINOPHEN 325 MG TAB PO PRN (22:41)
[2022-08-22] VITALS (15 sets, daily range): BP systolic 106–123; BP diastolic 75–80; O2SAT 91–99
[2022-08-22] MEDS: SODIUM CHLORIDE 0.9% INJ 10 ML SYR IV SCH ×2 (06:00→18:34)
[2022-08-22 06:22] LABS: HEMATOCRIT 29.2 % (42.0-52.0); HEMOGLOBIN 8.1 g/dl (13.5-17.5); MEAN CORPUSCULAR HEMOGLOBIN 28.6 pg (27.0-33.0); MEAN CORPUSCULAR HGB CONC 27.7 g/dl (32.0-36.5); MEAN CORPUSCULAR VOLUME 103.2 fl (80.0-96.0); PLATELET COUNT, AUTOMATED 215 10^3/uL (150-450); RED BLOOD COUNT 2.83 10^6/uL (4.30-6.10); WHITE BLOOD COUNT 9.9 10^3/uL (4.0-10.0)
[2022-08-22 06:40] LABS: ALKALINE PHOSPHATASE 233 U/L (46-116); ALT/SGPT 23 U/L (7.0-40); AST/SGOT 57 U/L (<34); BILIRUBIN,TOTAL 0.5 MG/DL (0.3-1.2); BLOOD UREA NITROGEN 10 MG/DL (9-23); CALCIUM LEVEL 7.9 MG/DL (8.5-10.1); CARBON DIOXIDE LEVEL 39 MMOL/L (20-31); CHLORIDE LEVEL 98 MMOL/L (98-107); CREATININE FOR GFR 0.69 MG/DL (0.70-1.30); GLOMERULAR FILTRATION RATE > 60.0 (>56); GLUCOSE, FASTING 80 MG/DL (60-100); POTASSIUM SERUM 3.1 MMOL/L (3.5-5.1); SODIUM LEVEL 141 MMOL/L (136-145); TOTAL PROTEIN 5.4 G/DL (5.7-8.2)
[2022-08-22] MEDS: INSULIN LISPRO (NovoLOG) PER UNIT SC SCH ×4 (07:30→20:12)
[2022-08-22] MEDS: IPRATROPIUM 0.5MG/ALBUTEROL 2.5MG INH SOL UD 3ML (DUONEB) NEB SCH ×3 (07:46→23:36)
[2022-08-22] MEDS: FLUTICASONE HFA 44MCG 10.6GM INHALER (FLOVENT) INH SCH ×2 (07:47→20:27)
[2022-08-22] MEDS: HumuLIN N INSULIN (NovoLIN N) PER UNIT SC SCH (08:27)
[2022-08-22] MEDS: ROSUVASTATIN 10 MG TAB (CRESTOR) PO SCH (08:28)
[2022-08-22] MEDS: LACTOBACILLUS ACIDOPHILUS CAP (BACID) PO SCH ×2 (08:28→18:33)
[2022-08-22] MEDS: DAPAGLIFLOZIN PROPANEDIOL 10MG TABLET (FARXIGA) PO SCH (08:28)
[2022-08-22] MEDS: ASPIRIN 81MG CHEW TABLET PO SCH (08:29)
[2022-08-22] MEDS: METOPROLOL TART 12.5 MG PER 1/2 TAB PO SCH ×2 (08:29→20:56)
[2022-08-22] MEDS: OMEPRAZOLE 20MG CAP PO SCH (08:29)
[2022-08-22] MEDS: TORSEMIDE 20 MG TAB PO SCH (08:30)
[2022-08-22] MEDS: guaiFENesin ER 600 MG TAB PO SCH ×2 (08:30→20:56)
[2022-08-22] MEDS: NYSTATIN 100,000 UNITS/GM TOPICAL PWD 15GM TOP SCH ×2 (08:31→20:56)
[2022-08-22] MEDS: predniSONE 10MG TAB PO SCH (08:31)
[2022-08-22] MEDS: LIDOCAINE 5% (LIDODERM) PATCH TOP SCH (08:32)
[2022-08-22] MEDS: SANTYL OINT 30GM TOP SCH (08:33)
[2022-08-22] MEDS: ACETAMINOPHEN 325 MG TAB PO PRN (10:05)
[2022-08-22] MEDS: POTASSIUM CHLORIDE 10MEQ SR TABLET PO SCH (10:05)
[2022-08-22] MEDS ORDERED: POTASSIUM CHLORIDE 10MEQ SR TABLET PO ONE (11:00)
[2022-08-22] MEDS: MAGNESIUM GLUCONATE 500 MG TAB PO SCH ×2 (12:24→20:56)
[2022-08-22] MEDS: RIVAROXABAN 20MG TAB (XARELTO) PO SCH (18:34)
[2022-08-22] MEDS: SODIUM CHLORIDE 0.9% INJ 10 ML SYR IV PRN (18:34)
[2022-08-23] MEDS: SODIUM CHLORIDE 0.9% INJ 10 ML SYR IV SCH ×2 (05:44→17:46)
[2022-08-23 05:51] LABS: HEMATOCRIT 30.2 % (42.0-52.0); HEMOGLOBIN 8.3 g/dl (13.5-17.5); MEAN CORPUSCULAR HEMOGLOBIN 28.8 pg (27.0-33.0); MEAN CORPUSCULAR HGB CONC 27.5 g/dl (32.0-36.5); MEAN CORPUSCULAR VOLUME 104.9 fl (80.0-96.0); PLATELET COUNT, AUTOMATED 219 10^3/uL (150-450); RED BLOOD COUNT 2.88 10^6/uL (4.30-6.10)
[2022-08-23 06:31] LABS: ALKALINE PHOSPHATASE 247 U/L (46-116); ALT/SGPT 25 U/L (7.0-40); AST/SGOT 64 U/L (<34); BILIRUBIN,TOTAL 0.5 MG/DL (0.3-1.2); BLOOD UREA NITROGEN 10 MG/DL (9-23); CARBON DIOXIDE LEVEL > 40.0 MMOL/L (20-31); CHLORIDE LEVEL 99 MMOL/L (98-107); CREATININE FOR GFR 0.71 MG/DL (0.70-1.30); GLOMERULAR FILTRATION RATE > 60.0 (>56); GLUCOSE, FASTING 103 MG/DL (60-100); POTASSIUM SERUM 3.6 MMOL/L (3.5-5.1); SODIUM LEVEL 140 MMOL/L (136-145); TOTAL PROTEIN 5.5 G/DL (5.7-8.2)
[2022-08-23 06:32] LABS: MAGNESIUM LEVEL 1.7 MG/DL (1.8-2.4)
[2022-08-23] MEDS: IPRATROPIUM 0.5MG/ALBUTEROL 2.5MG INH SOL UD 3ML (DUONEB) NEB SCH ×2 (07:29→16:25)
[2022-08-23] MEDS: FLUTICASONE HFA 44MCG 10.6GM INHALER (FLOVENT) INH SCH ×2 (07:29→20:00)
[2022-08-23] MEDS: INSULIN LISPRO (NovoLOG) PER UNIT SC SCH ×4 (07:30→20:15)
[2022-08-23] MEDS: HumuLIN N INSULIN (NovoLIN N) PER UNIT SC SCH ×2 (09:00→09:49)
[2022-08-23] MEDS: SANTYL OINT 30GM TOP SCH (09:00)
[2022-08-23] MEDS: METOPROLOL TART 12.5 MG PER 1/2 TAB PO SCH ×2 (09:00→20:31)
[2022-08-23] MEDS: TORSEMIDE 20 MG TAB PO SCH (09:00)
[2022-08-23] MEDS: LIDOCAINE 5% (LIDODERM) PATCH TOP SCH (09:49)
[2022-08-23] MEDS: POTASSIUM CHLORIDE 10MEQ SR TABLET PO SCH (09:50)
[2022-08-23] MEDS: ROSUVASTATIN 10 MG TAB (CRESTOR) PO SCH (09:50)
[2022-08-23] MEDS: ASPIRIN 81MG CHEW TABLET PO SCH (09:50)
[2022-08-23] MEDS: OMEPRAZOLE 20MG CAP PO SCH (10:01)
[2022-08-23] MEDS: DAPAGLIFLOZIN PROPANEDIOL 10MG TABLET (FARXIGA) PO SCH (10:01)
[2022-08-23] MEDS: predniSONE 2.5 MG TAB PO SCH (10:02)
[2022-08-23] MEDS: MAGNESIUM GLUCONATE 500 MG TAB PO SCH ×4 (10:02→23:38)
[2022-08-23] MEDS: guaiFENesin ER 600 MG TAB PO SCH ×2 (10:02→20:32)
[2022-08-23] MEDS: LACTOBACILLUS ACIDOPHILUS CAP (BACID) PO SCH ×2 (10:02→17:45)
[2022-08-23] MEDS: NYSTATIN 100,000 UNITS/GM TOPICAL PWD 15GM TOP SCH ×2 (10:03→20:32)
[2022-08-23 17:13] VITALS: BP 116/79
[2022-08-23 17:34] LABS: ABG BASE EXCESS 9.3 (-2.0-2.0); ABG HCO3 34.2 MEQ/L (22.0-26.0); ABG O2 SATURATION 92.6 % (95.0-99.0); ABG PARTIAL PRESSURE CO2 48.6 mmHg (35.0-45.0); ABG PARTIAL PRESSURE O2 62.9 mmHg (75.0-100.0); ABG TOTAL CO2 35.7 MEQ/L (22.0-29.0); ABG pH (ARTERIAL) 7.465 UNITS (7.350-7.450)
[2022-08-23] MEDS: RIVAROXABAN 20MG TAB (XARELTO) PO SCH (17:45)
[2022-08-23 20:18] VITALS: BP 118/80
[2022-08-23] MEDS: IPRATROPIUM 0.5MG/ALBUTEROL 2.5MG INH SOL UD 3ML (DUONEB) NEB PRN (22:20)
[2022-08-24] MEDS: IPRATROPIUM 0.5MG/ALBUTEROL 2.5MG INH SOL UD 3ML (DUONEB) NEB SCH ×3 (00:04→15:10)
[2022-08-24] MEDS: SODIUM CHLORIDE 0.9% INJ 10 ML SYR IV SCH ×3 (05:13→18:11)
[2022-08-24 05:36] LABS: HEMATOCRIT 28.7 % (42.0-52.0); HEMOGLOBIN 8.1 g/dl (13.5-17.5); MEAN CORPUSCULAR HEMOGLOBIN 29.2 pg (27.0-33.0); MEAN CORPUSCULAR HGB CONC 28.2 g/dl (32.0-36.5); MEAN CORPUSCULAR VOLUME 103.6 fl (80.0-96.0); PLATELET COUNT, AUTOMATED 216 10^3/uL (150-450); RED BLOOD COUNT 2.77 10^6/uL (4.30-6.10)
[2022-08-24 06:03] LABS: ALKALINE PHOSPHATASE 222 U/L (46-116); ALT/SGPT 24 U/L (7.0-40); AST/SGOT 53 U/L (<34); BILIRUBIN,TOTAL 0.6 MG/DL (0.3-1.2); BLOOD UREA NITROGEN 8 MG/DL (9-23); CALCIUM LEVEL 7.7 MG/DL (8.5-10.1); CARBON DIOXIDE LEVEL 40 MMOL/L (20-31); CHLORIDE LEVEL 99 MMOL/L (98-107); CREATININE FOR GFR 0.55 MG/DL (0.70-1.30); GLOMERULAR FILTRATION RATE > 60.0 (>56); GLUCOSE, FASTING 116 MG/DL (60-100); POTASSIUM SERUM 3.4 MMOL/L (3.5-5.1); SODIUM LEVEL 139 MMOL/L (136-145); TOTAL PROTEIN 5.4 G/DL (5.7-8.2)
[2022-08-24] MEDS: MAGNESIUM GLUCONATE 500 MG TAB PO SCH ×3 (06:04→18:06)
[2022-08-24] MEDS: IPRATROPIUM 0.5MG/ALBUTEROL 2.5MG INH SOL UD 3ML (DUONEB) NEB PRN ×2 (06:17→19:39)
[2022-08-24] MEDS: INSULIN LISPRO (NovoLOG) PER UNIT SC SCH ×4 (07:30→20:36)
[2022-08-24] MEDS: FLUTICASONE HFA 44MCG 10.6GM INHALER (FLOVENT) INH SCH ×2 (07:30→19:39)
[2022-08-24 08:04] VITALS: BP 130/85
[2022-08-24] MEDS: HumuLIN N INSULIN (NovoLIN N) PER UNIT SC SCH (09:58)
[2022-08-24] MEDS: NYSTATIN 100,000 UNITS/GM TOPICAL PWD 15GM TOP SCH ×2 (09:58→20:37)
[2022-08-24] MEDS: LIDOCAINE 5% (LIDODERM) PATCH TOP SCH (09:59)
[2022-08-24] MEDS: predniSONE 2.5 MG TAB PO SCH (10:00)
[2022-08-24] MEDS: guaiFENesin ER 600 MG TAB PO SCH ×2 (10:00→20:35)
[2022-08-24] MEDS: LACTOBACILLUS ACIDOPHILUS CAP (BACID) PO SCH ×2 (10:00→18:06)
[2022-08-24] MEDS: OMEPRAZOLE 20MG CAP PO SCH (10:01)
[2022-08-24] MEDS: ROSUVASTATIN 10 MG TAB (CRESTOR) PO SCH (10:01)
[2022-08-24] MEDS: TORSEMIDE 20 MG TAB PO SCH (10:01)
[2022-08-24] MEDS: ASPIRIN 81MG CHEW TABLET PO SCH (10:01)
[2022-08-24] MEDS: POTASSIUM CHLORIDE 10MEQ SR TABLET PO SCH (10:02)
[2022-08-24] MEDS: SANTYL OINT 30GM TOP SCH (10:03)
[2022-08-24] MEDS: METOPROLOL TART 12.5 MG PER 1/2 TAB PO SCH ×2 (10:24→20:36)
[2022-08-24] MEDS: DAPAGLIFLOZIN PROPANEDIOL 10MG TABLET (FARXIGA) PO SCH (11:01)
[2022-08-24] MEDS: ACETAMINOPHEN 325 MG TAB PO PRN (11:13)
[2022-08-24] MEDS: RIVAROXABAN 20MG TAB (XARELTO) PO SCH (18:06)
[2022-08-24 20:00] VITALS: BP 106/68
[2022-08-24] MEDS: traMADol 50 MG TAB PO PRN (23:04)
[2022-08-25] VITALS: BP 110/66
[2022-08-25] MEDS: IPRATROPIUM 0.5MG/ALBUTEROL 2.5MG INH SOL UD 3ML (DUONEB) NEB SCH ×3 (00:18→15:08)
[2022-08-25] MEDS ORDERED: SUCRALFATE SUSP 1GM/10ML UD PO ONE (02:15)
[2022-08-25] MEDS: MAGNESIUM GLUCONATE 500 MG TAB PO SCH ×5 (02:25→23:45)
[2022-08-25 04:00] VITALS: BP 118/87
[2022-08-25 04:58] LABS: HEMATOCRIT 27.6 % (42.0-52.0); HEMOGLOBIN 7.8 g/dl (13.5-17.5); MEAN CORPUSCULAR HEMOGLOBIN 29.1 pg (27.0-33.0); MEAN CORPUSCULAR HGB CONC 28.3 g/dl (32.0-36.5); PLATELET COUNT, AUTOMATED 216 10^3/uL (150-450); RED BLOOD COUNT 2.68 10^6/uL (4.30-6.10); WHITE BLOOD COUNT 12.2 10^3/uL (4.0-10.0)
[2022-08-25 05:23] LABS: ALBUMIN 1.9 G/DL (3.2-5.2); ALKALINE PHOSPHATASE 236 U/L (46-116); ALT/SGPT 27 U/L (7.0-40); AST/SGOT 75 U/L (<34); BILIRUBIN,TOTAL 0.6 MG/DL (0.3-1.2); BLOOD UREA NITROGEN 9 MG/DL (9-23); CALCIUM LEVEL 7.5 MG/DL (8.5-10.1); CARBON DIOXIDE LEVEL 39 MMOL/L (20-31); CHLORIDE LEVEL 96 MMOL/L (98-107); CREATININE FOR GFR 0.56 MG/DL (0.70-1.30); GLOMERULAR FILTRATION RATE > 60.0 (>56); GLUCOSE, FASTING 120 MG/DL (60-100); POTASSIUM SERUM 3.3 MMOL/L (3.5-5.1); SODIUM LEVEL 139 MMOL/L (136-145); TOTAL PROTEIN 5.3 G/DL (5.7-8.2)
[2022-08-25] MEDS: SODIUM CHLORIDE 0.9% INJ 10 ML SYR IV SCH ×2 (05:30→17:25)
[2022-08-25] MEDS: FLUTICASONE HFA 44MCG 10.6GM INHALER (FLOVENT) INH SCH ×2 (07:20→20:29)
[2022-08-25 07:55] VITALS: BP 114/82
[2022-08-25 08:42] VITALS: BP 118/83
[2022-08-25] MEDS: DAPAGLIFLOZIN PROPANEDIOL 10MG TABLET (FARXIGA) PO SCH (09:05)
[2022-08-25] MEDS: ASPIRIN 81MG CHEW TABLET PO SCH (09:05)
[2022-08-25] MEDS: POTASSIUM CHLORIDE 10MEQ SR TABLET PO SCH (09:06)
[2022-08-25] MEDS: ROSUVASTATIN 10 MG TAB (CRESTOR) PO SCH (09:06)
[2022-08-25] MEDS: METOPROLOL TART 12.5 MG PER 1/2 TAB PO SCH ×2 (09:06→21:49)
[2022-08-25] MEDS: OMEPRAZOLE 20MG CAP PO SCH (09:06)
[2022-08-25] MEDS: LACTOBACILLUS ACIDOPHILUS CAP (BACID) PO SCH ×2 (09:07→17:24)
[2022-08-25] MEDS: TORSEMIDE 20 MG TAB PO SCH (09:07)
[2022-08-25] MEDS: guaiFENesin ER 600 MG TAB PO SCH ×2 (09:07→21:49)
[2022-08-25] MEDS: predniSONE 2.5 MG TAB PO SCH (09:07)
[2022-08-25] MEDS: INSULIN LISPRO (NovoLOG) PER UNIT SC SCH ×4 (09:08→21:00)
[2022-08-25] MEDS: NYSTATIN 100,000 UNITS/GM TOPICAL PWD 15GM TOP SCH ×2 (09:08→21:49)
[2022-08-25] MEDS: HumuLIN N INSULIN (NovoLIN N) PER UNIT SC SCH (09:08)
[2022-08-25] MEDS: LIDOCAINE 5% (LIDODERM) PATCH TOP SCH (09:09)
[2022-08-25] MEDS: SANTYL OINT 30GM TOP SCH (09:12)
[2022-08-25] MEDS ORDERED: POTASSIUM CHLORIDE 10MEQ SR TABLET PO ONE (11:00)
[2022-08-25] MEDS: RIVAROXABAN 20MG TAB (XARELTO) PO SCH (17:25)
[2022-08-25 19:36] VITALS: BP 115/78
[2022-08-25 20:59] VITALS: BP 90/54
[2022-08-25] MEDS: traMADol 50 MG TAB PO PRN (23:46)
[2022-08-26] MEDS: IPRATROPIUM 0.5MG/ALBUTEROL 2.5MG INH SOL UD 3ML (DUONEB) NEB SCH ×4 (00:05→23:30)
[2022-08-26 05:24] LABS: HEMATOCRIT 30.5 % (42.0-52.0); HEMOGLOBIN 8.5 g/dl (13.5-17.5); MEAN CORPUSCULAR HEMOGLOBIN 29.1 pg (27.0-33.0); MEAN CORPUSCULAR HGB CONC 27.9 g/dl (32.0-36.5); MEAN CORPUSCULAR VOLUME 104.5 fl (80.0-96.0); PLATELET COUNT, AUTOMATED 249 10^3/uL (150-450); RED BLOOD COUNT 2.92 10^6/uL (4.30-6.10); WHITE BLOOD COUNT 10.6 10^3/uL (4.0-10.0)
[2022-08-26] MEDS: MAGNESIUM GLUCONATE 500 MG TAB PO SCH ×4 (05:30→23:24)
[2022-08-26] MEDS: SODIUM CHLORIDE 0.9% INJ 10 ML SYR IV SCH ×2 (05:30→18:07)
[2022-08-26 05:43] LABS: ALBUMIN 1.9 G/DL (3.2-5.2); ALKALINE PHOSPHATASE 235 U/L (46-116); ALT/SGPT 31 U/L (7.0-40); AST/SGOT 71 U/L (<34); BILIRUBIN,TOTAL 0.5 MG/DL (0.3-1.2); BLOOD UREA NITROGEN 10 MG/DL (9-23); CALCIUM LEVEL 7.7 MG/DL (8.5-10.1); CARBON DIOXIDE LEVEL 39 MMOL/L (20-31); CHLORIDE LEVEL 95 MMOL/L (98-107); CREATININE FOR GFR 0.61 MG/DL (0.70-1.30); GLOMERULAR FILTRATION RATE > 60.0 (>56); GLUCOSE, FASTING 85 MG/DL (60-100); POTASSIUM SERUM 3.8 MMOL/L (3.5-5.1); SODIUM LEVEL 139 MMOL/L (136-145); TOTAL PROTEIN 5.5 G/DL (5.7-8.2)
[2022-08-26] MEDS: FLUTICASONE HFA 44MCG 10.6GM INHALER (FLOVENT) INH SCH ×2 (07:19→20:08)
[2022-08-26] MEDS: INSULIN LISPRO (NovoLOG) PER UNIT SC SCH ×4 (07:29→20:33)
[2022-08-26 09:00] VITALS: BP 120/78
[2022-08-26] MEDS: OMEPRAZOLE 20MG CAP PO SCH (09:45)
[2022-08-26] MEDS: guaiFENesin ER 600 MG TAB PO SCH ×2 (09:45→20:33)
[2022-08-26] MEDS: POTASSIUM CHLORIDE 10MEQ SR TABLET PO SCH (09:45)
[2022-08-26] MEDS: ACETAMINOPHEN 325 MG TAB PO PRN ×2 (09:46→20:33)
[2022-08-26] MEDS: METOPROLOL TART 12.5 MG PER 1/2 TAB PO SCH ×2 (09:46→20:32)
[2022-08-26] MEDS: ROSUVASTATIN 10 MG TAB (CRESTOR) PO SCH (09:46)
[2022-08-26] MEDS: NYSTATIN 100,000 UNITS/GM TOPICAL PWD 15GM TOP SCH ×2 (09:47→20:43)
[2022-08-26] MEDS: TORSEMIDE 20 MG TAB PO SCH (09:47)
[2022-08-26] MEDS: ASPIRIN 81MG CHEW TABLET PO SCH (09:47)
[2022-08-26] MEDS: LACTOBACILLUS ACIDOPHILUS CAP (BACID) PO SCH ×2 (09:47→18:06)
[2022-08-26] MEDS: DAPAGLIFLOZIN PROPANEDIOL 10MG TABLET (FARXIGA) PO SCH (09:47)
[2022-08-26] MEDS: predniSONE 2.5 MG TAB PO SCH (09:47)
[2022-08-26] MEDS: LIDOCAINE 5% (LIDODERM) PATCH TOP SCH (09:48)
[2022-08-26] MEDS: SANTYL OINT 30GM TOP SCH (09:48)
[2022-08-26] MEDS: HumuLIN N INSULIN (NovoLIN N) PER UNIT SC SCH (09:48)
[2022-08-26] MEDS: RIVAROXABAN 20MG TAB (XARELTO) PO SCH (18:05)
[2022-08-26 19:22] VITALS: BP 110/77
[2022-08-26] MEDS: traMADol 50 MG TAB PO PRN (23:49)
[2022-08-27] MEDS: MAGNESIUM GLUCONATE 500 MG TAB PO SCH ×4 (05:46→23:40)
[2022-08-27] MEDS: SODIUM CHLORIDE 0.9% INJ 10 ML SYR IV SCH ×2 (05:47→18:30)
[2022-08-27 06:47] LABS: HEMATOCRIT 31.4 % (42.0-52.0); HEMOGLOBIN 8.9 g/dl (13.5-17.5); MEAN CORPUSCULAR HEMOGLOBIN 29.3 pg (27.0-33.0); MEAN CORPUSCULAR HGB CONC 28.3 g/dl (32.0-36.5); MEAN CORPUSCULAR VOLUME 103.3 fl (80.0-96.0); PLATELET COUNT, AUTOMATED 275 10^3/uL (150-450); RED BLOOD COUNT 3.04 10^6/uL (4.30-6.10); WHITE BLOOD COUNT 10.5 10^3/uL (4.0-10.0)
[2022-08-27 07:07] LABS: ALBUMIN 1.8 G/DL (3.2-5.2); ALKALINE PHOSPHATASE 248 U/L (46-116); ALT/SGPT 30 U/L (7.0-40); AST/SGOT 68 U/L (<34); BILIRUBIN,TOTAL 0.6 MG/DL (0.3-1.2); BLOOD UREA NITROGEN 11 MG/DL (9-23); CALCIUM LEVEL 7.8 MG/DL (8.5-10.1); CARBON DIOXIDE LEVEL 39 MMOL/L (20-31); CHLORIDE LEVEL 94 MMOL/L (98-107); GLOMERULAR FILTRATION RATE > 60.0 (>56); GLUCOSE, FASTING 103 MG/DL (60-100); POTASSIUM SERUM 3.4 MMOL/L (3.5-5.1); SODIUM LEVEL 138 MMOL/L (136-145)
[2022-08-27] MEDS: INSULIN LISPRO (NovoLOG) PER UNIT SC SCH ×4 (07:30→21:00)
[2022-08-27 07:42] VITALS: BP 106/75
[2022-08-27] MEDS: IPRATROPIUM 0.5MG/ALBUTEROL 2.5MG INH SOL UD 3ML (DUONEB) NEB SCH ×2 (07:58→14:46)
[2022-08-27] MEDS: FLUTICASONE HFA 44MCG 10.6GM INHALER (FLOVENT) INH SCH ×2 (07:59→19:49)
[2022-08-27] MEDS: ROSUVASTATIN 10 MG TAB (CRESTOR) PO SCH (08:47)
[2022-08-27] MEDS: guaiFENesin ER 600 MG TAB PO SCH ×2 (08:48→20:28)
[2022-08-27] MEDS: ASPIRIN 81MG CHEW TABLET PO SCH (08:48)
[2022-08-27] MEDS: POTASSIUM CHLORIDE 10MEQ SR TABLET PO SCH (08:48)
[2022-08-27] MEDS: OMEPRAZOLE 20MG CAP PO SCH (08:49)
[2022-08-27] MEDS: TORSEMIDE 20 MG TAB PO SCH (08:49)
[2022-08-27] MEDS: LACTOBACILLUS ACIDOPHILUS CAP (BACID) PO SCH ×2 (08:49→18:29)
[2022-08-27] MEDS: DAPAGLIFLOZIN PROPANEDIOL 10MG TABLET (FARXIGA) PO SCH (08:50)
[2022-08-27] MEDS: METOPROLOL TART 12.5 MG PER 1/2 TAB PO SCH ×2 (08:50→20:27)
[2022-08-27] MEDS: LIDOCAINE 5% (LIDODERM) PATCH TOP SCH (08:50)
[2022-08-27] MEDS: HumuLIN N INSULIN (NovoLIN N) PER UNIT SC SCH (08:50)
[2022-08-27] MEDS: predniSONE 2.5 MG TAB PO SCH (08:51)
[2022-08-27] MEDS: NYSTATIN 100,000 UNITS/GM TOPICAL PWD 15GM TOP SCH ×2 (08:51→23:40)
[2022-08-27] MEDS: SANTYL OINT 30GM TOP SCH (08:52)
[2022-08-27 09:15] LABS: TOTAL PROTEIN 5.6 G/DL (5.7-8.2)
[2022-08-27] MEDS: ACETAMINOPHEN 325 MG TAB PO PRN (11:29)
[2022-08-27] MEDS: RIVAROXABAN 20MG TAB (XARELTO) PO SCH (18:29)
[2022-08-27] MEDS: traMADol 50 MG TAB PO PRN (20:36)
[2022-08-28 05:53] VITALS: BP 122/85
[2022-08-28] MEDS: MAGNESIUM GLUCONATE 500 MG TAB PO SCH ×4 (06:35→23:22)
[2022-08-28] MEDS: SODIUM CHLORIDE 0.9% INJ 10 ML SYR IV SCH ×2 (06:37→18:00)
[2022-08-28] MEDS: SODIUM CHLORIDE 0.9% INJ 10 ML SYR IV PRN (07:02)
[2022-08-28 07:23] LABS: HEMATOCRIT 30.3 % (42.0-52.0); HEMOGLOBIN 8.6 g/dl (13.5-17.5); MEAN CORPUSCULAR HEMOGLOBIN 29.3 pg (27.0-33.0); MEAN CORPUSCULAR HGB CONC 28.4 g/dl (32.0-36.5); MEAN CORPUSCULAR VOLUME 103.1 fl (80.0-96.0); PLATELET COUNT, AUTOMATED 263 10^3/uL (150-450); RED BLOOD COUNT 2.94 10^6/uL (4.30-6.10); WHITE BLOOD COUNT 9.1 10^3/uL (4.0-10.0)
[2022-08-28] MEDS: IPRATROPIUM 0.5MG/ALBUTEROL 2.5MG INH SOL UD 3ML (DUONEB) NEB SCH ×4 (07:45→23:25)
[2022-08-28] MEDS: FLUTICASONE HFA 44MCG 10.6GM INHALER (FLOVENT) INH SCH ×2 (07:45→19:26)
[2022-08-28 07:51] LABS: ALBUMIN 1.7 G/DL (3.2-5.2); ALKALINE PHOSPHATASE 214 U/L (46-116); ALT/SGPT 26 U/L (7.0-40); AST/SGOT 52 U/L (<34); BILIRUBIN,TOTAL 0.5 MG/DL (0.3-1.2); BLOOD UREA NITROGEN 12 MG/DL (9-23); CALCIUM LEVEL 7.8 MG/DL (8.5-10.1); CARBON DIOXIDE LEVEL 39 MMOL/L (20-31); CHLORIDE LEVEL 95 MMOL/L (98-107); CREATININE FOR GFR 0.59 MG/DL (0.70-1.30); GLOMERULAR FILTRATION RATE > 60.0 (>56); GLUCOSE, FASTING 85 MG/DL (60-100); POTASSIUM SERUM 3.8 MMOL/L (3.5-5.1); SODIUM LEVEL 139 MMOL/L (136-145); TOTAL PROTEIN 5.5 G/DL (5.7-8.2)
[2022-08-28 08:30] VITALS: BP 119/84
[2022-08-28] MEDS: INSULIN LISPRO (NovoLOG) PER UNIT SC SCH ×4 (08:35→21:00)
[2022-08-28] MEDS: HumuLIN N INSULIN (NovoLIN N) PER UNIT SC SCH (08:36)
[2022-08-28] MEDS: ROSUVASTATIN 10 MG TAB (CRESTOR) PO SCH (08:36)
[2022-08-28] MEDS: DAPAGLIFLOZIN PROPANEDIOL 10MG TABLET (FARXIGA) PO SCH (08:37)
[2022-08-28] MEDS: ASPIRIN 81MG CHEW TABLET PO SCH (08:37)
[2022-08-28] MEDS: TORSEMIDE 20 MG TAB PO SCH (08:37)
[2022-08-28] MEDS: OMEPRAZOLE 20MG CAP PO SCH (08:37)
[2022-08-28] MEDS: predniSONE 2.5 MG TAB PO SCH (08:38)
[2022-08-28] MEDS: POTASSIUM CHLORIDE 10MEQ SR TABLET PO SCH (08:38)
[2022-08-28] MEDS: LACTOBACILLUS ACIDOPHILUS CAP (BACID) PO SCH ×2 (08:38→18:34)
[2022-08-28] MEDS: METOPROLOL TART 12.5 MG PER 1/2 TAB PO SCH ×2 (08:38→21:55)
[2022-08-28] MEDS: guaiFENesin ER 600 MG TAB PO SCH ×2 (08:38→21:55)
[2022-08-28] MEDS: NYSTATIN 100,000 UNITS/GM TOPICAL PWD 15GM TOP SCH ×2 (08:39→21:48)
[2022-08-28] MEDS: LIDOCAINE 5% (LIDODERM) PATCH TOP SCH (08:40)
[2022-08-28 08:48] VITALS: BP 119/84
[2022-08-28] MEDS: traMADol 50 MG TAB PO PRN ×2 (10:19→21:58)
[2022-08-28] MEDS: SANTYL OINT 30GM TOP SCH (13:15)
[2022-08-28] MEDS: ACETAMINOPHEN 325 MG TAB PO PRN (13:15)
[2022-08-28] MEDS: RIVAROXABAN 20MG TAB (XARELTO) PO SCH (18:35)
[2022-08-28 21:46] VITALS: BP 117/85
[2022-08-29 06:38] VITALS: BP 103/71
[2022-08-29] MEDS: MAGNESIUM GLUCONATE 500 MG TAB PO SCH ×4 (06:45→23:48)
[2022-08-29] MEDS: INSULIN LISPRO (NovoLOG) PER UNIT SC SCH ×4 (07:30→21:00)
[2022-08-29] MEDS: IPRATROPIUM 0.5MG/ALBUTEROL 2.5MG INH SOL UD 3ML (DUONEB) NEB SCH ×2 (08:02→15:21)
[2022-08-29] MEDS: FLUTICASONE HFA 44MCG 10.6GM INHALER (FLOVENT) INH SCH ×2 (08:02→18:59)
[2022-08-29] MEDS: LIDOCAINE 5% (LIDODERM) PATCH TOP SCH (09:08)
[2022-08-29] MEDS: NYSTATIN 100,000 UNITS/GM TOPICAL PWD 15GM TOP SCH ×2 (09:08→21:45)
[2022-08-29] MEDS: HumuLIN N INSULIN (NovoLIN N) PER UNIT SC SCH (09:09)
[2022-08-29] MEDS: ROSUVASTATIN 10 MG TAB (CRESTOR) PO SCH (09:10)
[2022-08-29] MEDS: ASPIRIN 81MG CHEW TABLET PO SCH (09:10)
[2022-08-29] MEDS: LACTOBACILLUS ACIDOPHILUS CAP (BACID) PO SCH ×2 (09:10→17:52)
[2022-08-29] MEDS: predniSONE 2.5 MG TAB PO SCH (09:10)
[2022-08-29] MEDS: OMEPRAZOLE 20MG CAP PO SCH (09:10)
[2022-08-29] MEDS: ACETAMINOPHEN 325 MG TAB PO PRN ×2 (09:12→17:51)
[2022-08-29] MEDS: DAPAGLIFLOZIN PROPANEDIOL 10MG TABLET (FARXIGA) PO SCH (09:12)
[2022-08-29] MEDS: TORSEMIDE 20 MG TAB PO SCH (09:12)
[2022-08-29] MEDS: guaiFENesin ER 600 MG TAB PO SCH ×2 (09:13→21:40)
[2022-08-29] MEDS: POTASSIUM CHLORIDE 10MEQ SR TABLET PO SCH (09:13)
[2022-08-29] MEDS: METOPROLOL TART 12.5 MG PER 1/2 TAB PO SCH ×2 (09:13→21:45)
[2022-08-29] MEDS: SANTYL OINT 30GM TOP SCH (09:14)
[2022-08-29] MEDS: RIVAROXABAN 20MG TAB (XARELTO) PO SCH (17:52)
[2022-08-30] MEDS: IPRATROPIUM 0.5MG/ALBUTEROL 2.5MG INH SOL UD 3ML (DUONEB) NEB SCH ×4 (00:04→23:08)
[2022-08-30] MEDS: traMADol 50 MG TAB PO PRN (03:00)
[2022-08-30] MEDS: MAGNESIUM GLUCONATE 500 MG TAB PO SCH ×4 (05:26→23:37)
[2022-08-30 06:00] VITALS: BP 104/75
[2022-08-30] MEDS: FLUTICASONE HFA 44MCG 10.6GM INHALER (FLOVENT) INH SCH ×2 (07:17→19:14)
[2022-08-30] MEDS: INSULIN LISPRO (NovoLOG) PER UNIT SC SCH ×4 (07:30→21:00)
[2022-08-30] MEDS: TORSEMIDE 20 MG TAB PO SCH (08:45)
[2022-08-30] MEDS: guaiFENesin ER 600 MG TAB PO SCH ×2 (08:45→21:34)
[2022-08-30] MEDS: ROSUVASTATIN 10 MG TAB (CRESTOR) PO SCH (08:47)
[2022-08-30] MEDS: ACETAMINOPHEN 325 MG TAB PO PRN ×2 (08:48→23:36)
[2022-08-30] MEDS: METOPROLOL TART 12.5 MG PER 1/2 TAB PO SCH ×2 (08:48→21:34)
[2022-08-30] MEDS: LACTOBACILLUS ACIDOPHILUS CAP (BACID) PO SCH ×2 (08:48→17:54)
[2022-08-30] MEDS: ASPIRIN 81MG CHEW TABLET PO SCH (08:48)
[2022-08-30] MEDS: POTASSIUM CHLORIDE 10MEQ SR TABLET PO SCH (08:48)
[2022-08-30] MEDS: predniSONE 2.5 MG TAB PO SCH (08:49)
[2022-08-30] MEDS: HumuLIN N INSULIN (NovoLIN N) PER UNIT SC SCH (08:49)
[2022-08-30] MEDS: OMEPRAZOLE 20MG CAP PO SCH (08:49)
[2022-08-30] MEDS: SANTYL OINT 30GM TOP SCH (08:51)
[2022-08-30] MEDS: LIDOCAINE 5% (LIDODERM) PATCH TOP SCH (08:52)
[2022-08-30] MEDS: NYSTATIN 100,000 UNITS/GM TOPICAL PWD 15GM TOP SCH ×2 (08:52→21:34)
[2022-08-30] MEDS: DAPAGLIFLOZIN PROPANEDIOL 10MG TABLET (FARXIGA) PO SCH (08:55)
[2022-08-30] MEDS: RIVAROXABAN 20MG TAB (XARELTO) PO SCH (17:54)
[2022-08-31] MEDS: traMADol 50 MG TAB PO PRN (03:32)
[2022-08-31] MEDS: IPRATROPIUM 0.5MG/ALBUTEROL 2.5MG INH SOL UD 3ML (DUONEB) NEB PRN (03:58)
[2022-08-31] MEDS: MAGNESIUM GLUCONATE 500 MG TAB PO SCH ×3 (05:37→17:42)
[2022-08-31 06:15] VITALS: BP 102/70
[2022-08-31] MEDS: INSULIN LISPRO (NovoLOG) PER UNIT SC SCH ×4 (07:30→21:00)
[2022-08-31] MEDS: FLUTICASONE HFA 44MCG 10.6GM INHALER (FLOVENT) INH SCH ×2 (07:38→19:42)
[2022-08-31] MEDS: IPRATROPIUM 0.5MG/ALBUTEROL 2.5MG INH SOL UD 3ML (DUONEB) NEB SCH ×3 (07:39→23:09)
[2022-08-31] MEDS: HumuLIN N INSULIN (NovoLIN N) PER UNIT SC SCH (08:43)
[2022-08-31] MEDS: LIDOCAINE 5% (LIDODERM) PATCH TOP SCH (08:43)
[2022-08-31] MEDS: ROSUVASTATIN 10 MG TAB (CRESTOR) PO SCH (08:44)
[2022-08-31] MEDS: POTASSIUM CHLORIDE 10MEQ SR TABLET PO SCH (08:45)
[2022-08-31] MEDS: TORSEMIDE 20 MG TAB PO SCH (08:45)
[2022-08-31] MEDS: LACTOBACILLUS ACIDOPHILUS CAP (BACID) PO SCH ×2 (08:45→17:42)
[2022-08-31] MEDS: guaiFENesin ER 600 MG TAB PO SCH ×2 (08:45→21:32)
[2022-08-31] MEDS: OMEPRAZOLE 20MG CAP PO SCH (08:46)
[2022-08-31] MEDS: ASPIRIN 81MG CHEW TABLET PO SCH (08:46)
[2022-08-31] MEDS: NYSTATIN 100,000 UNITS/GM TOPICAL PWD 15GM TOP SCH ×2 (08:46→21:32)
[2022-08-31] MEDS: METOPROLOL TART 12.5 MG PER 1/2 TAB PO SCH ×2 (08:46→21:33)
[2022-08-31] MEDS: predniSONE 2.5 MG TAB PO SCH (08:47)
[2022-08-31] MEDS: SANTYL OINT 30GM TOP SCH (08:47)
[2022-08-31] MEDS: DAPAGLIFLOZIN PROPANEDIOL 10MG TABLET (FARXIGA) PO SCH (09:00)
[2022-08-31] MEDS: RIVAROXABAN 20MG TAB (XARELTO) PO SCH (17:42)
[2022-09-01] MEDS: MAGNESIUM GLUCONATE 500 MG TAB PO SCH ×5 (00:22→23:05)
[2022-09-01] MEDS: traMADol 50 MG TAB PO PRN (01:35)
[2022-09-01 05:00] VITALS: BP 107/78
[2022-09-01] MEDS: INSULIN LISPRO (NovoLOG) PER UNIT SC SCH ×4 (07:30→21:00)
[2022-09-01 07:45] VITALS: O2SAT 95
[2022-09-01] MEDS: IPRATROPIUM 0.5MG/ALBUTEROL 2.5MG INH SOL UD 3ML (DUONEB) NEB SCH ×2 (07:45→15:35)
[2022-09-01] MEDS: FLUTICASONE HFA 44MCG 10.6GM INHALER (FLOVENT) INH SCH ×2 (07:47→19:28)
[2022-09-01 07:54] VITALS: O2SAT 96
[2022-09-01] MEDS: LACTOBACILLUS ACIDOPHILUS CAP (BACID) PO SCH ×2 (08:00→17:39)
[2022-09-01] MEDS: HumuLIN N INSULIN (NovoLIN N) PER UNIT SC SCH (08:42)
[2022-09-01] MEDS: NYSTATIN 100,000 UNITS/GM TOPICAL PWD 15GM TOP SCH ×2 (08:43→21:36)
[2022-09-01] MEDS: LIDOCAINE 5% (LIDODERM) PATCH TOP SCH (08:43)
[2022-09-01] MEDS: SANTYL OINT 30GM TOP SCH (08:44)
[2022-09-01] MEDS: OMEPRAZOLE 20MG CAP PO SCH (08:45)
[2022-09-01] MEDS: ROSUVASTATIN 10 MG TAB (CRESTOR) PO SCH (08:45)
[2022-09-01] MEDS: ASPIRIN 81MG CHEW TABLET PO SCH (08:45)
[2022-09-01] MEDS: predniSONE 2.5 MG TAB PO SCH (08:48)
[2022-09-01] MEDS: POTASSIUM CHLORIDE 10MEQ SR TABLET PO SCH (08:48)
[2022-09-01] MEDS: guaiFENesin ER 600 MG TAB PO SCH ×2 (08:48→21:35)
[2022-09-01] MEDS: METOPROLOL TART 12.5 MG PER 1/2 TAB PO SCH ×2 (08:50→21:35)
[2022-09-01] MEDS: TORSEMIDE 20 MG TAB PO SCH (08:51)
[2022-09-01] MEDS: DAPAGLIFLOZIN PROPANEDIOL 10MG TABLET (FARXIGA) PO SCH (08:54)
[2022-09-01 15:36] VITALS: O2SAT 88
[2022-09-01] MEDS: RIVAROXABAN 20MG TAB (XARELTO) PO SCH (17:38)
[2022-09-01] MEDS: ACETAMINOPHEN 325 MG TAB PO PRN (21:37)
[2022-09-01] MEDS: DICLOFENAC SODIUM 1% TOP PRN (22:00)
[2022-09-02] MEDS: IPRATROPIUM 0.5MG/ALBUTEROL 2.5MG INH SOL UD 3ML (DUONEB) NEB SCH ×4 (00:52→23:25)
[2022-09-02 05:30] VITALS: BP 113/82
[2022-09-02] MEDS: MAGNESIUM GLUCONATE 500 MG TAB PO SCH ×4 (05:40→23:46)
[2022-09-02] MEDS: INSULIN LISPRO (NovoLOG) PER UNIT SC SCH ×4 (07:30→20:32)
[2022-09-02] MEDS: FLUTICASONE HFA 44MCG 10.6GM INHALER (FLOVENT) INH SCH ×2 (07:42→19:48)
[2022-09-02] MEDS: TORSEMIDE 20 MG TAB PO SCH (09:00)
[2022-09-02] MEDS: DAPAGLIFLOZIN PROPANEDIOL 10MG TABLET (FARXIGA) PO SCH (10:07)
[2022-09-02] MEDS: HumuLIN N INSULIN (NovoLIN N) PER UNIT SC SCH (10:07)
[2022-09-02] MEDS: LIDOCAINE 5% (LIDODERM) PATCH TOP SCH (10:07)
[2022-09-02] MEDS: ACETAMINOPHEN 325 MG TAB PO PRN (10:08)
[2022-09-02] MEDS: ROSUVASTATIN 10 MG TAB (CRESTOR) PO SCH (10:08)
[2022-09-02] MEDS: POTASSIUM CHLORIDE 10MEQ SR TABLET PO SCH (10:09)
[2022-09-02] MEDS: OMEPRAZOLE 20MG CAP PO SCH (10:09)
[2022-09-02] MEDS: LACTOBACILLUS ACIDOPHILUS CAP (BACID) PO SCH ×2 (10:09→17:33)
[2022-09-02] MEDS: ASPIRIN 81MG CHEW TABLET PO SCH (10:09)
[2022-09-02] MEDS: METOPROLOL TART 12.5 MG PER 1/2 TAB PO SCH ×2 (10:10→20:30)
[2022-09-02] MEDS: predniSONE 5 MG TAB PO SCH (10:11)
[2022-09-02] MEDS: guaiFENesin ER 600 MG TAB PO SCH ×2 (10:11→20:30)
[2022-09-02] MEDS: SANTYL OINT 30GM TOP SCH (10:12)
[2022-09-02] MEDS: NYSTATIN 100,000 UNITS/GM TOPICAL PWD 15GM TOP SCH ×2 (10:12→20:32)
[2022-09-02] MEDS: RIVAROXABAN 20MG TAB (XARELTO) PO SCH (17:34)
[2022-09-02] MEDS: traMADol 50 MG TAB PO PRN (20:31)
[2022-09-03] MEDS: ACETAMINOPHEN 325 MG TAB PO PRN (00:35)
[2022-09-03 02:37] VITALS: BP 106/75
[2022-09-03] MEDS ORDERED: KETOROLAC 30 MG/ML 1ML VIAL IV ONE (03:00)
[2022-09-03] MEDS ORDERED: KETOROLAC TROMETHAMINE 10 MG TAB PO ONE (04:00)
[2022-09-03 05:33] VITALS: BP 124/82
[2022-09-03] MEDS: MAGNESIUM GLUCONATE 500 MG TAB PO SCH ×3 (05:33→17:42)
[2022-09-03] MEDS: INSULIN LISPRO (NovoLOG) PER UNIT SC SCH ×4 (07:30→20:48)
[2022-09-03] MEDS: FLUTICASONE HFA 44MCG 10.6GM INHALER (FLOVENT) INH SCH ×2 (07:46→19:20)
[2022-09-03] MEDS: IPRATROPIUM 0.5MG/ALBUTEROL 2.5MG INH SOL UD 3ML (DUONEB) NEB SCH ×3 (07:46→23:09)
[2022-09-03] MEDS: SANTYL OINT 30GM TOP SCH (09:12)
[2022-09-03] MEDS: NYSTATIN 100,000 UNITS/GM TOPICAL PWD 15GM TOP SCH ×2 (09:12→20:53)
[2022-09-03] MEDS: LIDOCAINE 5% (LIDODERM) PATCH TOP SCH (09:12)
[2022-09-03] MEDS: OMEPRAZOLE 20MG CAP PO SCH (09:13)
[2022-09-03] MEDS: ASPIRIN 81MG CHEW TABLET PO SCH (09:13)
[2022-09-03] MEDS: LACTOBACILLUS ACIDOPHILUS CAP (BACID) PO SCH ×2 (09:13→17:42)
[2022-09-03] MEDS: ROSUVASTATIN 10 MG TAB (CRESTOR) PO SCH (09:13)
[2022-09-03] MEDS: DAPAGLIFLOZIN PROPANEDIOL 10MG TABLET (FARXIGA) PO SCH (09:13)
[2022-09-03] MEDS: POTASSIUM CHLORIDE 10MEQ SR TABLET PO SCH (09:13)
[2022-09-03] MEDS: TORSEMIDE 20 MG TAB PO SCH (09:14)
[2022-09-03] MEDS: guaiFENesin ER 600 MG TAB PO SCH ×2 (09:14→20:54)
[2022-09-03] MEDS: predniSONE 5 MG TAB PO SCH (09:14)
[2022-09-03] MEDS: METOPROLOL TART 12.5 MG PER 1/2 TAB PO SCH ×2 (09:14→20:54)
[2022-09-03] MEDS: HumuLIN N INSULIN (NovoLIN N) PER UNIT SC SCH (09:15)
[2022-09-03] MEDS: traMADol 50 MG TAB PO PRN (14:33)
[2022-09-03] MEDS: RIVAROXABAN 20MG TAB (XARELTO) PO SCH (17:42)
[2022-09-04] MEDS: MAGNESIUM GLUCONATE 500 MG TAB PO SCH ×5 (00:09→23:30)
[2022-09-04 05:31] VITALS: BP 106/76
[2022-09-04] MEDS: FLUTICASONE HFA 44MCG 10.6GM INHALER (FLOVENT) INH SCH ×2 (06:08→21:02)
[2022-09-04] MEDS: INSULIN LISPRO (NovoLOG) PER UNIT SC SCH ×4 (07:30→20:07)
[2022-09-04] MEDS: DAPAGLIFLOZIN PROPANEDIOL 10MG TABLET (FARXIGA) PO SCH (08:24)
[2022-09-04] MEDS: predniSONE 5 MG TAB PO SCH (08:24)
[2022-09-04] MEDS: LACTOBACILLUS ACIDOPHILUS CAP (BACID) PO SCH ×2 (08:24→17:31)
[2022-09-04] MEDS: guaiFENesin ER 600 MG TAB PO SCH ×2 (08:24→21:17)
[2022-09-04] MEDS: ROSUVASTATIN 10 MG TAB (CRESTOR) PO SCH (08:24)
[2022-09-04] MEDS: TORSEMIDE 20 MG TAB PO SCH (08:24)
[2022-09-04] MEDS: OMEPRAZOLE 20MG CAP PO SCH (08:24)
[2022-09-04] MEDS: ASPIRIN 81MG CHEW TABLET PO SCH (08:24)
[2022-09-04] MEDS: NYSTATIN 100,000 UNITS/GM TOPICAL PWD 15GM TOP SCH ×2 (08:25→21:17)
[2022-09-04] MEDS: METOPROLOL TART 12.5 MG PER 1/2 TAB PO SCH ×2 (08:25→21:17)
[2022-09-04] MEDS: LIDOCAINE 5% (LIDODERM) PATCH TOP SCH (08:25)
[2022-09-04] MEDS: POTASSIUM CHLORIDE 10MEQ SR TABLET PO SCH (08:25)
[2022-09-04] MEDS: SANTYL OINT 30GM TOP SCH (08:26)
[2022-09-04] MEDS: HumuLIN N INSULIN (NovoLIN N) PER UNIT SC SCH (08:26)
[2022-09-04] MEDS: IPRATROPIUM 0.5MG/ALBUTEROL 2.5MG INH SOL UD 3ML (DUONEB) NEB SCH ×2 (09:10→17:44)
[2022-09-04] MEDS: RIVAROXABAN 20MG TAB (XARELTO) PO SCH (17:31)
[2022-09-05] MEDS: IPRATROPIUM 0.5MG/ALBUTEROL 2.5MG INH SOL UD 3ML (DUONEB) NEB SCH ×4 (00:01→23:18)
[2022-09-05] MEDS: SODIUM CHLORIDE NASAL 0.65% SPRAY BTL (OCEAN) PRN (03:24)
[2022-09-05] MEDS: ACETAMINOPHEN 325 MG TAB PO PRN (04:00)
[2022-09-05 06:00] VITALS: BP 112/76
[2022-09-05] MEDS: MAGNESIUM GLUCONATE 500 MG TAB PO SCH ×4 (06:16→21:54)
[2022-09-05] MEDS: INSULIN LISPRO (NovoLOG) PER UNIT SC SCH ×4 (07:30→21:00)
[2022-09-05] MEDS: FLUTICASONE HFA 44MCG 10.6GM INHALER (FLOVENT) INH SCH ×2 (08:15→19:45)
[2022-09-05] MEDS: NYSTATIN 100,000 UNITS/GM TOPICAL PWD 15GM TOP SCH ×2 (09:32→21:54)
[2022-09-05] MEDS: LIDOCAINE 5% (LIDODERM) PATCH TOP SCH (09:32)
[2022-09-05] MEDS: ASPIRIN 81MG CHEW TABLET PO SCH (09:33)
[2022-09-05] MEDS: TORSEMIDE 20 MG TAB PO SCH (09:33)
[2022-09-05] MEDS: guaiFENesin ER 600 MG TAB PO SCH ×2 (09:33→21:54)
[2022-09-05] MEDS: LACTOBACILLUS ACIDOPHILUS CAP (BACID) PO SCH ×2 (09:33→17:28)
[2022-09-05] MEDS: OMEPRAZOLE 20MG CAP PO SCH (09:33)
[2022-09-05] MEDS: ROSUVASTATIN 10 MG TAB (CRESTOR) PO SCH (09:33)
[2022-09-05] MEDS: predniSONE 5 MG TAB PO SCH (09:33)
[2022-09-05] MEDS: POTASSIUM CHLORIDE 10MEQ SR TABLET PO SCH (09:34)
[2022-09-05] MEDS: HumuLIN N INSULIN (NovoLIN N) PER UNIT SC SCH (09:34)
[2022-09-05] MEDS: METOPROLOL TART 12.5 MG PER 1/2 TAB PO SCH ×2 (09:34→21:56)
[2022-09-05] MEDS: DAPAGLIFLOZIN PROPANEDIOL 10MG TABLET (FARXIGA) PO SCH (09:38)
[2022-09-05] MEDS: traMADol 50 MG TAB PO PRN (11:00)
[2022-09-05 11:38] LABS: BLOOD UREA NITROGEN 11 MG/DL (9-23); CALCIUM LEVEL 7.7 MG/DL (8.5-10.1); CARBON DIOXIDE LEVEL 37 MMOL/L (20-31); CHLORIDE LEVEL 95 MMOL/L (98-107); CREATININE FOR GFR 0.53 MG/DL (0.70-1.30); GLOMERULAR FILTRATION RATE > 60.0 (>56); GLUCOSE, FASTING 123 MG/DL (60-100); MAGNESIUM LEVEL 1.8 MG/DL (1.8-2.4); POTASSIUM SERUM 3.8 MMOL/L (3.5-5.1); SODIUM LEVEL 135 MMOL/L (136-145)
[2022-09-05] MEDS: RIVAROXABAN 20MG TAB (XARELTO) PO SCH (17:28)
[2022-09-06 05:20] VITALS: BP 114/82
[2022-09-06] MEDS: ACETAMINOPHEN 325 MG TAB PO PRN (05:38)
[2022-09-06] MEDS: IPRATROPIUM 0.5MG/ALBUTEROL 2.5MG INH SOL UD 3ML (DUONEB) NEB SCH ×3 (07:12→23:08)
[2022-09-06] MEDS: FLUTICASONE HFA 44MCG 10.6GM INHALER (FLOVENT) INH SCH ×2 (07:13→19:39)
[2022-09-06] MEDS: LIDOCAINE 5% (LIDODERM) PATCH TOP SCH (08:26)
[2022-09-06] MEDS: NYSTATIN 100,000 UNITS/GM TOPICAL PWD 15GM TOP SCH ×2 (08:26→21:09)
[2022-09-06] MEDS: HumuLIN N INSULIN (NovoLIN N) PER UNIT SC SCH (08:27)
[2022-09-06] MEDS: INSULIN LISPRO (NovoLOG) PER UNIT SC SCH ×4 (08:27→21:00)
[2022-09-06] MEDS: DAPAGLIFLOZIN PROPANEDIOL 10MG TABLET (FARXIGA) PO SCH (08:27)
[2022-09-06] MEDS: MAGNESIUM GLUCONATE 500 MG TAB PO SCH ×3 (08:27→21:08)
[2022-09-06] MEDS: METOPROLOL TART 12.5 MG PER 1/2 TAB PO SCH ×3 (08:28→21:09)
[2022-09-06] MEDS: ASPIRIN 81MG CHEW TABLET PO SCH (08:30)
[2022-09-06] MEDS: LACTOBACILLUS ACIDOPHILUS CAP (BACID) PO SCH ×2 (08:30→17:58)
[2022-09-06] MEDS: ROSUVASTATIN 10 MG TAB (CRESTOR) PO SCH (08:30)
[2022-09-06] MEDS: OMEPRAZOLE 20MG CAP PO SCH (08:30)
[2022-09-06] MEDS: POTASSIUM CHLORIDE 10MEQ SR TABLET PO SCH (08:31)
[2022-09-06] MEDS: predniSONE 5 MG TAB PO SCH (08:31)
[2022-09-06] MEDS: TORSEMIDE 20 MG TAB PO SCH ×2 (08:31→08:35)
[2022-09-06] MEDS: guaiFENesin ER 600 MG TAB PO SCH ×2 (08:32→21:09)
[2022-09-06] MEDS: RIVAROXABAN 20MG TAB (XARELTO) PO SCH (17:58)
[2022-09-07 04:39] VITALS: BP 113/82
[2022-09-07] MEDS: ACETAMINOPHEN 325 MG TAB PO PRN (04:49)
[2022-09-07] MEDS: IPRATROPIUM 0.5MG/ALBUTEROL 2.5MG INH SOL UD 3ML (DUONEB) NEB SCH ×3 (07:58→23:48)
[2022-09-07] MEDS: FLUTICASONE HFA 44MCG 10.6GM INHALER (FLOVENT) INH SCH ×2 (07:58→19:52)
[2022-09-07] MEDS: INSULIN LISPRO (NovoLOG) PER UNIT SC SCH ×4 (09:13→20:38)
[2022-09-07] MEDS: LACTOBACILLUS ACIDOPHILUS CAP (BACID) PO SCH ×2 (10:04→18:38)
[2022-09-07] MEDS: ROSUVASTATIN 10 MG TAB (CRESTOR) PO SCH (10:04)
[2022-09-07] MEDS: MAGNESIUM GLUCONATE 500 MG TAB PO SCH ×3 (10:04→20:34)
[2022-09-07] MEDS: ASPIRIN 81MG CHEW TABLET PO SCH (10:04)
[2022-09-07] MEDS: POTASSIUM CHLORIDE 10MEQ SR TABLET PO SCH (10:05)
[2022-09-07] MEDS: OMEPRAZOLE 20MG CAP PO SCH (10:05)
[2022-09-07] MEDS: guaiFENesin ER 600 MG TAB PO SCH ×2 (10:06→20:37)
[2022-09-07] MEDS: METOPROLOL TART 12.5 MG PER 1/2 TAB PO SCH ×2 (10:06→20:36)
[2022-09-07] MEDS: TORSEMIDE 20 MG TAB PO SCH (10:06)
[2022-09-07] MEDS: LIDOCAINE 5% (LIDODERM) PATCH TOP SCH (10:07)
[2022-09-07] MEDS: predniSONE 5 MG TAB PO SCH (10:07)
[2022-09-07] MEDS: NYSTATIN 100,000 UNITS/GM TOPICAL PWD 15GM TOP SCH ×2 (10:08→20:42)
[2022-09-07] MEDS: DAPAGLIFLOZIN PROPANEDIOL 10MG TABLET (FARXIGA) PO SCH (10:09)
[2022-09-07] MEDS: RIVAROXABAN 20MG TAB (XARELTO) PO SCH (18:38)
[2022-09-08] MEDS: IPRATROPIUM 0.5MG/ALBUTEROL 2.5MG INH SOL UD 3ML (DUONEB) NEB SCH ×3 (07:21→23:28)
[2022-09-08] MEDS: FLUTICASONE HFA 44MCG 10.6GM INHALER (FLOVENT) INH SCH ×2 (07:22→20:31)
[2022-09-08] MEDS: INSULIN LISPRO (NovoLOG) PER UNIT SC SCH ×4 (07:30→21:00)
[2022-09-08] MEDS: ASPIRIN 81MG CHEW TABLET PO SCH (09:04)
[2022-09-08] MEDS: OMEPRAZOLE 20MG CAP PO SCH (09:05)
[2022-09-08] MEDS: LACTOBACILLUS ACIDOPHILUS CAP (BACID) PO SCH ×2 (09:05→18:31)
[2022-09-08] MEDS: POTASSIUM CHLORIDE 10MEQ SR TABLET PO SCH (09:05)
[2022-09-08] MEDS: LIDOCAINE 5% (LIDODERM) PATCH TOP SCH (09:05)
[2022-09-08] MEDS: predniSONE 5 MG TAB PO SCH (09:05)
[2022-09-08] MEDS: MAGNESIUM GLUCONATE 500 MG TAB PO SCH ×3 (09:06→20:59)
[2022-09-08] MEDS: DAPAGLIFLOZIN PROPANEDIOL 10MG TABLET (FARXIGA) PO SCH (09:06)
[2022-09-08] MEDS: guaiFENesin ER 600 MG TAB PO SCH ×2 (09:06→20:58)
[2022-09-08] MEDS: ROSUVASTATIN 10 MG TAB (CRESTOR) PO SCH (09:06)
[2022-09-08] MEDS: TORSEMIDE 20 MG TAB PO SCH (09:06)
[2022-09-08] MEDS: NYSTATIN 100,000 UNITS/GM TOPICAL PWD 15GM TOP SCH ×2 (09:09→20:58)
[2022-09-08] MEDS: METOPROLOL TART 12.5 MG PER 1/2 TAB PO SCH ×2 (09:09→20:59)
[2022-09-08 18:08] VITALS: BP 108/76
[2022-09-08] MEDS: RIVAROXABAN 20MG TAB (XARELTO) PO SCH (18:31)
[2022-09-09 04:55] VITALS: BP 111/82
[2022-09-09] MEDS: ACETAMINOPHEN 325 MG TAB PO PRN ×2 (05:14→15:14)
[2022-09-09] MEDS: SODIUM CHLORIDE NASAL 0.65% SPRAY BTL (OCEAN) PRN (05:15)
[2022-09-09] MEDS: INSULIN LISPRO (NovoLOG) PER UNIT SC SCH ×4 (07:20→21:00)
[2022-09-09] MEDS: IPRATROPIUM 0.5MG/ALBUTEROL 2.5MG INH SOL UD 3ML (DUONEB) NEB SCH ×3 (07:35→23:19)
[2022-09-09] MEDS: FLUTICASONE HFA 44MCG 10.6GM INHALER (FLOVENT) INH SCH ×2 (07:35→19:52)
[2022-09-09] MEDS: guaiFENesin ER 600 MG TAB PO SCH ×2 (08:29→20:06)
[2022-09-09] MEDS: predniSONE 5 MG TAB PO SCH (08:29)
[2022-09-09] MEDS: LIDOCAINE 5% (LIDODERM) PATCH TOP SCH (08:29)
[2022-09-09] MEDS: METOPROLOL TART 12.5 MG PER 1/2 TAB PO SCH ×2 (08:29→20:07)
[2022-09-09] MEDS: OMEPRAZOLE 20MG CAP PO SCH (08:30)
[2022-09-09] MEDS: MAGNESIUM GLUCONATE 500 MG TAB PO SCH ×3 (08:30→20:06)
[2022-09-09] MEDS: ROSUVASTATIN 10 MG TAB (CRESTOR) PO SCH (08:30)
[2022-09-09] MEDS: TORSEMIDE 20 MG TAB PO SCH (08:30)
[2022-09-09] MEDS: ASPIRIN 81MG CHEW TABLET PO SCH (08:30)
[2022-09-09] MEDS: LACTOBACILLUS ACIDOPHILUS CAP (BACID) PO SCH ×2 (08:30→18:05)
[2022-09-09] MEDS: DAPAGLIFLOZIN PROPANEDIOL 10MG TABLET (FARXIGA) PO SCH (08:30)
[2022-09-09] MEDS: POTASSIUM CHLORIDE 10MEQ SR TABLET PO SCH (08:31)
[2022-09-09] MEDS: NYSTATIN 100,000 UNITS/GM TOPICAL PWD 15GM TOP SCH ×2 (08:31→20:08)
[2022-09-09] MEDS: RIVAROXABAN 20MG TAB (XARELTO) PO SCH (18:05)
[2022-09-10] MEDS: ACETAMINOPHEN 325 MG TAB PO PRN ×2 (02:27→10:55)
[2022-09-10 06:18] VITALS: BP 107/76
[2022-09-10] MEDS: INSULIN LISPRO (NovoLOG) PER UNIT SC SCH ×4 (07:30→21:00)
[2022-09-10] MEDS: IPRATROPIUM 0.5MG/ALBUTEROL 2.5MG INH SOL UD 3ML (DUONEB) NEB SCH ×3 (08:36→23:17)
[2022-09-10] MEDS: FLUTICASONE HFA 44MCG 10.6GM INHALER (FLOVENT) INH SCH ×2 (08:37→19:21)
[2022-09-10] MEDS: MAGNESIUM GLUCONATE 500 MG TAB PO SCH ×3 (10:41→21:43)
[2022-09-10] MEDS: OMEPRAZOLE 20MG CAP PO SCH (10:41)
[2022-09-10] MEDS: POTASSIUM CHLORIDE 10MEQ SR TABLET PO SCH (10:41)
[2022-09-10] MEDS: LACTOBACILLUS ACIDOPHILUS CAP (BACID) PO SCH ×2 (10:41→17:40)
[2022-09-10] MEDS: TORSEMIDE 20 MG TAB PO SCH (10:42)
[2022-09-10] MEDS: ROSUVASTATIN 10 MG TAB (CRESTOR) PO SCH (10:42)
[2022-09-10] MEDS: DAPAGLIFLOZIN PROPANEDIOL 10MG TABLET (FARXIGA) PO SCH (10:42)
[2022-09-10] MEDS: guaiFENesin ER 600 MG TAB PO SCH ×2 (10:42→21:44)
[2022-09-10] MEDS: predniSONE 5 MG TAB PO SCH (10:43)
[2022-09-10] MEDS: ASPIRIN 81MG CHEW TABLET PO SCH (10:43)
[2022-09-10] MEDS: METOPROLOL TART 12.5 MG PER 1/2 TAB PO SCH ×2 (10:44→21:44)
[2022-09-10] MEDS: LIDOCAINE 5% (LIDODERM) PATCH TOP SCH (10:44)
[2022-09-10] MEDS: NYSTATIN 100,000 UNITS/GM TOPICAL PWD 15GM TOP SCH ×2 (10:45→21:00)
[2022-09-10] MEDS: RIVAROXABAN 20MG TAB (XARELTO) PO SCH (17:40)
[2022-09-11] MEDS: ACETAMINOPHEN 325 MG TAB PO PRN (03:36)
[2022-09-11] MEDS: traMADol 50 MG TAB PO PRN (07:03)
[2022-09-11] MEDS: IPRATROPIUM 0.5MG/ALBUTEROL 2.5MG INH SOL UD 3ML (DUONEB) NEB SCH ×3 (07:22→23:25)
[2022-09-11] MEDS: FLUTICASONE HFA 44MCG 10.6GM INHALER (FLOVENT) INH SCH ×2 (07:22→19:06)
[2022-09-11] MEDS: INSULIN LISPRO (NovoLOG) PER UNIT SC SCH ×4 (09:34→21:00)
[2022-09-11] MEDS: LIDOCAINE 5% (LIDODERM) PATCH TOP SCH (09:44)
[2022-09-11] MEDS: ASPIRIN 81MG CHEW TABLET PO SCH (09:44)
[2022-09-11] MEDS: guaiFENesin ER 600 MG TAB PO SCH ×2 (09:44→21:52)
[2022-09-11] MEDS: LACTOBACILLUS ACIDOPHILUS CAP (BACID) PO SCH ×2 (09:44→17:51)
[2022-09-11] MEDS: ROSUVASTATIN 10 MG TAB (CRESTOR) PO SCH (09:45)
[2022-09-11] MEDS: TORSEMIDE 20 MG TAB PO SCH (09:45)
[2022-09-11] MEDS: predniSONE 5 MG TAB PO SCH (09:45)
[2022-09-11] MEDS: DAPAGLIFLOZIN PROPANEDIOL 10MG TABLET (FARXIGA) PO SCH (09:45)
[2022-09-11] MEDS: OMEPRAZOLE 20MG CAP PO SCH (09:45)
[2022-09-11] MEDS: POTASSIUM CHLORIDE 10MEQ SR TABLET PO SCH (09:45)
[2022-09-11] MEDS: MAGNESIUM GLUCONATE 500 MG TAB PO SCH ×3 (09:46→21:52)
[2022-09-11] MEDS: METOPROLOL TART 12.5 MG PER 1/2 TAB PO SCH ×2 (09:46→21:57)
[2022-09-11] MEDS: NYSTATIN 100,000 UNITS/GM TOPICAL PWD 15GM TOP SCH ×2 (09:46→21:58)
[2022-09-11] MEDS: RIVAROXABAN 20MG TAB (XARELTO) PO SCH (17:51)
[2022-09-12 05:00] VITALS: BP 120/92
[2022-09-12] MEDS: FLUTICASONE HFA 44MCG 10.6GM INHALER (FLOVENT) INH SCH (07:24)
[2022-09-12] MEDS: IPRATROPIUM 0.5MG/ALBUTEROL 2.5MG INH SOL UD 3ML (DUONEB) NEB SCH (07:25)
[2022-09-12] MEDS: INSULIN LISPRO (NovoLOG) PER UNIT SC SCH (07:30)
[2022-09-12] MEDS ORDERED: FARX1TAB3 PO ×2 (07:49→07:50)
[2022-09-12] MEDS ORDERED: METO1TAB87 PO (07:49)
[2022-09-12] MEDS ORDERED: MAGN50TA PO (07:49)
[2022-09-12] MEDS ORDERED: PRED25TA PO (07:49)
[2022-09-12] MEDS ORDERED: TORS20TA2 PO (07:49)
[2022-09-12] MEDS ORDERED: RISATAB3 PO (07:49)
[2022-09-12] MEDS ORDERED: POTA-136 PO (07:49)
[2022-09-12] MEDS ORDERED: COMBAER6 INH (07:55)
[2022-09-12] MEDS: ROSUVASTATIN 10 MG TAB (CRESTOR) PO SCH (09:14)
[2022-09-12] MEDS: POTASSIUM CHLORIDE 10MEQ SR TABLET PO SCH (09:14)
[2022-09-12] MEDS: LACTOBACILLUS ACIDOPHILUS CAP (BACID) PO SCH (09:14)
[2022-09-12] MEDS: LIDOCAINE 5% (LIDODERM) PATCH TOP SCH (09:14)
[2022-09-12] MEDS: OMEPRAZOLE 20MG CAP PO SCH (09:14)
[2022-09-12] MEDS: guaiFENesin ER 600 MG TAB PO SCH (09:15)
[2022-09-12] MEDS: predniSONE 5 MG TAB PO SCH (09:15)
[2022-09-12] MEDS: TORSEMIDE 20 MG TAB PO SCH (09:15)
[2022-09-12] MEDS: MAGNESIUM GLUCONATE 500 MG TAB PO SCH (09:15)
[2022-09-12] MEDS: ASPIRIN 81MG CHEW TABLET PO SCH (09:15)
[2022-09-12] MEDS: DAPAGLIFLOZIN PROPANEDIOL 10MG TABLET (FARXIGA) PO SCH (09:16)
[2022-09-12] MEDS: NYSTATIN 100,000 UNITS/GM TOPICAL PWD 15GM TOP SCH (09:16)
[2022-09-12 09:17] VITALS: BP 120/92
[2022-09-12] MEDS: METOPROLOL TART 12.5 MG PER 1/2 TAB PO SCH (09:17)
[2022-09-12] MEDS: traMADol 50 MG TAB PO PRN (09:28)
== END 2022-09-12 10:18 | DRG 194 ==
LOC: M PCU 07-21 17:04 → M MSPAV 08-01 14:16 → M ICU 08-01 22:53 → M PCU 08-11 18:42 → M ICU 08-13 06:20 → M PCU 08-16 13:10 → M MSPAV 08-27 17:46
PROVIDERS: ADMIT Internal Medicine Nephrology; ATTEND Internal Medicine
PROC: B246ZZZ Ultrasonography of Right and Left Heart (ICD-10-PCS; principal; 2022-07-23)
PROC: 0W993ZX Drainage of Right Pleural Cavity, Percutaneous Approach, Diagnostic (ICD-10-PCS; 2022-07-24)
PROC: 02HV33Z Insertion of Infusion Device into Superior Vena Cava, Percutaneous Approach (ICD-10-PCS; 2022-08-03)
PROC: 0W9930Z Drainage of Right Pleural Cavity with Drainage Device, Percutaneous Approach (ICD-10-PCS; 2022-08-03)
PROC: 3E0L3GC Introduction of Other Therapeutic Substance into Pleural Cavity, Percutaneous Approach (ICD-10-PCS; 2022-08-04)
DX: I11.0 Hypertensive heart disease with heart failure (principal); J96.22 Acute and chronic respiratory failure with hypercapnia; G72.81 Critical illness myopathy; J69.0 Pneumonitis due to inhalation of food and vomit; E43 Unspecified severe protein-calorie malnutrition; B37.0 Candidal stomatitis; E11.65 Type 2 diabetes mellitus with hyperglycemia; I47.20 Ventricular tachycardia, unspecified; L89.152 Pressure ulcer of sacral region, stage 2; E87.3 Alkalosis; J90 Pleural effusion, not elsewhere classified; Z86.74 Personal history of sudden cardiac arrest; Z99.81 Dependence on supplemental oxygen; R13.10 Dysphagia, unspecified; J44.1 Chronic obstructive pulmonary disease with (acute) exacerbation; E66.2 Morbid (severe) obesity with alveolar hypoventilation; R53.1 Weakness; I25.10 Atherosclerotic heart disease of native coronary artery without angina pectoris; E05.90 Thyrotoxicosis, unspecified without thyrotoxic crisis or storm; E78.5 Hyperlipidemia, unspecified; K21.9 Gastro-esophageal reflux disease without esophagitis; I25.5 Ischemic cardiomyopathy; R74.01 Elevation of levels of liver transaminase levels; R07.89 Other chest pain; D53.9 Nutritional anemia, unspecified; I48.20 Chronic atrial fibrillation, unspecified; M54.50 Low back pain, unspecified; I50.43 Acute on chronic combined systolic (congestive) and diastolic (congestive) heart failure; K59.00 Constipation, unspecified; G47.00 Insomnia, unspecified; Z95.810 Presence of automatic (implantable) cardiac defibrillator; Z95.5 Presence of coronary angioplasty implant and graft; Z79.01 Long term (current) use of anticoagulants; Z87.891 Personal history of nicotine dependence; Z79.52 Long term (current) use of systemic steroids; Z79.82 Long term (current) use of aspirin; Z68.38 Body mass index [BMI] 38.0-38.9, adult; Z79.4 Long term (current) use of insulin; Z79.899 Other long term (current) drug therapy; Z88.5 Allergy status to narcotic agent